=== PATIENT | male | born 1975 | race Caucasian/White ===

== ENCOUNTER → 2019-07-17 08:27 | Outpatient (CLI) | payer MEDICAID, SELFPAY ==
--- NOTE | 2019-07-17 08:29 | CA_ITS ---
APPROVED REPORT Health It Specialist: LORRI Study Quality: Good Indications: htn Risk Factors Hypertension Renal Artery Doppler Origin (R) 114.0/31.3 cm/sec Proximal (R) 125.0/39.1 cm/sec Mid (R) 94.5/34.5 cm/sec Distal (R) 65.7/19.1 cm/sec Renal Aorta Ratio (R) 1.20 Segmental A. (R) 36.6/14.3 cm/sec RI: 0.60 Segmental A. Sup (R) 42.8/16.0 cm/sec Segmental A. Mid (R) 40.8/15.3 cm/sec Segmental A. Inf (R) 26.2/11.5 cm/sec Origin (L) 143.0/42.9 cm/sec Proximal (L) 145.0/43.7 cm/sec Mid (L) 75.2/26.2 cm/sec Distal (L) 71.8/28.2 cm/sec Renal Aorta Ratio (L) 1.40 Segmental A. (L) 41.3/15.4 cm/sec RI: 0.62 Segmental A. Sup (L) 56.4/21.4 cm/sec Segmental A. Mid (L) 38.0/12.7 cm/sec Segmental A. Inf (L) 29.6/12.0 cm/sec Renal Measurements Kidney Size (R) 9.6x6.4 cm Cortical Thickness (R) 1.4 cm Kidney Size (L) 11.0x6.9 cm Cortical Thickness (L) 1.3 cm Aortic Doppler Velocity Waveform Sup [place] Ao 105.0 cm/sec Conclusion Normal bilateral renal artery ultrasound. There are multiple cysts seen right kidney the largest is located in the upper pole and measures 2.9 cm. Electronically signed by : Madan Llanos MD 07/17/2019 17:29:25
== END ==
PROVIDERS: PCP Nurse Practitioner Family; Visit Provider Internal Medicine Cardiovascular Disease
DX: R07.9 Chest pain, unspecified (principal); R06.00 Dyspnea, unspecified; I10 Essential (primary) hypertension; R60.9 Edema, unspecified
CPT/HCPCS: 93976

== ENCOUNTER → 2019-08-06 06:48 | Outpatient (CLI) | payer MEDICAID, SELFPAY ==
--- NOTE | 2019-08-06 | CA_ITS ---
APPROVED REPORT Exam: Pharmacologic Technologist: Kim Anderson, Ht: 5 ft 11 in Wt: 250 lbs BSA: 2.32 m2 HR: 52 bpm BP: 191/104 mmHg Indications: Chest pain, Shortness of Breath Medical History Medications: Clonidine,,,,, DOxazosin,,,,, Stress Test Details Test: LEXISCAN HR Resting HR: 55 bpm Max Heart Rate (APMHR): 177 bpm Max HR Achieved: 77 bpm Target HR (85% APMHR): 150 bpm % of APMHR: 43 Recovery HR: 54 bpm BP Resting BP: 191/104 mmHg Max BP: 203/110 mmHg Recovery BP: 185.0/116.0 mmHg ECG Clinical Exercise duration: 04:00 min Highest Stage Achieved: Stress ECG Conclusion Resting ECG: Sinus Bradycardia, NS ST-t abnormalities inferiorly. Symptoms: Shortness of Air, Mailaise, Mild Chest Pressure, Headache Arrhythmias/Ectopy: None ST-T Changes: Mild exaggeratoin of baseline ST-T abnormalities. Conclusion: Unremarkable Lexiscan stress. Myoview images reported separately. Electronically signed by : Salo Henderson, 08/06/2019 20:25:50
--- NOTE | 2019-08-06 06:50 | CA_ITS ---
APPROVED REPORT EXAM: Comprehensive 2D, Doppler, and color-flow Echocardiogram Pumping Supervisor: Racquel Mayorga RDCS Ht: 5 ft 10 in Wt: 261lbs BSA: 2.34 BP: 200/84 mmHg Indications: Chest Pain, Shortness of Breath, Obesity, Palpitations, Fatigue, Hypertension/HDD 2D Dimensions LVOT 2.50 cm (M/F) 1.5-2.5 M-Mode Dimensions RVDd 3.50 cm (0.9-2.6) LA Diam 4.60 cm (1.9-4.0) LVDd 6.60 cm (3.5-5.7) Ao Diam 3.30 cm (2.0-3.7) LVDs 4.90 cm (3.5-5.7) AV Cusp 2.00 cm (1.5-2.6) IVSd 0.90 cm (0.6-1.1) PWd 0.90 cm (0.6-1.1) EF (Teich) 49.60% FS 25.80% EDV (Teich) 224.00 mL ESV (Teich) 113.00 mL LV Diastology E/A Ratio 1.1 MED E' 5.75 (< 7 cm/sec) E'/MED E' Ratio 15.20 (>14) LAT E' 10.80 (<10 cm/sec) E/LAT E' Ratio 8.10 (>14) Mitral Valve MV E Max Abelino. 87.40 (40-130 cm/s) MV A Velocity 78.50 (40-130 cm/s) E/A Ratio 1.10 Left Ventricle Left atrium is mildly enlarged, left ventricle is normal size, mild concentric left ventricular hypertrophy, visually estimated ejection fraction 55% with no regional wall motion abnormality, grade 1 diastolic dysfunction seen with tissue Doppler evidence of raise left atrial pressure. Right Ventricle Right atrium and right ventricular normal size and contractility. Aortic Valve Aortic valve is normal, there is no aortic stenosis aortic insufficiency. Mitral Valve Mitral valve is grossly normal, there is no mitral stenosis, there is mild mitral regurgitation. Tricuspid Valve Tricuspid valve is grossly normal, there is mild tricuspid regurgitation, tricuspid regurgitation jet velocity is inadequate for calculation of the right ventricular systolic pressure. Pulmonic Valve Pulmonic valve is poorly visualized. Great Vessels Aortic root is normal size. Pericardium No significant pericardial effusion noted. Conclusion 1. Mildly enlarged left atrium, normal left ventricular size, mild concentric left ventricular hypertrophy, visually estimated ejection fraction 55% with no regional wall motion abnormality, grade 1 diastolic dysfunction seen with tissue Doppler evidence of raise left atrial pressure. 2. Mild mitral and tricuspid regurgitation. 3. No significant pericardial effusion noted. Electronically signed by : Salo Henderson, 08/09/2019 16:39:55
--- NOTE | 2019-08-06 06:52 | CT_ITS ---
PROCEDURE: CT CHEST WO CON CLINICAL INDICATION: cp, chest pain Shortness of air, chest tightness, hypertension COMPARISON: Chest from 06/09/2019 TECHNIQUE: Axial images obtained with sagittal and coronal reformats. All CT scans at the facility use one or more dose reduction, viz: automated exposure control, ma/kV adjustment per patient size (including targeted exams where dose is matched to indication, i.e. head), or iterative reconstruction technique. FINDINGS: There is scattered calcified nodes in the mediastinum. There is some mixed density in the anterior mediastinum which may be due to residual thymic tissue. Normal heart size. No mediastinal or hilar adenopathy. Hyperinflation with attenuation of the peripheral pulmonary vessels consistent with COPD. There are scattered ground-glass opacities nonspecific have a somewhat mosaic appearance me. Atelectatic or fibrotic changes are present in the lingula. There is a subpleural noncalcified pulmonary nodule in the left lower lobe posterior laterally at 8 mm. Other smaller subpleural nodules are present including a 6 mm subpleural nodule in the left lower lobe posteriorly. There are few small subpleural opacities on the right as well. No central obstructing lesions. There is mild bronchial thickening. No acute bony findings. Upper abdominal images show part of a right renal cyst which measures 2.7 cm. There is some suggestion of thickening of this cyst wall. Consider ultrasound for further evaluation IMPRESSION: COPD. There is a mosaic ground-glass appearance in the lower lung zones and perihilar regions. This is nonspecific and can be seen with small airway disease/COPD or patchy pneumonitis. Mixed density in the anterior mediastinum which may be related to residual thymic tissue Right renal cyst with mild thickening of the cyst wall. Consider ultrasound for further evaluation Noncalcified left lower lobe nodules measuring up to 8 mm. Suggest 6 month follow-up to confirm short term stability Dictated by: Madan Llanos MD 08/07/2019 07:10 Electronically signed by Madan Llanos MD in [place] 08/07/2019 07:13
--- NOTE | 2019-08-06 06:52 | NM_ITS ---
APPROVED REPORT Exam: Nuclear Stress Test Indication: Chest pain, SOB, Palpitations, HTN, Tobacco use, Family histoy Patient Location: Outpatient Stress Tech: Kim Anderson [place] Tech:Lula Montoya, ARRT, RT (R)(N) Ht: 5 ft 11 in Wt: 250 lbs BSA: 2.32 m2 HR: 52 bpm BP: 191/104 mmHg BMI: 34.8 History: Chest pain, SOB, Palpitations, HTN, Tobacco use, Family histoy Procedure: Patient received a 0.4 mg of intravenous Lexiscan, resting heart rate 52 bpm, resting blood pressure 191/104 mmHg, with Lexiscan maximum heart rate achived was 71 bpm which is Less than 85 % of the maximum predicted heart rate and blood pressure was 188/114 mmHg. With Lexiscan, patient denied any complaint of chest pain. Electrocardiogram Resting electrocardiogram shows sinus rhythm, with Lexiscan there is less than 1.[address] segment depression noted from the baseline EKG. The EKG portion of the Lexiscan Myoview is nondiagnostic. Cardiac Stress and Resting SPECT Images: Cardiac Stress and Resting SPECT images were obtained using technetium 99m Myoview 30.5 mCi stress and 10.13 mCi at rest. Gated SPECT with analysis of segmental wall motion and calculation of the ejection fraction also done. Cardiac stress and resting SPECT images show uniform myocardial activity without segmental perfusion abnormality, computer derived ejection fraction is 64% with no regional wall motion abnormality, right ventricle is normal size and contractility. Conclusion: 1. The EKG portion of the Lexiscan Myoview is nondiagnostic. 2. No scintigraphic evidence of reversible ischemia seen, computer derived ejection fraction is 64% with no regional wall motion abnormality, right ventricle is normal size and contractility. 3. Normal Lexiscan Myoview study. Electronically signed by : Salo Henderson, 08/06/2019 20:29:32
--- NOTE | 2019-08-06 07:14 | HMH.ITSHM ---
Current Home Medications as stated by this patient Jseus Loera or customer contact representative. []DOXAZOSIN CLONIDINE
== END ==
PROVIDERS: PCP Emergency Medicine; Visit Provider Internal Medicine Cardiovascular Disease
DX: R07.9 Chest pain, unspecified (principal); R06.00 Dyspnea, unspecified; I10 Essential (primary) hypertension; R60.9 Edema, unspecified
CPT/HCPCS: 71250; 78452; 93017; 93306

== ENCOUNTER → 2019-08-22 15:43 | Outpatient (CLI) | payer MEDICAID, SELFPAY | PROVIDERS: Visit Provider Urology | DX: G47.33 Obstructive sleep apnea (adult) (pediatric) (principal) ==

== ENCOUNTER 2020-09-24 00:09 | Emergency (ER) | payer MEDICAID, SELFPAY ==
[2020-09-24] VITALS (14 sets, daily range): BP systolic 95–130; BP diastolic 51–95; PULSE 91–132; RESP 18–32; TEMP 36.8–37.9; O2SAT 85–96; BMI 26.4
--- NOTE | 2020-09-24 00:24 | XR_ITS ---
PROCEDURE: XR CHEST PORTABLE CLINICAL HISTORY: fall, cough and shortness of breath Posttraumatic pain COMPARISON: CR CXR2V XR chest 2V from 11/13/2018 CR Chest from 06/09/[address] CHEST WO CON from 08/06/2019 FINDINGS: There are low lung volumes. There is increased density throughout both lungs in part which may be related to the poor inspiration. Confluent airspace opacities noted in both lower lobes left greater than right. Superimposed alveolar disease is also considered specially on the left. There is mild cardiomegaly No acute bony abnormalities. IMPRESSION: Poor inspiration with cardiomegaly with bilateral lower lobe pneumonia left greater than right Dictated by: Madan Llanos MD 09/24/2020 05:21 Madan Llanos MD in [place] 09/24/2020 05:21
--- NOTE | 2020-09-24 00:24 | CT_ITS ---
PROCEDURE: CT CERVICAL SPINE WO CON CLINICAL INDICATION: fall Neck injury with pain, contusion/abrasion or hematoma, cervical sprain/strain the COMPARISON: CR XR CHEST PORTABLE from 09/24/2020 TECHNIQUE: Axial images obtained with sagittal and coronal reformats. All CT scans at the facility use one or more dose reduction, viz: automated exposure control, ma/kV adjustment per patient size (including targeted exams where dose is matched to indication, i.e. head), or iterative reconstruction technique. Axial spiral CT scanning performed of the cervical spine beginning at the base of the skull and continuing to the upper T-spine. 3-D multiplanar reconstruction with 3-D manipulation of volumetric data set in image rendering was completed by the radiologist and/or technologist with the supervision of the radiologist on independent workstation. FINDINGS: Patient's head is tilted toward the left. Normal alignment. No fracture or dislocation. No lytic or blastic change. Scattered small nodes are present in the neck. There is diffuse confluent bilateral consolidation in the upper lobes the IMPRESSION: 1. No acute cervical spine fracture. 2. Diffuse bilateral airspace disease consistent with diffuse pneumonia or pulmonary edema. Dictated by: Madan Llanos MD 09/24/2020 07:22 Madan Llanos MD in [place] 09/24/2020 07:22
--- NOTE | 2020-09-24 00:24 | CT_ITS ---
PROCEDURE: CT HEAD/BRAIN WO CON CLINICAL INDICATION: fall Head injury with headache/pain, contusion, abrasion or hematomaAltered mental status, altered level of consciousness, confusion, disorientation COMPARISON: CT HEADWO CT head/brain wo con from 11/13/2018 TECHNIQUE: Axial images obtained. All CT scans at the facility use one or more dose reduction, viz: automated exposure control, ma/kV adjustment per patient size (including targeted exams where dose is matched to indication, i.e. head), or iterative reconstruction technique. FINDINGS: No midline shift, mass effect, intracranial hemorrhage, hydrocephalus, or extra-axial fluid collection is evident. The calvarium has an unremarkable appearance. No mastoid effusion. No sinus air-fluid level. IMPRESSION: No acute intracranial finding Dictated by: Madan Llanos MD 09/24/2020 06:33 Madan Llanos MD in [place] 09/24/2020 06:33
--- NOTE | 2020-09-24 00:28 | XR_ITS ---
PROCEDURE: XR PELVIS 1-2V CLINICAL INDICATION: fall Posttraumatic pain COMPARISON: No exams were available for comparison TECHNIQUE: XR Pelvis AP View FINDINGS: No fracture or dislocation is evident. No significant degenerative change. No lytic or blastic change. IMPRESSION: No acute findings. Dictated by: Madan Llanos MD 09/24/2020 05:18 Madan Llanos MD in [place] 09/24/2020 05:18
--- NOTE | 2020-09-24 00:29 | PC.NURSE ---
at bedside. rad notified of xrays
[2020-09-24 00:35] LABS: Basophils # 0.1 K/mm3 (0-0.2); Basophils % 0.2 % (0.1-2.0); Eosinophils % 0.1 % (0.1-12.0); Hemoglobin 12.1 g/dL (14.1-18.0); Lymphocytes # 1.2 K/mm3 (0.7-4.5); Lymphocytes % 3.8 % (10-50); Mean Corpuscular HGB Conc 31.1 g/dL (31.8-35.4); Mean Corpuscular Hemoglobin 31.4 pg (27.0-31.2); Mean Corpuscular Volume 100.9 fl (80-94); Mean Platelet Volume 7.4 fl (7.4-10.4); Monocytes # 1.2 K/mm3 (0.1-1.0); Monocytes % 3.8 % (1.7-9.3); Neutrophils # 28.5 K/mm3 (1.8-7.8); Neutrophils % 92.1 % (37.0-80.0); Platelet Count 397 K/mm3 (142-424); Red Blood Count 3.87 M/mm3 (4.60-6.20); Red Cell Distribution Width 13.2 % (11.5-17.5)
[2020-09-24 00:43] LABS: POC Glucose,Bedside 158 (70-110)
[2020-09-24 00:43] LABS: Magnesium 2.1 mg/dl (1.6-2.3)
--- NOTE | 2020-09-24 00:43 | PC.NURSE ---
pt to ct per stretcher
--- NOTE | 2020-09-24 00:43 | PC.NURSE ---
received resp. therapy aj
[2020-09-24 00:44] LABS: Alanine Aminotransferase 28 U/L (12-78); Albumin Level 4.5 g/dl (3.5-5.0); Alkaline Phosphatase 159 U/L (38-126); Anion Gap 23.1 mEq/L (5-15); Aspartate Amino Transferase 76 U/L (17-59); Bilirubin,Direct 0.2 mg/dl (0.0-0.4); Bilirubin,Indirect 0.3 mg/dL (0.0-0.9); Bilirubin,Total 0.5 mg/dl (0.2-1.3); Bilirubin,Unconjugated 0.3 mg/dL (0.0-1.1); Blood Urea Nitrogen 62 mg/dl (9-20); Calcium 10.2 mg/dl (8.4-10.2); Carbon Dioxide 14 mmol/L (22.0-30.0); Chloride 109 mmol/L (98-107); Creatinine Clearance Estimated 23 mL/min (50-200); Estimated Glomerular Filt Rate 12 ml/min (>60); GFR (African American) 15 ML/MIN (>60); Glucose 144 mg/dl (74-100); Sodium 140 mmol/L (136-145); Total Protein,Serum 8.2 g/dl (6.3-8.2)
[2020-09-24 00:45] LABS: MANUAL DIFFERENTIAL MANUAL DIFFERENTIAL (MANUAL DIFF)
[2020-09-24 00:46] LABS: Acetaminophen < 10 ug/ml (10-30); Salicylate < 1.0 mg/dL (2.0-20.0)
[2020-09-24 00:47] LABS: Potassium 6.1 mmoL/L (3.5-5.1)
--- NOTE | 2020-09-24 00:50 | PC.NURSE ---
ABG results did not cross over to computer. PH = 7.36, PCO2 = 27.4, PO2 = 40.1, HCO3 = 15.0, BE = -10.5, tHB = 12.1, sO2 = 75.2. Results taken to Dr Anderson
--- NOTE | 2020-09-24 00:54 | PC.NURSE ---
notified of critical lab results
[2020-09-24 00:57] LABS: Troponin I 0.02 ng/ml (0.00-0.034)
[2020-09-24 01:01] LABS: Free T4 (Free Thyroxine) 1.17 ng/dl (0.78-2.19)
--- NOTE | 2020-09-24 01:01 | HMH.EDFEV ---
ED Disposition Clinical Impression: Severe sepsis with acute organ dysfunction, ADI (acute kidney injury), Acute hyperkalemia Community acquired pneumonia Qualifiers: Laterality: unspecified laterality Qualified Code(s): J18.9 - Pneumonia, unspecified organism Respiratory failure, acute Qualifiers: Respiratory failure complication: hypoxia Qualified Code(s): J96.01 - Acute respiratory failure with hypoxia Disposition: Xfer Short-Term Hosp Condition on Discharge: Serious Referrals: PCP,No [Primary Care Provider] - Forms: Transfer Record - ED - Critical Care Critical Care Time: Yes Attestation: On 09/24/20, the high probability of a clinically significant, sudden or life threatening deterioration of the following system(s) required my full and direct attention, intervention and personal management. The time I documented below is in addition to time spent performing reported procedures but includes the following listed in this critical care notation. Total Critical Care Time: 90 Vital system(s) involved:: Metabolic Failure, Respiratory Failure, Renal Failure My critical care processes included: Assessment & monitoring of V/S, Initial and Re-exams, Coordinating Care, Medication Orders and management, Documentation Medical Decision Making - Medical Records Medical records reviewed: Yes: I reviewed the patient's medical records. - Tobin Inquiry Pt receiving controlled substance: No Vital Signs: 09/24/20 00:11 09/24/20 00:23 09/24/20 01:08 Temperature 100.3 F H Temperature Source Rectal Pulse Rate [Right Brachial] 132 H Respiratory Rate 32 H Blood Pressure [right armn] 130/80 Blood Pressure Mean [right armn] 96 Blood Pressure Source [right armn] Manual Cuff/ Auscultation Manual Cuff/ Auscultation Blood Pressure Position [right armn] Sitting Supine 02 Sat by Pulse Oximetry 87 L 85 L Oxygen Delivery Method Room Air Simple Mask Oxygen Flow Rate (LPM) 15 09/24/20 01:47 09/24/20 02:00 09/24/20 02:15 Temperature Temperature Source Pulse Rate [Right Brachial] 112 H 112 H 119 H Respiratory Rate 26 H 22 22 Blood Pressure [right armn] 112/73 110/52 L 95/52 L Blood Pressure Mean [right armn] 86 71 66 Blood Pressure Source [right armn] Blood Pressure Position [right armn] 02 Sat by Pulse Oximetry 93 L 93 L 93 L Oxygen Delivery Method Simple Mask Simple Mask Simple Mask Oxygen Flow Rate (LPM) 15 15 15 09/24/20 02:30 09/24/20 03:05 09/24/20 03:30 Temperature Temperature Source Pulse Rate [Right Brachial] 109 H 91 H 99 H Respiratory Rate 22 22 20 Blood Pressure [right armn] 110/64 116/95 H 96/51 L Blood Pressure Mean [right armn] 79 102 66 Blood Pressure Source [right armn] Blood Pressure Position [right armn] 02 Sat by Pulse Oximetry 87 L 91 L 86 L Oxygen Delivery Method Simple Mask Simple Mask Simple Mask Oxygen Flow Rate (LPM) 15 15 15 09/24/20 04:35 09/24/20 04:58 Temperature Temperature Source Pulse Rate [Right Brachial] 98 H 92 H Respiratory Rate 20 20 Blood Pressure [right armn] 105/58 L 108/62 L Blood Pressure Mean [right armn] 73 77 Blood Pressure Source [right armn] Blood Pressure Position [right armn] 02 Sat by Pulse Oximetry 88 L 88 L Oxygen Delivery Method Simple Mask Simple Mask Oxygen Flow Rate (LPM) 15 15 - Lab Data Lab results reviewed: Yes: I reviewed the patient's lab results. Lab Results 09/24/20 00:12: WBC 31.0 H*, RBC 3.87 L, Hgb 12.1 L, Hct 39.0 L, MCV 100.9 H, MCH 31.4 H, MCHC 31.1 L, RDW 13.2, Plt Count 397, MPV 7.4, Neut % (Auto) 92.1 H, Lymph % (Auto) 3.8 L, [place] % (Auto) 3.8, Eos % (Auto) 0.1, Baso % (Auto) 0.2, Neut # (Auto) 28.5 H, Lymph # (Auto) 1.2, [place] # (Auto) 1.2 H, Eos # (Auto) 0.0, Baso # (Auto) 0.1, Total Counted 100, Neutrophils % (Manual) 92 H, Lymphocytes % (Manual) 8 L, Platelet Estimate Normal, Macrocytosis 1+ 09/24/20 00:12: Sodium 140, Potassium 6.1 H*, Chloride 109 H, Carbon Dioxide 14 L, Anion Gap 23.1
[2020-09-24 01:02] LABS: C-Reactive Protein 384.7 mg/L (0-4); Coronavirus 19 IgG Antibody Negative (Negative); Coronavirus 19 IgM Antibody Negative (Negative)
[2020-09-24 01:04] LABS: Alanine Aminotransferase 28 U/L (12-78); Albumin Level 4.3 g/dl (3.5-5.0); Alkaline Phosphatase 169 U/L (38-126); Aspartate Amino Transferase 77 U/L (17-59); Bilirubin,Direct 0.3 mg/dl (0.0-0.4); Bilirubin,Indirect 0.3 mg/dL (0.0-0.9); Bilirubin,Total 0.6 mg/dl (0.2-1.3); Bilirubin,Unconjugated 0.2 mg/dL (0.0-1.1); Total Protein,Serum 7.6 g/dl (6.3-8.2)
[2020-09-24 01:05] LABS: Lactic Acid 3.5 mmol/L (0.7-2.1)
--- NOTE | 2020-09-24 01:14 | PC.NURSE ---
called RAD to send chest Xray to [facility]
[2020-09-24 01:16] LABS: Thyroid Stimulating Hormone 0.29 uIU/mL (0.465-4.68)
[2020-09-24 01:20] LABS: Erythrocyte Sedimentation Rate 79 mm/hr (0-15)
--- NOTE | 2020-09-24 01:22 | ECG_ITS ---
APPROVED REPORT Exam: Resting ECG HR:97 bpm ECG Measurements Heart Rate 97 AXES MT 160 P 42 QRSd 90 QRS -1 QT 326 T 37 QTc 414 Conclusion Normal sinus rhythm Possible Left atrial enlargement Abnormal ECG Electronically signed by : Eugene Fierro, 09/25/2020 18:15:49
[2020-09-24 01:37] LABS: Microscopic, Urine URINE MICROSCOPIC (MICROSCOPIC)
[2020-09-24 01:37] LABS: Adenovirus,PCR Not Detected (NotDetected); Bordetella Pertussis Not Detected (NotDetected); Chlamydophila Pneumoniae, PCR Not Detected (NotDetected); Coronavirus 19, PCR Not Detected (NotDetected); Coronavirus 229E Not Detected (NotDetected); Coronavirus NL63 Not Detected (NotDetected); Coronavirus OC43 Not Detected (NotDetected); Coronovirus HKU1,PCR Not Detected (NotDetected); Human Metapneumovirus Not Detected (NotDetected); Influenza A, PCR Not Detected (NotDetected); Influenza AH1, 2009 Not Detected (NotDetected); Influenza AH1, PCR Not Detected (NotDetected); Influenza AH3,PCR Not Detected (NotDetected); Influenza B, PCR Not Detected (NotDetected); Mycoplasma Pneumoniae, PCR Not Detected (NotDetected); Parainfluenza 1, PCR Not Detected (NotDetected); Parainfluenza 2, PCR Not Detected (NotDetected); Parainfluenza 3, PCR Not Detected (NotDetected); Parainfluenza 4, PCR Not Detected (NotDetected); Respiratory Syncytial Virus Not Detected (NotDetected); Rhinovirus/Enterovirus Not Detected (NotDetected)
--- NOTE | 2020-09-24 01:42 | PC.NURSE ---
speaking to [facility] r/t possible transfer
[2020-09-24 01:46] LABS: Appearance,Urine CLEAR (Clear); Bilirubin,Urine Negative (Negative); Blood, Urine 1+ (Negative); Color,Urine YELLOW (Yellow); Glucose,Urine (UA) Negative (Negative); Ketones,Urine Negative (Negative); Leukocyte Esterase,Urine Negative (Negative); Nitrate,Urine Negative (Negative); Protein,Urine 1+ (Negative); Urobilinogen,Urine 0.2 EU/dl (0.2)
[2020-09-24 01:49] LABS: Lymphocytes % 8 % (10-50); Macrocytosis 1+; Neutrophils % 92 % (42-76); Platelet Estimate Normal; Total Cells Counted 100
[2020-09-24 01:53] LABS: Amorphous Sediment,Urine 2+ /lpf; Bacteria,Urine 1+ /lpf; Mucus,Urine 1+ /lpf
[2020-09-24 01:57] LABS: Barbiturates Screen,Urine Negative ng/ml (<200)
[2020-09-24 01:58] LABS: Amphetamine/Metha Screen,Urine Negative ng/ml (<1000); Benzodiazepines Screen,Urine Positive ng/ml (<200)
[2020-09-24 01:59] LABS: Cocaine Screen,Urine Negative ng/ml (<300)
[2020-09-24 02:00] LABS: Cannabinoid Screen,Urine Negative ng/ml (<50); Methadone Screen,Urine Negative ng/ml (<300)
--- NOTE | 2020-09-24 02:00 | PC.NURSE ---
[facility] states they want to wait for covid swab results before acceptance for transfer
[2020-09-24 02:01] LABS: Opiate Screen,Urine Negative ng/ml (<300); Phencyclidine Screen,Urine Negative ng/ml (<25)
--- NOTE | 2020-09-24 02:36 | PC.NURSE ---
pt is sitting up in the bed alert and oriented x 3. pt continues to pull off non rebreather at times and takes off his pulse ox after being reminded to keep it on multiple times by staff to monitor pt
--- NOTE | 2020-09-24 03:11 | PC.NURSE ---
15 mins left on covid swab per lab
[2020-09-24 04:01] LABS: Troponin I 0.04 ng/ml (0.00-0.034)
--- NOTE | 2020-09-24 04:10 | PC.NURSE ---
spoke with Dr. Ferreira at who stated they would accept the pt only if he was intubated.
--- NOTE | 2020-09-24 04:11 | PC.NURSE ---
spoke with [facility] who agreed to come in early to intubate pt
--- NOTE | 2020-09-24 04:25 | PC.NURSE ---
Awaiting call from [facility] for weather check
--- NOTE | 2020-09-24 04:31 | PC.NURSE ---
[place] [facility] accepted flight. [place].
--- NOTE | 2020-09-24 04:39 | XR_ITS ---
PROCEDURE: XR CHEST PORTABLE CLINICAL HISTORY: post-intubation Respiratory failure COMPARISON: CR CXR2V XR chest 2V from 11/13/2018 CR Chest from 06/09/[address] CHEST WO CON from 08/06/2019 CR XR CHEST PORTABLE from 09/24/2020 FINDINGS: 5:06 a.m. Endotracheal tube is in good position. The tip is 3.9 cm above the caleb. Nasogastric tube is curled in the nasopharynx and hypo pharyngeal region with the tip not visualized and not in satisfactory position. Sarabjit in the ER was notified of this finding by telephone 09/24/2020 at 5:20 a.m. There is worsening bilateral diffuse airspace disease consistent with diffuse pneumonia. Low lung volumes are noted. There is an overlying difficulty or device on the left. IMPRESSION: Good position of ET tube. NG tube not in satisfactory position. Worsening bilateral airspace disease Dictated by: Madan Llanos MD 09/24/2020 05:29 Madan Llanos MD in [place] 09/24/2020 05:29
--- NOTE | 2020-09-24 04:45 | HMH.ANESCL ---
[facility] Anesthesia Checklist - Patient Identification Patient Identification: Arm Band, Verbal (Name & ) - Structural Data Admitted From: Emergency Dept Planned Operative Procedure/s: Emergent intubation Consent for Planned Operative Procedure(s) Verified: Yes Verified Documents: History and Physical - NPO Status Verified Time NPO: 04:00 (Ice chips) - Chart Verification Results Verified: CBC, BMP - Additional verifications Anesthesia Reactions: No - Airway Assessment C-Spine Mobility Assessed: Yes TMJ Mobility Assessed: Yes Dentition: Poor Dentition - Neurological Assessment Level of Consciousness: Awake, Alert, Appropriate, Follows Commands Hx Seizures: No Numbness or tingling in extremities: No - Anesthesia Plan Anesthesia Risk discussed: Yes Anesthesia Plan: Verified ASA Class: II (Emergent) Anesthesia Type: General [facility] History I have reviewed the patient's past medical history: Yes Medical History: Reports:: Congestive Heart Failure, Hypertension, Palpitations, Renal Disease *Have you ever received a pneumonia vaccine?: No *Have you received a flu vaccine this season?: No Anesthesia experience/problems:: None Other Surgeries: Yes: No Previous Surgery, Other Amputation: No Fractures: Yes (ARM,BACK,LEG) - *Social History Smoking Status: Current every day smoker Tobacco Type: cigarettes # Packs/Day (cigarettes): 1 Alcohol Intake: never Substance Use Type: painkillers *Occupational Status:: employed Housing: house *Travel in the last 8 weeks: None Family Hx:: Hypertension, Coronary Artery Disease, Heart Attack
--- NOTE | 2020-09-24 04:50 | PC.NURSE ---
Anesthesia arrived at bedside.
[2020-09-24 04:57] LABS: Reflex Lactic Add Lactic Reflex
--- NOTE | 2020-09-24 05:08 | PC.NURSE ---
Intubation successful. [facility] gave bed assignment and [facility] was notified to respond at this time
--- NOTE | 2020-09-24 05:10 | P.PCN_ITS ---
[facility] Procedure Note Procedure Note:: [id number]: Called by Dr. Anderson to the ER to perform an emergent intubation, pt sitting upright in bed O2sats 82%, all other VSS, pt sipping on water and ice chips, assessment and plan verified with patient. Pt positioned supine with HOB slightly elevated, monitors applied, preoxygenated, RSI induction using Versed 5mg, Ketamine 100mg, Propofol 100mg, glidescope #3 with stylet, ETT 8.0 placed at 22cm at lip, VSS stable, Rocuronium 50mg given, Vent setting are AV, TV 550, RR 18, FiO2 100%, PEEP 7. O2sat up to 96%.
--- NOTE | 2020-09-24 05:16 | PC.NURSE ---
NG tube placed by SADAF Montes. gastric contents present for placement confirmation. Xray will be obtained to verify placement
--- NOTE | 2020-09-24 05:19 | PC.NURSE ---
Xray verified placement of NG tube and ET tube
--- NOTE | 2020-09-24 05:19 | PC.NURSE ---
12 minute eta per [facility]
--- NOTE | 2020-09-24 05:22 | PC.NURSE ---
kramer catheter placed
--- NOTE | 2020-09-24 05:27 | PC.NURSE ---
Dr. turpin stated NG tube was curled up and needed to be replaced.
--- NOTE | 2020-09-24 05:37 | PC.NURSE ---
[facility] at bedside
[2020-09-24 05:46] LABS: ABG HCO3 13.5 mmhg (22.0-26.0); ABG Oxygen Saturation 97 % (90-100); ABG PCO2 43.7 mmhg (35.0-45.0); ABG PO2 119.2 mmhg (80-100); ABG TCO2 14.9 mmhg (23-27)
--- NOTE | 2020-09-24 05:49 | PC.NURSE ---
Asked Davis what medications he gave to document for intubation. davis stated he would make a note on intubation and put in and scan all of his medications that were given.
--- NOTE | 2020-09-24 05:52 | PC.NURSE ---
report called to aziza dawkins at [phone]; report given prior to patient leaving. pt loaded via stretcher to [facility]. report given to both director medical safety and RN at time of transport. all lines stable. attempted to contact ronnie alba with information related to patient. sent cellphone and tshirt with patient in white belongings bag. faxed a copy of the h&p to 9th floor fax [phone].
[2020-09-24 06:01] LABS: Allen's Test Patient Unable; Oxygen 100 %; PEEP 7; Source Right Radial; Tidal Volume 550; Vent Rate 18
[2020-09-24 06:02] LABS: ABG PH 7.11 mmol/L (7.35-7.45)
[2020-09-24 07:08] LABS: ABG Base Excess -10.5 mmol/L (-2.4-2.3); ABG PCO2 27.4 mmhg (35.0-45.0); ABG PH 7.36 mmol/L (7.35-7.45); ABG PO2 40.1 mmhg (80-100); ABG TCO2 15.9 mmhg (23-27)
[2020-09-24 07:09] LABS: ABG Oxygen Saturation 75 % (90-100); Oxygen 100 %
[2020-09-24 07:10] LABS: Allen's Test ACCEPTABLE; Source R RADIAL
[2020-09-24 07:11] LABS: ABG HCO3 14.8 mmhg (22.0-26.0); ABG PCO2 23.7 mmhg (35.0-45.0); ABG PH 7.41 mmol/L (7.35-7.45)
[2020-09-24 07:12] LABS: ABG Base Excess -9.8 mmol/L (-2.4-2.3); ABG Oxygen Saturation 45 % (90-100); ABG TCO2 15.5 mmhg (23-27); Allen's Test ACCEPTABLE; Oxygen ROOM AIR %; Source R RADIAL
[2020-09-26 00:45] LABS: Peripheral Smear Review Scanned Result
== END 2020-09-24 06:19 | disposition short-term general hospital (02) ==
PROVIDERS: Emergency Provider Emergency Medicine
DX: J18.9 Pneumonia, unspecified organism (principal); A41.9 Sepsis, unspecified organism; N17.9 Acute kidney failure, unspecified; J96.01 Acute respiratory failure with hypoxia; E87.5 Hyperkalemia; Z20.828 Contact with and (suspected) exposure to other viral communicable diseases; Z01.84 Encounter for antibody response examination; I10 Essential (primary) hypertension
CPT/HCPCS: 31500; 70450; 71045; 72125; 72170; 80048; 80076; 80305; 80329; 81001; 82803; 82962; 83605; 83735; 84145; 84439; 84443; 84484; 85007; 85025; 85651; 86140; 86328; 87040; 87070; 87077; 87205; 87581; 87633; 87798; 93005; 96365; 96366; 96367; 96375; 99285; J0456; J2704; U0003

== ENCOUNTER → 2020-10-29 18:07 | Outpatient (CLI) | payer MEDICAID, SELFPAY ==
[2020-10-29 19:29] LABS: Anion Gap 16.5 mEq/L (5-15); Blood Urea Nitrogen 37 mg/dl (9-20); Calcium 9.8 mg/dl (8.4-10.2); Carbon Dioxide 16 mmol/L (22.0-30.0); Chloride 110 mmol/L (98-107); Estimated Glomerular Filt Rate 20 ml/min (>60); GFR (African American) 25 ML/MIN (>60); Glucose 94 mg/dl (74-100); Potassium 5.5 mmoL/L (3.5-5.1); Sodium 137 mmol/L (136-145)
== END ==
PROVIDERS: Visit Provider Nurse Practitioner Family
DX: N17.9 Acute kidney failure, unspecified (principal)
CPT/HCPCS: 80048

== ENCOUNTER → 2020-10-31 12:19 | Outpatient (CLI) | payer MEDICAID, SELFPAY ==
[2020-10-31 13:17] LABS: Basophils # 0.1 K/mm3 (0-0.2); Basophils % 1.1 % (0.1-2.0); Chloride 107 mmol/L (98-107); Eosinophils % 8.9 % (0.1-12.0); Hematocrit 44.9 % (42.0-52.0); Hemoglobin 14.3 g/dL (14.1-18.0); Lymphocytes # 3.3 K/mm3 (0.7-4.5); Lymphocytes % 29.4 % (10-50); Mean Corpuscular HGB Conc 31.8 g/dL (31.8-35.4); Mean Corpuscular Hemoglobin 31.7 pg (27.0-31.2); Mean Corpuscular Volume 99.5 fl (80-94); Mean Platelet Volume 7.7 fl (7.4-10.4); Monocytes # 0.6 K/mm3 (0.1-1.0); Monocytes % 5.6 % (1.7-9.3); Neutrophils # 6.2 K/mm3 (1.8-7.8); Platelet Count 362 K/mm3 (142-424); Potassium 5.1 mmoL/L (3.5-5.1); Red Blood Count 4.51 M/mm3 (4.60-6.20); Sodium 138 mmol/L (136-145); White Blood Count 11.2 K/mm3 (4.8-10.8)
[2020-10-31 13:19] LABS: Bilirubin,Unconjugated 0.2 mg/dL (0.0-1.1); Blood Urea Nitrogen 36 mg/dl (9-20); Estimated Glomerular Filt Rate 26 ml/min (>60); GFR (African American) 31 ML/MIN (>60)
[2020-10-31 13:20] LABS: Alanine Aminotransferase 14 U/L (12-78); Albumin Level 4.8 g/dl (3.5-5.0); Albumin/Globulin Ratio 1.2 (1.1-1.8); Alkaline Phosphatase 112 U/L (38-126); Anion Gap 18.1 mEq/L (5-15); Aspartate Amino Transferase 23 U/L (17-59); Bilirubin,Direct 0.2 mg/dl (0.0-0.4); Bilirubin,Indirect 0.2 mg/dL (0.0-0.9); Bilirubin,Total 0.4 mg/dl (0.2-1.3); Calcium 10.7 mg/dl (8.4-10.2); Carbon Dioxide 18 mmol/L (22.0-30.0); Globulin 3.9 g/dL (1.3-3.2); Glucose 72 mg/dl (74-100); Magnesium 2.3 mg/dl (1.6-2.3); Total Protein,Serum 8.7 g/dl (6.3-8.2)
== END ==
PROVIDERS: Visit Provider Nurse Practitioner Family
DX: N28.9 Disorder of kidney and ureter, unspecified (principal); Z79.899 Other long term (current) drug therapy
CPT/HCPCS: 36415; 80053; 80076; 83735; 85025

== ENCOUNTER 2021-03-06 12:38 | Emergency (ER) | payer MEDICAID, SELFPAY ==
[2021-03-06 12:40] VITALS: BP 140/92; PULSE 71; RESP 20; TEMP 37.1; O2SAT 100; BMI 30.4
--- NOTE | 2021-03-06 13:07 | HMH.EDUTC ---
[facility] Disposition Clinical Impression: UTI (urinary tract infection) Qualifiers: Urinary tract infection type: acute cystitis Hematuria presence: without hematuria Qualified Code(s): N30.00 - Acute cystitis without hematuria Disposition: Home, Self-Care Condition on Discharge: Good Instructions: Urinary Tract Infection Additional Instructions: discussion with pt on doing std testing- call back for results Increase fluids, water and not soda or tea. Can drink cranberry juice or cranberry extract. White front to back Wear cotton underwear Empty bladder after intercourse Start antibiotics immediately and make sure you take the full course although you may start to see improvement over the next 48 hours. You can eat yogurt or take probiotics to decrease diarrhea or yeast infection caused by the antibiotic Be sure to follow-up anytime for new or worsening symptoms in 48 hours for wound urine culture results be sure to let you PCP no recent urine for culture so they can request records and ensure that you have appropriate antibiotic if you are not getting better or getting worse. If symptoms worsen or do not improve return or be seen in the ER. Follow-up with primary care this week. Prescriptions: cephALEXin [Cephalexin 500mg Tab] 500 mg PO BID 7 Days #14 tab Prescription Printed Referrals: Jack Salmeron APRN [Primary Care Provider] - Time of Disposition: 13:12 Medical Decision Making - Tobin Inquiry Pt receiving controlled substance: No Orders (Tests/Meds): ORDERS Category Date Time Status Urine Culture Stat Micro 03/06/21 13:06 Ordered [facility] HPI - General Chief complaint: Urgent Treatment Center Stated complaint: possible uti Time Seen by Provider: 03/06/21 13:07 Mode of Arrival: Ambulatory Source of Information: Patient Limitations: No Limitations - History of Present Illness Provider Complaint: 45 yr old male presents for burning with urination, redness and freq. pt states his was treated last week for a uti and he thinks he has one. - Related Data Home Medications Medication Instructions Recorded Confirmed Aspirin [Aspirin 81mg chewable 81 mg PO DAILY 06/09/19 10/29/20 tab] magnesium 200 mg tablet 250 mg PO DAILY tab 06/20/19 10/29/20 buprenorphine 8 mg-naloxone 2 mg 2 tab SUBLINGUAL DAILY tab 04/17/20 10/29/20 sublingual tablet Amlodipine Besylate [Amlodipine 5 mg PO DAILY 09/24/20 10/29/20 5mg tab] Previous Rx's Medication Instructions Recorded clonidine HCl 0.2 mg tablet 0.2 mg PO Q8H #270 tab 01/21/20 albuterol sulfate 90 mcg/actuation 2 puff INHALATION Q4-6H PRN #8.5 g 12/02/20 aerosol inhaler famotidine 20 mg tablet See Rx Instructions .ROUTE 01/27/21 .COMPLEX #30 tab lisinopril 20 1 tab PO DAILY #60 tab 02/04/21 mg-hydrochlorothiazide 12.5 mg tablet cephALEXin [Cephalexin 500mg Tab] 500 mg PO BID 7 Days #14 tab 03/06/21 Allergies Allergy/AdvReac Type Severity Reaction Status Date / Time No Known Allergies Allergy Verified 10/29/20 10:08 [facility] History - Hepatitis A Screen Attestation statement:: This patient has been screened for Hepatitis A risk factors. I have reviewed the patient's past medical history: Yes Medical History: Reports:: Congestive Heart Failure, Hypertension, Palpitations, Renal Disease Denies:: Seizures Other Surgeries: Yes: No Previous Surgery, Other Amputation: No Fractures: Yes (ARM,BACK,LEG) - Social History Smoking Status: Current every day smoker Tobacco Type: cigarettes # Packs/Day (cigarettes): 1 Alcohol Intake: former Substance Use Type: painkillers, former substance user Occupational Status: employed Housing: house Family Hx:: Hypertension, Coronary Artery Disease, Heart Attack Comment: Grandmother- of PA@60-70s. Grandfather- of PA@60-70. Father-HTN, AFIB. Mother-HTN. Brother-Afib ROS Obtained: Yes Systems reviewed as appropriate & no additional complaints - Constitutional Con
[2021-03-06 13:18] VITALS: BP 140/92; PULSE 71; RESP 20; TEMP 37.1; O2SAT 100
[2021-03-06 19:01] LABS: Apearance,Urine Clear (Clear); Color,Urine Yellow (Yellow); PH,Urine 5.5 (5.0-8.5); Specific Gravity, Urine 1.015 (1.005-1.030)
[2021-03-06 19:02] LABS: Bilirubin,Urine Negative (Negative); Blood, Urine Negative (Negative); Glucose,Urine (UA) Negative (Negative); Ketones,Urine Negative (Negative); Protein,Urine Negative (Negative); UTC Leukocyte Esterase,Urine Negative (Negative); UTC Nitrate,Urine Positive (Negative); Urobilinogen,Urine 0.2 EU/dl (0.2)
[2021-03-09 12:36] LABS: Neisseria gonorrhoeae, NAA Negative (Negative)
== END 2021-03-06 13:21 | disposition home or self-care (01) ==
PROVIDERS: Emergency Provider Nurse Practitioner Family; PCP Nurse Practitioner Family
DX: N30.00 Acute cystitis without hematuria (principal); I50.9 Heart failure, unspecified; I10 Essential (primary) hypertension; R00.2 Palpitations; N28.9 Disorder of kidney and ureter, unspecified; F17.210 Nicotine dependence, cigarettes, uncomplicated; Z79.899 Other long term (current) drug therapy
CPT/HCPCS: 81003; 87086; 87491; 87591; 99202; G0463

== ENCOUNTER 2021-07-02 12:54 | Emergency (ER) | payer MEDICAID, SELFPAY ==
[2021-07-02 14:08] VITALS: BP 00/00; PULSE 0; RESP 0; TEMP -17.7; TEMP 0
== END 2021-07-02 14:12 | disposition left against medical advice (07) ==
LOC: UTC 12:59
PROVIDERS: Emergency Provider Nurse Practitioner; PCP Emergency Medicine
DX: Z53.21 Procedure and treatment not carried out due to patient leaving prior to being seen by health care provider (principal)

== ENCOUNTER → 2021-12-21 16:00 | Outpatient (CLI) | payer MEDICAID, SELFPAY ==
[2021-12-21 17:19] LABS: Basophils # 0.2 K/mm3 (0-0.2); Basophils % 1.7 % (0.1-2.0); Eosinophils # 0.7 K/mm3 (0.0-0.4); Eosinophils % 7.7 % (0.1-12.0); Hematocrit 41.9 % (42.0-52.0); Mean Corpuscular Hemoglobin 30.9 pg (27.0-31.2); Mean Corpuscular Volume 99.8 fl (80-94); Mean Platelet Volume 8.5 fl (7.4-10.4); Monocytes # 0.6 K/mm3 (0.1-1.0); Monocytes % 6.4 % (1.7-9.3); Neutrophils # 4.7 K/mm3 (1.8-7.8); Neutrophils % 51.2 % (37.0-80.0); Platelet Count 348 K/mm3 (142-424); Red Cell Distribution Width 13.5 % (11.5-17.5); White Blood Count 9.1 K/mm3 (4.8-10.8)
[2021-12-21 17:25] LABS: Alanine Aminotransferase 19 U/L (12-78); Albumin Level 4.5 g/dl (3.5-5.0); Albumin/Globulin Ratio 1.7 (1.1-1.8); Alkaline Phosphatase 89 U/L (38-126); Anion Gap 17.2 mEq/L (5-15); Aspartate Amino Transferase 30 U/L (17-59); Bilirubin,Total 0.4 mg/dl (0.2-1.3); Blood Urea Nitrogen 50 mg/dl (9-20); Calcium 10.3 mg/dl (8.4-10.2); Carbon Dioxide 23 mmol/L (22.0-30.0); Chloride 102 mmol/L (98-107); Chol/HDL Ratio 5.2 (1-3.5); Cholesterol 214 mg/dl (140-200); Estimated Glomerular Filt Rate 19 ml/min (>60); GFR (African American) 23 ML/MIN (>60); Globulin 2.7 g/dL (1.3-3.2); Glucose 84 mg/dl (74-100); HDL Cholesterol 41 mg/dl (40-60); Potassium 5.2 mmoL/L (3.5-5.1); Sodium 137 mmol/L (136-145); Total Protein,Serum 7.2 g/dl (6.3-8.2); Triglycerides 187 mg/dl (30-150); VLDL Cholesterol 37 mg/dL (0-40)
[2021-12-21 17:36] LABS: Direct LDL Cholesterol 127.71 mg/dL (100-129)
[2021-12-21 17:41] LABS: Free T4 (Free Thyroxine) 1.88 ng/dl (0.78-2.19)
[2021-12-21 17:54] LABS: Thyroid Stimulating Hormone 0.94 uIU/mL (0.465-4.68)
== END ==
PROVIDERS: Visit Provider Emergency Medicine
DX: I10 Essential (primary) hypertension (principal); E55.9 Vitamin D deficiency, unspecified; E66.9 Obesity, unspecified; Z68.30 Body mass index [BMI] 30.0-30.9, adult
CPT/HCPCS: 80053; 80061; 82306; 84439; 84443; 85025

== ENCOUNTER 2021-12-25 16:57 | Inpatient (IN) | payer MEDICAID, SELFPAY ==
[2021-12-25] VITALS (7 sets, daily range): BP systolic 103–120; BP diastolic 51–78; PULSE 64–92; RESP 13–28; TEMP 36.6–36.9; O2SAT 66–92; BMI 30.8; BMI 30.7
--- NOTE | 2021-12-25 17:14 | ECG_ITS ---
APPROVED REPORT Exam: Resting ECG HR:85 bpm ECG Measurements Heart Rate 85 AXES DE 179 P 71 QRSd 97 QRS 23 QT 331 T 25 QTc 374 Conclusion SINUS RHYTHM NORMAL ECG UNCONFIRMED REPORT Electronically signed by : Latrell Taylor MD 12/26/2021 08:48:36
--- NOTE | 2021-12-25 17:18 | XR_ITS ---
PROCEDURE INFORMATION: Exam: XR Chest Exam date and time: 12/25/2021 5:18 PM Age: 46 years old Clinical indication: Shortness of breath; Additional info: SOB TECHNIQUE: Imaging protocol: XR of the chest. Views: 1 view. Portable AP exam 5:39 p.m. COMPARISON: CR XR CHEST PORTABLE 09/24/2020 5:06 AM FINDINGS: Tubes, catheters and devices: Overlying director of public health electrodes and oxygen tubing. Lungs: There is left perihilar and lower lobe airspace disease with consolidation and air bronchograms. Question mild hazy airspace opacities on the right. Slight hypoventilation/low lung volumes, but the volumes are increased compared with the previous chest x-ray. Pleural spaces: Unremarkable. No significant pleural effusion. No pneumothorax. Heart/Mediastinum: Cardiac silhouette appears within the upper limits normal, accentuated by portable AP technique. Bones/joints: There are mild spinal degenerative changes, with multilevel disc narrrowing and spondylosis. IMPRESSION: Left perihilar and lower lobe pulmonary airspace disease with consolidation, and slight hazy airspace opacities on the right. Correlate for asymmetric edema versus pneumonia.
[2021-12-25 17:28] LABS: ABG Base Excess -7.7 mmol/L (-2.4-2.3); ABG HCO3 17.5 mmhg (22.0-26.0); ABG Oxygen Saturation 81 % (90-100); ABG PCO2 30.3 mmhg (35.0-45.0); ABG PH 7.38 mmol/L (7.35-7.45); ABG TCO2 18.4 mmhg (23-27)
[2021-12-25 17:40] LABS: Allen's Test y; Oxygen 5 %
[2021-12-25 17:41] LABS: ABG PO2 42.9 mmhg (80-100)
[2021-12-25 17:47] LABS: Basophils # 0.1 K/mm3 (0-0.2); Basophils % 0.7 % (0.1-2.0); Eosinophils # 0.3 K/mm3 (0.0-0.4); Eosinophils % 1.6 % (0.1-12.0); Hematocrit 37.4 % (42.0-52.0); Hemoglobin 11.8 g/dL (14.1-18.0); Lymphocytes # 1.2 K/mm3 (0.7-4.5); Lymphocytes % 6.9 % (10-50); Mean Corpuscular HGB Conc 31.5 g/dL (31.8-35.4); Mean Corpuscular Hemoglobin 31.1 pg (27.0-31.2); Mean Corpuscular Volume 98.7 fl (80-94); Mean Platelet Volume 8.2 fl (7.4-10.4); Monocytes # 0.6 K/mm3 (0.1-1.0); Monocytes % 3.5 % (1.7-9.3); Neutrophils # 14.9 K/mm3 (1.8-7.8); Neutrophils % 87.4 % (37.0-80.0); Platelet Count 289 K/mm3 (142-424); Red Blood Count 3.79 M/mm3 (4.60-6.20); Red Cell Distribution Width 13.5 % (11.5-17.5); White Blood Count 17.1 K/mm3 (4.8-10.8)
--- NOTE | 2021-12-25 17:47 | HMH.EDGENADL ---
ED Disposition Clinical Impression: Respiratory failure with hypoxia Qualifiers: Chronicity: acute Qualified Code(s): J96.01 - Acute respiratory failure with hypoxia Disposition: Admitted As Inpatient Condition on Discharge: Serious - Critical Care Critical Care Time: Yes Attestation: On 12/25/21, the high probability of a clinically significant, sudden or life threatening deterioration of the following system(s) required my full and direct attention, intervention and personal management. The time I documented below is in addition to time spent performing reported procedures but includes the following listed in this critical care notation. Total Critical Care Time: 40 Vital system(s) involved:: Respiratory Failure My critical care processes included: Assessment & monitoring of V/S, Initial and Re-exams, Data Review/Interpretation, Coordinating Care, Medication Orders and management, Documentation Comment: Patient arrives with medical respiratory distress with hypoxia in the 60s, required urgent and repeated evaluations, and intricate management with ABG, oxygen titration for acute hypoxic respiratory failure. High risk of clinical deterioration. Medical Decision Making - Medical Records Medical records reviewed: Yes: I reviewed the patient's medical records. - Tobin Inquiry Pt receiving controlled substance: No Vital Signs: 12/25/21 16:58 12/25/21 17:32 12/25/21 18:01 Temperature 98 F Temperature Source Oral Pulse Rate 80 69 Pulse Rate [Radial] 92 H Respiratory Rate 28 H 24 15 Blood Pressure 112/63 117/52 L Blood Pressure [Right Arm] 112/63 Blood Pressure Mean 74 64 Blood Pressure Mean [Right Arm] 79 Blood Pressure Position [Right Arm] Sitting 02 Sat by Pulse Oximetry 66 L 87 L 89 L Oxygen Delivery Method Room Air Nasal Cannula Nasal Cannula Oxygen Flow Rate (LPM) 6 6 12/25/21 18:31 Temperature Temperature Source Pulse Rate 67 Pulse Rate [Radial] Respiratory Rate 13 Blood Pressure 103/51 L Blood Pressure [Right Arm] Blood Pressure Mean 63 Blood Pressure Mean [Right Arm] Blood Pressure Position [Right Arm] 02 Sat by Pulse Oximetry 89 L Oxygen Delivery Method Nasal Cannula Oxygen Flow Rate (LPM) 6 - Lab Data Lab Results 12/25/21 17:10: WBC 17.1 H, RBC 3.79 L, Hgb 11.8 L, Hct 37.4 L, MCV 98.7 H, MCH 31.1, MCHC 31.5 L, RDW 13.5, Plt Count 289, MPV 8.2, Neut % (Auto) 87.4 H, Lymph % (Auto) 6.9 L, [place] % (Auto) 3.5, Eos % (Auto) 1.6, Baso % (Auto) 0.7, Neut # (Auto) 14.9 H, Lymph # (Auto) 1.2, [place] # (Auto) 0.6, Eos # (Auto) 0.3, Baso # (Auto) 0.1, Total Counted 100, Neutrophils % (Manual) 85 H, Lymphocytes % (Manual) 7 L, Monocytes % (Manual) 6, Eosinophils % (Manual) 2, Platelet Estimate Normal 12/25/21 17:10: D-Dimer 1.22 H 12/25/21 17:10: Sodium 130 L, Potassium 5.6 H, Chloride 100, Carbon Dioxide 19 L, Anion Gap 16.6 H, BUN 64 H, Creatinine 3.90 H, Estimated Creat Clear 33, Estimated GFR 17 L*, Est GFR ( Amer) 20 L, Glucose 98, Calcium 9.3, Total Bilirubin 0.5, AST 63 H, ALT 21, Alkaline Phosphatase 146 H, Troponin I 0.03, Total Protein 7.2, Albumin 3.9, Globulin 3.3 H, Albumin/Globulin Ratio 1.2 12/25/21 17:10: Lactate 1.9 12/25/21 17:10: SARS-CoV-2 (PCR) Not detected, Influenza A Untype (PCR) Not detected, Influenza Type B (PCR) Not detected 12/25/21 17:10: APTT 30.8 H 12/25/21 17:10: PT 11.1, INR 0.98 12/25/21 17:20: Specimen Source r/r, O2 % 5, ABG pH 7.38, ABG pCO2 30.3 L, ABG pO2 42.9 L, ABG HCO3 17.5 L, ABG Total CO2 18.4 L, ABG O2 Saturation 81 L*, ABG Base Excess -7.7 L, Madan Test y Result diagrams: 12/25/21 17:10 12/25/21 17:10 Orders (Tests/Meds): ED MEDICATIONS Generic Name Dose Route Start Last Admin Trade Name Freq PRN Reason Stop Dose Admin Acetaminophen 650 mg 12/25/21 19:33 Acetaminophen 325mg Tab PO 01/24/22 19:32 Q4HP PRN Fever or Mild Pain Albuterol Sulfate puffs 12/25/21 23:00 Albuterol-Hfa 90mcg/Puff Inhaler 8gm IH 0
[2021-12-25 17:52] LABS: Lactic Acid 1.9 mmol/L (0.7-2.1)
[2021-12-25 17:53] LABS: Alanine Aminotransferase 21 U/L (12-78); Albumin Level 3.9 g/dl (3.5-5.0); Albumin/Globulin Ratio 1.2 (1.1-1.8); Alkaline Phosphatase 146 U/L (38-126); Anion Gap 16.6 mEq/L (5-15); Aspartate Amino Transferase 63 U/L (17-59); Bilirubin,Total 0.5 mg/dl (0.2-1.3); Blood Urea Nitrogen 64 mg/dl (9-20); Calcium 9.3 mg/dl (8.4-10.2); Carbon Dioxide 19 mmol/L (22.0-30.0); Chloride 100 mmol/L (98-107); Creatinine Clearance Estimated 33 mL/min (50-200); Estimated Glomerular Filt Rate 17 ml/min (>60); GFR (African American) 20 ML/MIN (>60); Globulin 3.3 g/dL (1.3-3.2); Glucose 98 mg/dl (74-100); MANUAL DIFFERENTIAL MANUAL DIFFERENTIAL (MANUAL DIFF); Potassium 5.6 mmoL/L (3.5-5.1); Sodium 130 mmol/L (136-145); Total Protein,Serum 7.2 g/dl (6.3-8.2)
[2021-12-25 17:58] LABS: D-Dimer 1.22 ug/mL (0.0-0.5)
[2021-12-25 18:06] LABS: Troponin I 0.03 ng/ml (0.00-0.034)
[2021-12-25 18:10] LABS: Coronavirus 19, PCR Not Detected (NotDetected); Influenza A, PCR Not Detected (NotDetected); Influenza B, PCR Not Detected (NotDetected)
[2021-12-25 18:34] LABS: Eosinophils % 2 % (0-3); Lymphocytes % 7 % (10-50); Monocytes % 6 % (2-9); Neutrophils % 85 % (42-76); Platelet Estimate Normal; Total Cells Counted 100
[2021-12-25 19:31] LABS: Activated Partial Thrombo Time 30.8 seconds (22.8-30.6); INR 0.98 (0.9-1.1); Prothrombin Time 11.1 seconds (10.1-12.5)
--- NOTE | 2021-12-25 19:37 | HMH.HP ---
*Admission Date: 12/25/21 *Chief complaint: soa *History of present illness: 46 yr old male presented to ed with c/o soa. pt states since he has been having increase in soa and weakness. pt states he has had pneumonia twice and both times he almost . pt states he become ill all of a sudden and it seems to be getting worse. pt was placed on high flow o2 due to o2 stats being decreased. Pt is admitted for pneumonia and elevated cre. Pt states chronic kidney failure. will place on treatment for possible pe until kidney function improves and ct scan to r/o pe can be completed. [facility] History I have reviewed the patient's past medical history: Yes Medical History: Reports:: Congestive Heart Failure, Hypertension, Palpitations, Renal Disease Denies:: Seizures *Have you ever received a pneumonia vaccine?: Yes *Have you received a flu vaccine this season?: Yes Other Surgeries: Yes: No Previous Surgery, Other Amputation: No Fractures: Yes (ARM,BACK,LEG) - *Social History Smoking Status: Former smoker Tobacco Type: cigarettes # Packs/Day (cigarettes): 1 Alcohol Intake: never Substance Use Type: painkillers, former substance user *Occupational Status:: other Housing: house *Travel in the last 8 weeks: None Family Hx:: Hypertension, Coronary Artery Disease, Heart Attack Review of Systems - Review of Systems Review of systems:: pertinent systems reviewed and negative unless documented below - Constitutional Denies body ache(s), Denies fever(s) - Eyes Denies blurry vision - ENT Denies bleeding gums - *Cardiovascular Denies bluish discoloration of hand/feet, Denies chest pain with activity, Denies leg pain with activity, Reports shortness of breath with activity - *Respiratory Reports cough, Reports shortness of breath, Reports shortness of breath with activity - *Gastrointestinal Denies abdominal pain - *Genitourinary Denies difficulty urinating - *Musculoskeletal Denies abnormal walking - Integumentary/Breasts Denies rash - *Neurologic Denies unsteadiness - Psychiatric Denies abnormal sleep pattern - Endocrine Reports fatigue - Hematologic/Lymphatic Denies easy bruising - Allergic/Immunologic Denies itchy eyes Meds Home Medications Medication Instructions Recorded Confirmed Type buprenorphine 8 mg-naloxone 2 mg 2 tab SUBLINGUAL DAILY tab 04/17/20 12/25/21 History sublingual tablet Albuterol Sulfate [Albuterol 2 puff IH Q6 12/25/21 12/25/21 History Sulfate Hfa] Fluticasone Propionate 1 spray INTRANASAL DAILY 12/25/21 12/25/21 History Lisinopril/Hydrochlorothiazide 1 tab PO DAILY 12/25/21 12/25/21 History [Lisinopril-Hctz 20-12.5 mg Tab] Pantoprazole Sodium 40 mg PO DAILY 12/25/21 12/25/21 History Allergies Allergy/AdvReac Type Severity Reaction Status Date / Time No Known Allergies Allergy Verified 12/21/21 13:43 Exam Vital signs and Labs for Last 24 Hours: Temp Pulse Resp BP Pulse Ox 98 F 67 13 103/51 L 89 L 12/25/21 16:58 12/25/21 18:31 12/25/21 18:31 12/25/21 18:31 12/25/21 18:31 Laboratory Results - last 24 hr 12/25/21 17:10: WBC 17.1 H, RBC 3.79 L, Hgb 11.8 L, Hct 37.4 L, MCV 98.7 H, MCH 31.1, MCHC 31.5 L, RDW 13.5, Plt Count 289, MPV 8.2, Neut % (Auto) 87.4 H, Lymph % (Auto) 6.9 L, [place] % (Auto) 3.5, Eos % (Auto) 1.6, Baso % (Auto) 0.7, Neut # (Auto) 14.9 H, Lymph # (Auto) 1.2, [place] # (Auto) 0.6, Eos # (Auto) 0.3, Baso # (Auto) 0.1, Total Counted 100, Neutrophils % (Manual) 85 H, Lymphocytes % (Manual) 7 L, Monocytes % (Manual) 6, Eosinophils % (Manual) 2, Platelet Estimate Normal 12/25/21 17:10: D-Dimer 1.22 H 12/25/21 17:10: Sodium 130 L, Potassium 5.6 H, Chloride 100, Carbon Dioxide 19 L, Anion Gap 16.6 H, BUN 64 H, Creatinine 3.90 H, Estimated Creat Clear 33, Estimated GFR 17 L*, Est GFR ( Amer) 20 L, Glucose 98, Calcium 9.3, Total Bilirubin 0.5, AST 63 H, ALT 21, Alkaline Phosphatase 146 H, Troponin I 0.03, Total Protein 7.2, Album
--- NOTE | 2021-12-25 20:42 | PC.NURSE ---
patient up to floor via stretcher @ this time.
[2021-12-25 20:57] LABS: Adenovirus,PCR Not Detected (NotDetected); Bordetella Pertussis Not Detected (NotDetected); Chlamydophila Pneumoniae, PCR Not Detected (NotDetected); Coronavirus 229E Not Detected (NotDetected); Coronavirus NL63 Not Detected (NotDetected); Coronavirus OC43 Not Detected (NotDetected); Coronovirus HKU1,PCR Not Detected (NotDetected); Human Metapneumovirus Not Detected (NotDetected); Influenza A, PCR Not Detected (NotDetected); Influenza AH1, 2009 Not Detected (NotDetected); Influenza AH1, PCR Not Detected (NotDetected); Influenza AH3,PCR Not Detected (NotDetected); Influenza B, PCR Not Detected (NotDetected); Mycoplasma Pneumoniae, PCR Not Detected (NotDetected); Parainfluenza 1, PCR Not Detected (NotDetected); Parainfluenza 2, PCR Not Detected (NotDetected); Parainfluenza 3, PCR Not Detected (NotDetected); Parainfluenza 4, PCR Not Detected (NotDetected); Respiratory Syncytial Virus Not Detected (NotDetected); Rhinovirus/Enterovirus Not Detected (NotDetected)
--- NOTE | 2021-12-25 23:32 | PC.NURSE ---
Consulted with [facility] pharmacist about ptt and when to draw next. Pharmacist says draw 4 hrs after start of heparin. Then call back with results for titration.
[2021-12-26] VITALS (7 sets, daily range): BP systolic 92–132; BP diastolic 52–81; PULSE 59–69; RESP 20–24; TEMP 37.2–37.9; O2SAT 92–98; BMI 30.8
[2021-12-26 02:50] LABS: PTT Heparin (inpatient only) 79.9 Seconds (23.6-34.0)
--- NOTE | 2021-12-26 02:54 | PC.NURSE ---
[facility] paged for ptt result and dosing instructions. Pharmacist says to decrease heparin to 1,650 units/hr. She is also putting in a ptt draw, 6 hrs from now.
[2021-12-26 06:32] LABS: Basophils # 0.1 K/mm3 (0-0.2); Basophils % 0.9 % (0.1-2.0); Eosinophils # 0.6 K/mm3 (0.0-0.4); Eosinophils % 4.7 % (0.1-12.0); Hematocrit 33.5 % (42.0-52.0); Lymphocytes % 7.9 % (10-50); Mean Corpuscular HGB Conc 31.5 g/dL (31.8-35.4); Mean Corpuscular Volume 98.2 fl (80-94); Mean Platelet Volume 8.1 fl (7.4-10.4); Monocytes # 0.4 K/mm3 (0.1-1.0); Monocytes % 2.9 % (1.7-9.3); Neutrophils # 10.8 K/mm3 (1.8-7.8); Neutrophils % 83.6 % (37.0-80.0); Platelet Count 239 K/mm3 (142-424); Red Blood Count 3.41 M/mm3 (4.60-6.20); Red Cell Distribution Width 13.2 % (11.5-17.5); White Blood Count 12.9 K/mm3 (4.8-10.8)
[2021-12-26 06:40] LABS: Chloride 102 mmol/L (98-107); Sodium 127 mmol/L (136-145)
[2021-12-26 06:43] LABS: Alanine Aminotransferase 15 U/L (12-78); Albumin Level 3.5 g/dl (3.5-5.0); Albumin/Globulin Ratio 1.2 (1.1-1.8); Alkaline Phosphatase 129 U/L (38-126); Anion Gap 9.1 mEq/L (5-15); Aspartate Amino Transferase 49 U/L (17-59); Bilirubin,Total 0.5 mg/dl (0.2-1.3); Blood Urea Nitrogen 60 mg/dl (9-20); Carbon Dioxide 22 mmol/L (22.0-30.0); Creatinine Clearance Estimated 35 mL/min (50-200); Estimated Glomerular Filt Rate 18 ml/min (>60); GFR (African American) 22 ML/MIN (>60); Total Protein,Serum 6.5 g/dl (6.3-8.2)
[2021-12-26 06:44] LABS: Calcium 8.7 mg/dl (8.4-10.2); Glucose 99 mg/dl (74-100); Magnesium 2.7 mg/dl (1.6-2.3); Phosphorous 4.4 mg/dl (2.5-4.5)
[2021-12-26 06:56] LABS: Potassium 6.1 mmoL/L (3.5-5.1)
[2021-12-26 07:23] LABS: Hemoglobin 10.7 g/dL (14.1-18.0)
--- NOTE | 2021-12-26 08:24 | HMH.PHAINT ---
MEDICATION RECONCILIATION COMPLETED ON PATIENT USING EXTERNAL FILL HISTORY FROM PHARMACY AND LIST FROM PCP OFFICE. -ISIDRO PULIDOD
--- NOTE | 2021-12-26 08:25 | P.CONPHA_ITS ---
[facility] Pharmacy VTE Monitoring - Patient Demographics Admission date: 12/25/21 Report Date: 12/26/21 Time: 08:25 Allergies/Adverse Reactions: Patient Allergies No Known Allergies Allergy (Verified 12/21/21 13:43) Height: 1.78 m Weight: 97.795 kg Patient Problems: Current Active Problems Community acquired pneumonia (Acute) ADI (acute kidney injury) (Acute) Respiratory failure, acute (Acute) Respiratory failure with hypoxia (Acute) - VTE Risk Labs: VTE Related Lab Results Hgb 10.7 g/dL (14.1-18.0) L 12/26/21 06:14 Hct 33.5 % (42.0-52.0) L 12/26/21 06:14 Plt Count 239 K/mm3 (142-424) 12/26/21 06:14 PT 11.1 seconds (10.1-12.5) 12/25/21 17:10 INR 0.98 (0.9-1.1) 12/25/21 17:10 APTT 79.9 Seconds (23.6-34.0) H* 12/26/21 01:25 BUN 60 mg/dl (9-20) H 12/26/21 06:14 Creatinine 3.70 mg/dl (0.66-1.25) H 12/26/21 06:14 Estimated Creat Clear 35 mL/min (50-200) 12/26/21 06:14 Was VTE Risk Assessment Performed: Yes VTE Score: 6 VTE Risk Level: Moderate Risk - Prophylaxis VTE Prophylaxis Ordered?: Yes Types of VTE Prophylaxis: TEDS Knee High, Pharmacological Location of Applied Device: Bilateral Lower Extremeties Pharmacologic Type: Heparin
--- NOTE | 2021-12-26 09:18 | HMH.ACPN2 ---
Internal Medicine - PN: Subj *Date: 12/26/21 *Time: 09:18 Interval history: doing ok on vasotherm - pt has abn renal function with inc k Exam Vital signs and Labs for Last 24 Hours: Temp Pulse Resp BP Pulse Ox 100.1 F H 69 24 117/58 L 92 L 12/26/21 08:00 12/26/21 08:00 12/26/21 08:00 12/26/21 08:00 12/26/21 08:00 Laboratory Results - last 24 hr 12/25/21 17:10: WBC 17.1 H, RBC 3.79 L, Hgb 11.8 L, Hct 37.4 L, MCV 98.7 H, MCH 31.1, MCHC 31.5 L, RDW 13.5, Plt Count 289, MPV 8.2, Neut % (Auto) 87.4 H, Lymph % (Auto) 6.9 L, [place] % (Auto) 3.5, Eos % (Auto) 1.6, Baso % (Auto) 0.7, Neut # (Auto) 14.9 H, Lymph # (Auto) 1.2, [place] # (Auto) 0.6, Eos # (Auto) 0.3, Baso # (Auto) 0.1, Total Counted 100, Neutrophils % (Manual) 85 H, Lymphocytes % (Manual) 7 L, Monocytes % (Manual) 6, Eosinophils % (Manual) 2, Platelet Estimate Normal 12/25/21 17:10: D-Dimer 1.22 H 12/25/21 17:10: Sodium 130 L, Potassium 5.6 H, Chloride 100, Carbon Dioxide 19 L, Anion Gap 16.6 H, BUN 64 H, Creatinine 3.90 H, Estimated Creat Clear 33, Estimated GFR 17 L*, Est GFR ( Amer) 20 L, Glucose 98, Calcium 9.3, Total Bilirubin 0.5, AST 63 H, ALT 21, Alkaline Phosphatase 146 H, Troponin I 0.03, Total Protein 7.2, Albumin 3.9, Globulin 3.3 H, Albumin/Globulin Ratio 1.2 12/25/21 17:10: Lactate 1.9 12/25/21 17:10: SARS-CoV-2 (PCR) Not detected, Influenza A Untype (PCR) Not detected, Influenza Type B (PCR) Not detected 12/25/21 17:10: APTT 30.8 H 12/25/21 17:10: PT 11.1, INR 0.98 12/25/21 17:10: Chlamy pneumoniae PCR Not detected, Adenovirus (PCR) Not detected, B. pertussis DNA (PCR) Not detected, Coronavirus OC43 (PCR) Not detected, Coronavirus HKU1 (PCR) Not detected, Coronavirus 229E (PCR) Not detected, Coronavirus NL63 (PCR) Not detected, Human Metapneumovir PCR Not detected, Influenza A (H1) PCR Not detected, Influ A (H1N1/09) PCR Not detected, Influenza A (H3) PCR Not detected, Influenza Type A (PCR) Not detected, Influenza Type B (PCR) Not detected, M. pneumoniae (PCR) Not detected, Parainfluenza 1 (PCR) Not detected, Parainfluenza 2 (PCR) Not detected, Parainfluenza 3 (PCR) Not detected, Parainfluenza 4 (PCR) Not detected, RSV (PCR) Not detected, Entero/Rhino (PCR) Not detected 12/25/21 17:20: Specimen Source r/r, O2 % 5, ABG pH 7.38, ABG pCO2 30.3 L, ABG pO2 42.9 L, ABG HCO3 17.5 L, ABG Total CO2 18.4 L, ABG O2 Saturation 81 L*, ABG Base Excess -7.7 L, Madan Test y 12/26/21 01:25: APTT 79.9 H* 12/26/21 06:14: WBC 12.9 H, RBC 3.41 L, Hgb 10.7 L, Hct 33.5 L, MCV 98.2 H, MCH 31.0, MCHC 31.5 L, RDW 13.2, Plt Count 239, MPV 8.1, Neut % (Auto) 83.6 H, Lymph % (Auto) 7.9 L, [place] % (Auto) 2.9, Eos % (Auto) 4.7, Baso % (Auto) 0.9, Neut # (Auto) 10.8 H, Lymph # (Auto) 1.0, [place] # (Auto) 0.4, Eos # (Auto) 0.6 H, Baso # (Auto) 0.1 12/26/21 06:14: Sodium 127 L, Potassium 6.1 H*, Chloride 102, Carbon Dioxide 22, Anion Gap 9.1, BUN 60 H, Creatinine 3.70 H, Estimated Creat Clear 35, Estimated GFR 18 L*, Est GFR ( Amer) 22 L, Glucose 99, Calcium 8.7, Phosphorus 4.4, Magnesium 2.7 H, Total Bilirubin 0.5, AST 49, ALT 15 D, Alkaline Phosphatase 129 H, Total Protein 6.5, Albumin 3.5 D, Globulin 3.0, Albumin/Globulin Ratio 1.2 12/26/21 06:14: Lactate 1.0 I & O for Last 24 hours: Intake & Output 12/23/21 12/24/21 12/25/21 12/26/21 11:59 11:59 11:59 11:59 Intake Total 814 / 814 Output Total 1050 / 1050 Balance -236 / -236 Weight 215 lb 9.6 oz - Constitutional no acute distress, obese - *Routine HEENT Exam Head: Present: normocephalic Eye: Present: EOMI, PERRL ENT: Present: mucous membranes dry - *Routine Neck Exam Absent: JVD - *Routine Respiratory Exam Present: decreased breath sounds - *Routine Cardiovascular Exam Present: RRR - *Routine Abdominal Exam Present: soft - *Routine Extremities Exam Absent: calf tenderness - *Routine Skin Exam Absent: rash - *Routine Neurological Exam Present: alert, oriented X3, CN II-XII intact. Absent:
--- NOTE | 2021-12-26 09:35 | HMH.PHAHEP ---
[facility] Pharmacy Heparin Dosing - Demographic Data Admission date:: 12/25/21 Date: 12/26/21 Time: 09:35 Allergies/Adverse Reactions: Allergies Allergy/AdvReac Type Severity Reaction Status Date / Time No Known Allergies Allergy Verified 12/21/21 13:43 Height: 1.78 m Weight: 97.8 kg - Indication Medication therapy:: Heparin Patient Problems: Current Active Problems Community acquired pneumonia (Acute) ADI (acute kidney injury) (Acute) Respiratory failure, acute (Acute) Respiratory failure with hypoxia (Acute) Severe sepsis with acute organ dysfunction (Acute) Acute hyperkalemia (Acute) Obesity (Chronic) CVA?: No Bleeding problem?: No Kidney disease?: No MA?: No Desired PTT range:: Other (50-75) - Labs Anticoagulation Lab Results:: 12/25/21 12/26/21 17:10 06:14 Hgb 11.8 L 10.7 L Hct 37.4 L 33.5 L Plt Count 289 239 - Monitoring Dose Monitor 1 Date: 12/25/21 Time: 17:10 PTT Result:: 30.8 (BASELINE) Infusion Rate:: INITIATE HEPARIN DRIP AT 1,750 UNITS/HR Comment:: 8,000 UNIT BOLUS Dose Monitor 2 Date: 12/26/21 Time: 01:25 PTT Result:: 79.9 Infusion Rate:: DECREASE RATE TO 1,650 UNITS/HR Comment:: [id number] Dose Monitor 3 Date: 12/26/21 Time: 09:00 PTT Result:: 39.6 Infusion Rate:: INCREASE RATE TO 1,850 UNITS/HR Comment:: 4,000 UNIT BOLUS Dose Monitor 4 Date: 12/26/21 Time: 13:00 PTT Result:: 72.0 Infusion Rate:: 1,850 UNITS/HR Dose Monitor 5 Date: 12/26/21 Time: 20:00 PTT Result:: 40.2 Infusion Rate:: INCREASE RATE TO 2,000 UNITS/HR Dose Monitor 6 Date: 12/27/21 Time: 03:00 PTT Result:: 30.5 Infusion Rate:: INCREASE RATE TO 2,400 UNITS/HR Dose Monitor 7 Date: 12/27/21 Time: 09:30 PTT Result:: 43.5 Infusion Rate:: INCREASE RATE TO 2,600 UNITS/HR Comment:: 3,000 UNIT BOLUS [id number] Dose Monitor 8 Date: 12/27/21 Time: 15:00 PTT Result:: 32.5 Infusion Rate:: INCREASE RATE TO 3,000 UNITS/HR Comment:: 4,000 UNIT BOLUS Dose Monitor 9 Date: 12/27/21 Time: 23:00 PTT Result:: 94.8 Infusion Rate:: DECREASE RATE TO 2,700 UNITS/HR Dose Monitor 10 Date: 12/28/21 Time: 06:15 PTT Result:: 52.6 Infusion Rate:: 2,700 UNITS/HR Comment:: [id number] Dose Monitor 11 Date: 12/28/21 Time: 12:00 PTT Result:: 29.9 Infusion Rate:: INCREASE RATE TO 2,900 UNITS/HR Comment:: 4,000 UNIT BOLUS Dose Monitor 12 Date: 12/28/21 Time: 19:40 PTT Result:: 65.0 Infusion Rate:: 2,900 UNITS/HR Dose Monitor 13 Date: 12/29/21 Time: 04:00 PTT Result:: 35.5 Infusion Rate:: INCREASE RATE TO 3,300 UNITS/HR Comment:: 4,000 UNIT BOLUS Dose Monitor 14 Date: 12/29/21 Time: 09:00 Comment:: HEPARIN DRIP STOPPED AND SWITCHED TO XARELTO - Core Measures Is INR > or = 2 at discharge?: No Most Recent Labs:: Laboratory Results - last 24 hr 12/25/21 17:10: WBC 17.1 H, RBC 3.79 L, Hgb 11.8 L, Hct 37.4 L, MCV 98.7 H, MCH 31.1, MCHC 31.5 L, RDW 13.5, Plt Count 289, MPV 8.2, Neut % (Auto) 87.4 H, Lymph % (Auto) 6.9 L, [place] % (Auto) 3.5, Eos % (Auto) 1.6, Baso % (Auto) 0.7, Neut # (Auto) 14.9 H, Lymph # (Auto) 1.2, [place] # (Auto) 0.6, Eos # (Auto) 0.3, Baso # (Auto) 0.1, Total Counted 100, Neutrophils % (Manual) 85 H, Lymphocytes % (Manual) 7 L, Monocytes % (Manual) 6, Eosinophils % (Manual) 2, Platelet Estimate Normal 12/25/21 17:10: D-Dimer 1.22 H 12/25/21 17:10: Sodium 130 L, Potassium 5.6 H, Chloride 100, Carbon Dioxide 19 L, Anion Gap 16.6 H, BUN 64 H, Creatinine 3.90 H, Estimated Creat Clear 33, Estimated GFR 17 L*, Est GFR ( Amer) 20 L, Glucose 98, Calcium 9.3, Total Bilirubin 0.5, AST 63 H, ALT 21, Alkaline Phosphatase 146 H, Troponin I 0.03, Total Protein 7.2, Albumin 3.9, Globulin 3.3 H, Albumin/Globulin Ratio 1.2 12/25/21 17:10: Lactate 1.9 12/25/21 17:10: SARS-CoV-2 (PCR) Not detected, Influenza A Untype (PCR) Not detected, Influenza Type B (PCR
[2021-12-26 10:10] LABS: PTT Heparin (inpatient only) 39.6 Seconds (23.6-34.0)
[2021-12-26 13:28] LABS: Chloride 103 mmol/L (98-107); Sodium 128 mmol/L (136-145)
[2021-12-26 13:31] LABS: Alanine Aminotransferase 16 U/L (12-78); Alkaline Phosphatase 128 U/L (38-126); Aspartate Amino Transferase 42 U/L (17-59); Bilirubin,Total 0.4 mg/dl (0.2-1.3); Blood Urea Nitrogen 58 mg/dl (9-20); Creatinine Clearance Estimated 36 mL/min (50-200); Estimated Glomerular Filt Rate 18 ml/min (>60); GFR (African American) 22 ML/MIN (>60)
[2021-12-26 13:32] LABS: Albumin Level 3.3 g/dl (3.5-5.0); Albumin/Globulin Ratio 1.1 (1.1-1.8); Calcium 8.7 mg/dl (8.4-10.2); Carbon Dioxide 19 mmol/L (22.0-30.0); Glucose 131 mg/dl (74-100); Total Protein,Serum 6.3 g/dl (6.3-8.2)
[2021-12-26 20:52] LABS: PTT Heparin (inpatient only) 40.2 Seconds (23.6-34.0)
--- NOTE | 2021-12-26 21:04 | PC.NURSE ---
This RN spoke with Lizzette with [facility], Heparin drip increased to 2,000u/hr
[2021-12-27] VITALS (9 sets, daily range): BP systolic 107–157; BP diastolic 50–98; PULSE 52–85; RESP 16–26; TEMP 36.7–37.7; O2SAT 93–99; BMI 31.6
[2021-12-27 03:12] LABS: Basophils # 0.2 K/mm3 (0-0.2); Basophils % 1.6 % (0.1-2.0); Eosinophils # 0.8 K/mm3 (0.0-0.4); Eosinophils % 7.9 % (0.1-12.0); Hematocrit 31.9 % (42.0-52.0); Hemoglobin 10.1 g/dL (14.1-18.0); Lymphocytes # 1.6 K/mm3 (0.7-4.5); Mean Corpuscular HGB Conc 31.6 g/dL (31.8-35.4); Mean Corpuscular Hemoglobin 31.5 pg (27.0-31.2); Mean Corpuscular Volume 99.6 fl (80-94); Mean Platelet Volume 8.1 fl (7.4-10.4); Monocytes # 0.4 K/mm3 (0.1-1.0); Monocytes % 3.3 % (1.7-9.3); Neutrophils # 7.7 K/mm3 (1.8-7.8); Neutrophils % 72.2 % (37.0-80.0); Platelet Count 223 K/mm3 (142-424); Red Cell Distribution Width 13.3 % (11.5-17.5); White Blood Count 10.7 K/mm3 (4.8-10.8)
[2021-12-27 03:26] LABS: PTT Heparin (inpatient only) 30.5 Seconds (23.6-34.0)
--- NOTE | 2021-12-27 03:37 | PC.NURSE ---
This RN spoke with Lizzette at [facility] with new aPTT of 30.5, heparin drip changed to 2,400U/hr.
--- NOTE | 2021-12-27 05:21 | PC.NURSE ---
Patient had a slight increase in temperature, acetaminophen administered appropriately. 400 vitals WNL. During activity patient will de-stat into the 70s. RT was called to bedside. Vapotherm increased, patient recovered. Vapotherm now at 25/100. No other events thru the nite.
--- NOTE | 2021-12-27 06:24 | PC.NURSE ---
Pt's vapotherm decreased to 20L 70%
--- NOTE | 2021-12-27 08:00 | CA_ITS ---
APPROVED REPORT EXAM: Comprehensive 2D, Doppler, and color-flow Echocardiogram Welding Technician: Hedy Solares CRT Ht: 5 ft 10 in Wt: 215lbs BSA: 2.15 BP: 103/51 mmHg Indications: Congestive Heart Failure, Murmur, Shortness of Breath, Hypertension/HDD, ex smoker, on vapotherm 2D Dimensions LVOT 2.01 cm (M/F) 1.5-2.5 LA Volume 58.40 mL LA Volume Index 27.20 mL/m2 (M/F) 16-34 M-Mode Dimensions RVDd 3.70 cm (0.9-2.6) LA Diam 3.69 cm (1.9-4.0) LVDd 5.37 cm (3.5-5.7) Ao Diam 4.62 cm (2.0-3.7) LVDs 3.30 cm (3.5-5.7) IVSd 1.36 cm (0.6-1.1) PWd 0.87 cm (0.6-1.1) EF (Teich) 68.40% FS 38.50% EDV (Teich) 139.50 mL TAPSE 3.09 (<1.7) ESV (Teich) 44.10 mL LV Diastology E Decel Time 237.00 (160-240 msec) E/A Ratio 1.71 MED E' 8.10 (< 7 cm/sec) MED A' 13.00 cm/s E'/MED E' Ratio 14.43 (>14) LAT A' 8.10 cm/s Aortic Valve AO Peak GR. 12.00 mmHg Mitral Valve MV A Velocity 68.00 (40-130 cm/s) E/A Ratio 1.71 MV Decel. Time 237.00 (160-240 ms) Pulmonary Valve PV Peak Velocity 162.00 (50-150 cm/s) Tricuspid Valve TR P. Velocity 244.00 cm/s RAP Estimate 10.00 mmHg RVSP 33.70 mmHg Left Ventricle Left atrium is mildly enlarged, left ventricle is normal size, mild concentric left ventricular hypertrophy, visually estimated ejection fraction 55% with no obvious regional wall motion abnormality, diastolic parameters are inconclusive in the study. Right Ventricle Right atrium and right ventricle are qualitatively mildly enlarged with normal contractility. Aortic Valve Aortic valve is minimally thickened and fibrosed, there is no aortic stenosis or aortic insufficiency. Mitral Valve Mitral valve grossly normal, there is trace mitral regurgitation. Tricuspid Valve Tricuspid valve grossly normal, there is trace tricuspid regurgitation, tricuspid regurgitation jet is inadequate for calculation of the right ventricular systolic pressure. Pulmonic Valve Pulmonic valve is grossly normal, there is trace pulmonic insufficiency. Great Vessels Aortic root is normal size. Inferior vena cava normal size with normal inspiratory collapse. Pericardium No significant pericardial effusion noted. Conclusion 1. Mildly enlarged left atrium, normal left ventricular size, mild concentric left ventricular hypertrophy, visually estimated ejection fraction 55% with no regional wall motion abnormality, diastolic parameters are inconclusive. 2. Mildly enlarged right ventricle with normal contractility. 3. Trace pulmonic, mitral and tricuspid regurgitation. 4. No significant pericardial effusion. 5. Inferior vena cava normal size with normal inspiratory collapse. Electronically signed by : Salo Henderson MD 12/27/2021 09:15:42
[2021-12-27 09:11] LABS: Basophils % 0.4 % (0.1-2.0); Eosinophils # 0.8 K/mm3 (0.0-0.4); Eosinophils % 8.3 % (0.1-12.0); Hematocrit 31.5 % (42.0-52.0); Hemoglobin 10.2 g/dL (14.1-18.0); Lymphocytes # 1.1 K/mm3 (0.7-4.5); Lymphocytes % 11.6 % (10-50); Mean Corpuscular HGB Conc 32.5 g/dL (31.8-35.4); Mean Corpuscular Hemoglobin 31.9 pg (27.0-31.2); Mean Corpuscular Volume 98.2 fl (80-94); Mean Platelet Volume 8.9 fl (7.4-10.4); Monocytes # 0.2 K/mm3 (0.1-1.0); Monocytes % 2.2 % (1.7-9.3); Neutrophils # 7.3 K/mm3 (1.8-7.8); Neutrophils % 77.4 % (37.0-80.0); Platelet Count 236 K/mm3 (142-424); Red Blood Count 3.21 M/mm3 (4.60-6.20); Red Cell Distribution Width 13.4 % (11.5-17.5); White Blood Count 9.4 K/mm3 (4.8-10.8)
--- NOTE | 2021-12-27 09:23 | HMH.ACPN2 ---
Internal Medicine - PN: Subj *Date: 12/27/21 *Time: 08:10 Interval history: pt states he is feeling better, eat breakfast, still on vapertherm Exam Vital signs and Labs for Last 24 Hours: Temp Pulse Resp BP Pulse Ox 98.7 F 65 20 126/70 96 12/27/21 08:00 12/27/21 08:00 12/27/21 08:00 12/27/21 08:00 12/27/21 08:00 Laboratory Results - last 24 hr 12/26/21 09:37: APTT 39.6 H 12/26/21 13:03: Sodium 128 L, Potassium 5.0, Chloride 103, Carbon Dioxide 19 L, Anion Gap 11.0, BUN 58 H, Creatinine 3.60 H, Estimated Creat Clear 36, Estimated GFR 18 L*, Est GFR ( Amer) 22 L, Glucose 131 H D, Calcium 8.7, Total Bilirubin 0.4, AST 42, ALT 16, Alkaline Phosphatase 128 H, Total Protein 6.3, Albumin 3.3 L, Globulin 3.0, Albumin/Globulin Ratio 1.1 12/26/21 13:03: APTT 72.0 H* 12/26/21 20:05: APTT 40.2 H 12/27/21 03:00: WBC 10.7, RBC 3.20 L, Hgb 10.1 L, Hct 31.9 L, MCV 99.6 H, MCH 31.5 H, MCHC 31.6 L, RDW 13.3, Plt Count 223, MPV 8.1, Neut % (Auto) 72.2, Lymph % (Auto) 15.0, Ward % (Auto) 3.3, Eos % (Auto) 7.9, Baso % (Auto) 1.6, Neut # (Auto) 7.7, Lymph # (Auto) 1.6, Ward # (Auto) 0.4, Eos # (Auto) 0.8 H, Baso # (Auto) 0.2 12/27/21 03:00: APTT 30.5 12/27/21 08:55: WBC 9.4, RBC 3.21 L, Hgb 10.2 L, Hct 31.5 L, MCV 98.2 H, MCH 31.9 H, MCHC 32.5, RDW 13.4, Plt Count 236, MPV 8.9, Neut % (Auto) 77.4, Lymph % (Auto) 11.6, Ward % (Auto) 2.2, Eos % (Auto) 8.3, Baso % (Auto) 0.4, Neut # (Auto) 7.3, Lymph # (Auto) 1.1, Ward # (Auto) 0.2, Eos # (Auto) 0.8 H, Baso # (Auto) 0.0 I & O for Last 24 hours: Intake & Output 12/24/21 12/25/21 12/26/21 12/27/21 11:59 11:59 11:59 11:59 Intake Total 814 / 814 240 / 240 Output Total 1050 / 1050 3325 / 3325 Balance -236 / -236 -3085 / -3085 Weight 215 lb 9.793 oz 221 lb 6.4 oz - Constitutional no acute distress - *Routine HEENT Exam Head: Present: normocephalic Eye: Present: PERRL ENT: Present: mucous membranes moist - *Routine Neck Exam Present: supple. Absent: lymphadenopathy - *Routine Respiratory Exam Present: decreased breath sounds - *Routine Cardiovascular Exam Present: RRR - *Routine Abdominal Exam Present: soft, normoactive bowel sounds. Absent: tenderness - *Routine Extremities Exam Absent: cyanosis, clubbing, edema - *Routine Skin Exam Present: warm. Absent: rash - *Routine Neurological Exam Present: alert, oriented X3 Assessment and Plan (1) Community acquired pneumonia Status: Acute Qualifiers: Laterality: unspecified laterality Qualified Code(s): J18.9 - Pneumonia, unspecified organism Category: Medical Code(s): J18.9 - Pneumonia, unspecified organism (2) ADI (acute kidney injury) Status: Acute Category: Medical Code(s): N17.9 - Acute kidney failure, unspecified (3) Respiratory failure, acute Status: Acute Qualifiers: Respiratory failure complication: hypoxia Qualified Code(s): J96.01 - Acute respiratory failure with hypoxia Category: Medical Code(s): J96.00 - Acute respiratory failure, unspecified whether with hypoxia or hypercapnia (4) Respiratory failure with hypoxia Status: Acute Qualifiers: Chronicity: acute Qualified Code(s): J96.01 - Acute respiratory failure with hypoxia Category: Medical Code(s): J96.91 - Respiratory failure, unspecified with hypoxia (5) Severe sepsis with acute organ dysfunction Status: Acute Category: Medical Code(s): A41.9 - Sepsis, unspecified organism; R65.20 - Severe sepsis without septic shock (6) Acute hyperkalemia Status: Acute Category: Medical Code(s): E87.5 - Hyperkalemia (7) Obesity Status: Chronic Qualifiers: Obesity type: unspecified obesity type Obesity classification: adult class 1 (BMI 30 - 34.9) Serious obesity comorbidity presence: without serious comorbidity Body mass index: BMI 30.0-30.9 Qualified Code(s): E66.9 - Obesity, unspecified; Z68.30 - Body mass index [BMI] 30.0-30.9, adult Category: M
[2021-12-27 09:30] LABS: PTT Heparin (inpatient only) 43.5 Seconds (23.6-34.0)
[2021-12-27 09:39] LABS: Chloride 105 mmol/L (98-107); Potassium 5.3 mmoL/L (3.5-5.1); Sodium 132 mmol/L (136-145)
[2021-12-27 09:42] LABS: Anion Gap 10.3 mEq/L (5-15); Blood Urea Nitrogen 51 mg/dl (9-20); Carbon Dioxide 22 mmol/L (22.0-30.0); Creatinine Clearance Estimated 47 mL/min (50-200); Estimated Glomerular Filt Rate 25 ml/min (>60); GFR (African American) 30 ML/MIN (>60)
[2021-12-27 09:43] LABS: Calcium 8.7 mg/dl (8.4-10.2); Glucose 120 mg/dl (74-100)
--- NOTE | 2021-12-27 13:17 | PC.NURSE ---
Vapotherm at 20 L and 60% at this time.
[2021-12-27 16:41] LABS: PTT Heparin (inpatient only) 32.5 Seconds (23.6-34.0)
--- NOTE | 2021-12-27 16:54 | PC.NURSE ---
Called and spoke with Jim , the election clerk pharmacist and he is sanjay to increase pts heparin gtt per mar. He is also placing ptt in 6 hrs.
[2021-12-27 23:43] LABS: PTT Heparin (inpatient only) 94.8 Seconds (23.6-34.0)
[2021-12-28] VITALS: BP 126/74; PULSE 60; RESP 18; TEMP 36.9; O2SAT 93
--- NOTE | 2021-12-28 00:11 | PC.NURSE ---
This RN spoke with Oksana thru [facility]. Reported aPTT at 94.8. Per Oksana, Pha change heparin to 2,700u/hr.
[2021-12-28 04:00] VITALS: BP 136/80; PULSE 55; PULSE 60; RESP 20; TEMP 36.9; O2SAT 95
[2021-12-28 05:00] VITALS: BMI 32.2
--- NOTE | 2021-12-28 05:42 | PC.NURSE ---
PATIENT RESTED WELL THRU THIS RN SHIFT. PATIENT HAD EPISODES OF BRADYCARDIA WHEN SLEEPING AND CONTINUES TO DE-STAT DURING ACTIVITY.
[2021-12-28 06:51] LABS: Basophils # 0.1 K/mm3 (0-0.2); Basophils % 0.6 % (0.1-2.0); Eosinophils # 0.9 K/mm3 (0.0-0.4); Hemoglobin 10.3 g/dL (14.1-18.0); Lymphocytes # 1.6 K/mm3 (0.7-4.5); Lymphocytes % 17.6 % (10-50); Mean Corpuscular HGB Conc 31.1 g/dL (31.8-35.4); Mean Corpuscular Hemoglobin 31.1 pg (27.0-31.2); Mean Corpuscular Volume 99.9 fl (80-94); Monocytes # 0.3 K/mm3 (0.1-1.0); Monocytes % 3.5 % (1.7-9.3); Neutrophils % 68.3 % (37.0-80.0); Platelet Count 277 K/mm3 (142-424); Red Cell Distribution Width 13.2 % (11.5-17.5); White Blood Count 8.8 K/mm3 (4.8-10.8)
[2021-12-28 06:55] LABS: Activated Partial Thrombo Time 52.6 seconds (22.8-30.6)
--- NOTE | 2021-12-28 07:25 | PC.NURSE ---
THIS RN SPOKE WITH MEGHA AT [facility] TO REPORT aPTT of 52.6. PER MEGHA, RATE IS TO REMAIN THE SAME.
[2021-12-28 07:35] LABS: Chloride 105 mmol/L (98-107); Potassium 4.1 mmoL/L (3.5-5.1); Sodium 136 mmol/L (136-145)
[2021-12-28 07:38] LABS: Blood Urea Nitrogen 43 mg/dl (9-20); Creatinine Clearance Estimated 48 mL/min (50-200); Estimated Glomerular Filt Rate 25 ml/min (>60); GFR (African American) 30 ML/MIN (>60)
[2021-12-28 07:39] LABS: Anion Gap 11.1 mEq/L (5-15); Calcium 9.3 mg/dl (8.4-10.2); Carbon Dioxide 24 mmol/L (22.0-30.0); Glucose 102 mg/dl (74-100)
[2021-12-28 08:00] VITALS: BP 141/93; PULSE 54; PULSE 63; RESP 24; TEMP 36.9; O2SAT 100
--- NOTE | 2021-12-28 08:51 | HMH.ACPN2 ---
Internal Medicine - PN: Subj *Date: 12/28/21 *Time: 08:54 Interval history: 46-year-old male patient sitting up in bed resting quietly, he reports he is feeling a little better today than he was yesterday. Current oxygenation is 95% on 20 L Vapotherm with 50% oxygen off. He is still on a heparin drip for PE, still awaiting VQ scan. Current BUN/creatinine 43/2.8. He reports having kidney problems as a youth and teenager and has never followed up with nephrology as an adult. Exam Vital signs and Labs for Last 24 Hours: Temp Pulse Resp BP Pulse Ox 98.4 F 55 L 20 136/80 95 12/28/21 04:00 12/28/21 04:00 12/28/21 04:00 12/28/21 04:00 12/28/21 04:00 Laboratory Results - last 24 hr 12/27/21 08:55: WBC 9.4, RBC 3.21 L, Hgb 10.2 L, Hct 31.5 L, MCV 98.2 H, MCH 31.9 H, MCHC 32.5, RDW 13.4, Plt Count 236, MPV 8.9, Neut % (Auto) 77.4, Lymph % (Auto) 11.6, [place] % (Auto) 2.2, Eos % (Auto) 8.3, Baso % (Auto) 0.4, Neut # (Auto) 7.3, Lymph # (Auto) 1.1, [place] # (Auto) 0.2, Eos # (Auto) 0.8 H, Baso # (Auto) 0.0 12/27/21 08:55: Sodium 132 L, Potassium 5.3 H, Chloride 105, Carbon Dioxide 22, Anion Gap 10.3, BUN 51 H, Creatinine 2.80 H D, Estimated Creat Clear 47, Estimated GFR 25 L, Est GFR ( Amer) 30 L D, Glucose 120 H, Calcium 8.7 12/27/21 09:10: APTT 43.5 H 12/27/21 15:50: APTT 32.5 12/27/21 23:00: APTT 94.8 H* 12/28/21 06:15: WBC 8.8, RBC 3.30 L, Hgb 10.3 L, Hct 33.0 L, MCV 99.9 H, MCH 31.1, MCHC 31.1 L, RDW 13.2, Plt Count 277, MPV 8.0, Neut % (Auto) 68.3, Lymph % (Auto) 17.6, [place] % (Auto) 3.5, Eos % (Auto) 10.0, Baso % (Auto) 0.6, Neut # (Auto) 6.0, Lymph # (Auto) 1.6, [place] # (Auto) 0.3, Eos # (Auto) 0.9 H, Baso # (Auto) 0.1 12/28/21 06:15: Sodium 136, Potassium 4.1 D, Chloride 105, Carbon Dioxide 24, Anion Gap 11.1, BUN 43 H, Creatinine 2.80 H, Estimated Creat Clear 48, Estimated GFR 25 L, Est GFR ( Amer) 30 L, Glucose 102 H, Calcium 9.3 12/28/21 06:15: APTT 52.6 H I & O for Last 24 hours: Intake & Output 12/25/21 12/26/21 12/27/21 12/28/21 23:59 23:59 23:59 23:59 Intake Total 1054 / 1054 300 / 300 Output Total 2325 / 2975 2350 / 3300 950 / 950 Balance -1271 / -1921 -2050 / -3000 -950 / -950 Weight 215 lb 215 lb 9.793 oz 221 lb 5.506 oz 225 lb 6.4 oz - Constitutional no acute distress - *Routine HEENT Exam Head: Present: normocephalic Eye: Present: EOMI ENT: Present: mucous membranes moist - *Routine Neck Exam Present: trachea midline. Absent: tracheal deviation - *Routine Respiratory Exam Present: decreased breath sounds. Absent: accessory muscle use, rales - *Routine Cardiovascular Exam Present: RRR - *Routine Abdominal Exam Present: soft, normoactive bowel sounds. Absent: tenderness - *Routine Extremities Exam Present: full ROM, pulses intact. Absent: cyanosis, clubbing - *Routine Skin Exam Present: intact, dry. Absent: cyanosis, erythema - *Routine Neurological Exam Present: alert, oriented X3. Absent: motor deficit - Routine Psychiatric Exam Present: normal affect, normal thought process. Absent: tactile hallucinations Assessment and Plan (1) Community acquired pneumonia Status: Acute Qualifiers: Laterality: unspecified laterality Qualified Code(s): J18.9 - Pneumonia, unspecified organism Category: Medical Code(s): J18.9 - Pneumonia, unspecified organism (2) ADI (acute kidney injury) Status: Acute Category: Medical Code(s): N17.9 - Acute kidney failure, unspecified (3) Respiratory failure, acute Status: Acute Qualifiers: Respiratory failure complication: hypoxia Qualified Code(s): J96.01 - Acute respiratory failure with hypoxia Category: Medical Code(s): J96.00 - Acute respiratory failure, unspecified whether with hypoxia or hypercapnia (4) Respiratory failure with hypoxia Status: Acute Qualifiers: Chronicity: acute Qualified Code(s): J96.01 - Acute respiratory failure with hypoxia Category: Medical Code(s
--- NOTE | 2021-12-28 09:13 | HMH.ITSHM ---
Current Home Medications as stated by this patient Jesus oLera or sales representative graphic art. []Spoke to nurse on 2nd floor. Informed her the Nuclear camera is down at this time. We are unsure of when it will be back up. She was going to talk to the ordering doctor.
--- NOTE | 2021-12-28 09:15 | HMH.ITSTN ---
Spoke to nurse on 2nd floor about Nuclear Camera being down at this time. We are unsure of when the camera will be back up. She was going to speak to the ordering doctor.
[2021-12-28 12:00] VITALS: BP 138/84; PULSE 70; PULSE 71; RESP 20; TEMP 36.7; O2SAT 98
[2021-12-28 12:53] LABS: PTT Heparin (inpatient only) 29.9 Seconds (23.6-34.0)
--- NOTE | 2021-12-28 15:27 | XR_ITS ---
FINAL REPORT CLINICAL HISTORY: sob COMPARISON: December 25, 2021 FINDINGS: The heart size is normal. The mediastinum is normal. There are bilateral pulmonary opacities consistent with pneumonia. Findings are worse on the right and partially improved on the left. There are no pleural effusions. There is no pneumothorax. There is no osseous abnormality. IMPRESSION: Bilateral pneumonia worsening on the right and partially improved on the left. Reviewed, Interpreted and Dictated by Juan Laureano III, MD Transcribed by Roberto Carlos Harmon Authenticated by Juan Laureano III, MD on 12/28/2021 04:30:[address] [facility]
[2021-12-28 16:00] VITALS: BP 141/93; PULSE 52; PULSE 60; RESP 20; TEMP 36.6; O2SAT 96
[2021-12-28 20:00] VITALS: BP 146/88; PULSE 50; PULSE 53; RESP 17; TEMP 37.3; O2SAT 95
--- NOTE | 2021-12-28 23:05 | PC.NURSE ---
LATE ENTRY 2118: LAB REPORTED PTT OF 65. CONTACTED [facility]. INSTRUCTED TO KEEP RATE THE SAME. PLACED ORDER FOR PTT IN 6 HOURS.
[2021-12-29] VITALS (14 sets, daily range): BP systolic 133–164; BP diastolic 68–114; PULSE 40–87; RESP 13–18; TEMP 36.6–37; O2SAT 91–100
--- NOTE | 2021-12-29 | NM_ITS ---
PROCEDURE INFORMATION: Exam: NM Lung Ventilation and Perfusion Imaging Exam date and time: 12/29/2021 12:00 AM Age: 46 years old Clinical indication: Shortness of breath; Patient HX: Pacemaker put in today could not raise lt arm above head; Additional info: R/O pe TECHNIQUE: Imaging protocol: Nuclear pulmonary ventilation with aerosol or gas was performed followed by perfusion. Views: Ventilation acquired with multiple projections. Perfusion acquired with multiple projections. Total images: 6 Radiopharmaceutical: dose mCi Tc-99m MAA, IV; dose mCi Tc-99m DTPA, aerosol COMPARISON: CR XR CHEST PORTABLE 12/29/2021 3:33 PM FINDINGS: Ventilation: Ventilation imaging limited due to radiotracer distribution, with much of the radiotracer accumulating in the trachea and pharyngeal region. There is a single small to moderate sized subsegmental ventilation deficit in the right middle lobe medial segment distribution on the anterior projection image. There is corresponding airspace density for in this region on chest x-ray 12/29/2021 at 3:33 p.m. which is similar in size. Perfusion: Solitary small matched subsegmental perfusion deficit in the right middle lobe medial segment on the anterior projection image which is smaller than the corresponding ventilation deficit and chest radiography airspace disease. IMPRESSION: Very low probability for pulmonary embolism based on modified PIOPED 2 criteria.
--- NOTE | 2021-12-29 | IR_ITS ---
APPROVED REPORT Patient Location: Inpatient Fly Worker: ADELSO Sauceda RT (R) PROCEDURES 1. Pocket formation for Permanent Pacemaker Placement. 2. Placement of an atrial sensing and pacing coil into the right atrial appendage. 3. Placement of a ventricular sensing and pacing coil in the right ventricular apex. 4. Permanent Pacemaker Placement. INDICATION Symptomatic Bradycardia Informed consent was obtained prior to the procedure. COMPLICATIONS None Estimated Blood Loss: Less than 10 mls TECHNIQUE 1% Lidocaine with epinephrine used to anesthetized the left anterior aspect of the chest. Scalpel was used to make the initial cutaneous incision while electrocautery was used to dissect down tinto the fascia. The fascia was lifted off the pectoralis muscle and digitally manipulated creating a pocket for the pacemaker. The patient was then placed in Trendelenburg position and the subclavian vein was accessed twice via the Selinger technique, there are two wires in the vein. A 6 Marshallese sheath was placed under fluoroscopic guidance into the subclavian vein over one of the wires while keeping the other wire in place within the subclavian vein. The dilator was removed from the sheath. Using fluoroscopic guidance, the ventricular lead was placed into the right ventricular apex, screwed and secured into place. Electronic interrogation proved acceptable thresholds and voltage within the lead. Using 3-0 silk, the ventricular lead was then secured into place. Lead was secured to the facia using the 3-0 silk. Following this, the sheath was pealed away. An additional 6 Marshallese fresh sheath and dilator was placed over the existing wire. Using fluoroscopic guidance, the atrial lead was the placed into the right atrial appendage and screwed and secured in place. Electrical interrogation demonstrated acceptable thresholds and voltage number. The atrial lead was then secured into place using 3-0 silk. 1 gram of Ancef was used to flush the pocket. Following the pacemaker generator being secured to the fascia and in place, Monocryl was used to close the subcutaneous layers while larry were used to close the cutaneous layer. A pressure dressing was placed and the patient was transferred to the postop holding area in stable condition for postoperative care. INTERROGATION Generator Model number: AgitarJULIO ZAZUETA DR, L311 Generator Serial number: [id number] Atrial lead model number: INGEVITY+ 52CM, 7841 Atrial lead serial number: [id number] P-wave: 2.0mV Impedence: 1.0V@0.4ms Threshold: 500 ohms Right Ventricular lead model number: INGEVITY+ 59CM, 7842 Right Ventricular lead serial number: [id number] R-wave: 8.0mV Impedence: 0.4V@0.4ms Threshold: 850 ohms Pacing Parameters: Mode: DDDR Base/Max Track: 60/130 ppm No diaphragmatic stimulation at 10 volts. IMPRESSION 1. Successful pocket formation for Permanent Pacemaker Placement. 2. Successful placement of an atrial sensing and pacing coil into the right atrial appendage. 3. Successful placement of a ventricular sensing and pacing coil in the right ventricular apex. 4. Successful permanent Pacemaker Placement. PLAN 1. post op wound care, follow up office visit Electronically signed by : Benjamin Guo MD 12/29/2021 15:40:15
--- NOTE | 2021-12-29 04:06 | PC.NURSE ---
A&OX4. TOLERATING RA WELL T/O SHIFT. PT UP INDEPENDENTLY IN ROOM. PT HAS C/O GENERALIZED PAIN X1 AND REQUESTED MOTRIN. NO NEW UPDATES ON PTT SINCE LAST NOTE. VSS WILL CONTINUE TO MONITOR.
[2021-12-29 04:29] LABS: Activated Partial Thrombo Time 35.3 seconds (22.8-30.6)
[2021-12-29 04:34] LABS: Basophils # 0.1 K/mm3 (0-0.2); Eosinophils # 0.9 K/mm3 (0.0-0.4); Eosinophils % 9.4 % (0.1-12.0); Hematocrit 32.2 % (42.0-52.0); Hemoglobin 10.3 g/dL (14.1-18.0); Lymphocytes # 2.5 K/mm3 (0.7-4.5); Lymphocytes % 25.7 % (10-50); Mean Corpuscular HGB Conc 32.1 g/dL (31.8-35.4); Mean Corpuscular Hemoglobin 31.8 pg (27.0-31.2); Mean Platelet Volume 8.2 fl (7.4-10.4); Monocytes # 0.5 K/mm3 (0.1-1.0); Monocytes % 5.2 % (1.7-9.3); Neutrophils # 5.6 K/mm3 (1.8-7.8); Neutrophils % 58.6 % (37.0-80.0); Platelet Count 300 K/mm3 (142-424); Red Blood Count 3.25 M/mm3 (4.60-6.20); Red Cell Distribution Width 13.2 % (11.5-17.5); White Blood Count 9.6 K/mm3 (4.8-10.8)
[2021-12-29 04:38] LABS: Anion Gap 13.7 mEq/L (5-15); Blood Urea Nitrogen 40 mg/dl (9-20); Calcium 9.7 mg/dl (8.4-10.2); Carbon Dioxide 22 mmol/L (22.0-30.0); Chloride 109 mmol/L (98-107); Creatinine Clearance Estimated 54 mL/min (50-200); Estimated Glomerular Filt Rate 28 ml/min (>60); GFR (African American) 34 ML/MIN (>60); Glucose 96 mg/dl (74-100); Potassium 3.7 mmoL/L (3.5-5.1); Sodium 141 mmol/L (136-145)
--- NOTE | 2021-12-29 04:43 | PC.NURSE ---
REPORTED PTT OF 35.5 TO MEGHA AT [facility]. ORDERED TO GIVE 4,000 UNIT BOLUS, AND INCREASE RATE TO 3,300/HR. RE-ORDERING PTT FOR 6 HOURS FROM THIS TIME.
--- NOTE | 2021-12-29 09:06 | HMH.CNCARD ---
History of Present Illness Consult date: 12/29/21 Requesting physician: Alexys Anderson Consult reason: shortness of breath Chief complaint: Pneumonia, HTN Additional Medical History:: 1. Long standing HTN, greater than 20 yrs A. Renal artery duplex, 2018, no significant stenosis B. Echocardiogram, 12/2021, 1. Mildly enlarged left atrium, normal left ventricular size, mild concentric left ventricular hypertrophy, visually estimated ejection fraction 55% with no regional wall motion abnormality, diastolic parameters are inconclusive. 2. Mildly enlarged right ventricle with normal contractility. 3. Trace pulmonic, mitral and tricuspid regurgitation. 4. No significant pericardial effusion. 5. Inferior vena cava normal size with normal inspiratory collapse. Electronically signed by : Salo Henderson MD 12/27/2021 09:15:42 2. COPD, Chest CT, 2018 A. Recurrent pneumonia with prior intubation in September 2020 with subsequent transfer to the [facility] 3. Ex-smoker, discontinued in 2020, previously 1 pack/day for 20 years 4. Suboxone therapy for history of opioid addiction 5. Chronic renal insufficiency, stage IV, creatinine 2.5, GFR is 28 with creatinine clearance of 54, 12/2021 6. Anemia with Hgb of 10-11 7. Normal Booker Myoview, 2018 8. Intermittent sinus bradycardia into the high 30s low 40s beats per minute range, 12/2021, without etiology. A. Plan for Pacemaker insertion, 12/29/2021 9. History of obesity with greater than 100 pound weight loss between 2019 and 2021 History of present illness: 46 yr old male presented to ed with c/o soa. pt states since he has been having increase in soa and weakness. pt states he has had pneumonia twice and both times he almost . pt states he become ill all of a sudden and it seems to be getting worse. pt was placed on high flow o2 due to o2 stats being decreased. Pt is admitted for pneumonia and elevated cre. Pt states chronic kidney failure. will place on treatment for possible pe until kidney function improves and ct scan to r/o pe can be completed. The above per CHERISE Horton. During his hospitalization the patient has been on telemetry and is noted to have intermittent heart rate down into the high 30s and 40 bpm range. Patient has been asymptomatic during these times and is not on any rate control medication. He denies any history of syncope. Nondiabetic Ex-smoker, discontinued 8 months ago No known cardiac history with echocardiogram this admission showed normal ejection fraction and no significant valve disease. No significant family history of cardiac disease Hypertension treated for greater than 20 years. Shortly after my visit with the patient, while reviewing telemetry his heart rate dropped into the 38-40 bpm range. Patient was asymptomatic during this time. [facility] History Medical History: Reports:: Congestive Heart Failure, Congenital Heart Disease, Hypertension, Palpitations, Renal Disease Denies:: Cancer, Diabetes Mellitus Type 1, Diabetes Mellitus Type 2, MRSA, Seizures *Have you ever received a pneumonia vaccine?: Yes *Have you received a flu vaccine this season?: Yes Other Surgeries: Yes: No Previous Surgery, Other Amputation: No Fractures: Yes (ARM,BACK,LEG) - *Social History Last grade of school completed: GED Smoking Status: Current every day smoker Tobacco Type: cigarettes # Packs/Day (cigarettes): 1 Alcohol Intake: former Substance Use Type: former substance user, opiates *Occupational Status:: employed Housing: house Household Members: significant other *Travel in the last 8 weeks: None Family Hx:: Coronary Artery Disease, Heart Attack Meds Home Medications Medication Instructions Recorded Confirmed Type buprenorphine 8 mg-naloxone 2 mg 2 tab SL DAILY tab 04/17/20 12/26/21 History sublingual tablet Albuterol Sulfate [Albuterol 2 puff IH Q4HP PRN 12/25/21 12/26/21 History Sulfate Hfa] Fluticaso
--- NOTE | 2021-12-29 09:46 | HMH.ACPN ---
Internal Medicine - PN: Subj *Date: 12/29/21 *Time: 09:47 Exam Vital signs and Labs for Last 24 Hours: Temp Pulse Resp BP Pulse Ox 98.3 F 72 18 152/86 H 96 12/29/21 07:47 12/29/21 09:45 12/29/21 09:45 12/29/21 07:47 12/29/21 07:47 Laboratory Results - last 24 hr 12/28/21 12:00: APTT 29.9 12/28/21 19:40: APTT 65.0 H* 12/29/21 04:00: WBC 9.6, RBC 3.25 L, Hgb 10.3 L, Hct 32.2 L, MCV 99.0 H, MCH 31.8 H, MCHC 32.1, RDW 13.2, Plt Count 300, MPV 8.2, Neut % (Auto) 58.6, Lymph % (Auto) 25.7, [place] % (Auto) 5.2, Eos % (Auto) 9.4, Baso % (Auto) 1.0, Neut # (Auto) 5.6, Lymph # (Auto) 2.5, [place] # (Auto) 0.5, Eos # (Auto) 0.9 H, Baso # (Auto) 0.1 12/29/21 04:00: Sodium 141, Potassium 3.7, Chloride 109 H, Carbon Dioxide 22, Anion Gap 13.7, BUN 40 H, Creatinine 2.50 H, Estimated Creat Clear 54, Estimated GFR 28 L, Est GFR ( Amer) 34 L, Glucose 96, Calcium 9.7 12/29/21 04:00: APTT 35.3 H I & O for Last 24 hours: Intake & Output 12/26/21 12/27/21 12/28/21 12/29/21 23:59 23:59 23:59 23:59 Intake Total 1054 / 1054 300 / 300 600 / 600 1740 / 1740 Output Total 2325 / 2975 2350 / 3300 2450 / 2450 0 / 0 Balance -1271 / -192 -2049 / -3000 -1850 / -1850 1740 / 1740 Weight 97.8 kg 100.4 kg 102.24 kg Assessment and Plan (1) Community acquired pneumonia Status: Acute Qualifiers: Qualified Code(s): J18.9 - Pneumonia, unspecified organism Category: Medical Code(s): J18.9 - Pneumonia, unspecified organism (2) ADI (acute kidney injury) Status: Acute Category: Medical Code(s): N17.9 - Acute kidney failure, unspecified (3) Respiratory failure, acute Status: Acute Qualifiers: Qualified Code(s): J96.01 - Acute respiratory failure with hypoxia Category: Medical Code(s): J96.00 - Acute respiratory failure, unspecified whether with hypoxia or hypercapnia (4) Respiratory failure with hypoxia Status: Acute Qualifiers: Qualified Code(s): J96.01 - Acute respiratory failure with hypoxia Category: Medical Code(s): J96.91 - Respiratory failure, unspecified with hypoxia (5) Severe sepsis with acute organ dysfunction Status: Acute Category: Medical Code(s): A41.9 - Sepsis, unspecified organism; R65.20 - Severe sepsis without septic shock (6) Acute hyperkalemia Status: Acute Category: Medical Code(s): E87.5 - Hyperkalemia (7) Obesity Status: Chronic Qualifiers: Qualified Code(s): E66.9 - Obesity, unspecified; Z68.30 - Body mass index [BMI] 30.0-30.9, adult Category: Medical Code(s): E66.9 - Obesity, unspecified The patient's infection will respond to the chosen ABx?: Yes Is the patient receiving the right drug, dose, and route?: Yes Could a more targeted ABx be ordered?: No
--- NOTE | 2021-12-29 11:31 | HMH.ACPN2 ---
Internal Medicine - PN: Subj *Date: 12/29/21 *Time: 11:54 Interval history: 46-year-old male patient sitting up in bed respirations easy and even. Current oxygenation 94% on room air. Nursing reports heart rate dropped down to 28 bpm during the night he was asymptomatic, will consult cardiology. He denies any chest pain or shortness of breath this morning. Still unable to perform chest CTA with PE protocol due to renal function. Is scheduled today for VQ scan Exam Vital signs and Labs for Last 24 Hours: Temp Pulse Resp BP Pulse Ox 98.5 F 63 18 157/81 H 91 L 12/29/21 11:15 12/29/21 11:15 12/29/21 11:15 12/29/21 11:15 12/29/21 11:15 Laboratory Results - last 24 hr 12/28/21 12:00: APTT 29.9 12/28/21 19:40: APTT 65.0 H* 12/29/21 04:00: WBC 9.6, RBC 3.25 L, Hgb 10.3 L, Hct 32.2 L, MCV 99.0 H, MCH 31.8 H, MCHC 32.1, RDW 13.2, Plt Count 300, MPV 8.2, Neut % (Auto) 58.6, Lymph % (Auto) 25.7, [place] % (Auto) 5.2, Eos % (Auto) 9.4, Baso % (Auto) 1.0, Neut # (Auto) 5.6, Lymph # (Auto) 2.5, [place] # (Auto) 0.5, Eos # (Auto) 0.9 H, Baso # (Auto) 0.1 12/29/21 04:00: Sodium 141, Potassium 3.7, Chloride 109 H, Carbon Dioxide 22, Anion Gap 13.7, BUN 40 H, Creatinine 2.50 H, Estimated Creat Clear 54, Estimated GFR 28 L, Est GFR ( Amer) 34 L, Glucose 96, Calcium 9.7 12/29/21 04:00: APTT 35.3 H I & O for Last 24 hours: Intake & Output 12/26/21 12/27/21 12/28/21 12/29/21 23:59 23:59 23:59 23:59 Intake Total 1054 / 1054 300 / 300 600 / 600 1740 / 1740 Output Total 2325 / 2975 2350 / 3300 2450 / 2450 0 / 0 Balance -1271 / -1921 -2050 / -3000 -1850 / -1850 1740 / 1740 Weight 215 lb 9.793 oz 221 lb 5.506 oz 225 lb 6.4 oz - Constitutional no acute distress - *Routine HEENT Exam ENT: Present: mucous membranes moist - *Routine Neck Exam Present: trachea midline. Absent: tracheal deviation - *Routine Respiratory Exam Present: decreased breath sounds. Absent: accessory muscle use - *Routine Cardiovascular Exam Present: RRR - *Routine Abdominal Exam Present: soft, normoactive bowel sounds. Absent: tenderness, firm - *Routine Extremities Exam Present: full ROM, pulses intact. Absent: cyanosis, clubbing - *Routine Skin Exam Present: intact, dry. Absent: cyanosis, erythema - *Routine Neurological Exam Present: alert, oriented X3. Absent: motor deficit - Routine Psychiatric Exam Present: normal affect, normal thought process. Absent: auditory hallucinations Assessment and Plan (1) Community acquired pneumonia Status: Acute Qualifiers: Laterality: unspecified laterality Qualified Code(s): J18.9 - Pneumonia, unspecified organism Category: Medical Code(s): J18.9 - Pneumonia, unspecified organism (2) ADI (acute kidney injury) Status: Acute Category: Medical Code(s): N17.9 - Acute kidney failure, unspecified (3) Respiratory failure, acute Status: Acute Qualifiers: Respiratory failure complication: hypoxia Qualified Code(s): J96.01 - Acute respiratory failure with hypoxia Category: Medical Code(s): J96.00 - Acute respiratory failure, unspecified whether with hypoxia or hypercapnia (4) Respiratory failure with hypoxia Status: Acute Qualifiers: Chronicity: acute Qualified Code(s): J96.01 - Acute respiratory failure with hypoxia Category: Medical Code(s): J96.91 - Respiratory failure, unspecified with hypoxia (5) Severe sepsis with acute organ dysfunction Status: Acute Category: Medical Code(s): A41.9 - Sepsis, unspecified organism; R65.20 - Severe sepsis without septic shock (6) Acute hyperkalemia Status: Acute Category: Medical Code(s): E87.5 - Hyperkalemia (7) Obesity Status: Chronic Qualifiers: Obesity type: unspecified obesity type Obesity classification: adult class 1 (BMI 30 - 34.9) Serious obesity comorbidity presence: without serious comorbidity Body mass index: BMI 30.0-30.9 Qualified Code(s): E66.9 - Obes
--- NOTE | 2021-12-29 15:28 | XR_ITS ---
FINAL REPORT CLINICAL HISTORY: post PPM COMPARISON: December 28, 2021 FINDINGS: SINGLE VIEW CHEST. A new left subclavian pacemaker is present. The heart is normal in size. The mediastinum is unremarkable. There are worsening bilateral pulmonary opacities favoring edema over pneumonia. There is no pneumothorax. IMPRESSION: New left subclavian pacemaker is present. Worsening bilateral pulmonary opacities, favoring edema over pneumonia. Reviewed, Interpreted and Dictated by Juan Laureano III, MD Transcribed by Almaz Thomas Authenticated by Juan Laureano III, MD on 12/29/2021 04:58:30 PM [facility]
[2021-12-30] VITALS: BP 133/77; PULSE 60; PULSE 88; RESP 22; TEMP 36.6; O2SAT 99
[2021-12-30 04:00] VITALS: BP 149/87; PULSE 60; PULSE 61; RESP 20; TEMP 36.6; O2SAT 97
[2021-12-30 05:00] VITALS: BMI 31.8
[2021-12-30 07:01] LABS: Basophils # 0.1 K/mm3 (0-0.2); Basophils % 1.1 % (0.1-2.0); Eosinophils # 0.7 K/mm3 (0.0-0.4); Eosinophils % 10.3 % (0.1-12.0); Hemoglobin 10.3 g/dL (14.1-18.0); Lymphocytes # 1.9 K/mm3 (0.7-4.5); Lymphocytes % 26.7 % (10-50); Mean Corpuscular HGB Conc 31.2 g/dL (31.8-35.4); Mean Corpuscular Hemoglobin 31.4 pg (27.0-31.2); Mean Corpuscular Volume 100.7 fl (80-94); Mean Platelet Volume 7.8 fl (7.4-10.4); Monocytes # 0.4 K/mm3 (0.1-1.0); Monocytes % 6.3 % (1.7-9.3); Neutrophils # 3.9 K/mm3 (1.8-7.8); Neutrophils % 55.6 % (37.0-80.0); Platelet Count 333 K/mm3 (142-424); Red Blood Count 3.28 M/mm3 (4.60-6.20); Red Cell Distribution Width 13.3 % (11.5-17.5); White Blood Count 6.9 K/mm3 (4.8-10.8)
[2021-12-30 07:07] LABS: Chloride 112 mmol/L (98-107); Potassium 4.1 mmoL/L (3.5-5.1); Sodium 138 mmol/L (136-145)
[2021-12-30 07:10] LABS: Anion Gap 8.1 mEq/L (5-15); Blood Urea Nitrogen 32 mg/dl (9-20); Calcium 8.6 mg/dl (8.4-10.2); Carbon Dioxide 22 mmol/L (22.0-30.0); Creatinine Clearance Estimated 58 mL/min (50-200); Estimated Glomerular Filt Rate 31 ml/min (>60); GFR (African American) 37 ML/MIN (>60); Glucose 89 mg/dl (74-100)
[2021-12-30 07:50] VITALS: BP 172/78; PULSE 60; RESP 21; TEMP 36.9; O2SAT 94
[2021-12-30 08:00] VITALS: O2SAT 95
--- NOTE | 2021-12-30 08:08 | PC.NURSE ---
Montse ALMONTE CARDIOLGY AWARE OF PT'S B/P. NO NEW ORDERS
--- NOTE | 2021-12-30 08:09 | P.PN_ITS ---
Subjective Date: 12/30/21 Time: 08:09 Principal diagnosis: ADI/CKD, Pacer in situ Interval history: 46-year-old white male in bed in no acute distress denies any chest pain, pressure or tightness. Some soreness noted at the pacemaker insertion site. Limitations related to pacemaker discussed and reviewed with patient. Exam Vital signs and Labs for Last 24 Hours: Temp Pulse Resp BP Pulse Ox 98.5 F 60 21 172/78 H 94 L 12/30/21 07:50 12/30/21 07:50 12/30/21 07:50 12/30/21 07:50 12/30/21 07:50 Laboratory Results - last 24 hr 12/30/21 06:50: WBC 6.9 D, RBC 3.28 L, Hgb 10.3 L, Hct 33.0 L, MCV 100.7 H, MCH 31.4 H, MCHC 31.2 L, RDW 13.3, Plt Count 333, MPV 7.8, Neut % (Auto) 55.6, Lymph % (Auto) 26.7, [place] % (Auto) 6.3, Eos % (Auto) 10.3, Baso % (Auto) 1.1, Neut # (Auto) 3.9, Lymph # (Auto) 1.9, [place] # (Auto) 0.4, Eos # (Auto) 0.7 H, Baso # (Auto) 0.1 12/30/21 06:50: Sodium 138, Potassium 4.1, Chloride 112 H, Carbon Dioxide 22, Anion Gap 8.1, BUN 32 H, Creatinine 2.30 H, Estimated Creat Clear 58, Estimated GFR 31 L, Est GFR ( Amer) 37 L, Glucose 89, Calcium 8.6 I & O for Last 24 hours: Intake & Output 12/27/21 12/28/21 12/29/21 12/30/21 11:59 11:59 11:59 11:59 Intake Total 360 / 360 540 / 540 1980 / 1980 600 / 600 Output Total 3325 / 3325 2375 / 2375 375 / 375 0 / 0 Balance -2965 / -2965 -1835 / -1835 1605 / 1605 600 / 600 Weight 221 lb 5.506 oz 225 lb 6.4 oz 222 lb 9.6 oz - *Routine Respiratory Exam Present: CTA bilaterally - *Routine Cardiovascular Exam Present: RRR - *Routine Extremities Exam Absent: cyanosis, clubbing, edema Progress Note: A&P (1) Community acquired pneumonia Status: Acute (2) ADI (acute kidney injury) Status: Acute (3) Respiratory failure, acute Status: Acute (4) Respiratory failure with hypoxia Status: Acute (5) Severe sepsis with acute organ dysfunction Status: Acute (6) Acute hyperkalemia Status: Acute (7) Obesity Status: Chronic (8) Cardiac pacemaker in situ Status: Acute (9) Bradycardia with 31-40 beats per minute Status: Acute Assessment and Plan for All Diagnoses:: 1. Intermittent sinus bradycardia, without history of syncope and on no rate reducing medications. Echocardiogram essentially normal. Thyroid functions recently normal. Pacemaker placed yesterday. 2. COPD with bilateral Pneumonia, on antibiotics per Dr. Anderson. Pt has appt with pulmonary after discharge. 3. Acute on chronic renal insufficiency, lisinopril discontinued. Patient now back to baseline. Pt has been scheduled to see Nephrology after discharge. p- ANCA and c-ANCA ordered with urine protein electrophoresis to evaluate for autoimmune issues. 4. Longstanding hypertension, will avoid FRANCHESKA/ARB due to CKD, stage 4. Coreg started. Pt will monitor at home. 5. Hyperkalemia and hyponatremia, resolved 6. Chronic anemia, stable 7. CXR shows possible worsening edema, but clinically improved. OK for discharge from cardiology [facility]. Med Recs: Coreg 6.25 mg BID Follow up in our office next week.
--- NOTE | 2021-12-30 08:10 | HMH.ANESCL ---
[facility] Anesthesia Checklist - Patient Identification Patient Identification: Arm Band - Structural Data Admitted From: Home Planned Operative Procedure/s: Pacemaker Placement Consent for Planned Operative Procedure(s) Verified: Yes Verified Documents: Surgical Consent - NPO Status Verified Time NPO: 00:00 - Additional verifications Anesthesia Reactions: No - Airway Assessment C-Spine Mobility Assessed: Yes TMJ Mobility Assessed: Yes Dentition: Poor Dentition - Neurological Assessment Level of Consciousness: Awake, Alert, Appropriate - Anesthesia Plan Anesthesia Risk discussed: Yes ASA Class: II Anesthesia Type: MAC [facility] History Medical History: Reports:: Congestive Heart Failure, Congenital Heart Disease, Hypertension, Palpitations, Renal Disease Denies:: Cancer, Diabetes Mellitus Type 1, Diabetes Mellitus Type 2, MRSA, Seizures *Have you ever received a pneumonia vaccine?: Yes *Have you received a flu vaccine this season?: Yes Anesthesia experience/problems:: none Other Surgeries: Yes: No Previous Surgery, Other Amputation: No Fractures: Yes (ARM,BACK,LEG) - *Social History Last grade of school completed: GED Smoking Status: Current every day smoker Tobacco Type: cigarettes # Packs/Day (cigarettes): 1 Alcohol Intake: former Substance Use Type: former substance user, opiates *Occupational Status:: employed Housing: house Household Members: significant other *Travel in the last 8 weeks: None Family Hx:: Coronary Artery Disease, Heart Attack
--- NOTE | 2021-12-30 09:35 | XR_ITS ---
FINAL REPORT CLINICAL HISTORY: hypoxia COMPARISON: 12/29/2021 FINDINGS: SINGLE VIEW CHEST The heart is normal in size. The mediastinum is unremarkable. Left subclavian pacer is identified. The pulmonary vascular congestion appears worse. There are persistent bibasilar opacities, may represent pneumonia or possible edema. There is no pneumothorax. IMPRESSION: Worsening pulmonary vascular congestion. Persistent bibasilar opacities, may represent pneumonia or possible edema. Reviewed, Interpreted and Dictated by Juan Laureano III, MD Transcribed by Jessica Storm Authenticated by Juan Laureano III, MD on 12/30/2021 11:51:08 AM [facility]
--- NOTE | 2021-12-30 09:35 | HMH.PULMCON ---
*Admission Date: 12/25/21 *Reason for consult:: Pneumonia *History of present illness: Mr. Loera is a 46-year-old male significant smoking history presented to hospital with worsening respiratory distress associated with subjective fevers with no productive phlegm found to be significantly hypoxic on admission needing high flow nasal cannula oxygen pulmonary was called for further management. Patient admits completed vaccination for COVID-19 pneumonia. His viral PCR negative on admission. [facility] History Medical History: Reports:: Congestive Heart Failure, Congenital Heart Disease, Hypertension, Palpitations, Renal Disease Denies:: Cancer, Diabetes Mellitus Type 1, Diabetes Mellitus Type 2, MRSA, Seizures *Have you ever received a pneumonia vaccine?: Yes *Have you received a flu vaccine this season?: Yes Anesthesia experience/problems:: none Other Surgeries: Yes: No Previous Surgery, Other Amputation: No Fractures: Yes (ARM,BACK,LEG) - *Social History Last grade of school completed: GED Smoking Status: Current every day smoker Tobacco Type: cigarettes # Packs/Day (cigarettes): 1 Alcohol Intake: former Substance Use Type: former substance user, opiates *Occupational Status:: employed Housing: house Household Members: significant other *Travel in the last 8 weeks: None Family Hx:: Coronary Artery Disease, Heart Attack ROS - Cons Denies anorexia, Denies body ache(s), Denies chills - Eyes Denies change in vision - ENT Denies nasal discharge, Denies nasal obstruction - Card Reports shortness of breath, Reports shortness of breath with activity - Resp Respiratory: Reports chest congestion, Reports cough, Reports dyspnea on exertion, Denies excessive phlegm production, Denies cough with sputum production - GI Gastrointestingal: Denies: abdominal pain - [place] Musculoskeletal: Denies muscle weakness - Psych Denies thoughts of hurting/killing others, Denies thoughts of hurting/killing yourself Meds Home Medications Medication Instructions Recorded Confirmed Type buprenorphine 8 mg-naloxone 2 mg 2 tab SL DAILY tab 04/17/20 12/26/21 History sublingual tablet Albuterol Sulfate [Albuterol 2 puff IH Q4HP PRN 12/25/21 12/26/21 History Sulfate Hfa] Fluticasone Propionate 1 spray NS DAILY 12/25/21 12/26/21 History Lisinopril/Hydrochlorothiazide 1 tab PO DAILY 12/25/21 12/25/21 History [Lisinopril-Hctz 20-12.5 mg Tab] Pantoprazole Sodium 40 mg PO DAILY 12/25/21 12/25/21 History Allergies Allergy/AdvReac Type Severity Reaction Status Date / Time No Known Allergies Allergy Verified 12/21/21 13:43 Exam - Constitutional Constitutional:: Present: no acute distress, comfortable - HENMT Exam HENMT: Present: normocephalic, atraumatic - Eye Exam Eyes:: Present: normal appearance both eyes and related structures - Neck Exam Neck:: Present: normal visual inspection - Respiratory Exam Respiratory:: Present: able to speak in complete sentences, no respiratory distress. Absent: crackles, wheezing - Cardiovascular Exam Cardiac:: Present: S1, S2 - GI Exam GI:: Present: soft - Skin Exam Skin: Present: warm - Neurological Exam Neurological: Present: alert, awake, normal cognition - Extremities Exam Extremities: Present: no cyanosis, no clubbing, no edema Internal Medicine - CN: Reslt - Labs CBC & Chem 7: 12/30/21 06:50 12/30/21 06:50 Labs: Short CBC 12/30/21 Range/Units 06:50 WBC 6.9 D (4.8-10.8) K/mm3 Hgb 10.3 L (14.1-18.0) g/dL Hct 33.0 L (42.0-52.0) % Plt Count 333 (142-424) K/mm3 [facility] 12/30/21 06:50 Sodium 138 Potassium 4.1 Chloride 112 H Carbon Dioxide 22 BUN 32 H Creatinine 2.30 H Glucose 89 Calcium 8.6 - ABG Interpretation ABG results: 12/25/21 17:20 ABG pH 7.38 ABG pCO2 30.3 L ABG pO2 42.9 L ABG HCO3 17.5 L ABG Total CO2 18.4 L ABG O2 Saturation 81 L* ABG Base Excess -7.7 L Assessment and
--- NOTE | 2021-12-30 10:20 | HMH.DCSUM ---
General - General Admission date:: 12/25/21 Discharge date: 12/30/21 HPI HPI: 46 yr old male presented to ed with c/o soa. pt states since he has been having increase in soa and weakness. pt states he has had pneumonia twice and both times he almost . pt states he become ill all of a sudden and it seems to be getting worse. pt was placed on high flow o2 due to o2 stats being decreased. Pt is admitted for pneumonia and elevated cre. Pt states chronic kidney failure. will place on treatment for possible pe until kidney function improves and ct scan to r/o pe can be completed. Hospital Course Hospital Course: 46 yr old male presented to ed with c/o soa. pt states since he has been having increase in soa and weakness. pt states he has had pneumonia twice and both times he almost . pt states he become ill all of a sudden and it seems to be getting worse. pt was placed on high flow o2 due to o2 stats being decreased. Pt is admitted for pneumonia and elevated cre. Pt states chronic kidney failure. will place on treatment for possible pe until kidney function improves and ct scan to r/o pe can be completed. 12/29/21 V/Q Scan: FINDINGS: Ventilation: Ventilation imaging limited due to radiotracer distribution, with much of the radiotracer accumulating in the trachea and pharyngeal region. There is a single small to moderate sized subsegmental ventilation deficit in the right middle lobe medial segment distribution on the anterior projection image. There is corresponding airspace density for in this region on chest x-ray 12/29/2021 at 3:33 p.m. which is similar in size. Perfusion: Solitary small matched subsegmental perfusion deficit in the right middle lobe medial segment on the anterior projection image which is smaller than the corresponding ventilation deficit and chest radiography airspace disease. IMPRESSION: Very low probability for pulmonary embolism based on modified PIOPED 2 criteria. Electronically signed by Alejandro Alvarado MD 12/29/21 PPM Placement: IMPRESSION 1. Successful pocket formation for Permanent Pacemaker Placement. 2. Successful placement of an atrial sensing and pacing coil into the right atrial appendage. 3. Successful placement of a ventricular sensing and pacing coil in the right ventricular apex. 4. Successful permanent Pacemaker Placement. PLAN 1. post op wound care, follow up office visit 12/30/21 CXR: FINDINGS: SINGLE VIEW CHEST The heart is normal in size. The mediastinum is unremarkable. Left subclavian pacer is identified. The pulmonary vascular congestion appears worse. There are persistent bibasilar opacities, may represent pneumonia or possible edema. There is no pneumothorax. IMPRESSION: Worsening pulmonary vascular congestion. Persistent bibasilar opacities, may represent pneumonia or possible edema. Reviewed, Interpreted and Dictated by Juan Laureano III, MD Cardiology has seen and recommends: 1. Intermittent sinus bradycardia, without history of syncope and on no rate reducing medications. Echocardiogram essentially normal. Thyroid functions recently normal. Pacemaker placed yesterday. 2. COPD with bilateral Pneumonia, on antibiotics per Dr. Anderson. Pt has appt with pulmonary after discharge. 3. Acute on chronic renal insufficiency, lisinopril discontinued. Patient now back to baseline. Pt has been scheduled to see Nephrology after discharge. p-ANCA and c-ANCA ordered with urine protein electrophoresis to evaluate for autoimmune issues. 4. Longstanding hypertension, will avoid FRANCHESKA/ARB due to CKD, stage 4. Coreg started. Pt will monitor at home. 5. Hyperkalemia and hyponatremia, resolved 6. Chronic anemia, stable 7. CXR shows possible worsening edema, but clinically improved. OK for discharge from cardiology [facility]. Med Recs: Coreg 6.25 mg BID 46-year-old male patient admitted to [facility] f
== END 2021-12-30 14:40 | disposition home or self-care (01) | DRG 981 ==
LOC: ER 19:17 → 2ND 19:51
PROVIDERS: Family Medicine; Internal Medicine; Internal Medicine Pulmonary Disease; Nurse Practitioner Family; Admitting Provider Emergency Medicine; Emergency Provider Student in an Organized Health Care Education/Training Program; PCP Nurse Practitioner Family; Visit Provider Emergency Medicine
PROC: 0JH606Z Insertion of Pacemaker, Dual Chamber into Chest Subcutaneous Tissue and Fascia, Open Approach (ICD-10-PCS; principal; 2021-12-29 12:45)
DX: J18.9 Pneumonia, unspecified organism (principal); J96.01 Acute respiratory failure with hypoxia; N17.9 Acute kidney failure, unspecified; N18.4 Chronic kidney disease, stage 4 (severe); J44.0 Chronic obstructive pulmonary disease with (acute) lower respiratory infection; I13.0 Hypertensive heart and chronic kidney disease with heart failure and stage 1 through stage 4 chronic kidney disease, or unspecified chronic kidney disease; E87.1 Hypo-osmolality and hyponatremia; I49.5 Sick sinus syndrome; E87.5 Hyperkalemia; E66.9 Obesity, unspecified; Z68.31 Body mass index [BMI] 31.0-31.9, adult; Z87.891 Personal history of nicotine dependence; D63.1 Anemia in chronic kidney disease; I50.9 Heart failure, unspecified
CPT/HCPCS: 33208; 36415; 71045; 78582; 80048; 80053; 82803; 83605; 83735; 84100; 84484; 85007; 85025; 85378; 85610; 85730; 87486; 87581; 87632; 87798; 93005; 93306; 94760; 96374; 99284; A9540; A9567; C1785; C1898; C9803; J0456; J0574; J0696; J2405; U0003; U0005

== ENCOUNTER → 2022-01-05 16:00 | Outpatient (CLI) | payer MEDICAID, SELFPAY ==
[2022-01-05 19:37] LABS: Anion Gap 16.8 mEq/L (5-15); Blood Urea Nitrogen 36 mg/dl (9-20); Carbon Dioxide 21 mmol/L (22.0-30.0); Chloride 107 mmol/L (98-107); Estimated Glomerular Filt Rate 25 ml/min (>60); GFR (African American) 30 ML/MIN (>60); Glucose 123 mg/dl (74-100); Potassium 5.8 mmoL/L (3.5-5.1); Sodium 139 mmol/L (136-145)
== END ==
PROVIDERS: Visit Provider Nurse Practitioner Family
DX: N17.9 Acute kidney failure, unspecified (principal)
CPT/HCPCS: 80048

== ENCOUNTER 2022-08-05 16:00 | Inpatient (IN) | payer MEDICAID, SELFPAY ==
[2022-08-05] VITALS (25 sets, daily range): BP systolic 90–172; BP diastolic 63–95; PULSE 56–83; RESP 12–21; TEMP 36.6–38.1; O2SAT 92–99; BMI 33.4
--- NOTE | 2022-08-05 16:01 | ECG_ITS ---
APPROVED REPORT Exam: Resting ECG HR:79 bpm ECG Measurements Heart Rate 79 AXES ND 191 P 55 QRSd 92 QRS 4 QT 350 T 39 QTc 384 Conclusion SINUS RHYTHM MINIMAL VOLTAGE CRITERIA FOR LVH, CONSIDER NORMAL VARIANT [MEETS CRITERIA IN ONE OF: R(aVL), S(V1), R(V5), R(V5/V6)+S(V1)] BORDERLINE ECG UNCONFIRMED REPORT Electronically signed by : Latrell Taylor MD 08/06/2022 09:50:18
--- NOTE | 2022-08-05 16:27 | PC.NURSE ---
unsuccessful IV attempts x3, was able to obtain blood and send to the lab. JanessaRN at BS at this time attempting IV access
--- NOTE | 2022-08-05 16:28 | XR_ITS ---
PROCEDURE INFORMATION: Exam: XR Chest Exam date and time: 08/05/22 04:47 PM Age: 47 years old Clinical indication: Pain; Chest pressure; Additional info: Chest pain, lethargic TECHNIQUE: Imaging protocol: Radiologic exam of the chest. Views: 1 view. COMPARISON: CR XR CHEST PORTABLE 12/30/21 09:47 AM FINDINGS: Tubes, catheters and devices: Left subclavian pacemaker leads overlie the right atrium and right ventricle. Lungs: Patchy bilateral atelectasis. Pleural spaces: Unremarkable. No pleural effusion. No pneumothorax. Heart/Mediastinum: Unremarkable. No cardiomegaly. Bones/joints: Unremarkable. Soft tissues: Low volume chest. IMPRESSION: Low volume chest. Patchy bilateral atelectasis.
--- NOTE | 2022-08-05 16:39 | PC.NURSE ---
rad in room getting xrays
--- NOTE | 2022-08-05 16:54 | PC.NURSE ---
nursing staff in room getting an iv
[2022-08-05 16:55] LABS: Anion Gap 15.5 mEq/L (5-15); Blood Urea Nitrogen 43 mg/dl (9-20); Calcium 8.9 mg/dl (8.4-10.2); Carbon Dioxide 23 mmol/L (22.0-30.0); Chloride 105 mmol/L (98-107); Creatinine Clearance Estimated 45 mL/min (50-200); Estimated Glomerular Filt Rate 24 ml/min (>60); GFR (African American) 28 ML/MIN (>60); Glucose 123 mg/dl (74-100); Potassium 4.5 mmoL/L (3.5-5.1); Sodium 139 mmol/L (136-145)
[2022-08-05 16:57] LABS: Basophils # 0.1 K/mm3 (0-0.2); Basophils % 0.4 % (0.1-2.0); Eosinophils # 0.6 K/mm3 (0.0-0.4); Eosinophils % 2.7 % (0.1-12.0); Hematocrit 42.6 % (42.0-52.0); Hemoglobin 13.2 g/dL (14.1-18.0); Lymphocytes # 1.6 K/mm3 (0.7-4.5); Lymphocytes % 7.6 % (10-50); Mean Corpuscular Hemoglobin 30.9 pg (27.0-31.2); Mean Corpuscular Volume 99.6 fl (80-94); Mean Platelet Volume 8.3 fl (7.4-10.4); Monocytes # 0.9 K/mm3 (0.1-1.0); Monocytes % 4.3 % (1.7-9.3); Neutrophils # 17.6 K/mm3 (1.8-7.8); Neutrophils % 84.9 % (37.0-80.0); Platelet Count 283 K/mm3 (142-424); Red Blood Count 4.28 M/mm3 (4.60-6.20); Red Cell Distribution Width 14.8 % (11.5-17.5); White Blood Count 20.7 K/mm3 (4.8-10.8)
[2022-08-05 16:58] LABS: MANUAL DIFFERENTIAL MANUAL DIFFERENTIAL (MANUAL DIFF)
[2022-08-05 17:04] LABS: Coronavirus 19, PCR Not Detected (NotDetected); Influenza A, PCR Not Detected (NotDetected); Influenza B, PCR Not Detected (NotDetected)
[2022-08-05 17:08] LABS: Troponin I 0.02 ng/ml (0.00-0.034)
[2022-08-05 17:13] LABS: Eosinophils % 1 % (0-3); Lymphocytes % 5 % (10-50); Monocytes % 2 % (2-9); Neutrophils % 92 % (42-76); Total Cells Counted 100
[2022-08-05 17:14] LABS: Platelet Estimate Normal; Stomatocytes 1+
--- NOTE | 2022-08-05 18:04 | PC.NURSE ---
pt given urinal to try and provide urine specimen at BS pt SaO2 dropped to 88% will sleeping, O2 @ 2L per NC place on pt at this time. will continue to monitor
[2022-08-05 18:20] LABS: Lactic Acid 1.2 mmol/L (0.7-2.1)
[2022-08-05 19:08] LABS: Microscopic, Urine URINE MICROSCOPIC (MICROSCOPIC)
[2022-08-05 19:10] LABS: Appearance,Urine CLEAR (Clear); Bilirubin,Urine Negative (Negative); Blood, Urine 1+ (Negative); Color,Urine YELLOW (Yellow); Glucose,Urine (UA) Negative (Negative); Ketones,Urine Negative (Negative); Leukocyte Esterase,Urine Negative (Negative); Nitrate,Urine Negative (Negative); Protein,Urine 1+ (Negative); Specific Gravity, Urine 1.015 (1.005-1.030); Urobilinogen,Urine 0.2 EU/dl (0.2)
[2022-08-05 19:26] LABS: Bacteria,Urine Trace /lpf; Squamous Epithelial Cell,Urine Occasional #/hpf (0-5); WBC,Urine Occasional #/hpf (0-3)
--- NOTE | 2022-08-05 19:29 | PC.NURSE ---
QUINCY JOSE at for procedure.
--- NOTE | 2022-08-05 19:30 | PC.NURSE ---
Nurse assisted with bedside lumbar puncture. Patient tolerated procedure well, was placed in the appropriate position and vitals were monitored and consistent during procedure and following.
--- NOTE | 2022-08-05 20:00 | PC.NURSE ---
shift change report given to curryrn
--- NOTE | 2022-08-05 20:01 | PC.NURSE ---
anesthesia paged for ED doctor, ED doctor on phone with them at this time
[2022-08-05 20:20] LABS: Alanine Aminotransferase 20 U/L (12-78); Albumin Level 4.2 g/dl (3.5-5.0); Alkaline Phosphatase 126 U/L (38-126); Aspartate Amino Transferase 47 U/L (17-59); Bilirubin,Direct 0.3 mg/dl (0.0-0.4); Bilirubin,Total 0.3 mg/dl (0.2-1.3); Total Protein,Serum 7.4 g/dl (6.3-8.2)
[2022-08-05 20:28] LABS: Troponin I 0.02 ng/ml (0.00-0.034)
[2022-08-05 20:37] LABS: Procalcitonin 0.508 ng/mL (0.0-2.0)
[2022-08-05 20:51] LABS: Erythrocyte Sedimentation Rate 26 mm/hr (0-15)
[2022-08-05 21:36] LABS: Barbiturates Screen,Urine Negative ng/ml (<200); Benzodiazepines Screen,Urine Negative ng/ml (<200)
[2022-08-05 21:37] LABS: Amphetamine/Metha Screen,Urine Negative ng/ml (<1000)
--- NOTE | 2022-08-05 21:37 | PC.NURSE ---
Patient c/o severe headache for prior 30 minutes. States the headache is a 9/10. Per , 4mg of morphine should be given for pain. Order entered per .
[2022-08-05 21:38] LABS: Cannabinoid Screen,Urine Negative ng/ml (<50); Methadone Screen,Urine Negative ng/ml (<300)
[2022-08-05 21:39] LABS: Cocaine Screen,Urine Negative ng/ml (<300)
[2022-08-05 21:40] LABS: Opiate Screen,Urine Negative ng/ml (<300)
[2022-08-05 21:41] LABS: Phencyclidine Screen,Urine Negative ng/ml (<25)
--- NOTE | 2022-08-05 21:47 | HMH.EDGENADL ---
Discharge Plan Disposition Patient Disposition: Admitted As Inpatient Condition: Fair Prescriptions Prescriptions: No Action buprenorphine-naloxone 8-2 mg tablet, sublingual 2 tab SL DAILY Label Comments: DISSOLVE 2 TABLET SUBLINGUALLY EVERY DAY nicotine 21-14-7 mg/24 hr patch, TD daily, sequential 1 patch TRANSDERMA Q24H Qty: 42 0RF Rx Instructions: 21 mg daily for 14 days 14 mg daily for 14 days 7 mg daily for 14 days famotidine [Pepcid] 20 mg tablet 20 mg PO BID Qty: 60 2RF sodium polystyrene sulfonate powder 15 g PO ONCE Qty: 453.6 0RF pantoprazole 40 mg tablet,delayed release (DR/EC) See Rx Instructions .ROUTE .COMPLEX Qty: 30 3RF Dose Instruction: TAKE ONE TABLET BY MOUTH ONCE A DAY Rx Instructions: TAKE ONE TABLET BY MOUTH ONCE A DAY carvedilol 25 mg tablet See Rx Instructions .ROUTE .COMPLEX Qty: 60 0RF Dose Instruction: TAKE ONE TABLET BY MOUTH 2 TIMES A DAY WITH FOOD Rx Instructions: TAKE ONE TABLET BY MOUTH 2 TIMES A DAY WITH FOOD albuterol sulfate 8.5 GM HFA aerosol inhaler 2 puff IH Q4HP PRN (Reason: Shortness Of Breath) fluticasone propionate 16 GM spray,suspension 1 spray NS DAILY Referrals Follow up/Referrals: Alexys Anderson MD [Primary Care Provider] - See instructions Clinical Impressions Clinical Impression: Acute febrile illness Discharge ED Provider: Ryan You General Adult HPI General Chief complaint: Weakness Stated complaint: Chest Pain Time Seen by Provider: 08/05/22 16:15 Mode of Arrival: Wheelchair Source of Information: Patient and Parent(s) Limitations: No Limitations Description of Symptoms (Recalled from ER Triage Doc. 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 Pt describes pain as intermittent in nature. Pt significant other reports her son called her states pt had fallen 3 times while at work. Pt is lethargic in nature. Is slow to answer questions. Pt significant other reports pt has not been making any sense . History of Present Illness HPI narrative: Patient is a 47-year-old male who presents with concern for lethargy. He also reports some left-sided chest pain that started 3 hours prior to arrival. He says that it is intermittent in nature. It is not worse with deep inspiration. The significant other at bedside said that the patient has fallen 3 times at work recently as well and seems to be slow and not making any sense. He denies any abdominal pain. He says that he feels completely out of it. Denies any numbness or tingling to his extremities. He says that he also feels warm. Denies any chills. Related Data Home Medications Medication Instructions Recorded Confirmed buprenorphine 8 mg-naloxone 2 mg 2 tab sublingual DAILY substance 04/17/20 05/03/22 sublingual tablet abuse albuterol sulfate 90 mcg/actuation 2 puff inhalation Q4HP PRN 12/25/21 05/03/22 aerosol inhaler Shortness Of Breath fluticasone propionate 50 1 spray intranasal DAILY Allergy 12/25/21 05/03/22 mcg/actuation nasal symptoms spray,suspension Previous Rx's Medication Instructions Recorded sodium polystyrene sulfonate 15 g PO ONCE #453.6 grams 01/12/22 nicotine 1 patch transdermal Q24H #42 02/03/22 21mg/24hr-14mg/24hr-7mg/24hr daily patches transderm patches,sequentl famotidine 20 mg tablet (Pepcid) 20 mg PO BID #60 tabs 05/03/22 pantoprazole 40 mg tablet,delayed See Rx Instructions .Route 06/14/22 release .COMPLEX #30 tabs carvedilol 25 mg tablet See Rx Instructions .Route 08/01/22 .COMPLEX #60 tabs Allergies Allergy/AdvReac Type Severity Reaction Status Date / Time No Known Allergies Allergy Verified 05/03/22 14:35 [facility] Medical History (Updated 08/05/22 @ 21:50 by Ryan You MD) CKD (chronic kidney disease) Dyspnea Edema Gastroesophageal reflux disease HTN (hypertension) Palpitations Social History Smo
--- NOTE | 2022-08-05 21:50 | PC.NURSE ---
house notified of need for bed
--- NOTE | 2022-08-05 21:55 | EXP.EVENT.NO ---
ED called for LP. Patient placed in sitting position. RN to assist at bedside. Patient lethargic but mostly cooperative. L3-4 located. Sterile prep. 3 ml 1% lidocaine infiltrate. 22 quincke spinal needle placed and repositioned. + CSF with - heme. Approximately 8 ml clear CSF collected in 4 tubes. Patient tolerated procedure well. Positioned supine.
--- NOTE | 2022-08-05 22:56 | PC.NURSE ---
patient up to floor via wheelchair @ this time.
[2022-08-05 23:13] LABS: Troponin I 0.03 ng/ml (0.00-0.034)
[2022-08-06] VITALS (11 sets, daily range): BP systolic 113–144; BP diastolic 69–94; PULSE 60–77; RESP 14–17; TEMP 36.8–38.9; O2SAT 92–95; BMI 33.3
[2022-08-06 03:12] LABS: Glucose,CSF 69 mg/dl (40-70)
[2022-08-06 03:29] LABS: Appearance,CSF Clear (Clear); Mononuclear WBCs,CSF 100 %; Polynuclear WBCs,CSF 0 %; Red Blood Cell,CSF 1 cells/uL (0); Volume,CSF 8 mL; White Blood Cell,CSF 3 cells/uL (0-5)
--- NOTE | 2022-08-06 04:31 | PC.NURSE ---
pt slept most of shift, pt is alert and oriented x4 when aroused, pt sleeps mostly unless aroused by shaking and name calling, pt remains afebrile after tylenol, VSS, pt complains of hand shakiness and unable to hold on to things at work, pt with history of collapse and fall at work prior to arrival to hospital, skin pwd, telemetry reveals paced rythm, pt complains of headache mild post lumbar puncture in ER. no other issues noted at this time.
[2022-08-06 07:22] LABS: Anion Gap 15.2 mEq/L (5-15); Blood Urea Nitrogen 37 mg/dl (9-20); Calcium 8.3 mg/dl (8.4-10.2); Carbon Dioxide 19 mmol/L (22.0-30.0); Chloride 110 mmol/L (98-107); Creatinine Clearance Estimated 50 mL/min (50-200); Estimated Glomerular Filt Rate 27 ml/min (>60); GFR (African American) 32 ML/MIN (>60); Glucose 127 mg/dl (74-100); Potassium 4.2 mmoL/L (3.5-5.1); Sodium 140 mmol/L (136-145)
[2022-08-06 07:24] LABS: Basophils # 0.1 K/mm3 (0-0.2); Basophils % 0.4 % (0.1-2.0); Eosinophils # 0.7 K/mm3 (0.0-0.4); Hematocrit 35.4 % (42.0-52.0); Lymphocytes # 1.7 K/mm3 (0.7-4.5); Lymphocytes % 12.6 % (10-50); Mean Corpuscular HGB Conc 31.7 g/dL (31.8-35.4); Mean Corpuscular Hemoglobin 31.2 pg (27.0-31.2); Mean Corpuscular Volume 98.3 fl (80-94); Monocytes # 0.8 K/mm3 (0.1-1.0); Monocytes % 6.3 % (1.7-9.3); Neutrophils # 10.1 K/mm3 (1.8-7.8); Neutrophils % 75.8 % (37.0-80.0); Platelet Count 251 K/mm3 (142-424); Red Cell Distribution Width 14.7 % (11.5-17.5); White Blood Count 13.3 K/mm3 (4.8-10.8)
[2022-08-06 07:25] LABS: Hemoglobin 11.2 g/dL (14.1-18.0)
--- NOTE | 2022-08-06 08:28 | EXP.PHA.CONS ---
Pharmacy Consult Date: 08/06/22 Time: 08:28 Referring provider: DR. MALLOY Reason for Consult:: VANCOMCYIN DOSING Allergies Allergy/AdvReac Type Severity Reaction Status Date / Time No Known Allergies Allergy Verified 05/03/22 14:35 Home Medications Medication Instructions Recorded Confirmed Type buprenorphine 8 mg-naloxone 2 mg 1.5 tab sublingual DAILY substance 04/17/20 08/06/22 History sublingual tablet abuse albuterol sulfate 90 mcg/actuation 2 puff inhalation Q4HP PRN 12/25/21 08/06/22 History aerosol inhaler Shortness Of Breath fluticasone propionate 50 1 spray intranasal DAILY Allergy 12/25/21 08/06/22 History mcg/actuation nasal symptoms spray,suspension carvedilol 25 mg tablet 25 mg PO DAILY htn 08/05/22 08/06/22 History famotidine 20 mg tablet (Pepcid) 20 mg PO BID GERD 08/05/22 08/06/22 History nicotine 1 patch transdermal Q24H nicotene 08/05/22 08/06/22 History 21mg/24hr-14mg/24hr-7mg/24hr daily withdrawal transderm patches,sequentl pantoprazole 40 mg tablet,delayed 40 mg PO DAILY GERD 08/05/22 08/06/22 History release sodium polystyrene sulfonate 15 g PO ONCE htn 08/05/22 08/06/22 History New Prescriptions to Start Prescriptions: Height: 1.73 m Weight: 99.79 kg Laboratory Results:: Laboratory Results - last 24 hr 08/05/22 16:07: SARS-CoV-2 (PCR) Not detected, Influenza A Untype (PCR) Not detected, Influenza Type B (PCR) Not detected 08/05/22 16:12: WBC 20.7 H*, RBC 4.28 L, Hgb 13.2 L, Hct 42.6, MCV 99.6 H, MCH 30.9, MCHC 31.0 L, RDW 14.8, Plt Count 283, MPV 8.3, Neut % (Auto) 84.9 H, Lymph % (Auto) 7.6 L, [place] % (Auto) 4.3, Eos % (Auto) 2.7, Baso % (Auto) 0.4, Neut # (Auto) 17.6 H, Lymph # (Auto) 1.6, [place] # (Auto) 0.9, Eos # (Auto) 0.6 H, Baso # (Auto) 0.1, Total Counted 100, Neutrophils % (Manual) 92 H, Lymphocytes % (Manual) 5 L, Monocytes % (Manual) 2, Eosinophils % (Manual) 1, Platelet Estimate Normal, Stomatocytes 1+ 08/05/22 16:12: Sodium 139, Potassium 4.5, Chloride 105, Carbon Dioxide 23, Anion Gap 15.5 H, BUN 43 H, Creatinine 2.90 H, Estimated Creat Clear 45, Estimated GFR 24 L, Est GFR ( Amer) 28 L, Glucose 123 H, Calcium 8.9, Troponin I 0.02 08/05/22 16:20: ESR 26 H 08/05/22 16:20: C-Reactive Protein 70.0 H, Procalcitonin 0.508 08/05/22 16:20: Total Bilirubin 0.3, Direct Bilirubin 0.3, Conjugated Bilirubin 0.0, Indirect Bilirubin 0.0, Unconjugated Bilirubin 0.0, AST 47, ALT 20, Alkaline Phosphatase 126, Total Protein 7.4, Albumin 4.2 08/05/22 17:27: Lactate 1.2 08/05/22 19:02: Urine Color Yellow, Urine Appearance Clear, Urine pH 6.0, Ur Specific [place] 1.015, Urine Protein 1+, Urine Glucose (UA) Negative, Urine Ketones Negative, Urine Blood 1+, Urine Nitrate Negative, Urine Bilirubin Negative, Urine Urobilinogen 0.2, Ur Leukocyte Esterase Negative, Urine RBC 5-10, Urine WBC Occasional, Ur Squamous Epith Cells Occasional, Urine Bacteria Trace 08/05/22 19:02: Urine Opiates Screen Negative, Urine Methadone Screen Negative, Ur Barbituates Screen Negative, Ur Phencyclidine Scrn Negative, Ur Amphetamines Screen Negative, U Benzodiazepines Scrn Negative, Urine Cocaine Screen Negative, U Marijuana (THC) Screen Negative 08/05/22 19:54: Troponin I 0.02 08/05/22 21:36: CSF Volume 8, CSF Appearance Clear, CSF WBC 3, CSF RBC 1, CSF Mononuclear WBCs % 100, CSF Polynuclear WBCs % 0 08/05/22 21:36: CSF Glucose 69, CSF Total Protein 49.0 08/05/22 22:41: Troponin I 0.03 08/06/22 06:35: WBC 13.3 H D, RBC 3.60 L, Hgb 11.2 L D, Hct 35.4 L, MCV 98.3 H, MCH 31.2, MCHC 31.7 L, RDW 14.7, Plt Count 251, MPV 8.0, Neut % (Auto) 75.8, Lymph % (Auto) 12.6, [place] % (Auto) 6.3, Eos % (Auto) 5.0, Baso % (Auto) 0.4, Neut # (Auto) 10.1 H, Lymph # (Auto) 1.7, [place] # (Auto) 0.8, Eos # (Auto) 0.7 H, Baso # (Auto) 0.1 08/06/22 06:35: Sodium 140, Potassium 4.2, Chloride 110 H, Carbon Dioxide 19 L, Anion Gap 15.2 H, BUN 37 H, Creatinine 2.60 H, Estimated Creat Clear 50, Estimated GFR 27 L, Est GFR ( Amer) 32 L, Glucose 1
--- NOTE | 2022-08-06 10:37 | XR_ITS ---
PROCEDURE INFORMATION: Exam: XR Chest Exam date and time: 08/06/2022 10:54 AM Age: 47 years old Clinical indication: Shortness of breath; Additional info: Sob/fever and cough TECHNIQUE: Imaging protocol: Radiologic exam of the chest. Views: 2 views. COMPARISON: CR XR CHEST PORTABLE 08/05/2022 4:47 PM FINDINGS: Tubes, catheters and devices: Pacer leads stable. Lungs: Patchy opacities in the mid lung zones bilaterally. Pleural spaces: Unremarkable. No pleural effusion. No pneumothorax. Heart/Mediastinum: Unremarkable. No cardiomegaly. Bones/joints: Unremarkable. IMPRESSION: Patchy opacities in the mid lung zones bilaterally.
--- NOTE | 2022-08-06 10:38 | EXP.HP ---
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 Pt describes pain as intermittent in nature.? Pt significant other reports her son called her states pt had fallen 3 times while at work.? Pt is lethargic in nature.? Is slow to answer questions.? Pt significant other reports pt has not been making any sense . Patient is a 47-year-old male who presents with concern for lethargy.? He also reports some left-sided chest pain that started 3 hours prior to arrival.? He says that it is intermittent in nature.? It is not worse with deep inspiration.? The significant other at bedside said that the patient has fallen 3 times at work recently as well and seems to be slow and not making any sense.? He denies any abdominal pain.? He says that he feels completely out of it.? Denies any numbness or tingling to his extremities.? He says that he also feels warm.? Denies any chills and was admitted for treatment and eval Patient is a 47-year-old male who presents with multiple complaints.? Hemodynamically stable but ill-appearing.? His EKG shows normal sinus rhythm with no significant ST changes.? His physical exam is overall unremarkable but he is altered and often needs to be aroused but he is alert and oriented and able to cooperate with exam.? His laboratory studies were pertinent for elevated inflammatory markers as well as a white count of 20.? His chest x-ray did not show any signs of pneumonia.? The rest of his laboratory studies were nonactionable at this time.? He then spiked a fever up to 100.6 and was given some rectal Tylenol.? There was no definitive source of his infection found and his COVID was negative so I elected to proceed with a lumbar puncture.? I was unable to obtain CSF so anesthesia was consulted for lumbar puncture to obtain CSF.? Patient was started on broad-spectrum antibiotics with bank, cefepime, Flagyl due to his renal function.? The admitting team was consulted for evaluation admission and agreed to take the patient onto their service. [facility] Medical History (Updated 08/07/22 @ 01:49 by Alexys Anderson MD) CKD (chronic kidney disease) COPD (chronic obstructive pulmonary disease) Dyspnea Edema Gastroesophageal reflux disease Hand fracture, right HTN (hypertension) Pacemaker Palpitations Tobacco abuse Social History (Updated 08/06/22 @ 01:20 by Radha Jacobsen RN) Smoking Status: Current every day smoker tobacco type: cigarettes packs per day: 1 pack-years: 30 years smoked: 30 second hand exposure: No Tobacco counseling given: patient declined alcohol intake: never substance use type: former substance user and painkillers current occupational status: other Travel in the last 8 weeks: Inside the [employer] States household members: significant other housing: house lives independently: No caffeine: Yes special crystal needs: No agree to transfusion: No Review of Systems Review of Systems Review of systems:: pertinent systems reviewed and negative unless documented below Constitutional Constitutional: Reports chills, Reports fatigue and Reports fever(s) Eyes Eyes: Denies eye discharge ENT Ears, Nose, Mouth, and Throat: Denies dizziness and Denies neck pain *Cardiovascular Cardiovascular: Denies chest pain at rest *Respiratory Respiratory: Reports cough, Denies excessive phlegm production and Denies hemoptysis *Gastrointestinal Gastrointestinal: Denies change in bowel habits *Genitourinary Genitourinary: Denies dysuria *Musculoskeletal Musculoskeletal: Denies neck pain Integumentary/Breasts Skin/Breast: Denies rash *Neurologic Neurologic: Reports as per HPI, Reports confusion, Denies convulsions and Denies dizziness Psychiatric Psychiatric: Reports confusion Endocrine Endocrine: Reports fatigue Meds Home Med
--- NOTE | 2022-08-06 10:44 | P.CONPHA_ITS ---
[facility] Pharmacy VTE Monitoring Patient Demographics Admission date: 08/05/22 Report Date: 08/06/22 Time: 10:44 Patient Allergies No Known Allergies Allergy (Verified 05/03/22 14:35) Height: 1.73 m Weight: 99.79 kg Current Active Problems (Updated 08/06/22 @ 01:08 by Radha Jacobsen RN) Acute febrile illness (Acute) VTE Risk Labs: VTE Related Lab Results Hgb 11.2 g/dL (14.1-18.0) L D 08/06/22 06:35 Hct 35.4 % (42.0-52.0) L 08/06/22 06:35 Plt Count 251 K/mm3 (142-424) 08/06/22 06:35 BUN 37 mg/dl (9-20) H 08/06/22 06:35 Creatinine 2.60 mg/dl (0.66-1.25) H 08/06/22 06:35 Estimated Creat Clear 50 mL/min (50-200) 08/06/22 06:35 Was VTE Risk Assessment Performed: Yes VTE Score: 3 VTE Risk Level: Low Risk Prophylaxis VTE Prophylaxis Ordered?: Yes Types of VTE Prophylaxis: TEDS Thigh High Location of Applied Device: Bilateral Lower Extremeties
--- NOTE | 2022-08-06 14:56 | PC.NURSE ---
contacted MD front end application developer regarding pt temp increase despite medication. New orders received. will continue to monitor
[2022-08-07] VITALS (15 sets, daily range): BP systolic 120–161; BP diastolic 63–115; PULSE 54–86; RESP 14–16; TEMP 36.7–39.4; O2SAT 93–99; BMI 33.3
--- NOTE | 2022-08-07 04:12 | PC.NURSE ---
No changes since previous assessment. Pt remains on RA, tolerating well. Pt has been receiving IV atbx as ordered. Pt has c/o of back pain (from lumbar puncture) several times this shift. Medicated per JAN, with inadequate relief. softball coach provider notified, new orders received and carried out. Pt has rested in intervals this shift. Monitoring via tele. No other needs or complaints voiced at this time. Call light in reach.
--- NOTE | 2022-08-07 10:33 | EXP.ACUTE.PN ---
Subjective *Date: 08/08/22 *Time: 06:01 Interval history: doing better - labs pending - had fever yesterday afternoon Medical Exam Vital signs and Labs for Last 24 Hours: Temp Pulse Resp BP Pulse Ox 98.0 F 54 L 14 141/73 H 99 08/07/22 08:00 08/07/22 08:00 08/07/22 08:00 08/07/22 08:38 08/07/22 08:00 I & O for Labs for Last 24 Hours: Intake & Output 08/04/22 08/05/22 08/06/22 08/07/22 11:59 11:59 11:59 11:59 Intake Total 1440 / 1440 1580 / 1580 Output Total 700 / 700 450 / 450 Balance 740 / 740 1130 / 1130 Weight 219 lb 15.988 oz 220 lb 2.81 oz Microbiology Reports for the Last 24 Hours: Microbiology 08/05/22 21:36 Cerebral Spinal Fluid Gram Stain - Final 08/05/22 21:36 Cerebral Spinal Fluid CSF Culture - Preliminary NO GROWTH AFTER 24 HOURS Head: Present atraumatic Eyes: Present as per HPI ENT: Present mucous membranes moist Neck: Present trachea midline Respiratory: Present decreased breath sounds Cardiac: Present Reg Rate and Rhythm GI: Present soft Extremities: Absent tenderness Skin: Present intact Neuro: Present Cranial Nerve 2-12 Intact
[2022-08-07 11:26] LABS: Basophils # 0.2 K/mm3 (0-0.2); Basophils % 1.2 % (0.1-2.0); Eosinophils # 0.8 K/mm3 (0.0-0.4); Hematocrit 36.8 % (42.0-52.0); Hemoglobin 11.5 g/dL (14.1-18.0); Lymphocytes # 1.6 K/mm3 (0.7-4.5); Lymphocytes % 12.4 % (10-50); Mean Corpuscular HGB Conc 31.3 g/dL (31.8-35.4); Mean Corpuscular Hemoglobin 31.3 pg (27.0-31.2); Mean Corpuscular Volume 99.9 fl (80-94); Mean Platelet Volume 8.1 fl (7.4-10.4); Monocytes % 8.2 % (1.7-9.3); Neutrophils # 9.1 K/mm3 (1.8-7.8); Neutrophils % 72.2 % (37.0-80.0); Platelet Count 231 K/mm3 (142-424); Red Blood Count 3.69 M/mm3 (4.60-6.20); Red Cell Distribution Width 14.6 % (11.5-17.5); White Blood Count 12.7 K/mm3 (4.8-10.8)
[2022-08-07 11:32] LABS: Chloride 108 mmol/L (98-107); Potassium 5.1 mmoL/L (3.5-5.1); Sodium 140 mmol/L (136-145)
[2022-08-07 11:35] LABS: Anion Gap 16.1 mEq/L (5-15); Blood Urea Nitrogen 31 mg/dl (9-20); Calcium 8.7 mg/dl (8.4-10.2); Carbon Dioxide 21 mmol/L (22.0-30.0); Creatinine Clearance Estimated 54 mL/min (50-200); Estimated Glomerular Filt Rate 29 ml/min (>60); GFR (African American) 35 ML/MIN (>60); Glucose 102 mg/dl (74-100)
--- NOTE | 2022-08-07 16:45 | PC.NURSE ---
pt has spiked a temp over the last few hours. Medicated with prn motrin and tylenol. will continue to monitor. pt denies any SOA. He has been up ambulating through out the room and has showered. He is alert and mostly appropriate. is fidgety and restless @ times.
--- NOTE | 2022-08-07 16:50 | PC.NURSE ---
notified of pt temp. nno
--- NOTE | 2022-08-07 18:58 | PC.NURSE ---
pt has had a fever on and off through out the shift. He is fidgety and restless @ times. will continue to monitor.
[2022-08-07 21:01] LABS: Vancomycin,Trough 12.7 ug/mL (5.0-10.0)
--- NOTE | 2022-08-07 21:09 | PC.NURSE ---
paged night watch at this time to report vanc trough.
--- NOTE | 2022-08-07 21:11 | PC.NURSE ---
spoke with sabra at night-watch, ordered to give scheduled vanc
[2022-08-08] VITALS: BP 122/66; PULSE 64; RESP 16; TEMP 36.9; O2SAT 96
[2022-08-08 04:00] VITALS: BP 159/89; PULSE 60; RESP 17; TEMP 36.5; O2SAT 96
--- NOTE | 2022-08-08 04:28 | PC.NURSE ---
pt c/o MENDOZA this shift and was medicated prn per jan. he has been afebrile this shift and had no other complaints. lung sounds diminished. remains on RA and is tolerating well. uses toilet independently. call light within reach, no needs at this time.
[2022-08-08 05:00] VITALS: BMI 33.3
[2022-08-08 06:43] LABS: Anion Gap 18.2 mEq/L (5-15); Blood Urea Nitrogen 34 mg/dl (9-20); Calcium 8.9 mg/dl (8.4-10.2); Carbon Dioxide 17 mmol/L (22.0-30.0); Chloride 111 mmol/L (98-107); Creatinine Clearance Estimated 59 mL/min (50-200); Estimated Glomerular Filt Rate 32 ml/min (>60); GFR (African American) 39 ML/MIN (>60); Glucose 108 mg/dl (74-100); Potassium 5.2 mmoL/L (3.5-5.1); Sodium 141 mmol/L (136-145)
[2022-08-08 08:00] VITALS: BP 152/95; PULSE 61; RESP 14; TEMP 36.9; O2SAT 99
[2022-08-08 08:02] LABS: Basophils # 0.1 K/mm3 (0-0.2); Basophils % 1.1 % (0.1-2.0); Eosinophils # 0.9 K/mm3 (0.0-0.4); Eosinophils % 8.1 % (0.1-12.0); Hematocrit 34.4 % (42.0-52.0); Hemoglobin 11.3 g/dL (14.1-18.0); Lymphocytes # 1.2 K/mm3 (0.7-4.5); Lymphocytes % 10.3 % (10-50); Mean Corpuscular HGB Conc 32.8 g/dL (31.8-35.4); Mean Corpuscular Hemoglobin 32.2 pg (27.0-31.2); Mean Corpuscular Volume 98.1 fl (80-94); Mean Platelet Volume 8.1 fl (7.4-10.4); Monocytes # 0.8 K/mm3 (0.1-1.0); Monocytes % 7.2 % (1.7-9.3); Neutrophils # 8.2 K/mm3 (1.8-7.8); Neutrophils % 73.2 % (37.0-80.0); Platelet Count 270 K/mm3 (142-424); Red Blood Count 3.51 M/mm3 (4.60-6.20); Red Cell Distribution Width 14.5 % (11.5-17.5); White Blood Count 11.1 K/mm3 (4.8-10.8)
--- NOTE | 2022-08-08 09:04 | EXP.DC.SUM ---
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 Pt describes pain as intermittent in nature.? Pt significant other reports her son called her states pt had fallen 3 times while at work.? Pt is lethargic in nature.? Is slow to answer questions.? Pt significant other reports pt has not been making any sense . Patient is a 47-year-old male who presents with concern for lethargy.? He also reports some left-sided chest pain that started 3 hours prior to arrival.? He says that it is intermittent in nature.? It is not worse with deep inspiration.? The significant other at bedside said that the patient has fallen 3 times at work recently as well and seems to be slow and not making any sense.? He denies any abdominal pain.? He says that he feels completely out of it.? Denies any numbness or tingling to his extremities.? He says that he also feels warm.? Denies any chills and was admitted for treatment and eval Patient is a 47-year-old male who presents with multiple complaints.? Hemodynamically stable but ill-appearing.? His EKG shows normal sinus rhythm with no significant ST changes.? His physical exam is overall unremarkable but he is altered and often needs to be aroused but he is alert and oriented and able to cooperate with exam.? His laboratory studies were pertinent for elevated inflammatory markers as well as a white count of 20.? His chest x-ray did not show any signs of pneumonia.? The rest of his laboratory studies were nonactionable at this time.? He then spiked a fever up to 100.6 and was given some rectal Tylenol.? There was no definitive source of his infection found and his COVID was negative so I elected to proceed with a lumbar puncture.? I was unable to obtain CSF so anesthesia was consulted for lumbar puncture to obtain CSF.? Patient was started on broad-spectrum antibiotics with bank, cefepime, Flagyl due to his renal function.? The admitting team was consulted for evaluation admission and agreed to take the patient onto their service. Hospital Course Hospital Course Hospital Course: The patient was admitted with mental status changes, felt to reflect delirium, in the setting of low-grade fevers. His work-up included imaging of the chest and lumbar puncture. Cerebrospinal fluid looked okay, chest film showed a hazy infiltrative process. Patient was started on broad-spectrum antibiotics and close observation. On the day of his discharge patient was lucid, clear, back to his neurologic baseline. He felt ready to go home. In the past he has had similar experiences, fever with delirium. Patient has a history of chronic renal failure, baseline creatinine is in the twos. He was 2.2 on the day of his discharge. Some protein was noted on urinalysis, this merits further work-up which can be done as an outpatient. Patient denies history of kidney stones or studies suggesting obstruction. Exam Data for Last 24 hours Vital signs and Labs for Last 24 Hours: Temp Pulse Resp BP Pulse Ox 98.4 F 61 14 152/95 H 99 08/08/22 08:00 08/08/22 08:00 08/08/22 08:00 08/08/22 08:00 08/08/22 08:00 Laboratory Results - last 24 hr 08/07/22 11:15: WBC 12.7 H, RBC 3.69 L, Hgb 11.5 L, Hct 36.8 L, MCV 99.9 H, MCH 31.3 H, MCHC 31.3 L, RDW 14.6, Plt Count 231, MPV 8.1, Neut % (Auto) 72.2, Lymph % (Auto) 12.4, [place] % (Auto) 8.2, Eos % (Auto) 6.0, Baso % (Auto) 1.2, Neut # (Auto) 9.1 H, Lymph # (Auto) 1.6, [place] # (Auto) 1.0, Eos # (Auto) 0.8 H, Baso # (Auto) 0.2 08/07/22 11:15: Sodium 140, Potassium 5.1 D, Chloride 108 H, Carbon Dioxide 21 L, Anion Gap 16.1 H, BUN 31 H, Creatinine 2.40 H, Estimated Creat Clear 54, Estimated GFR 29 L, Est GFR ( Amer) 35 L, Glucose 102 H, Calcium 8.7 08/07/22 20:10: Vancomycin Trough 12.7 H 08/08/22 05:54: Sodium 141, Potassium 5.2 H, Chloride 111 H, Carbon Dioxide 17 L, Anion Gap
--- NOTE | 2022-08-09 13:28 | CARE MANAGER ---
Phone number listed is not a working phone.
== END 2022-08-08 10:58 | disposition home or self-care (01) | DRG 195 ==
LOC: ER 21:50 → 2ND 22:09
PROVIDERS: Admitting Provider Emergency Medicine; Emergency Provider Student in an Organized Health Care Education/Training Program; PCP Emergency Medicine; Visit Provider Emergency Medicine
DX: J18.9 Pneumonia, unspecified organism (principal); I12.9 Hypertensive chronic kidney disease with stage 1 through stage 4 chronic kidney disease, or unspecified chronic kidney disease; N18.9 Chronic kidney disease, unspecified; K21.9 Gastro-esophageal reflux disease without esophagitis; E11.22 Type 2 diabetes mellitus with diabetic chronic kidney disease
CPT/HCPCS: 62272; 36415; 71045; 71046; 80048; 80076; 80202; 80305; 81001; 82945; 83605; 83735; 84145; 84155; 84484; 85007; 85025; 85651; 86140; 87040; 87070; 87205; 89051; 93005; 99285; C9803; J0574; U0003; U0005

== ENCOUNTER 2022-10-14 11:37 | Emergency (ER) | payer OTHER, MEDICAID, SELFPAY ==
--- NOTE | 2022-10-14 11:48 | HMH.EDGENADL ---
Discharge Plan Disposition Patient Disposition: Home, Self-Care Condition: Good Prescriptions Prescriptions: No Action buprenorphine-naloxone 8-2 mg tablet, sublingual 1.5 tab SL DAILY albuterol sulfate 90 mcg/actuation HFA aerosol inhaler 2 puff IH Q4HP PRN (Reason: Shortness Of Breath) Qty: 8.5 2RF nicotine 14 mg/24 hr patch 24 hour 1 patch TRANSDERMAL DAILY Qty: 28 0RF gabapentin 300 mg capsule 300 mg PO TID 10 Days Qty: 30 0RF Rx Instructions: step one gabapentin 600 mg tablet 600 mg PO TID Qty: 90 1RF carvedilol 25 mg tablet See Rx Instructions .ROUTE .COMPLEX Qty: 60 2RF Dose Instruction: TAKE ONE TABLET BY MOUTH 2 TIMES A DAY WITH FOOD Rx Instructions: TAKE ONE TABLET BY MOUTH 2 TIMES A DAY WITH FOOD famotidine [Pepcid] 20 mg tablet 20 mg PO BID Qty: 180 0RF pantoprazole 40 mg tablet,delayed release (DR/EC) 40 mg PO DAILY Rx Instructions: TAKE ONE TABLET BY MOUTH ONCE A DAY fluticasone propionate 16 GM spray,suspension 1 spray NS DAILY Referrals Follow up/Referrals: Alexys Anderson MD [Primary Care Provider] - See instructions Activity Restrictions/Add. Instructions Additional Instructions/Restrictions: Irrigate wound twice daily with cool running water and apply antibiotic ointment and a Band-Aid. Clinical Impressions Clinical Impression: Laceration of left index finger Stand Alone Forms Stand Alone Forms: Work/School Release Instructions Patient Instructions: DI for Laceration Repair Discharge ED Provider: Simon Barfield General Adult HPI General Chief complaint: Wound/Laceration Stated complaint: WC 10/14@work@1100 Lac on index finger Time Seen by Provider: 10/14/22 11:42 History of Present Illness HPI narrative: Patient presents with a laceration to the tip of left index finger sustained when he inadvertently cut himself with a box stapler while at work. He is right-hand dominant. He denies additional injury she denies neurological symptoms he describes pain as mild to moderate without exacerbating alleviating factors. Related Data Home Medications Medication Instructions Recorded Confirmed buprenorphine 8 mg-naloxone 2 mg 1.5 tab sublingual DAILY substance 04/17/20 09/16/22 sublingual tablet abuse fluticasone propionate 50 1 spray intranasal DAILY Allergy 12/25/21 09/16/22 mcg/actuation nasal symptoms spray,suspension pantoprazole 40 mg tablet,delayed 40 mg PO DAILY GERD 08/05/22 09/16/22 release Previous Rx's Medication Instructions Recorded carvedilol 25 mg tablet See Rx Instructions .Route 08/29/22 .COMPLEX #60 tabs famotidine 20 mg tablet (Pepcid) 20 mg PO BID GERD #180 tabs 09/05/22 albuterol sulfate 90 mcg/actuation 2 puff inhalation Q4HP PRN 09/16/22 aerosol inhaler Shortness Of Breath #8.5 grams gabapentin 300 mg capsule 300 mg PO TID 10 days #30 caps 09/16/22 gabapentin 600 mg tablet 600 mg PO TID #90 tabs 09/16/22 nicotine 14 mg/24 hr daily 1 patch transdermal DAILY SMOKING 09/16/22 transdermal patch CESSATION #28 ea Allergies Allergy/AdvReac Type Severity Reaction Status Date / Time No Known Allergies Allergy Verified 09/16/22 16:04 [facility] Medical History Acute hyperkalemia Acute hyperkalemia ADI (acute kidney injury) Bradycardia with 31-40 beats per minute Bronchitis Chest pain CKD (chronic kidney disease) Contusion of right hand COPD (chronic obstructive pulmonary disease) Dyspnea Edema Elbow contusion Gastroesophageal reflux disease Hand fracture, right HTN (hypertension) Hypertensive urgency Medication refill Obesity Obesity Otitis media Pacemaker Palpitations Patient left without being seen Pulmonary nodules Respiratory failure, acute Snoring Somnolence, daytime, controlled Tobacco abuse URI (upper respiratory infection) UTI (urinary tract infection) Social History (Reviewed 10/14/22
[2022-10-14 12:03] VITALS: BP 165/100; PULSE 60; RESP 16; TEMP 36.9; O2SAT 98; BMI 33.0
[2022-10-14 12:25] VITALS: BP 149/101; PULSE 60; RESP 16; TEMP 36.9; O2SAT 99
== END 2022-10-14 12:30 | disposition home or self-care (01) ==
PROVIDERS: Emergency Provider Emergency Medicine; PCP Emergency Medicine
DX: S61.210A Laceration without foreign body of right index finger without damage to nail, initial encounter (principal); W26.0XXA Contact with knife, initial encounter; Y99.0 Civilian activity done for income or pay
CPT/HCPCS: 12001; 99283

== ENCOUNTER → 2022-10-18 14:42 | Outpatient (CLI) | payer MEDICAID, SELFPAY ==
[2022-10-18 14:45] LABS: MANUAL DIFFERENTIAL MANUAL DIFFERENTIAL (MANUAL DIFF)
[2022-10-18 15:23] LABS: Basophils # 0.1 K/mm3 (0-0.2); Basophils % 0.9 % (0.1-2.0); Eosinophils # 0.9 K/mm3 (0.0-0.4); Eosinophils % 10.6 % (0.1-12.0); Hematocrit 39.5 % (42.0-52.0); Hemoglobin 11.9 g/dL (14.1-18.0); Lymphocytes # 2.7 K/mm3 (0.7-4.5); Lymphocytes % 33.5 % (10-50); Mean Corpuscular HGB Conc 30.2 g/dL (31.8-35.4); Mean Corpuscular Hemoglobin 30.6 pg (27.0-31.2); Mean Corpuscular Volume 101.3 fl (80-94); Mean Platelet Volume 8.1 fl (7.4-10.4); Monocytes # 0.5 K/mm3 (0.1-1.0); Monocytes % 6.5 % (1.7-9.3); Neutrophils % 48.5 % (37.0-80.0); Platelet Count 252 K/mm3 (142-424); Red Cell Distribution Width 14.6 % (11.5-17.5); White Blood Count 8.1 K/mm3 (4.8-10.8)
[2022-10-18 16:34] LABS: Alanine Aminotransferase 15 U/L (12-78); Albumin Level 4.2 g/dl (3.5-5.0); Alkaline Phosphatase 122 U/L (38-126); Anion Gap 17.9 mEq/L (5-15); Aspartate Amino Transferase 26 U/L (17-59); Bilirubin,Direct 0.2 mg/dl (0.0-0.4); Bilirubin,Total 0.2 mg/dl (0.2-1.3); Blood Urea Nitrogen 35 mg/dl (9-20); Calcium 9.7 mg/dl (8.4-10.2); Carbon Dioxide 28 mmol/L (22.0-30.0); Chloride 101 mmol/L (98-107); Chol/HDL Ratio 6.1 (1-3.5); Cholesterol 219 mg/dl (140-200); Estimated Glomerular Filt Rate 22 ml/min (>60); GFR (African American) 26 ML/MIN (>60); Glucose 78 mg/dl (74-100); HDL Cholesterol 36 mg/dl (40-60); Potassium 4.9 mmoL/L (3.5-5.1); Sodium 142 mmol/L (136-145); Total Protein,Serum 6.8 g/dl (6.3-8.2); Triglycerides 261 mg/dl (30-150); VLDL Cholesterol 52 mg/dL (0-40)
[2022-10-18 16:44] LABS: NT Pro Brain Natriuretic Pep. 1240 pg/mL (0-125)
[2022-10-18 16:45] LABS: Direct LDL Cholesterol 100.02 mg/dL (100-129)
[2022-10-18 17:05] LABS: Thyroid Stimulating Hormone 0.83 uIU/mL (0.465-4.68)
[2022-10-18 18:26] LABS: Eosinophils % 6 % (0-3); Hypochromasia 1+; Lymphocytes % 38 % (10-50); Macrocytosis 1+; Monocytes % 2 % (2-9); Neutrophils % 54 % (42-76); Platelet Estimate Normal; Total Cells Counted 100
== END ==
PROVIDERS: PCP Emergency Medicine; Visit Provider Nurse Practitioner Family
DX: N28.9 Disorder of kidney and ureter, unspecified (principal); N18.9 Chronic kidney disease, unspecified; R60.9 Edema, unspecified; E66.9 Obesity, unspecified; F17.200 Nicotine dependence, unspecified, uncomplicated; Z95.0 Presence of cardiac pacemaker; Z68.33 Body mass index [BMI] 33.0-33.9, adult
CPT/HCPCS: 36415; 80048; 80061; 80076; 83880; 84439; 84443; 85007; 85014; 85018; 85048; 85049

== ENCOUNTER → 2022-12-20 08:45 | Outpatient (CLI) | payer MEDICAID, SELFPAY ==
[2022-12-20 19:09] LABS: Coronavirus 19, PCR Not Detected (NotDetected); Influenza A, PCR Not Detected (NotDetected); Influenza B, PCR Not Detected (NotDetected)
== END ==
PROVIDERS: PCP Family Medicine; Visit Provider Family Medicine
DX: R05.9 Cough, unspecified (principal)
CPT/HCPCS: C9803; U0003; U0005

== ENCOUNTER 2023-03-04 16:40 | Emergency (ER) | payer MEDICAID, SELFPAY ==
[2023-03-04 17:00] VITALS: BP 131/73; PULSE 70; RESP 21; TEMP 36.8; O2SAT 98; BMI 32.5
--- NOTE | 2023-03-04 17:22 | EXP.UTC ---
Discharge Plan Disposition Patient Disposition: Home, Self-Care Condition: Good Prescriptions Prescriptions: New loratadine 10 mg tablet 10 mg PO DAILY Qty: 30 0RF benzonatate 100 mg capsule 100 mg PO TID PRN (Reason: cough) Qty: 30 0RF No Action buprenorphine-naloxone 8-2 mg tablet, sublingual 1.5 tab SL DAILY albuterol sulfate 90 mcg/actuation HFA aerosol inhaler 2 puff IH Q4HP PRN (Reason: Shortness Of Breath) Qty: 8.5 2RF gabapentin 800 mg tablet 800 mg PO TID Qty: 90 2RF pantoprazole 40 mg tablet,delayed release (DR/EC) See Rx Instructions .ROUTE .COMPLEX Qty: 30 2RF Dose Instruction: TAKE ONE TABLET BY MOUTH ONCE A DAY Rx Instructions: TAKE ONE TABLET BY MOUTH ONCE A DAY carvedilol 25 mg tablet See Rx Instructions .ROUTE .COMPLEX Qty: 180 1RF Dose Instruction: TAKE ONE TABLET BY MOUTH 2 TIMES A DAY WITH FOOD Rx Instructions: TAKE ONE TABLET BY MOUTH 2 TIMES A DAY WITH FOOD famotidine 20 mg tablet See Rx Instructions .ROUTE .COMPLEX Qty: 60 2RF Dose Instruction: TAKE ONE TABLET BY MOUTH 2 TIMES A DAY Rx Instructions: TAKE ONE TABLET BY MOUTH 2 TIMES A DAY fluticasone propionate 16 GM spray,suspension 1 spray NS DAILY Referrals Follow up/Referrals: Alexys Anderson MD [Primary Care Provider] - See instructions Clinical Impressions Clinical Impression: Acute upper respiratory infection Instructions Patient Instructions: DI for Viral Upper Respiratory Infection -- Adult Discharge ED Provider: Lisa Simon [facility] [place] General Stated complaint: SOA, mis Mode of Arrival: Ambulatory Source of Information: Patient Limitations: No Limitations Time Seen by Provider: 03/04/23 17:21 Description of Symptoms (Recalled from Triage Doc. by RN): PATIENT C/O COUGH, CONGESTION AND SINUS PRESSURE SINCE LAST NIGHT HEENT Symptoms (Recalled from RN notes): Yes Resp Symptoms (Recalled from RN notes): Yes Skin Symptoms (Recalled from RN notes): No MS Symptoms (Recalled from RN notes): No Functional Status (Recalled from RN notes): WNL History of Present Illness Provider Complaint: Pt states that he has a lot of issues with allergies and last night was outside in the rain. Pt reports that after being in the rain he had congestion/nasal drainage, cough, and sinus pressure. He denies taking anything for his symptoms. Related Data Home Medications Medication Instructions Recorded Confirmed buprenorphine 8 mg-naloxone 2 mg 1.5 tab sublingual DAILY substance 04/17/20 02/06/23 sublingual tablet abuse fluticasone propionate 50 1 spray intranasal DAILY Allergy 12/25/21 02/06/23 mcg/actuation nasal symptoms spray,suspension Previous Rx's Medication Instructions Recorded pantoprazole 40 mg tablet,delayed See Rx Instructions .Route 10/24/22 release .COMPLEX #30 tabs albuterol sulfate 90 mcg/actuation 2 puff inhalation Q4HP PRN 11/14/22 aerosol inhaler Shortness Of Breath #8.5 grams carvedilol 25 mg tablet See Rx Instructions .Route 01/16/23 .COMPLEX #180 tabs famotidine 20 mg tablet See Rx Instructions .Route 01/17/23 .COMPLEX #60 tabs gabapentin 800 mg tablet 800 mg PO TID #90 tabs 02/06/23 benzonatate 100 mg capsule 100 mg PO TID PRN cough #30 caps 03/04/23 loratadine 10 mg tablet 10 mg PO DAILY #30 tabs 03/04/23 Allergies Allergy/AdvReac Type Severity Reaction Status Date / Time No Known Allergies Allergy Verified 02/06/23 15:05 Worker's Comp Is this a Worker's Comp case?: No [facility] Disclaimer: The information contained in this section may have been updated after the patient was seen, as this information can be updated by other users. Medical History Acute hyperkalemia Acute hyperkalemia ADI (acute kidney injury) Bradycardia with 31-40 beats per minute Bronchitis Chest pain CKD (chronic kidney disease) Contusion of right hand COPD
[2023-03-04 17:37] VITALS: BP 142/83; PULSE 90; RESP 19; TEMP 37; O2SAT 99
== END 2023-03-04 17:38 | disposition home or self-care (01) ==
PROVIDERS: Emergency Provider Nurse Practitioner Family; PCP Emergency Medicine
DX: J06.9 Acute upper respiratory infection, unspecified (principal); F17.210 Nicotine dependence, cigarettes, uncomplicated
CPT/HCPCS: 99212; 99214; G0463

== ENCOUNTER → 2023-05-05 11:00 | Outpatient (CLI) | payer MEDICAID, SELFPAY ==
[2023-05-05 18:17] LABS: Basophils % 0.2 % (0.1-2.0); Eosinophils # 0.7 K/mm3 (0.0-0.4); Eosinophils % 5.8 % (0.1-12.0); Hematocrit 38.9 % (42.0-52.0); Hemoglobin 12.2 g/dL (14.1-18.0); Lymphocytes # 3.6 K/mm3 (0.7-4.5); Mean Corpuscular HGB Conc 31.4 g/dL (31.8-35.4); Mean Corpuscular Hemoglobin 29.8 pg (27.0-31.2); Mean Corpuscular Volume 94.9 fl (80-94); Mean Platelet Volume 8.7 fl (7.4-10.4); Monocytes # 0.8 K/mm3 (0.1-1.0); Monocytes % 6.1 % (1.7-9.3); Neutrophils # 7.3 K/mm3 (1.8-7.8); Neutrophils % 58.8 % (37.0-80.0); Platelet Count 259 K/mm3 (142-424); Red Blood Count 4.09 M/mm3 (4.60-6.20); Red Cell Distribution Width 14.8 % (11.5-17.5); White Blood Count 12.4 K/mm3 (4.8-10.8)
[2023-05-05 18:29] LABS: Alanine Aminotransferase 15 U/L (12-78); Albumin Level 3.8 g/dl (3.5-5.0); Albumin/Globulin Ratio 1.4 (1.1-1.8); Alkaline Phosphatase 99 U/L (38-126); Anion Gap 16.6 mEq/L (5-15); Aspartate Amino Transferase 27 U/L (17-59); Bilirubin,Total 0.4 mg/dl (0.2-1.3); Blood Urea Nitrogen 24 mg/dl (9-20); Carbon Dioxide 21 mmol/L (22.0-30.0); Chloride 107 mmol/L (98-107); Estimated Glomerular Filt Rate 32 ml/min (>60); GFR (African American) 39 ML/MIN (>60); Globulin 2.8 g/dL (1.3-3.2); Glucose 80 mg/dl (74-100); Potassium 5.6 mmoL/L (3.5-5.1); Sodium 139 mmol/L (136-145); Total Protein,Serum 6.6 g/dl (6.3-8.2)
[2023-05-05 18:46] LABS: T4 (Thyroxine) 7.3 ug/dl (5.53-11.0)
[2023-05-05 18:47] LABS: 25-OH Vitamin D, Total 40.5 ng/mL (30-100)
[2023-05-05 19:00] LABS: Thyroid Stimulating Hormone 1.62 uIU/mL (0.465-4.68)
== END ==
PROVIDERS: PCP Emergency Medicine; Visit Provider Emergency Medicine
DX: N28.9 Disorder of kidney and ureter, unspecified (principal); G62.9 Polyneuropathy, unspecified; E66.9 Obesity, unspecified; Z68.33 Body mass index [BMI] 33.0-33.9, adult
CPT/HCPCS: 80053; 82306; 84436; 84443; 85025

== ENCOUNTER → 2023-05-06 09:43 | Outpatient (CLI) | payer MEDICAID, SELFPAY | PROVIDERS: PCP Emergency Medicine; Visit Provider Emergency Medicine | DX: N28.9 Disorder of kidney and ureter, unspecified (principal) ==

== ENCOUNTER 2023-07-31 07:05 | Inpatient (IN) | payer MEDICAID, SELFPAY ==
[2023-07-31] VITALS (28 sets, daily range): BP systolic 70–163; BP diastolic 41–142; PULSE 56–82; RESP 17–31; TEMP 36.9–37.1; O2SAT 84–99; BMI 32.3; BMI 28.7; BMI 30.9
--- NOTE | 2023-07-31 07:09 | XR_ITS ---
FINAL REPORT CLINICAL HISTORY: soa COMPARISON: 08/06/2022 FINDINGS: Cardiomegaly is noted. A left subclavian pacer is present. Pulmonary vascular congestion is identified. There are bilateral pulmonary opacities, greater on the left than on the right, most suggestive of either edema or pneumonia. There is no pneumothorax. The bony thorax is intact. IMPRESSION: Pulmonary vascular congestion and bilateral pulmonary opacities, greater on the left side, likely either edema or pneumonia. Reviewed, Interpreted and Dictated by Juan Laureano III, MD Transcribed by Lula Alicea Authenticated and [facility]
--- NOTE | 2023-07-31 07:13 | ECG_ITS ---
APPROVED REPORT Exam: Resting ECG HR:81 bpm ECG Measurements Heart Rate 81 AXES RI 181 P 33 QRSd 97 QRS -19 QT 346 T 4 QTc 383 Conclusion SINUS RHYTHM VOLTAGE CRITERIA FOR LVH ABNORMAL ECG UNCONFIRMED REPORT Electronically signed by : Latrell Taylor MD 08/01/2023 17:18:43
--- NOTE | 2023-07-31 07:15 | PC.NURSE ---
RAD at for CXR
[2023-07-31 07:24] LABS: VBG Base Excess -14.7 mmol/L (-2.4-2.3); VBG HCO3 13.1 mmol/L (23-30); VBG Oxygen Saturation 85.9 % (50-70); VBG PCO2 33.3 mmol/L (35-51); VBG PH 7.21 mmol/L (7.31-7.41); VBG PO2 50.2 mmol/L (28-40); VBG Total CO2 14.1 mmol/L (23-27)
--- NOTE | 2023-07-31 07:25 | PC.NURSE ---
RT at BS
--- NOTE | 2023-07-31 07:27 | HMH.EDGENADL ---
Discharge Plan Disposition Patient Disposition: Admitted Chief Complaint: Shortness of Breath/Dyspnea Prescriptions Prescriptions: No Action buprenorphine-naloxone 8-2 mg tablet, sublingual 1.5 tab SL DAILY albuterol sulfate 90 mcg/actuation HFA aerosol inhaler 2 puff IH Q4HP PRN (Reason: Shortness Of Breath) Qty: 8.5 2RF escitalopram oxalate 20 mg tablet See Rx Instructions .ROUTE .COMPLEX Qty: 30 0RF Dose Instruction: TAKE ONE TABLET BY MOUTH ONCE A DAY Rx Instructions: TAKE ONE TABLET BY MOUTH ONCE A DAY lisinopril 40 mg tablet 40 mg PO DAILY Qty: 30 0RF amlodipine 5 mg tablet 5 mg PO QHS Qty: 30 0RF famotidine 20 mg tablet See Rx Instructions .ROUTE .COMPLEX Qty: 60 2RF Dose Instruction: TAKE ONE TABLET BY MOUTH 2 TIMES A DAY Rx Instructions: TAKE ONE TABLET BY MOUTH 2 TIMES A DAY gabapentin 800 mg tablet 800 mg PO TID Qty: 90 1RF pantoprazole 40 mg tablet,delayed release (DR/EC) See Rx Instructions .ROUTE .COMPLEX Qty: 30 2RF Dose Instruction: TAKE ONE TABLET BY MOUTH ONCE A DAY Rx Instructions: TAKE ONE TABLET BY MOUTH ONCE A DAY carvedilol 25 mg tablet See Rx Instructions .ROUTE .COMPLEX Qty: 90 1RF Dose Instruction: TAKE ONE TABLET BY MOUTH 2 TIMES A DAY WITH FOOD Rx Instructions: TAKE ONE TABLET BY MOUTH 2 TIMES A DAY WITH FOOD trazodone 50 mg tablet See Rx Instructions .ROUTE .COMPLEX Qty: 30 3RF Dose Instruction: TAKE ONE TABLET BY MOUTH AT BEDTIME Rx Instructions: TAKE ONE TABLET BY MOUTH AT BEDTIME loratadine 10 mg tablet 10 mg PO DAILY Qty: 30 0RF fluticasone propionate 16 GM spray,suspension 1 spray NS DAILY Referrals Follow up/Referrals: Alexys Anderson MD [Primary Care Provider] - See instructions Clinical Impressions Clinical Impression: Sepsis with acute hypoxic respiratory failure Discharge ED Provider: Aamir Villatoro General Adult HPI General Chief complaint: Shortness of Breath/Dyspnea Stated complaint: SOA Time Seen by Provider: 07/31/23 07:05 History of Present Illness HPI narrative: Patient is a 48-year-old male with past medical history of hypertension, previous pneumonia, CKD who presents emergency department for evaluation of shortness of breath. Patient has had shortness of breath and cough over the last 3 days. He states that he has been pending dialysis evaluation for multiple months but has been unable to make an appointment. Denies chest pain, abdominal pain, other acute complaints at this time. at bedside states that he has been admitted previously for pneumonia and hyperkalemia. Due to persistent shortness of breath he contacted EMS who required nonrebreather for acceptable oxygen saturations after they were found to be in the high 60s upon arrival. Per chart review patient has a baseline creatinine between 2 and 3. Related Data Home Medications Medication Instructions Recorded Confirmed buprenorphine 8 mg-naloxone 2 mg 1.5 tab sublingual DAILY substance 04/17/20 07/21/23 sublingual tablet abuse fluticasone propionate 50 1 spray intranasal DAILY Allergy 12/25/21 07/21/23 mcg/actuation nasal symptoms spray,suspension Previous Rx's Medication Instructions Recorded pantoprazole 40 mg tablet,delayed See Rx Instructions .Route 10/24/22 release .COMPLEX #30 tabs albuterol sulfate 90 mcg/actuation 2 puff inhalation Q4HP PRN 11/14/22 aerosol inhaler Shortness Of Breath #8.5 grams loratadine 10 mg tablet 10 mg PO DAILY #30 tabs 03/04/23 carvedilol 25 mg tablet See Rx Instructions .Route 07/03/23 .COMPLEX #90 tabs amlodipine 5 mg tablet 5 mg PO QHS #30 tabs 07/13/23 escitalopram oxalate 20 mg tablet See Rx Instructions .Route 07/13/23 .COMPLEX #30 tabs lisinopril 40 mg tablet 40 mg PO DAILY #30 tabs 07/13/23 famotidine 20 mg tablet See Rx Instructions .Route 07/21/23 .COMPLEX #60 tabs gabapentin 800 mg tablet 8
[2023-07-31 07:31] LABS: Alanine Aminotransferase 20 U/L (12-78); Albumin Level 3.4 g/dl (3.5-5.0); Alkaline Phosphatase 122 U/L (38-126); Anion Gap 16.9 mEq/L (5-15); Aspartate Amino Transferase 58 U/L (17-59); Bilirubin,Total 0.3 mg/dl (0.2-1.3); Blood Urea Nitrogen 48 mg/dl (9-20); Calcium 9.2 mg/dl (8.4-10.2); Carbon Dioxide 13 mmol/L (22.0-30.0); Chloride 115 mmol/L (98-107); Creatinine Clearance Estimated 36 mL/min (50-200); Estimated Glomerular Filt Rate 20 ml/min (>60); GFR (African American) 24 ML/MIN (>60); Globulin 3.4 g/dL (1.3-3.2); Glucose 110 mg/dl (74-100); Potassium 4.9 mmoL/L (3.5-5.1); Sodium 140 mmol/L (136-145); Total Protein,Serum 6.8 g/dl (6.3-8.2)
[2023-07-31 07:39] LABS: Basophils # 0.1 K/mm3 (0-0.2); Basophils % 0.3 % (0.1-2.0); Eosinophils # 0.4 K/mm3 (0.0-0.4); Eosinophils % 1.5 % (0.1-12.0); Hematocrit 44.2 % (42.0-52.0); Hemoglobin 13.9 g/dL (14.1-18.0); Lymphocytes # 1.4 K/mm3 (0.7-4.5); Lymphocytes % 5.8 % (10-50); Mean Corpuscular HGB Conc 31.4 g/dL (31.8-35.4); Mean Corpuscular Hemoglobin 30.4 pg (27.0-31.2); Mean Corpuscular Volume 96.9 fl (80-94); Mean Platelet Volume 8.5 fl (7.4-10.4); Monocytes # 0.8 K/mm3 (0.1-1.0); Monocytes % 3.4 % (1.7-9.3); Neutrophils # 21.5 K/mm3 (1.8-7.8); Neutrophils % 89.1 % (37.0-80.0); Platelet Count 230 K/mm3 (142-424); Red Blood Count 4.56 M/mm3 (4.60-6.20); Red Cell Distribution Width 15.3 % (11.5-17.5); White Blood Count 24.1 K/mm3 (4.8-10.8)
--- NOTE | 2023-07-31 07:39 | PC.NURSE ---
pharmacy notified of van consult. order placed
[2023-07-31 07:41] LABS: Lactic Acid 1.5 mmol/L (0.7-2.1)
[2023-07-31 07:41] LABS: NT Pro Brain Natriuretic Pep. 6810 pg/mL (0-125)
--- NOTE | 2023-07-31 07:43 | PC.NURSE ---
Manual BP: 70/50
[2023-07-31 07:47] LABS: Troponin I 0.01 ng/ml (0.00-0.034)
[2023-07-31 07:48] LABS: MANUAL DIFFERENTIAL MANUAL DIFFERENTIAL (MANUAL DIFF)
[2023-07-31 07:52] LABS: Ammonia 19 umol/L (9-30)
--- NOTE | 2023-07-31 08:05 | PC.NURSE ---
RESPIRATORY CARE NOTE: PT ON CPAP OF 10, RR 19, LEAK 45, TIDAL VOLUME 824, SATS=98%
--- NOTE | 2023-07-31 08:16 | PC.NURSE ---
Dr. Butler at BS
[2023-07-31 08:21] LABS: Lymphocytes % 13 % (10-50); Monocytes % 2 % (2-9); Neutrophils % 85 % (42-76); Platelet Estimate Normal; RBC Morphology Normal; Total Cells Counted 100
--- NOTE | 2023-07-31 08:28 | PC.NURSE ---
Spoke with [facility] about possible transfer. Advised they would page the hospitalist and call back.
[2023-07-31 08:32] LABS: Coronavirus 19, PCR Not Detected (NotDetected); Influenza A, PCR Not Detected (NotDetected); Influenza B, PCR Not Detected (NotDetected)
--- NOTE | 2023-07-31 08:35 | PC.NURSE ---
Dr. Villatoro speaking with Dr. Johnson who is accepting for Dr. Ortega
--- NOTE | 2023-07-31 08:39 | PC.NURSE ---
Pt accepted to [facility]
--- NOTE | 2023-07-31 09:01 | PC.NURSE ---
spoke with katherine for admission
--- NOTE | 2023-07-31 09:04 | PC.NURSE ---
Dr. Villatoro at BS to update pt on POC
--- NOTE | 2023-07-31 09:06 | PC.NURSE ---
Pt admitted to [facility] for Metabolic acidosis and ARF. Pt will be in room 217. Step down acute.
--- NOTE | 2023-07-31 09:17 | PC.NURSE ---
Family at [facility] aware of hypertension, New order for Liter of [facility] states that he wants to slowly give fluids according to pt tolerating. Second liter infusing, pt tolerating well at this time.
--- NOTE | 2023-07-31 09:39 | HMH.PHAINT1 ---
Pharmacy Intervention Comments: Medication history complete, medications verified with fill history. - Megan García, PharmD Candidate 2023
--- NOTE | 2023-07-31 10:16 | PC.NURSE ---
arrived by stretcher from ED
[2023-07-31 11:29] LABS: Troponin I 0.02 ng/ml (0.00-0.034)
--- NOTE | 2023-07-31 13:29 | PC.NURSE ---
RESP CARE NOTE: Pt placed on 6 lpm nc, per weaning protocol. Will continue to monitor patient.
--- NOTE | 2023-07-31 14:10 | EXP.PHA.CONS ---
Pharmacy Consult Date: 07/31/23 Time: 14:10 Referring provider: DR. DEUTSCH Reason for Consult:: VANCOMYCIN DOSING Allergies Allergy/AdvReac Type Severity Reaction Status Date / Time No Known Allergies Allergy Verified 07/21/23 14:15 Home Medications Medication Instructions Recorded Confirmed Type buprenorphine 8 mg-naloxone 2 mg 1.5 tab sublingual DAILY Substance 04/17/20 07/31/23 History sublingual tablet Use Disorder fluticasone propionate 50 1 spray intranasal DAILY Allergy 12/25/21 07/31/23 History mcg/actuation nasal symptoms spray,suspension albuterol sulfate 90 mcg/actuation 2 puff inhalation Q4HP PRN 11/14/22 07/31/23 Rx aerosol inhaler Shortness Of Breath #8.5 grams amlodipine 5 mg tablet 5 mg PO DAILY High Blood Pressure 07/31/23 07/31/23 History carvedilol 25 mg tablet 25 mg PO BID High Blood Pressure 07/31/23 07/31/23 History escitalopram oxalate 20 mg tablet 20 mg PO DAILY Mood 07/31/23 07/31/23 History famotidine 20 mg tablet 20 mg PO BID Acid Reflux 07/31/23 07/31/23 History gabapentin 800 mg tablet 800 mg PO TID Pain 07/31/23 07/31/23 History lisinopril 40 mg tablet 40 mg PO DAILY High Blood Pressure 07/31/23 07/31/23 History loratadine 10 mg tablet 10 mg PO DAILY Allergies 07/31/23 07/31/23 History trazodone 50 mg tablet 50 mg PO HS Sleep 07/31/23 07/31/23 History New Prescriptions to Start Prescriptions: Height: 1.75 m Weight: 95.028 kg Laboratory Results:: Laboratory Results - last 24 hr 07/31/23 07:10: WBC 24.1 H*, RBC 4.56 L, Hgb 13.9 L, Hct 44.2, MCV 96.9 H, MCH 30.4, MCHC 31.4 L, RDW 15.3, Plt Count 230, MPV 8.5, Neut % (Auto) 89.1 H, Lymph % (Auto) 5.8 L, [place] % (Auto) 3.4, Eos % (Auto) 1.5, Baso % (Auto) 0.3, Neut # (Auto) 21.5 H, Lymph # (Auto) 1.4, [place] # (Auto) 0.8, Eos # (Auto) 0.4, Baso # (Auto) 0.1, Total Counted 100, Neutrophils % (Manual) 85 H, Lymphocytes % (Manual) 13, Monocytes % (Manual) 2, Platelet Estimate Normal, RBC Morphology Normal, Sodium 140, Potassium 4.9, Chloride 115 H, Carbon Dioxide 13 L, Anion Gap 16.9 H, BUN 48 H, Creatinine 3.30 H, Estimated Creat Clear 36, Estimated GFR 20 L, Est GFR ( Amer) 24 L, Glucose 110 H, Calcium 9.2, Magnesium 2.0, Total Bilirubin 0.3, AST 58, ALT 20, Alkaline Phosphatase 122, Troponin I 0.01, NT-Pro-B Natriuret Pep 6810 H, Total Protein 6.8, Albumin 3.4 L, Globulin 3.4 H, Albumin/Globulin Ratio 1.0 L 07/31/23 07:16: VBG pH 7.21 L, VBG pCO2 33.3 L, VBG pO2 50.2 H, VBG HCO3 13.1 L, VBG Total CO2 14.1 L, VBG O2 Saturation 85.9 H, VBG Base Excess -14.7 L 07/31/23 07:19: Lactate 1.5 07/31/23 07:30: Ammonia 19 07/31/23 08:20: SARS-CoV-2 (PCR) Not detected, Influenza A Untype (PCR) Not detected, Influenza Type B (PCR) Not detected 07/31/23 11:00: Troponin I 0.02 Medical History: Medical History (Updated 07/31/23 @ 08:42 by Aamir Deutsch MD) Acute hyperkalemia Acute hyperkalemia ADI (acute kidney injury) Bradycardia with 31-40 beats per minute Bronchitis Chest pain CKD (chronic kidney disease) Contusion of right hand COPD (chronic obstructive pulmonary disease) Dyspnea Edema Elbow contusion Gastro-esophageal reflux disease without esophagitis Gastroesophageal reflux disease Hand fracture, right HTN (hypertension) Hypertensive urgency Medication refill Obesity Obesity Otitis media Pacemaker Palpitations Patient left without being seen Pulmonary nodules Respiratory failure, acute Snoring Somnolence, daytime, controlled Tobacco abuse URI (upper respiratory infection) UTI (urinary tract infection) Assessment and Plan Assessment and plan all Dx Assessment and Plan for all problems:: Pharmacokinetic dosing service Objective: Patient: Floor: Age: 48 yo Serum creatinine: 3.30 mg/dL Height: 69.0 Inches Weight (kg): 95 Assessment: IBW (kg): 70.70 Dosing wt(kg): 95 Estimated Creatinine clearan
[2023-07-31 14:12] LABS: Troponin I 0.02 ng/ml (0.00-0.034)
[2023-07-31 14:30] LABS: Adenovirus,PCR Not Detected (NotDetected); Bordetella Pertussis Not Detected (NotDetected); Chlamydophila Pneumoniae, PCR Not Detected (NotDetected); Coronavirus 19, PCR Not Detected (NotDetected); Coronavirus 229E Not Detected (NotDetected); Coronavirus NL63 Not Detected (NotDetected); Coronavirus OC43 Not Detected (NotDetected); Coronovirus HKU1,PCR Not Detected (NotDetected); Human Metapneumovirus Not Detected (NotDetected); Influenza A, PCR Not Detected (NotDetected); Influenza AH1, 2009 Not Detected (NotDetected); Influenza AH1, PCR Not Detected (NotDetected); Influenza AH3,PCR Not Detected (NotDetected); Influenza B, PCR Not Detected (NotDetected); Mycoplasma Pneumoniae, PCR Not Detected (NotDetected); Parainfluenza 1, PCR Not Detected (NotDetected); Parainfluenza 2, PCR Not Detected (NotDetected); Parainfluenza 3, PCR Not Detected (NotDetected); Parainfluenza 4, PCR Not Detected (NotDetected); Respiratory Syncytial Virus Not Detected (NotDetected); Rhinovirus/Enterovirus Not Detected (NotDetected)
--- NOTE | 2023-07-31 15:07 | PC.NURSE ---
Rounded on patient. Urinal placed at bedside. Loy assisting pt to bsc. Significant other at bedside. No other questions or concerns at this time.
--- NOTE | 2023-07-31 18:00 | EXP.HP ---
History of Present Illness *Admission Date: 07/31/23 *History of present illness: Mr. Loera is a 48-year-old male with past history of hypertension, previous pneumonia, CKD 4, previous discussion with PCP about dialysis given his hyperkalemia. He presented to the ER for evaluation for shortness of breath. He has had shortness of breath and cough that is progressively worsened over the past 3 days. Denies chest pain or abdominal pain. at bedside confirms these previously had pneumonia and hyperkalemia. EMS brought patient to the hospital because of worsening shortness of breath. Required nonrebreather for appropriate oxygenation during transport. On presentation to the ER, patient was placed on BiPAP because of his hypoxemia. Labs concerning for creatinine of 3.3, bicarb of 13. VBG with metabolic acidosis and hypoxia. Chest imaging concerning for bilateral congestion but left significantly worse than right, suspicious for pneumonia. Medicine consulted initially for admission. Given patient's worsening kidney function from baseline, referral for dialysis, pneumonia, respiratory failure, multiorgan dysfunction, recommended referral to higher level of care. [facility] was contacted and patient has been accepted however they do not have a bed at this time. Medicine was consulted for admission and continued management pending transfer. On evaluation, patient is pleasant and answers questions appropriately but will doze back off due to fatigue. Initially on BiPAP but transition to CPAP as he does not have a respiratory acidosis. He is afebrile. Blood pressure is soft, receiving IV fluid bolus. Started on empiric antibiotics, cultures pending. Meeting sepsis criteria. [facility] Disclaimer: The information contained in this section may have been updated after the patient was seen, as this information can be updated by other users. Medical History (Updated 07/31/23 @ 18:24 by Sanchez Butler MD) Acute hyperkalemia Acute hyperkalemia ADI (acute kidney injury) Bradycardia with 31-40 beats per minute Bronchitis Chest pain CKD (chronic kidney disease) Contusion of right hand COPD (chronic obstructive pulmonary disease) Dyspnea Edema Elbow contusion Gastro-esophageal reflux disease without esophagitis Gastroesophageal reflux disease Hand fracture, right HTN (hypertension) Hypertensive urgency Medication refill Obesity Obesity Otitis media Pacemaker Palpitations Patient left without being seen Pulmonary nodules Respiratory failure, acute Snoring Somnolence, daytime, controlled Tobacco abuse URI (upper respiratory infection) UTI (urinary tract infection) Family History No significant family history Social History Smoking Status: Never smoker years smoked: 30 second hand exposure: No alcohol intake: never substance use type: former substance user and painkillers current occupational status: employed and other Travel in the last 8 weeks: Inside the [place] household members: significant other housing: house lives independently: No caffeine: Yes special crystal needs: No agree to transfusion: No Review of Systems Review of Systems Review of systems (narrative): 14 point review of systems performed, pertinent positives and negatives as per HPI Meds Home Medications and Allergies Home Medications Medication Instructions Recorded Confirmed Type buprenorphine 8 mg-naloxone 2 mg 1.5 tab sublingual DAILY Substance 04/17/20 07/31/23 History sublingual tablet Use Disorder fluticasone propionate 50 1 spray intranasal DAILY Allergy 12/25/21 07/31/23 History mcg/actuation nasal symptoms spray,suspension albuterol sulfate 90 mcg/actuation 2 puff inhalation Q4HP PRN 11/14/22 07/31/23 Rx aerosol inhaler Shortness Of Breath #8.5 grams amlodipine 5 mg tablet 5 mg PO DAILY High Blood P
--- NOTE | 2023-07-31 19:06 | PC.NURSE ---
PT IS RESTING IN BED WITH FAMILY AT BEDSIDE. PT HAS BEEN VERY ANXIOUS THIS SHIFT. CATHETER INSERTED AFTER MULTIPLE ATTEMPTS. LUNG SOUNDS HAVE BILATERAL CRACKLES. O2 SATURATION 90-95% ON VAPOTHERM 40 L 80% FIO2. RESPIRATIONS 38-32/MIN. PT IS AWAITING TRANSFER TO [facility]. WILL CONTINUE TO MONITOR.
--- NOTE | 2023-07-31 19:34 | PC.NURSE ---
BSSR from Flor Rowland RN Patient SpO2 changed and found patient to have pulse ox of 84%. RT notified and patient changed to 40L/100% FiO2 on Vapotherm and tolerating well with SpO2 89%-90% 16fr kramer placed and had immediate return of 1800mL from bladder. Specimen sent per protocol. Patient sig other was at bedside. She was updated and had no concerns at this time. She is leaving to go home and will be back, she states. Patient resting now. NAD, VSS
[2023-07-31 19:48] LABS: Chloride 116 mmol/L (98-107)
[2023-07-31 19:49] LABS: Sodium 141 mmol/L (136-145)
[2023-07-31 19:51] LABS: Alanine Aminotransferase 18 U/L (12-78); Aspartate Amino Transferase 59 U/L (17-59); Blood Urea Nitrogen 49 mg/dl (9-20); Creatinine Clearance Estimated 38 mL/min (50-200); Estimated Glomerular Filt Rate 21 ml/min (>60); GFR (African American) 25 ML/MIN (>60)
[2023-07-31 19:52] LABS: Albumin Level 3.1 g/dl (3.5-5.0); Alkaline Phosphatase 114 U/L (38-126); Bilirubin,Total 0.3 mg/dl (0.2-1.3); Calcium 9.1 mg/dl (8.4-10.2); Carbon Dioxide 15 mmol/L (22.0-30.0); Globulin 3.1 g/dL (1.3-3.2); Glucose 105 mg/dl (74-100); Total Protein,Serum 6.2 g/dl (6.3-8.2)
--- NOTE | 2023-07-31 21:02 | PC.NURSE ---
Spoke to Carito with [facility] transfer center. No update for bed status at this time. They're actively working towards getting this patient transferred.
--- NOTE | 2023-07-31 22:39 | EXP.DC.SUM ---
General Admission date:: 07/31/23 Discharge date: 07/31/23 HPI HPI HPI: Mr. Loera is a 48-year-old male with past history of hypertension, previous pneumonia, CKD 4, previous discussion with PCP about dialysis given his hyperkalemia. He presented to the ER for evaluation for shortness of breath. He has had shortness of breath and cough that is progressively worsened over the past 3 days. Denies chest pain or abdominal pain. at bedside confirms these previously had pneumonia and hyperkalemia. EMS brought patient to the hospital because of worsening shortness of breath. Required nonrebreather for appropriate oxygenation during transport. On presentation to the ER, patient was placed on BiPAP because of his hypoxemia. Labs concerning for creatinine of 3.3, bicarb of 13. VBG with metabolic acidosis and hypoxia. Chest imaging concerning for bilateral congestion but left significantly worse than right, suspicious for pneumonia. Medicine consulted initially for admission. Given patient's worsening kidney function from baseline, referral for dialysis, pneumonia, respiratory failure, multiorgan dysfunction, recommended referral to higher level of care. [facility] was contacted and patient has been accepted however they do not have a bed at this time. Medicine was consulted for admission and continued management pending transfer. On evaluation, patient is pleasant and answers questions appropriately but will doze back off due to fatigue. Initially on BiPAP but transition to CPAP as he does not have a respiratory acidosis. He is afebrile. Blood pressure is soft, receiving IV fluid bolus. Started on empiric antibiotics, cultures pending. Meeting sepsis criteria. Hospital Course Hospital Course Hospital Course: Mr. Loera is a 48-year-old male with history of hypertension and CKD 4 and COPD who presented with acute hypoxemic respiratory failure and sepsis secondary to pneumonia. Found have worsening kidney function. Discussion with ER physician, requesting admission for further management. Requested he attempt transfer. Patient has been accepted at [facility] in [place] for higher level of care, currently pending transfer. Medicine agreed to admit for further management and stabilization until patient transferred to higher level of care given his tenuous nature and multisystem dysfunction. Would benefit from nephrology along with services we are unable to provide at our facility. Problems addressed as follows: Severe sepsis Pneumonia Hypoxemic respiratory failure, acute; hypoxemia on VBG -Chest imaging reviewed, bilateral airspace disease, left significantly worse than right. -Sepsis criteria with tachycardia, tachypnea, pneumonia. Leukocytosis 24,000 -Initiated on vancomycin and Zosyn in the ER, transition to cefepime 2 g every 12 hours given kidney dysfunction. Close monitoring for toxicity with vancomycin. -Blood cultures pending. Sputum culture pending -Goal saturation greater 90%, currently on Vapotherm 80%, 40 L. -DuoNebs every 6 hours -May necessitate diuresis in the setting of possible pulmonary edema along with his pneumonia. - no history of CHF. BNP elevated at 6800 CKD 4 ADI Metabolic acidosis -Creatinine at baseline 2-3. Creatinine 3.3 on admission. BUN elevated 48 -Concern for pulmonary edema component to respiratory failure however has no peripheral edema. In light of his CKD 4 and referral as an outpatient for dialysis, strong concern for patient's kidney function worsening and need for nephrology and dialysis during admission. Awaiting transfer to higher level of care for further assistance. -Status post IV fluid resuscitation in the ER because of hypotension. -Strict I's and O's, attempting to place Gomez. -Potassium normal at 4.9. Metabolic acidosis with bicarb of 13. -Initiate on bicarb drip 150 mEq/h, 50 cc/h. -Repeat CMP ordered for this evening. Repeat CBC, CMP, magnesium ordered for the morning. Chronic
--- NOTE | 2023-07-31 22:55 | PC.NURSE ---
Patient received his bed with [facility]. He will be going to [facility] ICU. Report called to SADAF Shepard at [phone]. Called and updated patient's who gave permission over the phone for us to transfer patient. Awaiting EMS arrival
[2023-07-31 22:59] LABS: Microscopic, Urine URINE MICROSCOPIC (MICROSCOPIC)
[2023-07-31 23:07] LABS: Appearance,Urine CLEAR (Clear); Bilirubin,Urine Negative (Negative); Blood, Urine Negative (Negative); Color,Urine YELLOW (Yellow); Glucose,Urine (UA) Negative (Negative); Ketones,Urine Negative (Negative); Leukocyte Esterase,Urine Negative (Negative); Nitrate,Urine Negative (Negative); Protein,Urine 1+ (Negative); Urobilinogen,Urine 0.2 EU/dl (0.2)
--- NOTE | 2023-07-31 23:10 | PC.NURSE ---
EMS contacted and will be arriving soon for transfer.
--- NOTE | 2023-07-31 23:33 | PC.NURSE ---
pt left floor with ems at this time
--- NOTE | 2023-07-31 23:33 | PC.NURSE ---
Patient leaving with EMS now. [facility] updated on patient ETA
== END 2023-07-31 23:36 | disposition short-term general hospital (02) | DRG 871 ==
LOC: ER 08:42 → 2ND 09:09
PROVIDERS: Admitting Provider Internal Medicine Adolescent Medicine; Emergency Provider Emergency Medicine; PCP Emergency Medicine; Visit Provider Internal Medicine Adolescent Medicine
DX: A41.9 Sepsis, unspecified organism (principal); J18.9 Pneumonia, unspecified organism; J96.01 Acute respiratory failure with hypoxia; N18.4 Chronic kidney disease, stage 4 (severe); N17.9 Acute kidney failure, unspecified; E87.20 Acidosis, unspecified; F11.20 Opioid dependence, uncomplicated; J81.1 Chronic pulmonary edema; J44.0 Chronic obstructive pulmonary disease with (acute) lower respiratory infection; I12.9 Hypertensive chronic kidney disease with stage 1 through stage 4 chronic kidney disease, or unspecified chronic kidney disease; E66.9 Obesity, unspecified; Z68.30 Body mass index [BMI] 30.0-30.9, adult; R65.20 Severe sepsis without septic shock
CPT/HCPCS: 36415; 71045; 80053; 81001; 82140; 82803; 83605; 83735; 83880; 84484; 85007; 85025; 87040; 87581; 87632; 87636; 87798; 93005; 94640; 94760; 94761; 99291; J2543

== ENCOUNTER 2023-12-31 13:02 | Emergency (ER) | payer MEDICAID, SELFPAY ==
[2023-12-31 13:03] VITALS: BP 126/81; PULSE 78; RESP 18; TEMP 36.7; O2SAT 91; BMI 29.5
--- NOTE | 2023-12-31 13:10 | XR_ITS ---
PROCEDURE INFORMATION: Exam: XR Chest Exam date and time: 12/31/2023 1:07 PM Age: 48 years old Clinical indication: Patient HX: Patient has had cough for a couple days. He is a smoker. Several prior HX of pneumonia he states. He is concerned he is getting pneumonia again. TECHNIQUE: Imaging protocol: Radiologic exam of the chest. Views: 2 views. COMPARISON: CR XR CHEST PORTABLE 07/31/2023 7:12 AM FINDINGS: Lungs: Unremarkable. No consolidation. Pleural spaces: Unremarkable. No pleural effusion. No pneumothorax. Heart/Mediastinum: Cardiac silhouette is not significantly enlarged. There is a dual electrode pacemaker whose tips project within the right atrium and right ventricle. Bones/joints: Unremarkable for age. IMPRESSION: Negative chest
[2023-12-31 13:12] LABS: Coronavirus 19, PCR Not Detected (NotDetected); Influenza A, PCR Not Detected (NotDetected); Influenza B, PCR Not Detected (NotDetected)
--- NOTE | 2023-12-31 13:16 | PC.NURSE ---
Pt gone to RAD via wheelchair
--- NOTE | 2023-12-31 13:21 | PC.NURSE ---
Pt returned from RAD
--- NOTE | 2023-12-31 14:17 | ED_ITS ---
I was consulted by the MAKEDA, and we discussed the complexity of the problems being addressed. I approved the treatment and management plan for this patient's care in the emergency department, thus performing a substantive portion of the medical decision making. Rome Pinzon MD, MARAL, FACE Discharge Plan Disposition Patient Disposition: Home, Self-Care Chief Complaint: Upper Respiratory Infection Prescriptions Prescriptions: No Action buprenorphine-naloxone 8-2 mg tablet, sublingual 1.5 tab SL DAILY aspirin 81 mg tablet,delayed release (DR/EC) 81 mg PO DAILY atorvastatin 80 mg tablet 80 mg PO DAILY gabapentin 800 mg tablet 800 mg PO TID Qty: 90 2RF famotidine 20 mg tablet 20 mg PO BID Qty: 180 0RF Rx Instructions: TAKE ONE TABLET BY MOUTH 2 TIMES A DAY lisinopril 40 mg tablet See Rx Instructions .ROUTE .COMPLEX Qty: 30 0RF Dose Instruction: TAKE ONE TABLET BY MOUTH ONCE A DAY Rx Instructions: TAKE ONE TABLET BY MOUTH ONCE A DAY albuterol sulfate 90 mcg/actuation HFA aerosol inhaler 2 puff IH Q4HP PRN (Reason: Shortness Of Breath) Qty: 8.5 2RF escitalopram oxalate 20 mg tablet See Rx Instructions .ROUTE .COMPLEX Qty: 90 3RF Dose Instruction: TAKE ONE TABLET BY MOUTH ONCE A DAY Rx Instructions: TAKE ONE TABLET BY MOUTH ONCE A DAY fluticasone propionate 16 GM spray,suspension 1 spray NS DAILY carvedilol 25 mg tablet 25 mg PO BID amlodipine 5 mg tablet 5 mg PO DAILY loratadine 10 mg Tablet 10 mg PO DAILY trazodone 50 mg tablet 50 mg PO HS Rx Instructions: TAKE ONE TABLET BY MOUTH AT BEDTIME Referrals Follow up/Referrals: Keesha Mejias PA [Primary Care Provider] - See instructions Clinical Impressions Clinical Impression: Upper respiratory infection Qualifiers: URI type: unspecified viral URI Qualified Code(s): J06.9 - Acute upper respiratory infection, unspecified Instructions Patient Instructions: DI for Acute Bronchitis Discharge ED Provider: Rome Pinzon General Adult [facility] General Chief complaint: Upper Respiratory Infection Stated complaint: chest congestion, cough Time Seen by Provider: 12/31/23 14:03 Mode of Arrival: Ambulatory Source of Information: Patient Limitations: No Limitations Description of Symptoms (Recalled from ER Triage Doc. by RN): patient ambulatory to ED with complaints of cough/congestion x2 days. body aches and productive cough producing yellow sputum. Pt reports he is prone to pna with multiple dx in 5 years. denies fever. Current smoker History of Present Illness HPI narrative: Patient gives a 2-day history of congestion and cough that is nonproductive. He denies fever chest pain chills hemoptysis hematochezia melena nausea vomiting diarrhea. Patient has had 7 previous pneumonias and is here because he is concerned that he is developing pneumonia again. Onset (ago): day(s) (2) Related Data Home Medications Medication Instructions Recorded Confirmed buprenorphine 8 mg-naloxone 2 mg 1.5 tab sublingual DAILY Substance 04/17/20 07/31/23 sublingual tablet Use Disorder fluticasone propionate 50 1 spray intranasal DAILY Allergy 12/25/21 07/31/23 mcg/actuation nasal symptoms spray,suspension amlodipine 5 mg tablet 5 mg PO DAILY High Blood Pressure 07/31/23 07/31/23 carvedilol 25 mg tablet 25 mg PO BID High Blood Pressure 07/31/23 07/31/23 loratadine 10 mg tablet 10 mg PO DAILY Allergies 07/31/23 07/31/23 trazodone 50 mg tablet 50 mg PO HS Sleep 07/31/23 07/31/23 aspirin 81 mg tablet,delayed 81 mg PO DAILY 09/18/23 09/18/23 release atorvastatin 80 mg tablet 80 mg PO DAILY 09/18/23 09/18/23 Previous Rx's Medication Instructions Recorded famotidine 20 mg tablet 20 mg PO BID Acid Reflux #180 tabs 08/21/23 lisinopril 40 mg tablet See Rx Instructions .Route 08/21/23 .COMPLEX #30 tabs gabapentin 800 mg tablet 800 mg PO TID Pain #90 tabs 09/18/23 albuterol sulfate 90 mcg/actuation 2 puff inhalation Q4HP PRN 09/27/23 aerosol inhaler Shortness Of Breath #8.5 grams escitalopram oxalate 20 mg tablet See Rx Instructions .Route 10/16/23 .COMPLEX #90 tabs Allergies Allergy/AdvReac Type Severity Reaction Status Date / Time No Known Allergies Allergy Verified 09/18/23 15:04 [facility] Disclaimer: The information contained in this section may have been updated after the patient was seen, as this information can be updated by other users. Medical History Acute bacterial bronchitis Acute hyperkalemia Acute hyperkalemia Acute upper respiratory infection ADI (acute kidney injury) Anxiety Bradycardia with 31-40 beats per minute Bronchitis Bronchitis Chest pain CKD (chronic kidney disease) Contusion of right hand COPD (chronic obstructive pulmonary disease) Dyspnea Edema Edema Elbow contusion Gastro-esophageal reflux disease without esophagitis Gastroesophageal reflux disease Hand fracture, right Headache HTN (hypertension) Hypertensive urgency Laceration of left index finger Malignant hypertension Medication refill Neuropathy Obesity Obesity Obesity Otitis media Pacemaker Palpitations Patient left without being seen Pulmonary nodules Respiratory failure, acute RLS (restless legs syndrome) Snoring Somnolence, daytime, controlled Tobacco abuse Tobacco dependence syndrome URI (upper respiratory infection) UTI (urinary tract infection) Family History Other No significant family history Social History Smoking Status: Current every day smoker tobacco type: cigarettes packs per day: 1 years smoked: 30 second hand exposure: No alcohol intake: never substance use type: former substance user and painkillers current occupational status: employed and other Travel in the last 8 weeks: Inside the [place] household members: significant other housing: house lives independently: No caffeine: Yes special crystal needs: No agree to transfusion: No ROS Obtained: Yes Systems reviewed as appropriate & no additional complaints except as documented Physical Exam General General appearance: alert and in no apparent distress Head Head exam: atraumatic and normal inspection Eye Eye exam: Present normal appearance, PERRL and EOMI ENT ENT exam: Present normal exam, normal oropharynx and mucous membranes moist Neck Neck exam: Present normal inspection, full ROM and trachea midline; Absent lymphadenopathy Chest Chest inspection: Present normal inspection and symmetric chest wall rise Respiratory Respiratory exam: Present normal lung sounds bilaterally; Absent accessory muscle use Cardiovascular Cardiovascular exam: Present regular rate, normal rhythm, normal heart sounds, +S1 and +S2 Abdominal Exam Abdominal exam: Present soft and normal bowel sounds; Absent tenderness, guarding or rebound Extremities Exam Extremities exam: Present normal inspection and full ROM Neurological Exam Neurological exam: Present alert, oriented X3 and CN II-XII intact Psychiatric Psychiatric exam: Present normal affect and normal mood Skin Skin exam: Present warm, dry and normal color Lymphatic Lymphatic Findings: no adenopathy Medical Decision Making Medical Records Medical records reviewed: Yes I reviewed the patient's medical records. Tobin Inquiry Pt receiving controlled substance: No Vital Signs: 12/31/23 13:03 Temperature 98.1 F Temperature Source Oral Pulse Rate [Right] 78 Respiratory Rate 18 Blood Pressure [Right Arm] 126/81 Blood Pressure Mean [Right Arm] 96 Blood Pressure Source [Right Arm] Automatic Cuff Blood Pressure Position [Right Arm] Sitting 02 Sat by Pulse Oximetry 91 L Oxygen Delivery Method Room Air Lab Data Lab Results 12/31/23 13:09: SARS-CoV-2 (PCR) Not detected, Influenza A Untype (PCR) Not detected, Influenza Type B (PCR) Not detected Orders (Tests/Meds): ORDERS Category Date Time Status CXR 2 view (NOT portable) [XR chest 2V] Stat Exams 12/31/23 13:10 Completed Rapid PCR Covid and Flu A/B Stat Lab 12/31/23 13:09 Completed Radiology Data #1: I personally unofficially interpreted the patient's plain film chest x-ray which shows no acute processes. Medical Decision Narrative: In summary patient is a 48-year-old male who presents to the emergency department for evaluation of upper respiratory infection. Patient is hemodynamically stable upon arrival, satting greater than 94% on room air and afebrile. Physical exam shows clear breath sounds postnasal drip but no wheezes, adventitious sounds, diminished breath sounds. Differential diagnosis includes viral versus bacterial infection. Initial workup will be conducted with mental logic labs and plain film chest x-ray. initial workup reviewed by me hematologic labs are nonactionable and flu and COVID are negative with a normal white count with no shift and plain film chest x-ray unofficially inter preted by me shows no acute disease. Upon repeat evaluation [patient had acceptable resolution of symptoms, had persistent pain for which additional interventions were conducted (describe interventions), tolerated p.o., was ambulatory, etc.]. Given this patient is appropriate for discharge with instructions for symptomatic viral upper respiratory tract infection. Patient follow-up with PCP return to ER if symptoms not improved in 5 to 7 days or if symptoms worsen. Critical Care Critical Care Time Critical Care Time: No
[2023-12-31 14:30] VITALS: BP 115/68; PULSE 76; RESP 20; TEMP 37.4; O2SAT 96
== END 2023-12-31 14:31 | disposition home or self-care (01) ==
PROVIDERS: Emergency Provider Student in an Organized Health Care Education/Training Program; PCP Physician Assistant
DX: J06.9 Acute upper respiratory infection, unspecified (principal); R05.9 Cough, unspecified; R09.81 Nasal congestion; I12.9 Hypertensive chronic kidney disease with stage 1 through stage 4 chronic kidney disease, or unspecified chronic kidney disease; N18.9 Chronic kidney disease, unspecified; J44.9 Chronic obstructive pulmonary disease, unspecified; K21.9 Gastro-esophageal reflux disease without esophagitis; F17.210 Nicotine dependence, cigarettes, uncomplicated; Z95.0 Presence of cardiac pacemaker
CPT/HCPCS: 71046; 87636; 99283

== ENCOUNTER 2024-01-10 21:08 | Outpatient (CLI) | payer MEDICAID, SELFPAY ==
[2024-01-10 18:37] LABS: Basophils % 0.2 % (0.1-2.0); Eosinophils # 0.5 K/mm3 (0.0-0.4); Eosinophils % 4.6 % (0.1-12.0); Hematocrit 38.5 % (42.0-52.0); Hemoglobin 12.7 g/dL (14.1-18.0); Lymphocytes % 28.4 % (10-50); Mean Corpuscular Volume 100.1 fl (80-94); Mean Platelet Volume 8.1 fl (7.4-10.4); Monocytes # 0.6 K/mm3 (0.1-1.0); Monocytes % 5.3 % (1.7-9.3); Neutrophils # 6.4 K/mm3 (1.8-7.8); Neutrophils % 61.5 % (37.0-80.0); Platelet Count 324 K/mm3 (142-424); Red Blood Count 3.84 M/mm3 (4.60-6.20); Red Cell Distribution Width 13.5 % (11.5-17.5); White Blood Count 10.5 K/mm3 (4.8-10.8)
[2024-01-10 19:07] LABS: Alanine Aminotransferase 19 U/L (12-78); Albumin Level 3.9 g/dl (3.5-5.0); Albumin/Globulin Ratio 1.4 (1.1-1.8); Alkaline Phosphatase 86 U/L (38-126); Anion Gap 14.5 mEq/L (5-15); Aspartate Amino Transferase 24 U/L (17-59); Bilirubin,Total 0.3 mg/dl (0.2-1.3); Blood Urea Nitrogen 38 mg/dl (9-20); Calcium 9.1 mg/dl (8.4-10.2); Carbon Dioxide 19 mmol/L (22.0-30.0); Chloride 109 mmol/L (98-107); Chol/HDL Ratio 4.7 (1-3.5); Cholesterol 206 mg/dl (140-200); Estimated Glomerular Filt Rate 29 ml/min (>60); GFR (African American) 35 ML/MIN (>60); Globulin 2.7 g/dL (1.3-3.2); Glucose 117 mg/dl (74-100); HDL Cholesterol 44 mg/dl (40-60); Potassium 5.5 mmoL/L (3.5-5.1); Sodium 137 mmol/L (136-145); Total Protein,Serum 6.6 g/dl (6.3-8.2); Triglycerides 162 mg/dl (30-150); VLDL Cholesterol 32 mg/dL (0-40)
[2024-01-10 19:26] LABS: Direct LDL Cholesterol 95.23 mg/dL (100-129)
[2024-01-10 19:32] LABS: 25-OH Vitamin D, Total 25.7 ng/mL (30-100)
[2024-01-10 19:48] LABS: Prostate Specific Ag Screen 1.7 ng/ml (0.0-4.0); Thyroid Stimulating Hormone 0.87 uIU/mL (0.465-4.68)
[2024-01-11 15:16] LABS: Hemoglobin A1C 5.7 % (4.0-6.0)
== END 2024-01-10 23:59 ==
LOC: LAB.DROPOF 21:08
PROVIDERS: PCP Physician Assistant; Visit Provider Physician Assistant
DX: R73.09 Other abnormal glucose (principal); G62.9 Polyneuropathy, unspecified; E55.9 Vitamin D deficiency, unspecified; Z68.31 Body mass index [BMI] 31.0-31.9, adult
CPT/HCPCS: 80053; 80061; 82306; 83036; 84443; 85025; G0103

== ENCOUNTER 2024-01-26 17:32 | Emergency (ER) | payer MEDICAID, SELFPAY ==
[2024-01-26 18:10] VITALS: BP 111/83; PULSE 95; RESP 18; TEMP 37.9; O2SAT 94; BMI 28.0
--- NOTE | 2024-01-26 18:34 | EXP.UTC ---
Discharge Plan Disposition Patient Disposition: Home, Self-Care Condition: Good Prescriptions Prescriptions: New amoxicillin 875 mg tablet 875 mg PO Q12H Qty: 20 0RF benzonatate 100 mg capsule 100 mg PO TIDP PRN (Reason: Cough) Qty: 30 0RF No Action buprenorphine-naloxone 8-2 mg tablet, sublingual 1.5 tab SL DAILY lisinopril 40 mg tablet See Rx Instructions .ROUTE .COMPLEX Qty: 90 3RF Dose Instruction: TAKE ONE TABLET BY MOUTH ONCE A DAY Rx Instructions: TAKE ONE TABLET BY MOUTH ONCE A DAY gabapentin 800 mg tablet 800 mg PO TID Qty: 90 0RF aspirin 81 mg tablet,delayed release (DR/EC) 81 mg PO DAILY famotidine 20 mg tablet 20 mg PO BID Qty: 180 0RF Rx Instructions: TAKE ONE TABLET BY MOUTH 2 TIMES A DAY albuterol sulfate 90 mcg/actuation HFA aerosol inhaler 2 puff IH Q4HP PRN (Reason: Shortness Of Breath) Qty: 8.5 2RF escitalopram oxalate 20 mg tablet See Rx Instructions .ROUTE .COMPLEX Qty: 90 3RF Dose Instruction: TAKE ONE TABLET BY MOUTH ONCE A DAY Rx Instructions: TAKE ONE TABLET BY MOUTH ONCE A DAY cholecalciferol (vitamin D3) 50 mcg (2,000 unit) capsule 50 mcg PO DAILY Qty: 90 3RF ergocalciferol (vitamin D2) 1,250 mcg (50,000 unit) capsule 1,250 mcg PO WEEKLY Qty: 14 3RF atorvastatin 10 mg tablet 10 mg PO DAILY Qty: 90 3RF fluticasone propionate 16 GM spray,suspension 1 spray NS DAILY carvedilol 25 mg tablet 25 mg PO BID amlodipine 5 mg tablet 5 mg PO DAILY loratadine 10 mg Tablet 10 mg PO DAILY Referrals Follow up/Referrals: Keesha Mejias PA [Primary Care Provider] - See instructions Activity Restrictions/Add. Instructions Additional Instructions/Restrictions: Drink plenty of fluids. Take tylenol or ibuprofen for pain or fever. Take the medications as directed. Follow up with your regular doctor. GO TO THE ER FOR ANY WORSENING SYMPTOMS Clinical Impressions Clinical Impression: Acute viral syndrome Stand Alone Forms Stand Alone Forms: Work/School Release Instructions Patient Instructions: DI for Viral Syndrome Discharge ED Provider: Sanchez Rutledge [facility] General Stated complaint: Fever,Hurting in ribs,weakness Time Seen by Provider: 01/26/24 18:34 History of Present Illness Provider Complaint: He states that for the past 1 day he has had fever/chills/body aches, malaise, cough, congestion, and sore throat. Related Data Home Medications Medication Instructions Recorded Confirmed buprenorphine 8 mg-naloxone 2 mg 1.5 tab sublingual DAILY Substance 04/17/20 01/10/24 sublingual tablet Use Disorder fluticasone propionate 50 1 spray intranasal DAILY Allergy 12/25/21 07/31/23 mcg/actuation nasal symptoms spray,suspension amlodipine 5 mg tablet 5 mg PO DAILY High Blood Pressure 07/31/23 01/10/24 carvedilol 25 mg tablet 25 mg PO BID High Blood Pressure 07/31/23 01/10/24 loratadine 10 mg tablet 10 mg PO DAILY Allergies 07/31/23 01/10/24 aspirin 81 mg tablet,delayed 81 mg PO DAILY 09/18/23 01/10/24 release Previous Rx's Medication Instructions Recorded famotidine 20 mg tablet 20 mg PO BID Acid Reflux #180 tabs 08/21/23 albuterol sulfate 90 mcg/actuation 2 puff inhalation Q4HP PRN 09/27/23 aerosol inhaler Shortness Of Breath #8.5 grams escitalopram oxalate 20 mg tablet See Rx Instructions .Route 10/16/23 .COMPLEX #90 tabs gabapentin 800 mg tablet 800 mg PO TID Pain #90 tabs 01/10/24 lisinopril 40 mg tablet See Rx Instructions .Route 01/10/24 .COMPLEX #90 tabs atorvastatin 10 mg tablet 10 mg PO DAILY #90 tabs 01/23/24 cholecalciferol (vitamin D3) 50 50 mcg PO DAILY #90 caps 01/23/24 mcg (2,000 unit) capsule ergocalciferol (vitamin D2) 1,250 1,250 mcg PO WEEKLY #14 caps 01/23/24 mcg (50,000 unit) capsule amoxicillin 875 mg tablet 875 mg PO Q12H #20 tabs 01/26/24 benzonatate 100 mg capsule 100 mg PO TIDP PRN Cough #30 caps 01/26/24 Allergies Allergy/AdvReac Type Severity Reaction Status Date / Time No Known Allergies Allergy Verified 01/26/24 18:43 [facility] Disclaimer: The information contained in this section may have been updated after the patient was seen, as this information can be updated by other users. Medical History Acute bacterial bronchitis Acute hyperkalemia Acute hyperkalemia Acute upper respiratory infection ADI (acute kidney injury) Anxiety Bradycardia with 31-40 beats per minute Bronchitis Bronchitis Chest pain CKD (chronic kidney disease) Contusion of right hand COPD (chronic obstructive pulmonary disease) Dyspnea Edema Edema Elbow contusion Gastro-esophageal reflux disease without esophagitis Gastroesophageal reflux disease Hand fracture, right Headache HTN (hypertension) Hypertensive urgency Laceration of left index finger Malignant hypertension Medication refill Neuropathy Obesity Obesity Obesity Otitis media Pacemaker Palpitations Patient left without being seen Pulmonary nodules Respiratory failure, acute RLS (restless legs syndrome) Snoring Somnolence, daytime, controlled Tobacco abuse Tobacco dependence syndrome URI (upper respiratory infection) UTI (urinary tract infection) Family History Other No significant family history Social History Smoking Status: Current every day smoker tobacco type: cigarettes packs per day: 1 years smoked: 30 second hand exposure: No alcohol intake: never substance use type: former substance user and painkillers current occupational status: employed and other Travel in the last 8 weeks: Inside the [place] household members: significant other housing: house lives independently: No caffeine: Yes special crystal needs: No agree to transfusion: No ROS Obtained: Yes All systems reviewed & no additional complaints except as documented Constitutional Constitutional: Reports chills and Reports fever(s) Eyes Eyes: Denies eye discharge ENT Ears, Nose, Mouth, and Throat: Reports as per HPI Cardiovascular Cardiovascular: Denies chest pain Respiratory Respiratory: Denies chest congestion and Reports cough Gastrointestinal Gastrointestingal: Reports nausea; Denies abdominal pain, constipation, cramping, diarrhea or vomiting Musculoskeletal Musculoskeletal: Denies arthralgias Integumentary/Breasts Skin/Breast: Denies rash Neurologic Neurologic: Denies paresthesias Physical Exam General General appearance: alert and in no apparent distress Eye Eye exam: Present normal appearance, PERRL and EOMI ENT ENT exam: Present mucous membranes moist and normal external ear exam Expanded ENT Exam External ear exam: Present normal external inspection TM/Canal exam: Bilateral TM: erythema and bulging Nose exam: Absent sinus tenderness Nasal speculum exam: Bilateral: normal Mouth exam: Present normal external inspection; Absent drooling Teeth exam: Present normal inspection Throat exam: Present tonsillar erythema and tonsillomegaly Neck Neck exam: Present normal inspection, full ROM and trachea midline; Absent tenderness, lymphadenopathy or thyromegaly Chest Chest inspection: Present normal inspection and symmetric chest wall rise; Absent tenderness or rash Respiratory Respiratory exam: Present normal lung sounds bilaterally; Absent respiratory distress, wheezes, stridor or accessory muscle use Cardiovascular Cardiovascular exam: Present regular rate, normal rhythm and normal heart sounds Abdominal Exam Abdominal exam: Present soft; Absent distention, tenderness, guarding, rebound or rigidity Extremities Exam Extremities exam: Present normal inspection, full ROM and normal capillary refill; Absent tenderness or calf tenderness Back Exam Back exam: Present normal inspection and full ROM; Absent tenderness Neurological Exam Neurological exam: Present alert and oriented X3 Psychiatric Psychiatric exam: Present normal affect and normal mood Skin Skin exam: Present warm, dry, intact and normal color Lymphatic Lymphatic Findings: no adenopathy Medical Decision Making Medical Records Medical records reviewed: No I reviewed the patient's medical records. Tobin Inquiry Pt receiving controlled substance: No Lab Data Lab results reviewed: Yes I reviewed the patient's lab results. Radiology Data #1: Image(s): Chest Preliminary Findings: No Infiltrates Seen PROCEDURE INFORMATION: Exam: XR Chest Exam date and time: 01/26/2024 7:01 PM Age: 48 years old Clinical indication: Cough; Prior surgery; Surgery date: 6+ months; Surgery type: Pacemaker; Additional info: Cough & congestion x 1 day. Copd. Smoker x 25 yrs TECHNIQUE: Imaging protocol: Radiologic exam of the chest. Views: 2 views. COMPARISON: CR XR CHEST 2V 12/31/2023 1:07 PM FINDINGS: Tubes, catheters and devices: Left chest wall dual lead pacemaker with leads terminating over the right atrium and ventricle. Lungs: Mild hypoaeration of the lung bases. No pulmonary edema or consolidation. Pleural spaces: No pleural effusion. No pneumothorax. Heart/Mediastinum: Cardiomediastinal silhouette is normal. Bones/joints: No acute abnormality. IMPRESSION: No acute cardiopulmonary disease.
[2024-01-26 18:59] LABS: UTC Influenza A Antigen Negative (Negative); UTC Influenza B Antigen Negative (Negative)
--- NOTE | 2024-01-26 19:06 | XR_ITS ---
PROCEDURE INFORMATION: Exam: XR Chest Exam date and time: 01/26/2024 7:01 PM Age: 48 years old Clinical indication: Cough; Prior surgery; Surgery date: 6+ months; Surgery type: Pacemaker; Additional info: Cough & congestion x 1 day. Copd. Smoker x 25 yrs TECHNIQUE: Imaging protocol: Radiologic exam of the chest. Views: 2 views. COMPARISON: CR XR CHEST 2V 12/31/2023 1:07 PM FINDINGS: Tubes, catheters and devices: Left chest wall dual lead pacemaker with leads terminating over the right atrium and ventricle. Lungs: Mild hypoaeration of the lung bases. No pulmonary edema or consolidation. Pleural spaces: No pleural effusion. No pneumothorax. Heart/Mediastinum: Cardiomediastinal silhouette is normal. Bones/joints: No acute abnormality. IMPRESSION: No acute cardiopulmonary disease.
[2024-01-26 19:23] LABS: UTC Strep Screen (Rapid) Negative (Negative)
--- NOTE | 2024-01-26 19:45 | PC.NURSE ---
Sent full panel up to lab via tube
[2024-01-26 19:51] LABS: Adenovirus,PCR Not Detected (NotDetected); Coronavirus 19, PCR Not Detected (NotDetected); Coronavirus 229E Not Detected (NotDetected); Coronavirus NL63 Not Detected (NotDetected); Coronavirus OC43 Not Detected (NotDetected); Coronovirus HKU1,PCR Not Detected (NotDetected); Human Metapneumovirus Not Detected (NotDetected); Influenza A, PCR Not Detected (NotDetected); Influenza AH1, 2009 Not Detected (NotDetected); Influenza AH1, PCR Not Detected (NotDetected); Influenza AH3,PCR Not Detected (NotDetected); Influenza B, PCR Not Detected (NotDetected); Parainfluenza 1, PCR Not Detected (NotDetected); Parainfluenza 2, PCR Not Detected (NotDetected); Parainfluenza 3, PCR Not Detected (NotDetected); Parainfluenza 4, PCR Not Detected (NotDetected); Respiratory Syncytial Virus Not Detected (NotDetected); Rhinovirus/Enterovirus Not Detected (NotDetected)
[2024-01-26 19:52] VITALS: BP 111/83; PULSE 95; RESP 18; TEMP 37.4; O2SAT 94
== END 2024-01-26 19:52 | disposition home or self-care (01) ==
PROVIDERS: Emergency Provider Nurse Practitioner Family; PCP Physician Assistant
DX: R05.9 Cough, unspecified (principal); R07.0 Pain in throat; R09.81 Nasal congestion; R50.9 Fever, unspecified; F17.210 Nicotine dependence, cigarettes, uncomplicated; J44.9 Chronic obstructive pulmonary disease, unspecified; I10 Essential (primary) hypertension; K21.9 Gastro-esophageal reflux disease without esophagitis; N18.9 Chronic kidney disease, unspecified; B34.9 Viral infection, unspecified
CPT/HCPCS: 71046; 87632; 87635; 87804; 87880; 99212; 99214; G0463

== ENCOUNTER 2024-02-09 15:17 | Outpatient (CLI) | payer MEDICAID, SELFPAY ==
[2024-02-09 15:25] LABS: Microscopic, Urine URINE MICROSCOPIC (MICROSCOPIC)
[2024-02-09 15:44] LABS: Appearance,Urine CLEAR (Clear); Basophils # 0.1 K/mm3 (0-0.2); Bilirubin,Urine Negative (Negative); Blood, Urine Negative (Negative); Color,Urine YELLOW (Yellow); Eosinophils # 0.5 K/mm3 (0.0-0.4); Eosinophils % 4.3 % (0.1-12.0); Glucose,Urine (UA) Negative (Negative); Hematocrit 43.2 % (42.0-52.0); Hemoglobin 13.4 g/dL (14.1-18.0); Ketones,Urine Negative (Negative); Leukocyte Esterase,Urine Negative (Negative); Lymphocytes # 3.8 K/mm3 (0.7-4.5); Lymphocytes % 34.2 % (10-50); Mean Corpuscular HGB Conc 31.1 g/dL (31.8-35.4); Mean Corpuscular Hemoglobin 31.4 pg (27.0-31.2); Mean Platelet Volume 8.3 fl (7.4-10.4); Monocytes # 0.6 K/mm3 (0.1-1.0); Neutrophils # 6.2 K/mm3 (1.8-7.8); Neutrophils % 55.5 % (37.0-80.0); Nitrate,Urine Negative (Negative); Platelet Count 295 K/mm3 (142-424); Protein,Urine 2+ (Negative); Red Blood Count 4.28 M/mm3 (4.60-6.20); Red Cell Distribution Width 14.1 % (11.5-17.5); Urobilinogen,Urine 0.2 EU/dl (0.2); White Blood Count 11.1 K/mm3 (4.8-10.8)
[2024-02-09 15:55] LABS: Creatinine,Urine Random 100 mg/dL (Not Estab.)
[2024-02-09 15:59] LABS: Chloride 111 mmol/L (98-107); Sodium 140 mmol/L (136-145)
[2024-02-09 16:00] LABS: Potassium 5.3 mmoL/L (3.5-5.1)
[2024-02-09 16:02] LABS: Anion Gap 14.3 mEq/L (5-15); Blood Urea Nitrogen 41 mg/dl (9-20); Carbon Dioxide 20 mmol/L (22.0-30.0); Estimated Glomerular Filt Rate 27 ml/min (>60); GFR (African American) 32 ML/MIN (>60)
[2024-02-09 16:03] LABS: Calcium 8.9 mg/dl (8.4-10.2); Glucose 85 mg/dl (74-100); Phosphorous 4.3 mg/dl (2.5-4.5)
== END 2024-02-09 23:59 ==
LOC: LAB 15:18
PROVIDERS: PCP Physician Assistant; Visit Provider Student in an Organized Health Care Education/Training Program
DX: N18.32 Chronic kidney disease, stage 3b (principal)
CPT/HCPCS: 36415; 80069; 81001; 82043; 82570; 85025

== ENCOUNTER 2024-05-13 15:26 | Outpatient (CLI) | payer MEDICAID, SELFPAY ==
--- NOTE | 2024-05-13 15:30 | XR_ITS ---
FINAL REPORT CLINICAL HISTORY: cough COMPARISON: 01/27/2024 FINDINGS: 2 views of the chest were obtained . The heart is normal in size. A left-sided pacemaker is in place. The mediastinum is within normal limits. There is patchy airspace disease in the perihilar regions, left greater than right suspicious for pneumonia. There is no pneumothorax. Osseous structures are unremarkable. IMPRESSION: Patchy airspace opacities suspicious for pneumonia. Reviewed, Interpreted and Dictated by Montse De Leon MD Transcribed by Karie Potter Authenticated and [facility]
== END 2024-05-13 23:59 | disposition home or self-care (01) ==
LOC: RAD 15:28
PROVIDERS: PCP Physician Assistant; Visit Provider Family Medicine
DX: R06.02 Shortness of breath (principal); J06.9 Acute upper respiratory infection, unspecified; R05.9 Cough, unspecified
CPT/HCPCS: 71046

== ENCOUNTER 2024-06-14 14:31 | Outpatient (CLI) | payer MEDICAID, SELFPAY ==
[2024-06-14] MEDS: ALBUTEROL 0.083% 2.5 MG/3 ML NEB IH (15:25)
--- NOTE | 2024-06-14 15:25 | PC.NURSE ---
PFT and 6 Minute Walk Test completed without incident. Albuterol 0.083% given via HHN, per written protocol, Pt tolerated tx well.
== END 2024-06-14 23:59 | disposition home or self-care (01) ==
LOC: RT 14:32
PROVIDERS: PCP Family Medicine; Visit Provider Family Medicine
DX: R06.02 Shortness of breath (principal); R05.9 Cough, unspecified
CPT/HCPCS: 94060; 94618; 94726; 94729; J7613

== ENCOUNTER 2024-07-03 16:30 | Outpatient (CLI) | payer MEDICAID, SELFPAY ==
[2024-07-03 19:09] LABS: Alanine Aminotransferase 16 U/L (12-78); Albumin Level 4.1 g/dl (3.5-5.0); Albumin/Globulin Ratio 1.3 (1.1-1.8); Alkaline Phosphatase 110 U/L (38-126); Anion Gap 12.4 mEq/L (5-15); Aspartate Amino Transferase 28 U/L (17-59); Bilirubin,Total 0.5 mg/dl (0.2-1.3); Blood Urea Nitrogen 29 mg/dl (9-20); Calcium 9.5 mg/dl (8.4-10.2); Carbon Dioxide 20 mmol/L (22.0-30.0); Chloride 112 mmol/L (98-107); Estimated Glomerular Filt Rate 27 ml/min (>60); GFR (African American) 32 ML/MIN (>60); Globulin 3.1 g/dL (1.3-3.2); Glucose 76 mg/dl (74-100); Sodium 138 mmol/L (136-145); Total Protein,Serum 7.2 g/dl (6.3-8.2)
[2024-07-03 19:49] LABS: Hematocrit 42.3 % (42.0-52.0); Hemoglobin 12.8 g/dL (14.1-18.0); Mean Corpuscular HGB Conc 30.3 g/dL (31.8-35.4); Mean Corpuscular Hemoglobin 29.9 pg (27.0-31.2); Mean Corpuscular Volume 98.8 fl (80-94); Platelet Count 290 K/mm3 (142-424); Red Blood Count 4.29 M/mm3 (4.60-6.20); White Blood Count 9.6 K/mm3 (4.8-10.8)
[2024-07-03 19:50] LABS: Basophils # 0.1 K/mm3 (0-0.2); Basophils % 0.9 % (0.1-2.0); Eosinophils # 0.7 K/mm3 (0.0-0.4); Lymphocytes # 3.1 K/mm3 (0.7-4.5); Lymphocytes % 31.8 % (10-50); Mean Platelet Volume 8.5 fl (7.4-10.4); Monocytes # 0.6 K/mm3 (0.1-1.0); Monocytes % 5.8 % (1.7-9.3); Neutrophils # 5.1 K/mm3 (1.8-7.8); Neutrophils % 53.3 % (37.0-80.0)
[2024-07-03 20:10] LABS: Potassium 6.4 mmoL/L (3.5-5.1)
[2024-07-05 06:05] LABS: HCV Ab Non Reactive (Non Reactive)
[2024-07-05 10:29] LABS: HIV (1&2) Antibody Rapid NONREACTIVE (NONREACTIVE)
== END 2024-07-03 23:59 | disposition home or self-care (01) ==
LOC: LAB.DROPOF 07-04 12:39
PROVIDERS: PCP Family Medicine; Visit Provider Family Medicine
DX: R06.02 Shortness of breath (principal); R05.9 Cough, unspecified; I12.9 Hypertensive chronic kidney disease with stage 1 through stage 4 chronic kidney disease, or unspecified chronic kidney disease; N18.9 Chronic kidney disease, unspecified; F17.210 Nicotine dependence, cigarettes, uncomplicated
CPT/HCPCS: 80053; 85025

== ENCOUNTER 2024-07-04 15:32 | Emergency (ER) | payer MEDICAID, SELFPAY ==
[2024-07-04 15:33] VITALS: BP 147/96; PULSE 67; RESP 16; TEMP 36.6; O2SAT 96; BMI 31.5
--- NOTE | 2024-07-04 15:43 | ECG_ITS ---
APPROVED REPORT Exam: Resting ECG HR:73 bpm ECG Measurements Heart Rate 73 AXES VT 193 P 54 QRSd 94 QRS 2 QT 354 T 25 QTc 380 Conclusion SINUS RHYTHM WITH OCCASIONAL SUPRAVENTRICULAR PREMATURE COMPLEXES BORDERLINE ECG Electronically signed by : NINO NIEVES, 07/05/2024 00:00:41
[2024-07-04 16:00] VITALS: BP 122/81; PULSE 71; RESP 18; O2SAT 95
--- NOTE | 2024-07-04 16:13 | ED_ITS ---
Discharge Plan Disposition Patient Disposition: Home, Self-Care Condition: Good Prescriptions Prescriptions: No Action buprenorphine-naloxone 8-2 mg tablet, sublingual 1.5 tab SL DAILY lisinopril 40 mg tablet See Rx Instructions .ROUTE .COMPLEX Qty: 90 3RF Dose Instruction: TAKE ONE TABLET BY MOUTH ONCE A DAY Rx Instructions: TAKE ONE TABLET BY MOUTH ONCE A DAY aspirin 81 mg tablet,delayed release (DR/EC) 81 mg PO DAILY gabapentin 800 mg tablet 800 mg PO TID Qty: 90 2RF ropinirole 0.5 mg tablet 0.5 mg PO HS Qty: 30 2RF bisoprolol fumarate 5 mg tablet 5 mg PO DAILY Qty: 90 3RF albuterol sulfate 90 mcg/actuation HFA aerosol inhaler 2 puff IH Q4HP PRN (Reason: Shortness Of Breath) Qty: 8.5 2RF fluticasone propion-salmeterol [Advair Diskus] 250-50 mcg/dose blister with device 1 inh inhalation BID Qty: 60 2RF escitalopram oxalate 20 mg tablet See Rx Instructions .ROUTE .COMPLEX Qty: 90 3RF Dose Instruction: TAKE ONE TABLET BY MOUTH ONCE A DAY Rx Instructions: TAKE ONE TABLET BY MOUTH ONCE A DAY cholecalciferol (vitamin D3) 50 mcg (2,000 unit) capsule 50 mcg PO DAILY Qty: 90 3RF ergocalciferol (vitamin D2) 1,250 mcg (50,000 unit) capsule 1,250 mcg PO WEEKLY Qty: 14 3RF atorvastatin 10 mg tablet 10 mg PO DAILY Qty: 90 3RF omeprazole 40 mg capsule,delayed release(DR/EC) 40 mg PO DAILY 90 Days Qty: 90 3RF Rx Instructions: swallow whole; do not crush, chew, dissolve, cut, break levocetirizine [Xyzal] 5 mg tablet 5 mg PO DAILY Qty: 30 2RF albuterol sulfate 0.63 mg/3 mL solution for nebulization 0.63 mg inhalation Q6H Qty: 90 2RF amlodipine 10 mg tablet See Rx Instructions .ROUTE .COMPLEX Qty: 90 2RF Dose Instruction: TAKE ONE TABLET BY MOUTH ONCE A DAY Rx Instructions: TAKE ONE TABLET BY MOUTH ONCE A DAY sodium polystyrene sulfonate Powder 15 g PO BID Qty: 15 0RF fluticasone propionate 50 mcg/actuation spray,suspension 1 spray NS DAILY Referrals Follow up/Referrals: Jose Guadalupe,Paulette, [employer] [Primary Care Provider] - See instructions Activity Restrictions/Add. Instructions Additional Instructions/Restrictions: You were evaluated in the emergency department today. At this time, your potassium is around where it usually is. Please follow-up closely with your primary care provider for reassessment. You were given a dose of Kayexalate here today. supervisor [address] your prescription for Kayexalate at the pharmacy once it comes and take it as prescribed. Return to the emergency department for new or worsening symptoms Clinical Impressions Clinical Impression: Chronic hyperkalemia Instructions Patient Instructions: DI for Hyperkalemia Print Language Print Language: Ecuadorean Discharge ED Provider: Karolina Murdock General Adult HPI General Chief complaint: Recheck/Abnormal Lab/Rx Stated complaint: Sent by Paulette Shi abnormal labs Time Seen by Provider: 07/04/24 15:38 Mode of Arrival: Ambulatory Source of Information: Patient Limitations: No Limitations Description of Symptoms (Recalled from ER Triage Doc. by RN): Patient reports that he was seen by his PCP yesterday and prescribe Kayexelate for high potassium. States that no pharmacy had this medication so his PCP told him to come to the er to get this medication and then have repeat labs tomorrow morning on an outpatient basis. History of Present Illness HPI narrative: This patient is a 48-year-old male with a history of CKD 4, COPD, type 2 diabetes, hypertension, GERD, and chronic hyperkalemia presenting to the emergency department for evaluation with concern for elevated potassium. Patient was in here from his primary care provider's office who noted that his potassium today on lab evaluation was 6.4. Their plan was to send him in Kayexalate today and recheck K in clinic tomorrow, but no pharmacies locally have it. They expect to receive it tomorrow. Patient states that he has been feeling fine and doing great. He denies any specific concerns or complaints. He states he still is making good urine. No concerns noted at this time I reviewed outpatient labs and noted his kidney function is around his baseline but potassium was 6.4. His most recent potassium prior to that was 5.3. Related Data Home Medications ?Medication ?Instructions ?Recorded ?Confirmed buprenorphine 8 mg-naloxone 2 mg 1.5 tab sublingual DAILY Substance 04/17/20 07/03/24 sublingual tablet Use Disorder aspirin 81 mg tablet,delayed 81 mg PO DAILY 09/18/23 07/03/24 release fluticasone propionate 50 1 spray intranasal DAILY Allergy 05/24/24 07/03/24 mcg/actuation nasal symptoms spray,suspension Previous Rx's ?Medication ?Instructions ?Recorded escitalopram oxalate 20 mg tablet See Rx Instructions .Route 10/16/23 .COMPLEX #90 tabs lisinopril 40 mg tablet See Rx Instructions .Route 01/10/24 .COMPLEX #90 tabs atorvastatin 10 mg tablet 10 mg PO DAILY #90 tabs 01/23/24 cholecalciferol (vitamin D3) 50 50 mcg PO DAILY #90 caps 01/23/24 mcg (2,000 unit) capsule ergocalciferol (vitamin D2) 1,250 1,250 mcg PO WEEKLY #14 caps 01/23/24 mcg (50,000 unit) capsule omeprazole 40 mg capsule,delayed 40 mg PO DAILY 90 days #90 caps 04/04/24 release bisoprolol fumarate 5 mg tablet 5 mg PO DAILY #90 tabs 05/01/24 gabapentin 800 mg tablet 800 mg PO TID Pain #90 tabs 05/01/24 ropinirole 0.5 mg tablet 0.5 mg PO HS #30 tabs 05/01/24 levocetirizine 5 mg tablet (Xyzal) 5 mg PO DAILY #30 tabs 05/07/24 albuterol sulfate 90 mcg/actuation 2 puff inhalation Q4HP PRN 05/24/24 aerosol inhaler Shortness Of Breath #8.5 grams albuterol sulfate 0.63 mg/3 mL 0.63 mg (3 mL) inhalation Q6H #90 06/10/24 solution for nebulization mL amlodipine 10 mg tablet See Rx Instructions .Route 06/24/24 .COMPLEX #90 tabs fluticasone 250 mcg-salmeterol 50 1 inh inhalation BID #60 ea 07/03/24 mcg/dose blistr powdr for inhalation (Advair Diskus) sodium polystyrene sulfonate 15 g PO BID #15 grams 07/04/24 Allergies Allergy/AdvReac Type Severity Reaction Status Date / Time No Known Allergies Allergy Verified 07/03/24 15:47 [facility] Disclaimer: The information contained in this section may have been updated after the patient was seen, as this information can be updated by other users. Medical History Dyspnea Headache Anxiety Gastro-esophageal reflux disease without esophagitis Malignant hypertension Acute bacterial bronchitis Acute upper respiratory infection Bronchitis Neuropathy Edema Laceration of left index finger Obesity RLS (restless legs syndrome) Obesity Tobacco abuse Hand fracture, right COPD (chronic obstructive pulmonary disease) Pacemaker Gastroesophageal reflux disease CKD (chronic kidney disease) Bradycardia with 31-40 beats per minute Acute hyperkalemia Patient left without being seen UTI (urinary tract infection) Respiratory failure, acute Acute hyperkalemia ADI (acute kidney injury) Tobacco dependence syndrome Otitis media Obesity Somnolence, daytime, controlled Snoring Pulmonary nodules HTN (hypertension) Edema Chest pain Palpitations URI (upper respiratory infection) Medication refill Hypertensive urgency Bronchitis Elbow contusion Contusion of right hand Family History Other No significant family history Social History Smoking Status: Current every day smoker tobacco type: cigarettes packs per day: 1 years smoked: 30 second hand exposure: No alcohol intake: never substance use type: former substance user and painkillers current occupational status: employed and other Travel in the last 8 weeks: Inside the [place] household members: significant other housing: house lives independently: No caffeine: Yes special crystal needs: No agree to transfusion: No ROS Obtained: Yes All systems reviewed & no additional complaints except as documented Physical Exam General General appearance: alert and in no apparent distress Head Head exam: atraumatic and normocephalic Eye Eye exam: Present normal appearance, PERRL and EOMI ENT ENT exam: Present normal exam, normal oropharynx, mucous membranes moist and normal external ear exam Neck Neck exam: Present normal inspection, full ROM and trachea midline; Absent tenderness Chest Chest inspection: Present normal inspection and symmetric chest wall rise; Absent tenderness Respiratory Respiratory exam: Present normal lung sounds bilaterally; Absent respiratory distress, wheezes, stridor or accessory muscle use Cardiovascular Cardiovascular exam: Present regular rate and normal rhythm Abdominal Exam Abdominal exam: Present soft; Absent distention, tenderness or guarding Extremities Exam Extremities exam: Present normal inspection, full ROM and normal capillary refill; Absent tenderness or edema Back Exam Back exam: Present normal inspection and full ROM; Absent tenderness Neurological Exam Neurological exam: Present alert, oriented X3, CN II-XII intact and normal gait; Absent motor sensory deficit Psychiatric Psychiatric exam: Present normal affect and normal mood Skin Skin exam: Present warm and dry Medical Decision Making Medical Records Medical records reviewed: Yes I reviewed the patient's medical records. Tobin Inquiry Pt receiving controlled substance: No Vital Signs: 07/04/24 15:33 07/04/24 16:00 07/04/24 16:30 Temperature 97.9 F Temperature Source Oral Pulse Rate 71 67 Pulse Rate [Radial] 67 Respiratory Rate 16 18 16 Blood Pressure 122/81 129/100 H Blood Pressure [Right Arm] 147/96 H Blood Pressure Mean 109 Blood Pressure Mean [Right Arm] 113 Blood Pressure Source Blood Pressure Source [Right Arm] Automatic Cuff Blood Pressure Position Blood Pressure Position [Right Arm] Sitting 02 Sat by Pulse Oximetry 96 95 96 Oxygen Delivery Method Room Air Room Air Room Air 07/04/24 17:00 07/04/24 17:00 Temperature 97.9 F 97.9 F Temperature Source Oral Oral Pulse Rate 67 Pulse Rate [Radial] 67 Respiratory Rate 16 16 Blood Pressure 126/100 H Blood Pressure [Right Arm] 126/100 H Blood Pressure Mean Blood Pressure Mean [Right Arm] 108 Blood Pressure Source Automatic Cuff Blood Pressure Source [Right Arm] Automatic Cuff Blood Pressure Position Sitting Blood Pressure Position [Right Arm] Sitting 02 Sat by Pulse Oximetry 96 Oxygen Delivery Method Room Air Room Air Lab Data Lab results reviewed: Yes I reviewed the patient's lab results. Lab Results 07/04/24 15:48: Sodium 139, Potassium 5.3 H, Chloride 112 H, Carbon Dioxide 19 L , Anion Gap 13.3, BUN 34 H, Creatinine 2.60 H, Estimated Creat Clear 50, E stimated GFR 27 L, Est GFR ( Amer) 32 L, Glucose 91, Calcium 8.9, Total Bilirubin 0.3, AST 27, ALT 17, Alkaline Phosphatase 94, Total Protein 7.3, Albumin 4.0, Globulin 3.3 H, Albumin/Globulin Ratio 1.2 07/04/24 15:48 Orders (Tests/Meds): ED MEDICATIONS Discontinued Medications Generic Name Dose Route Start Last Admin Trade Name Freq PRN Reason Stop Dose Admin Sodium Polystyrene Sulfonate 15 gm 07/04/24 16:27 07/04/24 16:28 Sodium Poly Sulfon 15gm/60ml Oral.Susp PO 07/04/24 16:28 15 gm ONCE ONE Administration ORDERS Category Date Time Status Comprehensive Metabolic Panel Stat Lab 07/04/24 15:48 Completed ECG Data Tracing #1: I reviewed this ECG and interpreted as documented below: Normal sinus rhythm with occasional PACs. Ventricular rate [address] changes concerning for ischemia. Normal QT interval. No peaked T waves. ECG initial impression date: 07/04/24 ECG initial impression time: 15:44 Medical Decision Narrative: In summary, this patient is a 48-year-old male presenting to the Emergency Department for evaluation of elevated potassium on outpatient lab. Differential diagnoses considered include but are not limited to hyperkalemia, dysrhythmia, other electrolyte derangements, hemolysis. Ruling out the most morbid conditions drove assessment. It should be noted patient's history includes CKD which may or may not be at goal therapy. This complicates all aspects of care by increasing patient's risk for morbidity. I reviewed patient's past medical records and noted PCP eval and labs with K of 6.4 as per HPI. I did see his K is chronically elevated (usually 5.1-5.3 range). On exam, the patient is very well-appearing. He has no concerns or complaints. Vitals are normal on cardiac telemetry workup included CMP and EKG. EKG is normal with no peaked T waves or abnormalities with his QT interval. Patient's CMP demonstrated a potassium of 5.3, which is where he usually resides on medical record review. This is much improved from his potassium is obtained yesterday at 6.4. EKG, again, is normal. Patient was given a dose of Kayexalate here and states that his Kayexalate is supposed to be at the pharmacy tomorrow. Since his potassium is around his baseline with no symptoms, no EKG changes, and no other concerns, I feel it is appropriate for discharge home with continued close outpatient follow-up. Patient was discharged after all questions were answered with very strict return precautions Critical Care Critical Care Time Critical Care Time: No
[2024-07-04 16:19] LABS: Alanine Aminotransferase 17 U/L (12-78); Albumin/Globulin Ratio 1.2 (1.1-1.8); Alkaline Phosphatase 94 U/L (38-126); Anion Gap 13.3 mEq/L (5-15); Aspartate Amino Transferase 27 U/L (17-59); Bilirubin,Total 0.3 mg/dl (0.2-1.3); Blood Urea Nitrogen 34 mg/dl (9-20); Calcium 8.9 mg/dl (8.4-10.2); Carbon Dioxide 19 mmol/L (22.0-30.0); Chloride 112 mmol/L (98-107); Creatinine Clearance Estimated 50 mL/min (50-200); Estimated Glomerular Filt Rate 27 ml/min (>60); GFR (African American) 32 ML/MIN (>60); Globulin 3.3 g/dL (1.3-3.2); Glucose 91 mg/dl (74-100); Potassium 5.3 mmoL/L (3.5-5.1); Sodium 139 mmol/L (136-145); Total Protein,Serum 7.3 g/dl (6.3-8.2)
[2024-07-04] MEDS: SODIUM POLY SULFON 15GM/60ML ORAL.SUSP 15 GM PO (16:28)
[2024-07-04 16:30] VITALS: BP 129/100; PULSE 67; RESP 16; O2SAT 96
[2024-07-04 17:00] VITALS: BP 126/100; PULSE 67; RESP 16; TEMP 36.6; O2SAT 96
== END 2024-07-04 17:01 | disposition home or self-care (01) ==
PROVIDERS: Emergency Provider Emergency Medicine; PCP Family Medicine
DX: E87.5 Hyperkalemia (principal); F17.210 Nicotine dependence, cigarettes, uncomplicated; J44.9 Chronic obstructive pulmonary disease, unspecified; N18.4 Chronic kidney disease, stage 4 (severe); E13.22 Other specified diabetes mellitus with diabetic chronic kidney disease; I12.9 Hypertensive chronic kidney disease with stage 1 through stage 4 chronic kidney disease, or unspecified chronic kidney disease; K21.9 Gastro-esophageal reflux disease without esophagitis
CPT/HCPCS: 80053; 93005; 99283

== ENCOUNTER 2024-07-05 15:50 | Outpatient (CLI) | payer MEDICAID, SELFPAY ==
[2024-07-05 18:36] LABS: Alanine Aminotransferase 17 U/L (12-78); Albumin Level 3.7 g/dl (3.5-5.0); Albumin/Globulin Ratio 1.2 (1.1-1.8); Alkaline Phosphatase 109 U/L (38-126); Anion Gap 11.7 mEq/L (5-15); Aspartate Amino Transferase 27 U/L (17-59); Bilirubin,Total 0.4 mg/dl (0.2-1.3); Blood Urea Nitrogen 29 mg/dl (9-20); Calcium 9.4 mg/dl (8.4-10.2); Carbon Dioxide 21 mmol/L (22.0-30.0); Chloride 116 mmol/L (98-107); Estimated Glomerular Filt Rate 25 ml/min (>60); GFR (African American) 31 ML/MIN (>60); Globulin 3.1 g/dL (1.3-3.2); Glucose 114 mg/dl (74-100); Potassium 5.7 mmoL/L (3.5-5.1); Sodium 143 mmol/L (136-145); Total Protein,Serum 6.8 g/dl (6.3-8.2)
== END 2024-07-05 23:59 | disposition home or self-care (01) ==
LOC: LAB.DROPOF 07-06 16:16
PROVIDERS: PCP Family Medicine; Visit Provider Family Medicine
DX: E87.5 Hyperkalemia (principal)
CPT/HCPCS: 80053

== ENCOUNTER 2024-07-27 12:51 | Outpatient (CLI) | payer MEDICAID, SELFPAY ==
[2024-07-27 13:05] LABS: Microscopic, Urine URINE MICROSCOPIC (MICROSCOPIC)
[2024-07-27 13:21] LABS: Appearance,Urine CLEAR (Clear); Bilirubin,Urine Negative (Negative); Blood, Urine Negative (Negative); Color,Urine YELLOW (Yellow); Glucose,Urine (UA) Negative (Negative); Ketones,Urine Negative (Negative); Leukocyte Esterase,Urine Negative (Negative); Nitrate,Urine Negative (Negative); Protein,Urine 2+ (Negative); Urobilinogen,Urine 0.2 EU/dl (0.2)
[2024-07-27 13:25] LABS: Basophils # 0.1 K/mm3 (0-0.2); Hematocrit 43.7 % (42.0-52.0); Hemoglobin 13.1 g/dL (14.1-18.0); Lymphocytes # 3.3 K/mm3 (0.7-4.5); Lymphocytes % 24.1 % (10-50); Mean Corpuscular Hemoglobin 30.5 pg (27.0-31.2); Mean Corpuscular Volume 101.5 fl (80-94); Mean Platelet Volume 7.8 fl (7.4-10.4); Monocytes # 0.6 K/mm3 (0.1-1.0); Monocytes % 4.5 % (1.7-9.3); Neutrophils # 8.7 K/mm3 (1.8-7.8); Neutrophils % 63.4 % (37.0-80.0); Platelet Count 309 K/mm3 (142-424); Red Cell Distribution Width 15.4 % (11.5-17.5); White Blood Count 13.7 K/mm3 (4.8-10.8)
[2024-07-27 13:45] LABS: Bacteria,Urine Trace /lpf; Squamous Epithelial Cell,Urine Occasional #/hpf (0-5)
[2024-07-27 14:04] LABS: Creatinine,Urine Random 44 mg/dL (Not Estab.)
[2024-07-27 14:56] LABS: Albumin Level 4.6 g/dl (3.5-5.0); Anion Gap 14.3 mEq/L (5-15); Blood Urea Nitrogen 42 mg/dl (9-20); Calcium 9.8 mg/dl (8.4-10.2); Carbon Dioxide 17 mmol/L (22.0-30.0); Chloride 111 mmol/L (98-107); Estimated Glomerular Filt Rate 22 ml/min (>60); GFR (African American) 27 ML/MIN (>60); Glucose 93 mg/dl (74-100); Phosphorous 4.5 mg/dl (2.5-4.5); Sodium 136 mmol/L (136-145)
[2024-07-27 17:07] LABS: Potassium 6.3 mmoL/L (3.5-5.1)
== END 2024-07-27 23:59 | disposition home or self-care (01) ==
LOC: LAB 12:54
PROVIDERS: PCP Family Medicine; Visit Provider Student in an Organized Health Care Education/Training Program
DX: N18.32 Chronic kidney disease, stage 3b (principal)
CPT/HCPCS: 36415; 80069; 81001; 82570; 84156; 85025

== ENCOUNTER 2024-09-04 18:53 | Emergency (ER) | payer MEDICAID, SELFPAY ==
[2024-09-04 19:18] VITALS: BP 197/96; PULSE 70; RESP 20; TEMP 36.9; O2SAT 96; BMI 36.0
--- NOTE | 2024-09-04 19:22 | EXP.UTC ---
Discharge Plan Disposition Patient Disposition: Home, Self-Care Condition: Good Prescriptions Prescriptions: New doxycycline hyclate 100 mg capsule 100 mg PO BID 7 Days Qty: 14 0RF No Action buprenorphine-naloxone 8-2 mg tablet, sublingual 1.5 tab SL DAILY aspirin 81 mg tablet,delayed release (DR/EC) 81 mg PO DAILY bisoprolol fumarate 5 mg tablet 5 mg PO DAILY Qty: 90 3RF albuterol sulfate 90 mcg/actuation HFA aerosol inhaler 2 puff IH Q4HP PRN (Reason: Shortness Of Breath) Qty: 8.5 2RF fluticasone propion-salmeterol [Advair Diskus] 250-50 mcg/dose blister with device 1 inh inhalation BID Qty: 60 2RF gabapentin 800 mg tablet 800 mg PO TID Qty: 90 2RF cholecalciferol (vitamin D3) 50 mcg (2,000 unit) capsule 50 mcg PO DAILY Qty: 90 3RF ergocalciferol (vitamin D2) 1,250 mcg (50,000 unit) capsule 1,250 mcg PO WEEKLY Qty: 14 3RF escitalopram oxalate 20 mg tablet See Rx Instructions .ROUTE .COMPLEX Qty: 90 3RF Dose Instruction: TAKE ONE TABLET BY MOUTH ONCE A DAY Rx Instructions: TAKE ONE TABLET BY MOUTH ONCE A DAY atorvastatin 10 mg tablet 10 mg PO DAILY Qty: 90 3RF omeprazole 40 mg capsule,delayed release(DR/EC) 40 mg PO DAILY 90 Days Qty: 90 3RF Rx Instructions: swallow whole; do not crush, chew, dissolve, cut, break albuterol sulfate 0.63 mg/3 mL solution for nebulization 0.63 mg inhalation Q6H Qty: 90 2RF amlodipine 10 mg tablet See Rx Instructions .ROUTE .COMPLEX Qty: 90 2RF Dose Instruction: TAKE ONE TABLET BY MOUTH ONCE A DAY Rx Instructions: TAKE ONE TABLET BY MOUTH ONCE A DAY ropinirole 0.5 mg tablet See Rx Instructions .ROUTE .COMPLEX Qty: 90 1RF Dose Instruction: TAKE ONE TABLET BY MOUTH AT BEDTIME Rx Instructions: TAKE ONE TABLET BY MOUTH AT BEDTIME azithromycin [Zithromax Z-Dejon] 250 mg tablet See Rx Instructions PO .COMPLEX Qty: 6 0RF Rx Instructions: For 250 mg dose pack: take 500 mg today (day 1), then 250 mg for 4 days (days 2-5) PO Referrals Follow up/Referrals: Paulette Shi APRN [Primary Care Provider] - See instructions Clinical Impressions Clinical Impression: Sinusitis Instructions Patient Instructions: DI for Sinusitis, Sinusitis Print Language Print Language: Marshallese Discharge ED Provider: Flor Harman [facility] [place] General Stated complaint: mis, SOA,weak Mode of Arrival: Ambulatory Source of Information: Patient Time Seen by Provider: 09/04/24 19:22 Description of Symptoms (Recalled from Triage Doc. by RN): CONGESTION, COUGH, STATED FINISHED ZPACK AND DOES NOT FEEL ANY BETTER HEENT Symptoms (Recalled from RN notes): Yes Resp Symptoms (Recalled from RN notes): Yes Skin Symptoms (Recalled from RN notes): No MS Symptoms (Recalled from RN notes): No Functional Status (Recalled from RN notes): WNL History of Present Illness Provider Complaint: Patient states that he has been having sinus pain and pressure, drainage in the back of his throat into his chest that is making him cough, headaches, feeling achy states he hasnt felt like he had fever or anything and not having any SOA States he just finished a zpack but doesnt feel like it helped in his sinuses they have got worse and he wanted to get an antibiotic shot to see if that would help clear his sinuses up States also he wanted to get a URP Related Data Home Medications ?Medication ?Instructions ?Recorded ?Confirmed buprenorphine 8 mg-naloxone 2 mg 1.5 tab sublingual DAILY Substance 04/17/20 08/28/24 sublingual tablet Use Disorder aspirin 81 mg tablet,delayed 81 mg PO DAILY 09/18/23 08/28/24 release Previous Rx's ?Medication ?Instructions ?Recorded escitalopram oxalate 20 mg tablet See Rx Instructions .Route 10/16/23 .COMPLEX #90 tabs atorvastatin 10 mg tablet 10 mg PO DAILY #90 tabs 01/23/24 omeprazole 40 mg capsule,delayed 40 mg PO DAILY 90 days #90 caps 04/04/24 release bisoprolol fumarate 5 mg tablet 5 mg PO DAILY #90 tabs 05/01/24 albuterol sulfate 90 mcg/actuation 2 puff inhalation Q4HP PRN 05/24/24 aerosol inhaler Shortness Of Breath #8.5 grams albuterol sulfate 0.63 mg/3 mL 0.63 mg (3 mL) inhalation Q6H #90 06/10/24 solution for nebulization mL amlodipine 10 mg tablet See Rx Instructions .Route 06/24/24 .COMPLEX #90 tabs fluticasone 250 mcg-salmeterol 50 1 inh inhalation BID #60 ea 07/03/24 mcg/dose blistr powdr for inhalation (Advair Diskus) gabapentin 800 mg tablet 800 mg PO TID Pain #90 tabs 07/05/24 cholecalciferol (vitamin D3) 50 50 mcg PO DAILY #90 caps 08/01/24 mcg (2,000 unit) capsule ergocalciferol (vitamin D2) 1,250 1,250 mcg PO WEEKLY #14 caps 08/01/24 mcg (50,000 unit) capsule ropinirole 0.5 mg tablet See Rx Instructions .Route 08/13/24 .COMPLEX #90 tabs azithromycin 250 mg tablet See Rx Instructions PO .COMPLEX #6 08/30/24 (Zithromax Z-Dejon) tabs doxycycline hyclate 100 mg capsule 100 mg PO BID 7 days #14 caps 09/04/24 Allergies Allergy/AdvReac Type Severity Reaction Status Date / Time No Known Allergies Allergy Verified 08/28/24 15:35 Worker's Comp Is this a Worker's Comp case?: No [facility] Disclaimer: The information contained in this section may have been updated after the patient was seen, as this information can be updated by other users. Medical History Polycystic kidney disease Dyspnea Headache Anxiety Gastro-esophageal reflux disease without esophagitis Malignant hypertension Acute bacterial bronchitis Acute upper respiratory infection Bronchitis Neuropathy Edema Laceration of left index finger Obesity RLS (restless legs syndrome) Obesity Tobacco abuse Hand fracture, right COPD (chronic obstructive pulmonary disease) Pacemaker Gastroesophageal reflux disease CKD (chronic kidney disease) Bradycardia with 31-40 beats per minute Acute hyperkalemia Patient left without being seen UTI (urinary tract infection) Respiratory failure, acute Acute hyperkalemia ADI (acute kidney injury) Tobacco dependence syndrome Otitis media Obesity Somnolence, daytime, controlled Snoring Pulmonary nodules HTN (hypertension) Edema Chest pain Palpitations URI (upper respiratory infection) Medication refill Hypertensive urgency Bronchitis Elbow contusion Contusion of right hand Family History Other No significant family history Social History Smoking Status: Current every day smoker tobacco type: cigarettes packs per day: 1 years smoked: 30 second hand exposure: No alcohol intake: never substance use type: former substance user and painkillers current occupational status: employed and other Travel in the last 8 weeks: Inside the [place] household members: significant other housing: house lives independently: No caffeine: Yes special crystal needs: No agree to transfusion: No ROS Obtained: Yes All systems reviewed & no additional complaints except as documented and Yes Systems reviewed as appropriate & no additional complaints except as documented Constitutional Constitutional: Reports system reviewed and no additional complaints, except as documented, Reports as per HPI, Reports body ache and Reports headache(s) ENT Ears, Nose, Mouth, and Throat: Reports system reviewed and no additional complaints, except as documented, Reports as per HPI, Reports headache(s), Reports sinus pain and Reports sinus pressure Cardiovascular Cardiovascular: Reports system reviewed and no additional complaints, except as documented and Reports as per HPI Respiratory Respiratory: Reports system reviewed and no additional complaints, except as documented, Reports as per HPI, Denies shortness of breath and Reports cough Gastrointestinal Gastrointestingal: Reports system reviewed and no additional complaints, except as documented and as per HPI Neurologic Neurologic: Reports headache(s) Physical Exam General General appearance: alert and in no apparent distress ENT ENT exam: Present mucous membranes moist Expanded ENT Exam Nose exam: Present sinus tenderness Throat exam: Present other (PND noted) Respiratory Respiratory exam: Present normal lung sounds bilaterally; Absent respiratory distress or wheezes Cardiovascular Cardiovascular exam: Present regular rate, normal rhythm and normal heart sounds Neurological Exam Neurological exam: Present alert, oriented X3 and normal gait Medical Decision Making Medical Records Screening: Per USPSTF and CDC recommendations, given the prevalence of disease in our region, it is our hospital?s policy to screen for HIV and viral Hepatitis for all patients aged 18 and over and those with ongoing risk factors. Tobin Inquiry Pt receiving controlled substance: No Tobin was queried for this patient: No Vital Signs: 09/04/24 19:18 Temperature 98.4 F Temperature Source Oral Pulse Rate [Left Brachial] 70 Respiratory Rate 20 Blood Pressure [Left Arm] 197/96 H Blood Pressure Mean [Left Arm] 129 02 Sat by Pulse Oximetry 96 Medical Decision Narrative: Patient tenderness in sinuses when palpated, Denies SOA, states feels like medication helped with his chest but did not help with his sinus pain and pressure, will cover for sinusitis Discussed CXR patient declined and patient requesting URP Due to patient chronic health issues and dx medications was discussed with pharmacy will give solumedrol injection in UTC and prescribe Doxycycline to cover sinuses and have patient follow up with PCP and given strict return precautions to the ED
[2024-09-04 19:25] LABS: Adenovirus,PCR Not Detected (NotDetected); Bordetella Pertussis Not Detected (NotDetected); Chlamydophila Pneumoniae, PCR Not Detected (NotDetected); Coronavirus 19, PCR Not Detected (NotDetected); Coronavirus 229E Not Detected (NotDetected); Coronavirus NL63 Not Detected (NotDetected); Coronavirus OC43 Not Detected (NotDetected); Coronovirus HKU1,PCR Not Detected (NotDetected); Human Metapneumovirus Not Detected (NotDetected); Influenza A, PCR Not Detected (NotDetected); Influenza AH1, 2009 Not Detected (NotDetected); Influenza AH1, PCR Not Detected (NotDetected); Influenza AH3,PCR Not Detected (NotDetected); Influenza B, PCR Not Detected (NotDetected); Mycoplasma Pneumoniae, PCR Not Detected (NotDetected); Parainfluenza 1, PCR Not Detected (NotDetected); Parainfluenza 2, PCR Not Detected (NotDetected); Parainfluenza 3, PCR Not Detected (NotDetected); Parainfluenza 4, PCR Not Detected (NotDetected); Respiratory Syncytial Virus Not Detected (NotDetected)
[2024-09-04] MEDS: DOXYCYCLINE HYCL 100 MG TABLET PO (19:42)
[2024-09-04] MEDS: METHYLPREDNISOLONE SOD SUCC 125MG VIAL 125 MG IM (19:42)
[2024-09-04 19:52] VITALS: BP 197/96; PULSE 70; RESP 20; TEMP 36.9
[2024-09-04 23:19] LABS: Rhinovirus/Enterovirus Detected (NotDetected)
== END 2024-09-04 19:55 | disposition home or self-care (01) ==
PROVIDERS: Emergency Provider Nurse Practitioner; PCP Family Medicine
DX: J32.9 Chronic sinusitis, unspecified (principal); R09.81 Nasal congestion; R06.02 Shortness of breath; R53.1 Weakness; R05.9 Cough, unspecified; R51.9 Headache, unspecified
CPT/HCPCS: 87265; 87486; 87581; 87632; 87635; 96372; 99212; G0381; J2919

== ENCOUNTER 2024-09-18 15:34 | Outpatient (CLI) | payer MEDICAID, SELFPAY ==
[2024-09-18 15:54] LABS: Basophils # 0.1 K/mm3 (0-0.2); Basophils % 0.4 % (0.1-2.0); Eosinophils # 0.4 K/mm3 (0.0-0.4); Hemoglobin 13.8 g/dL (14.1-18.0); Lymphocytes # 2.2 K/mm3 (0.7-4.5); Lymphocytes % 12.3 % (10-50); Mean Corpuscular HGB Conc 32.2 g/dL (31.8-35.4); Mean Corpuscular Hemoglobin 30.7 pg (27.0-31.2); Mean Corpuscular Volume 95.5 fl (80-94); Mean Platelet Volume 7.6 fl (7.4-10.4); Monocytes # 0.7 K/mm3 (0.1-1.0); Monocytes % 3.9 % (1.7-9.3); Neutrophils # 14.7 K/mm3 (1.8-7.8); Neutrophils % 81.3 % (37.0-80.0); Platelet Count 340 K/mm3 (142-424); Red Cell Distribution Width 15.2 % (11.5-17.5); White Blood Count 18.1 K/mm3 (4.8-10.8)
[2024-09-18 16:02] LABS: MANUAL DIFFERENTIAL MANUAL DIFFERENTIAL (MANUAL DIFF)
[2024-09-18 16:35] LABS: Alanine Aminotransferase 16 U/L (12-78); Albumin Level 4.4 g/dl (3.5-5.0); Albumin/Globulin Ratio 1.4 (1.1-1.8); Alkaline Phosphatase 120 U/L (38-126); Aspartate Amino Transferase 26 U/L (17-59); Bilirubin,Total 0.7 mg/dl (0.2-1.3); Blood Urea Nitrogen 49 mg/dl (9-20); Calcium 10.1 mg/dl (8.4-10.2); Carbon Dioxide 13 mmol/L (22.0-30.0); Chloride 115 mmol/L (98-107); Estimated Glomerular Filt Rate 19 ml/min (>60); GFR (African American) 23 ML/MIN (>60); Globulin 3.2 g/dL (1.3-3.2); Glucose 90 mg/dl (74-100); Sodium 141 mmol/L (136-145); Total Protein,Serum 7.6 g/dl (6.3-8.2)
[2024-09-18 16:40] LABS: C-Reactive Protein 1.5 mg/L (0-4)
[2024-09-18 17:04] LABS: Lymphocytes % 6 % (10-50); Monocytes % 6 % (2-9); Neutrophils % 87 % (42-76); Total Cells Counted 100
[2024-09-18 17:05] LABS: Anisocytosis 1+; Macrocytosis 1+; Platelet Estimate Normal
[2024-09-23 23:27] LABS: D001-IgE D pteronyssinus <0.10 kU/L (Class 0); D002-IgE D farinae <0.10 kU/L (Class 0); E001-IgE Cat Dander <0.10 kU/L (Class 0); E005-IgE Dog Dander <0.10 kU/L (Class 0); E072-IgE Mouse Urine <0.10 kU/L (Class 0); G002-IgE Bermuda Grass <0.10 kU/L (Class 0); G006-IgE Timothy Grass <0.10 kU/L (Class 0); I006-IgE Cockroach, German <0.10 kU/L (Class 0); Immunoglobulin E, Total 1173 IU/mL (6-495); M001-IgE Penicillium chrysogen <0.10 kU/L (Class 0); M002-IgE Cladosporium herbarum <0.10 kU/L (Class 0); M003-IgE Aspergillus fumigatus <0.10 kU/L (Class 0); M006-IgE Alternaria alternata <0.10 kU/L (Class 0); T001-IgE Maple/Box Elder <0.10 kU/L (Class 0); T003-IgE Common Silver Birch <0.10 kU/L (Class 0); T006-IgE Cedar, Mountain <0.10 kU/L (Class 0); T007-IgE Oak, White <0.10 kU/L (Class 0); T008-IgE Elm, American 0.17 kU/L (Class 0/I); T010-IgE Walnut 0.11 kU/L (Class 0/I); T011-IgE Maple Leaf Sycamore <0.10 kU/L (Class 0); T014-IgE Cottonwood <0.10 kU/L (Class 0); T015-IgE Ash, White <0.10 kU/L (Class 0); T022-IgE Pecan, Hickory 0.21 kU/L (Class 0/I); T070-IgE White Mulberry <0.10 kU/L (Class 0); W001-IgE Ragweed, Short <0.10 kU/L (Class 0); W011-IgE Thistle, Russian <0.10 kU/L (Class 0); W014-IgE Pigweed, Common <0.10 kU/L (Class 0); W018-IgE Sheep Sorrel 0.11 kU/L (Class 0/I)
[2024-09-24 12:19] LABS: Strongyloides IgG Antibody Negative (Negative)
[2024-09-30 16:07] LABS: Antiproteinase 3 (PR-3) Abs <0.2; Myeloperoxidase Antibody <0.2
[2024-09-30 16:08] LABS: Antinuclear Antibodies (ANA) NEGATIVE
== END 2024-09-18 23:59 | disposition home or self-care (01) ==
PROVIDERS: PCP Family Medicine; Visit Provider Internal Medicine Pulmonary Disease
DX: J30.9 Allergic rhinitis, unspecified (principal); D72.10 Eosinophilia, unspecified; J84.9 Interstitial pulmonary disease, unspecified; R06.09 Other forms of dyspnea; Z72.0 Tobacco use
CPT/HCPCS: 36415; 80053; 82785; 83520; 85007; 85025; 85027; 86003; 86038; 86140; 86225; 86235; 86682

== ENCOUNTER 2024-09-18 18:23 | Emergency (ER) | payer MEDICAID, SELFPAY ==
[2024-09-18 18:24] VITALS: BP 116/84; PULSE 75; RESP 18; TEMP 36.7; O2SAT 96; BMI 31.7
[2024-09-18 18:46] LABS: Basophils # 0.1 K/mm3 (0-0.2); Basophils % 0.6 % (0.1-2.0); Eosinophils # 0.3 K/mm3 (0.0-0.4); Hemoglobin 13.3 g/dL (14.1-18.0); Lymphocytes # 3.1 K/mm3 (0.7-4.5); Lymphocytes % 19.9 % (10-50); Mean Corpuscular HGB Conc 32.4 g/dL (31.8-35.4); Mean Corpuscular Hemoglobin 30.5 pg (27.0-31.2); Monocytes # 0.5 K/mm3 (0.1-1.0); Monocytes % 3.2 % (1.7-9.3); Neutrophils # 11.5 K/mm3 (1.8-7.8); Neutrophils % 74.3 % (37.0-80.0); Platelet Count 346 K/mm3 (142-424); Red Blood Count 4.37 M/mm3 (4.60-6.20); Red Cell Distribution Width 15.2 % (11.5-17.5); White Blood Count 15.5 K/mm3 (4.8-10.8)
--- NOTE | 2024-09-18 18:47 | ECG_ITS ---
APPROVED REPORT Exam: Resting ECG HR:73 bpm ECG Measurements Heart Rate 73 AXES OR 202 P 91 QRSd 132 QRS 26 QT 358 T 51 QTc 384 Conclusion SINUS RHYTHM INTRAVENTRICULAR CONDUCTION DELAY [130+ ms QRS DURATION] ABNORMAL ECG UNCONFIRMED REPORT Electronically signed by : MAGGIE GONZALEZ, 09/19/2024 06:51:27
[2024-09-18 18:58] LABS: Lactate Venous 1.8 mmol/L (0.4-2.0); VBG Base Excess -10.6 mmol/L (-2.4-2.3); VBG HCO3 15.9 mmol/L (23-30); VBG PCO2 33.2 mmol/L (35-51); VBG PO2 170.1 mmol/L (28-40); VBG Total CO2 16.9 mmol/L (23-27)
[2024-09-18 18:59] LABS: Alanine Aminotransferase 18 U/L (12-78); Albumin Level 4.1 g/dl (3.5-5.0); Albumin/Globulin Ratio 1.3 (1.1-1.8); Alkaline Phosphatase 102 U/L (38-126); Anion Gap 17.1 mEq/L (5-15); Aspartate Amino Transferase 28 U/L (17-59); Bilirubin,Total 0.6 mg/dl (0.2-1.3); Blood Urea Nitrogen 52 mg/dl (9-20); Calcium 9.4 mg/dl (8.4-10.2); Carbon Dioxide 14 mmol/L (22.0-30.0); Chloride 114 mmol/L (98-107); Creatinine Clearance Estimated 33 mL/min (50-200); Estimated Glomerular Filt Rate 17 ml/min (>60); GFR (African American) 21 ML/MIN (>60); Globulin 3.1 g/dL (1.3-3.2); Glucose 141 mg/dl (74-100); Phosphorous 4.1 mg/dl (2.5-4.5); Potassium 5.1 mmoL/L (3.5-5.1); Sodium 140 mmol/L (136-145); Total Protein,Serum 7.2 g/dl (6.3-8.2)
--- NOTE | 2024-09-18 19:01 | HMH.EDGENADL ---
Discharge Plan Disposition Patient Disposition: Xfer Short-Term Hosp Prescriptions Prescriptions: No Action buprenorphine-naloxone 8-2 mg tablet, sublingual 1.5 tab SL DAILY doxazosin 2 mg tablet 2 mg PO DAILY aspirin 81 mg tablet,delayed release (DR/EC) 81 mg PO DAILY bisoprolol fumarate 5 mg tablet 5 mg PO DAILY Qty: 90 3RF albuterol sulfate 90 mcg/actuation HFA aerosol inhaler 2 puff IH Q4HP PRN (Reason: Shortness Of Breath) Qty: 8.5 2RF fluticasone propion-salmeterol [Advair Diskus] 250-50 mcg/dose blister with device 1 inh inhalation BID Qty: 60 2RF gabapentin 800 mg tablet 800 mg PO TID Qty: 90 2RF cholecalciferol (vitamin D3) 50 mcg (2,000 unit) capsule 50 mcg PO DAILY Qty: 90 3RF ergocalciferol (vitamin D2) 1,250 mcg (50,000 unit) capsule 1,250 mcg PO WEEKLY Qty: 14 3RF escitalopram oxalate 20 mg tablet See Rx Instructions .ROUTE .COMPLEX Qty: 90 3RF Dose Instruction: TAKE ONE TABLET BY MOUTH ONCE A DAY Rx Instructions: TAKE ONE TABLET BY MOUTH ONCE A DAY atorvastatin 10 mg tablet 10 mg PO DAILY Qty: 90 3RF omeprazole 40 mg capsule,delayed release(DR/EC) 40 mg PO DAILY 90 Days Qty: 90 3RF Rx Instructions: swallow whole; do not crush, chew, dissolve, cut, break albuterol sulfate 0.63 mg/3 mL solution for nebulization 0.63 mg inhalation Q6H Qty: 90 2RF amlodipine 10 mg tablet See Rx Instructions .ROUTE .COMPLEX Qty: 90 2RF Dose Instruction: TAKE ONE TABLET BY MOUTH ONCE A DAY Rx Instructions: TAKE ONE TABLET BY MOUTH ONCE A DAY ropinirole 0.5 mg tablet See Rx Instructions .ROUTE .COMPLEX Qty: 90 1RF Dose Instruction: TAKE ONE TABLET BY MOUTH AT BEDTIME Rx Instructions: TAKE ONE TABLET BY MOUTH AT BEDTIME Referrals Follow up/Referrals: Paulette Shi APRN [Primary Care Provider] - See instructions Clinical Impressions Clinical Impression: Acute kidney injury superimposed on CKD, Polycystic kidney disease Print Language Print Language: Upper Sorbian Discharge ED Provider: Karolina Murdock General Adult HPI General Chief complaint: Recheck/Abnormal Lab/Rx Stated complaint: critical labs Time Seen by Provider: 09/18/24 18:37 Mode of Arrival: Ambulatory Source of Information: Patient Limitations: No Limitations Description of Symptoms (Recalled from ER Triage Doc. by RN): PT SENT BY DR BELTRÁN FOR ABNORMAL LABS. PT REPORTS POLYCYSTIC KIDNEY DISEASE. PT WITHOUT COMPLAINTS History of Present Illness HPI narrative: This patient is a 49-year-old male with a history of polycystic kidney disease, chronic hyperkalemia, recurrent pneumonia, CKD stage IV, COPD, hypertension, and pacemaker presenting to the emergency department for evaluation with concern for abnormal labs obtained as an outpatient. Patient reports he was sent by Dr. Beltrán for high creatinine and high potassium. Patient states that he is feeling fine with no concerns or complaints. Nothing out of the ordinary as of late. He is still making good urine. No flank pain or other concerns. Related Data Home Medications ?Medication ?Instructions ?Recorded ?Confirmed buprenorphine 8 mg-naloxone 2 mg 1.5 tab sublingual DAILY Substance 04/17/20 09/18/24 sublingual tablet Use Disorder aspirin 81 mg tablet,delayed 81 mg PO DAILY 09/18/23 09/18/24 release doxazosin 2 mg tablet 2 mg PO DAILY 09/18/24 09/18/24 Previous Rx's ?Medication ?Instructions ?Recorded escitalopram oxalate 20 mg tablet See Rx Instructions .Route 10/16/23 .COMPLEX #90 tabs atorvastatin 10 mg tablet 10 mg PO DAILY #90 tabs 01/23/24 omeprazole 40 mg capsule,delayed 40 mg PO DAILY 90 days #90 caps 04/04/24 release bisoprolol fumarate 5 mg tablet 5 mg PO DAILY #90 tabs 05/01/24 albuterol sulfate 90 mcg/actuation 2 puff inhalation Q4HP PRN 05/24/24 aerosol inhaler Shortness Of Breath #8.5 grams albuterol sulfate 0.63 mg/3 mL 0.63 mg (3 mL) inhalation Q6H #90 06/10/24 solution for nebulization mL amlodipine 10 mg tablet See Rx Instructions .Route 06/24/24 .COMPLEX #90 tabs fluticasone 250 mcg-salmeterol 50 1 inh inhalation BID #60 ea 07/03/24 mcg/dose blistr powdr for inhalation (Advair Diskus) gabapentin 800 mg tablet 800 mg PO TID Pain #90 tabs 07/05/24 cholecalciferol (vitamin D3) 50 50 mcg PO DAILY #90 caps 08/01/24 mcg (2,000 unit) capsule ergocalciferol (vitamin D2) 1,250 1,250 mcg PO WEEKLY #14 caps 08/01/24 mcg (50,000 unit) capsule ropinirole 0.5 mg tablet See Rx Instructions .Route 08/13/24 .COMPLEX #90 tabs Allergies Allergy/AdvReac Type Severity Reaction Status Date / Time No Known Allergies Allergy Verified 09/18/24 14:21 [facility] Disclaimer: The information contained in this section may have been updated after the patient was seen, as this information can be updated by other users. Medical History History of pacemaker Polycystic kidney disease Dyspnea Headache Anxiety Gastro-esophageal reflux disease without esophagitis Malignant hypertension Acute bacterial bronchitis Acute upper respiratory infection Bronchitis Neuropathy Edema Laceration of left index finger Obesity RLS (restless legs syndrome) Obesity Tobacco abuse Hand fracture, right COPD (chronic obstructive pulmonary disease) Pacemaker Gastroesophageal reflux disease CKD (chronic kidney disease) Bradycardia with 31-40 beats per minute Acute hyperkalemia Patient left without being seen UTI (urinary tract infection) Respiratory failure, acute Acute hyperkalemia ADI (acute kidney injury) Tobacco dependence syndrome Otitis media Obesity Somnolence, daytime, controlled Snoring Pulmonary nodules HTN (hypertension) Edema Chest pain Palpitations URI (upper respiratory infection) Medication refill Hypertensive urgency Bronchitis Elbow contusion Contusion of right hand Surgical History No history of previous surgery Family History Other Heart attack Hypertension Social History Smoking Status: Current every day smoker tobacco type: cigarettes packs per day: 1 years smoked: 30 second hand exposure: No alcohol intake: never substance use type: former substance user and painkillers current occupational status: employed and other Travel in the last 8 weeks: None household members: significant other housing: house lives independently: No caffeine: Yes special crystal needs: No agree to transfusion: No Other Medical History Have you received the Flu Vaccine for this season: No Have you received the Pneumonia Vaccine: Yes ROS Obtained: Yes All systems reviewed & no additional complaints except as documented Physical Exam General General appearance: alert and in no apparent distress Head Head exam: atraumatic and normocephalic Eye Eye exam: Present normal appearance, PERRL and EOMI ENT ENT exam: Present normal exam, normal oropharynx, mucous membranes moist and normal external ear exam Neck Neck exam: Present normal inspection, full ROM and trachea midline; Absent tenderness Chest Chest inspection: Present normal inspection and symmetric chest wall rise; Absent tenderness Respiratory Respiratory exam: Present normal lung sounds bilaterally; Absent respiratory distress, wheezes, stridor or accessory muscle use Cardiovascular Cardiovascular exam: Present regular rate and normal rhythm Abdominal Exam Abdominal exam: Present soft; Absent distention, tenderness or guarding Extremities Exam Extremities exam: Present normal inspection, full ROM and normal capillary refill; Absent tenderness or edema Back Exam Back exam: Present normal inspection and full ROM; Absent tenderness Neurological Exam Neurological exam: Present alert, oriented X3, CN II-XII intact and normal gait; Absent motor sensory deficit Psychiatric Psychiatric exam: Present normal affect and normal mood Skin Skin exam: Present warm and dry Medical Decision Making Medical Records Medical records reviewed: Yes I reviewed the patient's medical records. Screening: Per USPSTF and CDC recommendations, given the prevalence of disease in our region, it is our hospital?s policy to screen for HIV and viral Hepatitis for all patients aged 18 and over and those with ongoing risk factors. Tobin Inquiry Pt receiving controlled substance: No Vital Signs: 09/18/24 18:24 Temperature 98.0 F Temperature Source Oral Pulse Rate [Apical] 75 Respiratory Rate 18 Blood Pressure [Right Arm] 116/84 Blood Pressure Mean [Right Arm] 94 Blood Pressure Source [Right Arm] Automatic Cuff Blood Pressure Position [Right Arm] Sitting 02 Sat by Pulse Oximetry 96 Oxygen Delivery Method Room Air Lab Data Lab results reviewed: Yes I reviewed the patient's lab results. Lab Results 09/18/24 18:38: WBC 15.5 H, RBC 4.37 L, Hgb 13.3 L, Hct 41.0 L, MCV 94.0, MCH 30.5, MCHC 32.4, RDW 15.2, Plt Count 346, MPV 8.0, Neut % (Auto) 74.3, Lymph % (Auto) 19.9, [place] % (Auto) 3.2, Eos % (Auto) 2.0, Baso % (Auto) 0.6, Neut # (Auto) 11.5 H, Lymph # (Auto) 3.1, [place] # (Auto) 0.5, Eos # (Auto) 0.3, Baso # (Auto) 0.1, Sodium 140, Potassium 5.1, Chloride 114 H, Carbon Dioxide 14 L, Anion Gap 17.1 H, BUN 52 H, Creatinine 3.80 H, Estimated Creat Clear 33, Estimated GFR 17 L*, Est GFR ( Amer) 21 L, Glucose 141 H D, Calcium 9.4, Phosphorus 4.1, Magnesium 2.0, Total Bilirubin 0.6, AST 28, ALT 18, Alkaline Phosphatase 102, Total Protein 7.2, Albumin 4.1, Globulin 3.1, Albumin/Globulin Ratio 1.3, HIV 1&2 Antibody Rapid Nonreactive 09/18/24 18:45: VBG pH 7.30 L, VBG pCO2 33.2 L, VBG pO2 170.1 H, VBG HCO3 15.9 L, VBG Total CO2 16.9 L, VBG O2 Saturation 99.0 H, VBG Base Excess -10.6 L, VBG Lactic Acid 1.8 09/18/24 18:57: Urine Color Yellow, Urine Appearance Clear, Urine pH 6.0, Ur Specific [place] >= 1.030, Urine Protein 3+ A, Urine Glucose (UA) Negative, Urine Ketones Trace, Urine Blood Negative, Urine Nitrate Negative, Urine Bilirubin Negative, Urine Urobilinogen 0.2, Ur Leukocyte Esterase Negative, Urine RBC 3-5, Urine WBC 3-5, Ur Squamous Epith Cells Occasional, Urine Bacteria 2+, Urine Mucus 1+ 09/18/24 18:38 09/18/24 18:38 Orders (Tests/Meds): ED MEDICATIONS Discontinued Medications Generic Name Dose Route Start Last Admin Trade Name Freq PRN Reason Stop Dose Admin Lactated Ringer's 1,000 mls @ 999 mls/hr 09/18/24 19:22 09/18/24 19:29 Lactated Ringer's 1000 Ml Bag IV 09/18/24 20:22 999 mls/hr .Q1H1M ONE Administration ORDERS Category Date Time Status Complete Blood Count Auto Diff Stat Lab 09/18/24 18:38 Completed Comprehensive Metabolic Panel Stat Lab 10/30/24 18:38 Completed HIV (1&2) Antibody Rapid Stat Lab 09/18/24 18:38 Completed Hep C Ab with Reflex to RNA Stat Lab 09/18/24 18:38 Received Magnesium Stat Lab 09/18/24 18:38 Completed Phosphorous Stat Lab 09/18/24 18:38 Completed UA [Urinalysis and Microscopic] Stat Lab 09/18/24 18:57 Completed Urine Culture Stat Micro 09/18/24 18:57 Received VBG [Venous Blood Gas] Stat RT 09/18/24 18:45 Completed ECG Data Tracing #1: I reviewed this ECG and interpreted as documented below: Normal sinus rhythm with a ventricular to 73 bpm. Intraventricular conduction delay. Motion artifact degraded. No acute ST changes concerning for ischemia noted. ECG initial impression date: 09/18/24 ECG initial impression time: 18:50 Medical Decision Narrative: In summary, this patient is a 49-year-old male presenting to the Emergency Department for evaluation of abnormal labs obtained as an outpatient earlier today, including hyperkalemia and elevated creatinine from baseline. Differential diagnoses considered include but are not limited to ADI, hyperkalemia, electrolyte derangements, acidosis. Ruling out the most morbid conditions drove assessment. It should be noted patient's history includes polycystic kidney disease and CKD 4 which are not at goal therapy. This complicates all aspects of care by increasing patient's risk for morbidity. I reviewed patient's past medical records and noted labs obtained today which demonstrated potassium of 6, which is chronic. He is as high as 6.3-6.4 on many assessments. Creatinine is 3.5, which has trended up from 2.6 > 2.7 > 3 > 3.5 today. On exam, the patient is lying in bed in no acute distress. Her vital signs are cardiac telemetry. EKG obtained demonstrates some artifact limiting assessment but no obvious acute ST changes concerning for ischemia. No significant changes related to hyperkalemia on my assessment. workup included CBC, CMP, magnesium, phosphorus, VBG, urinalysis in addition to the EKG. Labs demonstrated potassium of 5.1, which is improved from outpatient labs earlier today. Creatinine is up to 3.8 from 3.5, which is again trending upward. I did order a liter bolus of IV fluids. On reassessment, patient continues to complain of no symptoms or issues. 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 I had an interactive discussion with Yamile Spaulding at [facility] who accepted the patient for transfer. I felt this was appropriate because we do not have nephrology here. Patient was transferred in stable condition EMS transport was arranged and recommended, however patient elected to go [facility]. He understands the risk if he does not go there, including potential worsening of kidney function. His is driving him. He left in stable condition to go [facility]. Critical Care Critical Care Time Critical Care Time: No
[2024-09-18 19:02] LABS: Microscopic, Urine URINE MICROSCOPIC (MICROSCOPIC)
[2024-09-18 19:04] LABS: Appearance,Urine CLEAR (Clear); Blood, Urine Negative (Negative); Color,Urine YELLOW (Yellow); Glucose,Urine (UA) Negative (Negative); Ketones,Urine TRACE (Negative); Leukocyte Esterase,Urine Negative (Negative); Nitrate,Urine Negative (Negative); Protein,Urine 3+ (Negative); Specific Gravity, Urine >= 1.030 (1.005-1.030); Urobilinogen,Urine 0.2 EU/dl (0.2)
[2024-09-18 19:08] LABS: Bilirubin,Urine Negative (Negative)
[2024-09-18 19:25] LABS: Squamous Epithelial Cell,Urine Occasional #/hpf (0-5)
[2024-09-18 19:26] LABS: Bacteria,Urine 2+ /lpf; Mucus,Urine 1+ /lpf
[2024-09-18] MEDS: LACTATED RINGERS 1000ML 1,000 ML 999 ML IV (19:29)
--- NOTE | 2024-09-18 19:33 | PC.NURSE ---
rounded on pt at this time. fluids started per MAR
[2024-09-18 20:14] LABS: HIV (1&2) Antibody Rapid NONREACTIVE (NONREACTIVE)
--- NOTE | 2024-09-18 20:22 | PC.NURSE ---
Contacted [facility] in regards to transfer for this patient they will be contact us back as soon as possible
[2024-09-18 21:16] VITALS: BP 137/85; PULSE 66; RESP 15; TEMP 36.7; O2SAT 94
[2024-09-20 08:21] LABS: HCV Ab Non Reactive (Non Reactive)
== END 2024-09-18 21:17 | disposition short-term general hospital (02) ==
PROVIDERS: Emergency Provider Emergency Medicine; PCP Family Medicine
DX: Q61.3 Polycystic kidney, unspecified (principal); N17.9 Acute kidney failure, unspecified; R79.9 Abnormal finding of blood chemistry, unspecified; R94.4 Abnormal results of kidney function studies; E87.5 Hyperkalemia
CPT/HCPCS: 80053; 81001; 82803; 83735; 84100; 85025; 86803; 87086; 87389; 93005; 96360; 99283; J7120

== ENCOUNTER 2024-10-08 10:01 | Emergency (ER) | payer OTHER, SELFPAY ==
--- NOTE | 2024-10-08 | XR_ITS ---
PROCEDURE INFORMATION: Exam: XR Left Elbow Exam date and time: 10/08/2024 10:28 AM Age: 49 years old Clinical indication: Pain; Elbow; Left; Additional info: Slip and fall, left elbow pain TECHNIQUE: Imaging protocol: Radiologic exam of the left elbow. Views: 3 or more views. COMPARISON: No relevant prior studies available. FINDINGS: Bones/joints: Normal. Soft tissues: Normal. IMPRESSION: No acute findings.
[2024-10-08 10:03] VITALS: BP 154/104; PULSE 59; RESP 13; TEMP 37.3; O2SAT 98; BMI 31.7
[2024-10-08 10:15] VITALS: PULSE 60; O2SAT 97
[2024-10-08 10:30] VITALS: BP 131/87; PULSE 60; O2SAT 95
[2024-10-08 10:55] VITALS: BP 156/106; PULSE 62; O2SAT 94
--- NOTE | 2024-10-08 12:03 | ED_ITS ---
Discharge Plan Disposition Patient Disposition: Home, Self-Care Condition: Good Prescriptions Prescriptions: No Action buprenorphine-naloxone 8-2 mg tablet, sublingual 1.5 tab SL DAILY doxazosin 2 mg tablet 2 mg PO DAILY aspirin 81 mg tablet,delayed release (DR/EC) 81 mg PO DAILY bisoprolol fumarate 5 mg tablet 5 mg PO DAILY Qty: 90 3RF albuterol sulfate 90 mcg/actuation HFA aerosol inhaler 2 puff IH Q4HP PRN (Reason: Shortness Of Breath) Qty: 8.5 2RF fluticasone propion-salmeterol [Advair Diskus] 250-50 mcg/dose blister with device 1 inh inhalation BID Qty: 60 2RF gabapentin 800 mg tablet 800 mg PO TID Qty: 90 2RF cholecalciferol (vitamin D3) 50 mcg (2,000 unit) capsule 50 mcg PO DAILY Qty: 90 3RF ergocalciferol (vitamin D2) 1,250 mcg (50,000 unit) capsule 1,250 mcg PO WEEKLY Qty: 14 3RF ropinirole 1 mg tablet 1 mg PO HS Qty: 30 2RF Rx Instructions: administer 1-3 hours before bedtime tramadol 50 mg tablet 50 mg PO DAILY PRN (Reason: pain) Qty: 30 0RF escitalopram oxalate 20 mg tablet See Rx Instructions .ROUTE .COMPLEX Qty: 90 3RF Dose Instruction: TAKE ONE TABLET BY MOUTH ONCE A DAY Rx Instructions: TAKE ONE TABLET BY MOUTH ONCE A DAY atorvastatin 10 mg tablet 10 mg PO DAILY Qty: 90 3RF omeprazole 40 mg capsule,delayed release(DR/EC) 40 mg PO DAILY 90 Days Qty: 90 3RF Rx Instructions: swallow whole; do not crush, chew, dissolve, cut, break albuterol sulfate 0.63 mg/3 mL solution for nebulization 0.63 mg inhalation Q6H Qty: 90 2RF amlodipine 10 mg tablet See Rx Instructions .ROUTE .COMPLEX Qty: 90 2RF Dose Instruction: TAKE ONE TABLET BY MOUTH ONCE A DAY Rx Instructions: TAKE ONE TABLET BY MOUTH ONCE A DAY Referrals Follow up/Referrals: Paulette Shi APRN [Primary Care Provider] - See instructions Activity Restrictions/Add. Instructions Additional Instructions/Restrictions: You were evaluated in the ER and are appropriate for discharge at this time. Take Tylenol if needed for pain of the left elbow, do not exceed the recommended dose on the bottle. Make an appointment with your primary care doctor for reevaluation in a few days. Return to the ER with new, worsening, or otherwise concerning symptoms. Clinical Impressions Clinical Impression: Left elbow pain Print Language Print Language: Malawian Discharge ED Provider: Yomi Sage General Adult HPI General Chief complaint: Fall Stated complaint: WC 0730, fell at work, inj lt elbow Time Seen by Provider: 10/08/24 10:33 Mode of Arrival: Ambulatory Source of Information: Patient Limitations: No Limitations Description of Symptoms (Recalled from ER Triage Doc. by RN): pt presents to ED with c/o fall and left elbow pain. pt reports that he slipped and fell at work this am on a puddle of water. History of Present Illness HPI narrative: 49-year-old male with multiple chronic medical conditions including polycystic kidney disease, depressive disorder, CKD stage IV, hypertension presents to the ER for complaints of left elbow pain. Patient reports he was working at [employer] when he slipped and landed on his left elbow causing pain and swelling. Patient has full range of motion of the elbow but states full extension is slightly painful. 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 Patient states he did not strike his head or lose consciousness, no other complaints or concerns. Related Data Home Medications ?Medication ?Instructions ?Recorded ?Confirmed buprenorphine 8 mg-naloxone 2 mg 1.5 tab sublingual DAILY Substance 04/17/20 09/26/24 sublingual tablet Use Disorder aspirin 81 mg tablet,delayed 81 mg PO DAILY 09/18/23 09/26/24 release doxazosin 2 mg tablet 2 mg PO DAILY 09/18/24 09/26/24 Previous Rx's ?Medication ?Instructions ?Recorded escitalopram oxalate 20 mg tablet See Rx Instructions .Route 10/16/23 .COMPLEX #90 tabs atorvastatin 10 mg tablet 10 mg PO DAILY #90 tabs 01/23/24 omeprazole 40 mg capsule,delayed 40 mg PO DAILY 90 days #90 caps 04/04/24 release bisoprolol fumarate 5 mg tablet 5 mg PO DAILY #90 tabs 05/01/24 albuterol sulfate 90 mcg/actuation 2 puff inhalation Q4HP PRN 05/24/24 aerosol inhaler Shortness Of Breath #8.5 grams albuterol sulfate 0.63 mg/3 mL 0.63 mg (3 mL) inhalation Q6H #90 06/10/24 solution for nebulization mL amlodipine 10 mg tablet See Rx Instructions .Route 06/24/24 .COMPLEX #90 tabs fluticasone 250 mcg-salmeterol 50 1 inh inhalation BID #60 ea 07/03/24 mcg/dose blistr powdr for inhalation (Advair Diskus) gabapentin 800 mg tablet 800 mg PO TID Pain #90 tabs 07/05/24 cholecalciferol (vitamin D3) 50 50 mcg PO DAILY #90 caps 08/01/24 mcg (2,000 unit) capsule ergocalciferol (vitamin D2) 1,250 1,250 mcg PO WEEKLY #14 caps 08/01/24 mcg (50,000 unit) capsule ropinirole 1 mg tablet 1 mg PO HS rls #30 tabs 09/26/24 tramadol 50 mg tablet 50 mg PO DAILY PRN pain #30 tabs 09/27/24 Allergies Allergy/AdvReac Type Severity Reaction Status Date / Time No Known Allergies Allergy Verified 09/26/24 15:39 [facility] Disclaimer: The information contained in this section may have been updated after the patient was seen, as this information can be updated by other users. Medical History History of pacemaker Polycystic kidney disease Dyspnea Headache Anxiety Gastro-esophageal reflux disease without esophagitis Malignant hypertension Acute bacterial bronchitis Acute upper respiratory infection Bronchitis Neuropathy Edema Laceration of left index finger Obesity RLS (restless legs syndrome) Obesity Tobacco abuse Hand fracture, right COPD (chronic obstructive pulmonary disease) Pacemaker Gastroesophageal reflux disease CKD (chronic kidney disease) Bradycardia with 31-40 beats per minute Acute hyperkalemia Patient left without being seen UTI (urinary tract infection) Respiratory failure, acute Acute hyperkalemia ADI (acute kidney injury) Tobacco dependence syndrome Otitis media Obesity Somnolence, daytime, controlled Snoring Pulmonary nodules HTN (hypertension) Edema Chest pain Palpitations URI (upper respiratory infection) Medication refill Hypertensive urgency Bronchitis Elbow contusion Contusion of right hand Surgical History No history of previous surgery Family History Other Heart attack Hypertension Social History Smoking Status: Current every day smoker tobacco type: cigarettes packs per day: 1 years smoked: 30 second hand exposure: No alcohol intake: never substance use type: former substance user and painkillers current occupational status: employed and other Travel in the last 8 weeks: None household members: significant other housing: house lives independently: No caffeine: Yes special crystal needs: No agree to transfusion: No Other Medical History Have you received the Flu Vaccine for this season: No Have you received the Pneumonia Vaccine: Yes ROS Obtained: Yes Systems reviewed as appropriate & no additional complaints except as documented ROS per HPI Physical Exam General General appearance: alert and in no apparent distress Head Head exam: atraumatic and normocephalic Eye Eye exam: Present PERRL and EOMI ENT ENT exam: Present mucous membranes moist Neck Neck exam: Present normal inspection and full ROM Chest Chest inspection: Present symmetric chest wall rise Respiratory Respiratory exam: Absent respiratory distress or stridor Cardiovascular Cardiovascular exam: Present regular rate and normal rhythm Extremities Exam Extremities exam: Present full ROM, tenderness (Mild tenderness to palpation of the left elbow with swelling just distal to the olecranon process but no deformity or crepitus, neurovascularly intact distally) and normal capillary refill Neurological Exam Neurological exam: Present alert and oriented X3; Absent motor sensory deficit Psychiatric Psychiatric exam: Present normal affect and normal mood Skin Skin exam: Present warm and dry Medical Decision Making Medical Records Screening: Per USPSTF and CDC recommendations, given the prevalence of disease in our region, it is our hospital?s policy to screen for HIV and viral Hepatitis for all patients aged 18 and over and those with ongoing risk factors. Tobin Inquiry Pt receiving controlled substance: No Vital Signs: 10/08/24 10:03 10/08/24 10:15 10/08/24 10:30 Temperature 99.1 F Temperature Source Oral Pulse Rate 60 60 Pulse Rate [Left Radial] 59 L Respiratory Rate 13 Blood Pressure 131/87 Blood Pressure [Right Arm] 154/104 H Blood Pressure Mean [Right Arm] 120 02 Sat by Pulse Oximetry 98 97 95 Oxygen Delivery Method Room Air Room Air 10/08/24 10:55 Temperature Temperature Source Pulse Rate 62 Pulse Rate [Left Radial] Respiratory Rate Blood Pressure 156/106 H Blood Pressure [Right Arm] Blood Pressure Mean [Right Arm] 02 Sat by Pulse Oximetry 94 L Oxygen Delivery Method Room Air Orders (Tests/Meds): ORDERS Category Date Time Status XR elbow LT min 3V Stat Exams 10/08/24 Completed Hep C Ab with Reflex to RNA Stat Lab 10/08/24 10:14 Ordered Medical Decision Narrative: 41-year-old male with comorbidities as listed in HPI presents to the ER for complaints of left elbow pain after slip and fall at work. No other complaints or concerns. Differential diagnose includes but is not limited to fracture, dislocation, soft tissue injury. On evaluation patient has full range of motion of left elbow with minor swelling just distal to the olecranon process, neurovascularly intact distally, no other injuries appreciated on exam. X-ray performed for evaluation of the osseous structures. I personal interpretation of x-ray do not appreciate any osseous injury. See radiology read for final interpretation. Patient is appropriate for discharge at this time. Patient was given instructions on symptomatic management, follow up instructions, and return precautions for the emergency department. Patient indicated understanding and was discharged in stable condition. Critical Care Critical Care Time Critical Care Time: No
[2024-10-08 12:08] VITALS: BP 157/63; PULSE 81; RESP 18; TEMP 36.9; O2SAT 97
== END 2024-10-08 12:09 | disposition home or self-care (01) ==
PROVIDERS: Emergency Provider Emergency Medicine; PCP Family Medicine
DX: M25.522 Pain in left elbow (principal); W01.0XXA Fall on same level from slipping, tripping and stumbling without subsequent striking against object, initial encounter; Y93.89 Activity, other specified; Y92.89 Other specified places as the place of occurrence of the external cause
CPT/HCPCS: 73080; 99283

== ENCOUNTER 2024-11-11 15:53 | Emergency (ER) | payer MEDICAID, SELFPAY ==
[2024-11-11 17:09] VITALS: BP 195/110; PULSE 65; RESP 20; TEMP 36.9; O2SAT 100; BMI 34.1
--- NOTE | 2024-11-11 17:09 | ED_ITS ---
Discharge Plan Disposition Patient Disposition: Home, Self-Care Condition: Good Prescriptions Prescriptions: New permethrin 5 % cream 1 applic topical Q14D Qty: 60 0RF Rx Instructions: apply second treatment 14 days after first treatment if live mites remain triamcinolone acetonide 0.1 % cream 1 applic topical BID PRN (Reason: itching) Qty: 30 0RF No Action buprenorphine-naloxone 8-2 mg tablet, sublingual 1.5 tab SL DAILY hydroxyzine HCl 10 mg tablet 10 mg PO TID PRN (Reason: anxiety) Qty: 60 0RF atorvastatin 10 mg tablet 10 mg PO DAILY Qty: 90 3RF bisoprolol fumarate 5 mg tablet 5 mg PO DAILY Qty: 90 3RF fluticasone propion-salmeterol [Advair Diskus] 250-50 mcg/dose blister with device 1 inh inhalation BID Qty: 60 2RF gabapentin 800 mg tablet 800 mg PO TID Qty: 90 2RF tramadol 50 mg tablet 50 mg PO DAILY PRN (Reason: pain) Qty: 30 0RF omeprazole 40 mg capsule,delayed release(DR/EC) 40 mg PO DAILY 90 Days Qty: 90 3RF Rx Instructions: swallow whole; do not crush, chew, dissolve, cut, break aspirin 81 mg tablet,delayed release (DR/EC) 81 mg PO DAILY albuterol sulfate 90 mcg/actuation HFA aerosol inhaler 2 puff IH Q4HP PRN (Reason: Shortness Of Breath) Qty: 8.5 2RF cholecalciferol (vitamin D3) 50 mcg (2,000 unit) capsule 50 mcg PO DAILY Qty: 90 3RF ergocalciferol (vitamin D2) 1,250 mcg (50,000 unit) capsule 1,250 mcg PO WEEKLY Qty: 14 3RF ropinirole 1 mg tablet 1 mg PO HS Qty: 30 2RF Rx Instructions: administer 1-3 hours before bedtime desvenlafaxine succinate [Pristiq] 50 mg tablet extended release 24 hr 50 mg PO DAILY Qty: 30 2RF lorazepam 0.5 mg tablet 0.5 mg PO HS PRN (Reason: anxiety) Qty: 20 0RF albuterol sulfate 0.63 mg/3 mL solution for nebulization 0.63 mg inhalation Q6H Qty: 90 2RF amlodipine 10 mg tablet See Rx Instructions .ROUTE .COMPLEX Qty: 90 2RF Dose Instruction: TAKE ONE TABLET BY MOUTH ONCE A DAY Rx Instructions: TAKE ONE TABLET BY MOUTH ONCE A DAY lidocaine [Aspercreme (lidocaine)] 4 % adhesive patch,medicated 1 patch topical BID PRN (Reason: pain) Qty: 60 4RF Rx Instructions: may leave on for up to 12 hrs Referrals Follow up/Referrals: Pualette Shi APRN [Primary Care Provider] - See instructions Activity Restrictions/Add. Instructions Additional Instructions/Restrictions: Try to identify and avoid contact with the offending substance. Don't start the oral steroids until tomorrow. Don't put the topical steroids (triamcinolone) on your face or your groin. Follow up with your regular doctor. GO TO THE ER FOR ANY WORSENING SYMPTOMS OR CONCERNS Clinical Impressions Clinical Impression: Atopic dermatitis Stand Alone Forms Stand Alone Forms: Work/School Release Instructions Patient Instructions: DI for Atopic Dermatitis-Adult, Dexamethasone Injection Print Language Print Language: Niuean Discharge ED Provider: Sanchez Rutledge [facility] [place] General Stated complaint: rash on sides and legs possible med reaction Time Seen by Provider: 11/11/24 17:09 Related Data Home Medications ?Medication ?Instructions ?Recorded ?Confirmed buprenorphine 8 mg-naloxone 2 mg 1.5 tab sublingual DAILY Substance 04/17/20 11/18/24 sublingual tablet Use Disorder aspirin 81 mg tablet,delayed 81 mg PO DAILY 09/18/23 11/18/24 release Previous Rx's ?Medication ?Instructions ?Recorded albuterol sulfate 90 mcg/actuation 2 puff inhalation Q4HP PRN 05/24/24 aerosol inhaler Shortness Of Breath #8.5 grams albuterol sulfate 0.63 mg/3 mL 0.63 mg (3 mL) inhalation Q6H #90 06/10/24 solution for nebulization mL amlodipine 10 mg tablet See Rx Instructions .Route 06/24/24 .COMPLEX #90 tabs cholecalciferol (vitamin D3) 50 50 mcg PO DAILY #90 caps 08/01/24 mcg (2,000 unit) capsule ergocalciferol (vitamin D2) 1,250 1,250 mcg PO WEEKLY #14 caps 08/01/24 mcg (50,000 unit) capsule ropinirole 1 mg tablet 1 mg PO HS rls #30 tabs 09/26/24 atorvastatin 10 mg tablet 10 mg PO DAILY #90 tabs 10/23/24 bisoprolol fumarate 5 mg tablet 5 mg PO DAILY #90 tabs 10/23/24 fluticasone 250 mcg-salmeterol 50 1 inh inhalation BID #60 ea 10/23/24 mcg/dose blistr powdr for inhalation (Advair Diskus) gabapentin 800 mg tablet 800 mg PO TID Pain #90 tabs 10/23/24 omeprazole 40 mg capsule,delayed 40 mg PO DAILY 90 days #90 caps 10/23/24 release tramadol 50 mg tablet 50 mg PO DAILY PRN pain #30 tabs 10/23/24 lidocaine 4 % topical patch 1 patch topical BID PRN pain #60 ea 10/30/24 (Aspercreme (lidocaine)) hydroxyzine HCl 10 mg tablet 10 mg PO TID PRN anxiety #60 tabs 11/04/24 permethrin 5 % topical cream 1 applic topical Q14D 2 doses #60 11/11/24 grams triamcinolone acetonide 0.1 % 1 applic topical BID PRN itching 11/11/24 topical cream #30 grams desvenlafaxine succinate 50 mg 50 mg PO DAILY #30 tabs 11/18/24 tablet,extended release 24 hr (Pristiq) lorazepam 0.5 mg tablet 0.5 mg PO HS PRN anxiety #20 tabs 11/18/24 Allergies Allergy/AdvReac Type Severity Reaction Status Date / Time No Known Allergies Allergy Verified 11/18/24 15:13 [facility] Disclaimer: The information contained in this section may have been updated after the patient was seen, as this information can be updated by other users. Medical History URI (upper respiratory infection) Cough Recurrent pneumonia resolved Sinusitis History of pacemaker Polycystic kidney disease Dyspnea Headache Anxiety Gastro-esophageal reflux disease without esophagitis Malignant hypertension Acute bacterial bronchitis Acute upper respiratory infection Bronchitis Neuropathy Edema Laceration of left index finger Obesity RLS (restless legs syndrome) Obesity Tobacco abuse Smoking cessation discussed Hand fracture, right COPD (chronic obstructive pulmonary disease) Pacemaker Gastroesophageal reflux disease CKD (chronic kidney disease) Bradycardia with 31-40 beats per minute Acute hyperkalemia Patient left without being seen UTI (urinary tract infection) Respiratory failure, acute Acute hyperkalemia ADI (acute kidney injury) Tobacco dependence syndrome Otitis media Obesity Somnolence, daytime, controlled Snoring Pulmonary nodules HTN (hypertension) Edema Chest pain Palpitations URI (upper respiratory infection) Medication refill Hypertensive urgency Bronchitis Elbow contusion Contusion of right hand Surgical History No history of previous surgery Family History Other Heart attack Hypertension Social History Smoking Status: Current every day smoker tobacco type: cigarettes packs per day: 1 years smoked: 30 second hand exposure: No alcohol intake: never substance use type: former substance user and painkillers current occupational status: employed and other Travel in the last 8 weeks: None household members: significant other housing: house lives independently: No caffeine: Yes special crystal needs: No agree to transfusion: No ROS Obtained: Yes All systems reviewed & no additional complaints except as documented Constitutional Constitutional: Denies chills and Denies fever(s) Eyes Eyes: Denies eye discharge ENT Ears, Nose, Mouth, and Throat: Denies dizziness, Denies otalgia and Denies sore throat Cardiovascular Cardiovascular: Denies chest pain Respiratory Respiratory: Denies shortness of breath, Denies chest congestion, Denies cough, Denies stridor and Denies wheezing Gastrointestinal Gastrointestingal: Denies nausea or vomiting Musculoskeletal Musculoskeletal: Reports system reviewed and no additional complaints, except as documented and Denies arthralgias Integumentary/Breasts Skin/Breast: Reports as per HPI and Reports rash Neurologic Neurologic: Denies dizziness and Denies paresthesias Allergic/Immunologic Allergic/Immunologic: Denies wheezing Physical Exam General General appearance: alert and in no apparent distress Head Head exam: atraumatic, normocephalic and normal inspection Eye Eye exam: Present normal appearance, PERRL and EOMI ENT ENT exam: Present normal exam, normal oropharynx, mucous membranes moist, TM's normal bilaterally and normal external ear exam Neck Neck exam: Present normal inspection, full ROM and trachea midline; Absent meningismus or lymphadenopathy Chest Chest inspection: Present normal inspection and symmetric chest wall rise; Absent tenderness Respiratory Respiratory exam: Present normal lung sounds bilaterally; Absent respiratory distress Cardiovascular Cardiovascular exam: Present regular rate and normal rhythm; Absent JVD Abdominal Exam Abdominal exam: Present soft and normal bowel sounds; Absent distention, tenderness or guarding Extremities Exam Extremities exam: Present normal inspection, full ROM and normal capillary refill; Absent calf tenderness Back Exam Back exam: Present normal inspection; Absent tenderness Neurological Exam Neurological exam: Present alert and oriented X3 Psychiatric Psychiatric exam: Present normal affect and normal mood Skin Skin exam: Present warm, dry, intact and normal color Lymphatic Lymphatic Findings: no adenopathy Medical Decision Making Medical Records Medical records reviewed: No I reviewed the patient's medical records. Screening: Per USPSTF and CDC recommendations, given the prevalence of disease in our region, it is our hospital?s policy to screen for HIV and viral Hepatitis for all patients aged 18 and over and those with ongoing risk factors. Tobin Inquiry Pt receiving controlled substance: No
[2024-11-11] MEDS: DEXAMETHASONE 4MG/ML 1ML VIAL 8 MG IM (17:38)
[2024-11-11 17:58] VITALS: BP 195/110; PULSE 65; RESP 20; TEMP 36.9
== END 2024-11-11 18:03 | disposition home or self-care (01) ==
PROVIDERS: Emergency Provider Nurse Practitioner Family; PCP Family Medicine
DX: L20.9 Atopic dermatitis, unspecified (principal); R21 Rash and other nonspecific skin eruption
CPT/HCPCS: 99212; G0381; J1100

== ENCOUNTER 2024-11-18 12:55 | Outpatient (CLI) | payer MEDICAID, SELFPAY ==
--- NOTE | 2024-11-18 12:55 | CT_ITS ---
FINAL REPORT TECHNIQUE: Thin section axial images were obtained from the lung apices through the upper abdomen without contrast. Coronal and sagittal reconstructions obtained and reviewed. Supine inspiration and expiration and prone inspiration hi-resolution images were obtained and reviewed. This study was performed with techniques to keep radiation doses as low as reasonably achievable (ALARA). Individualized dose reduction techniques using automated exposure control or adjustment of mA and/or kV according to the patient's size were employed. CLINICAL HISTORY: .nodule COMPARISON: 08/06/2019 FINDINGS: There is no axillary lymphadenopathy. Mildly prominent AP window lymph nodes are noted. For example, lymph node on image 22 of series 2 measures 28 mm. There is no hilar lymphadenopathy.. No pleural or pericardial effusion. There is a subpleural left lower lobe nodule measuring 10 mm on image 44 series 2. There is a 5 mm left lower lobe nodule image 37 which is also subpleural. These are unchanged from the prior exam. No additional pulmonary nodules identified. Patchy groundglass opacities in the anterior aspect of both upper lobes are new. Perihilar groundglass opacities are worse bilaterally. Patchy groundglass opacities in the right greater than left lower lobes are also worse. High-resolution images reveal no convincing air trapping. There is no evidence of pulmonary fibrosis. No significant change in distribution of the groundglass opacities is seen with prone imaging. Limited, unenhanced evaluation of the upper abdomen is without acute abnormality. There is no acute osseous abnormality. IMPRESSION: Stable subpleural left lower lobe pulmonary nodules since 2019 are presumed benign. Worsening bilateral patchy groundglass opacities, infectious or inflammatory etiology is not excluded. Recommend 6-month follow-up. Reviewed, Interpreted and Dictated by Bessy Hawkins MD Transcribed by Rula Castro Authenticated and . [facility]
[2024-11-18 21:59] LABS: Amphetamine/Metha Screen,Urine Negative ng/ml (<1000)
[2024-11-18 22:00] LABS: Barbiturates Screen,Urine Negative ng/ml (<200); Benzodiazepines Screen,Urine Negative ng/ml (<200)
[2024-11-18 22:01] LABS: Cannabinoid Screen,Urine Negative ng/ml (<50)
[2024-11-18 22:02] LABS: Cocaine Screen,Urine Negative ng/ml (<300); Methadone Screen,Urine Negative ng/ml (<300)
[2024-11-18 22:03] LABS: Opiate Screen,Urine Negative ng/ml (<300); Phencyclidine Screen,Urine Negative ng/ml (<25)
== END 2024-11-18 23:59 | disposition home or self-care (01) ==
LOC: RAD 12:55
PROVIDERS: Nurse Practitioner Acute Care; PCP Family Medicine; Visit Provider Internal Medicine Pulmonary Disease
DX: J84.9 Interstitial pulmonary disease, unspecified (principal); F32.9 Major depressive disorder, single episode, unspecified; Z79.899 Other long term (current) drug therapy
CPT/HCPCS: 71250; 80307

== ENCOUNTER 2024-12-03 11:23 | Observation (INO) | payer MEDICAID, SELFPAY ==
[2024-12-03] VITALS (16 sets, daily range): BP systolic 149–217; BP diastolic 95–127; PULSE 60–90; RESP 15–20; TEMP 36.4–36.9; O2SAT 90–100; BMI 38.7; BMI 35.7
--- NOTE | 2024-12-03 11:26 | ECG_ITS ---
APPROVED REPORT Exam: Resting ECG HR:80 bpm ECG Measurements Heart Rate 80 AXES [place] 189 P 48 QRSd 104 QRS -4 QT 389 T 29 QTc 424 Conclusion SINUS RHYTHM MODERATE VOLTAGE CRITERIA FOR LVH, CONSIDER NORMAL VARIANT [MEETS CRITERIA IN ONE OF: R(aVL), S(V1), R(V5), R(V5/V6)+S(V1)] BORDERLINE ECG No STEMI Electronically signed by : SARAH ALVAREZ, 12/04/2024 03:17:39
--- NOTE | 2024-12-03 11:32 | CT_ITS ---
FINAL REPORT TECHNIQUE: Noncontrast exam This study was performed with techniques to keep radiation doses as low as reasonably achievable, (ALARA). Individualized dose reduction techniques using automated exposure control or adjustment of mA and/or kV according to the patient''s size were employed. CLINICAL HISTORY: AMS, fall COMPARISON: 09/24/2020 FINDINGS: CT HEAD: Chronic lacunar infarcts are noted in the thalami bilaterally, stable when compared to the prior exam of 2019. Mild chronic microvascular changes are present. Ventricles are normal. There is no hemorrhage. No mass effect is seen. Bone windows show no evidence of fracture. IMPRESSION: No acute findings Reviewed, Interpreted and Dictated by Montse De Leon MD Transcribed by Lula Alicea Authenticated and [facility]
--- NOTE | 2024-12-03 11:32 | CT_ITS ---
FINAL REPORT CLINICAL HISTORY: AMS, fall, copd/cough COMPARISON: 11/18/2024 FINDINGS: CT CHEST without contrast COMPARISON: 11/18/2024. TECHNIQUE: Axial CT without contrast This study was performed with techniques to keep radiation doses as low as reasonably achievable, (ALARA). Individualized dose reduction techniques using automated exposure control or adjustment of mA and/or kV according to the patient's size were employed. FINDINGS: There are patchy bibasilar foci of airspace disease, suspicious for pneumonia. Some of these airspace opacities are chronic and were present on the prior CT of 11/18/2024. There is no evidence of hemothorax, pneumothorax, or rib fracture. No pleural or pericardial effusion is seen . No adenopathy or mass lesion is present . The thoracic spine appears unremarkable. IMPRESSION: Patchy bibasilar airspace disease, suspicious for pneumonia. Some of these areas are chronic as seen on the prior exam of 11/18/2024. No evidence of hemothorax, pneumothorax, or rib fracture. This study was performed using automated techniques to achieve radiation exposure as low as reasonably achievable Reviewed, Interpreted and Dictated by Montse De Leon MD Transcribed by Lula Alicea Authenticated and [facility]
--- NOTE | 2024-12-03 11:34 | CT_ITS ---
FINAL REPORT TECHNIQUE: Thin section axial CT with sagittal reconstruction without contrast This study was performed with techniques to keep radiation doses as low as reasonably achievable, (ALARA). Individualized dose reduction techniques using automated exposure control or adjustment of mA and/or kV according to the patient's size were employed. CLINICAL HISTORY: ams, fall COMPARISON: 09/24/2020 FINDINGS: CT CERVICAL SPINE: No fracture is seen. Alignment is normal. No obvious bony spinal canal stenosis is present. No gross disk abnormalities are seen. IMPRESSION: No fracture or malalignment Reviewed, Interpreted and Dictated by Montse De Leon MD Transcribed by Lula Alicea Authenticated and . [facility]
--- NOTE | 2024-12-03 11:39 | PC.NURSE ---
Annalisa RT aware of VBG in lab
--- NOTE | 2024-12-03 11:41 | ED_ITS ---
Discharge Plan Disposition Patient Disposition: Admitted Chief Complaint: Altered Mental Status Prescriptions Prescriptions: No Action buprenorphine-naloxone 8-2 mg tablet, sublingual 1.5 tab SL DAILY hydroxyzine HCl 10 mg tablet 10 mg PO TID PRN (Reason: anxiety) Qty: 60 0RF atorvastatin 10 mg tablet 10 mg PO DAILY Qty: 90 3RF bisoprolol fumarate 5 mg tablet 5 mg PO DAILY Qty: 90 3RF fluticasone propion-salmeterol [Advair Diskus] 250-50 mcg/dose blister with device 1 inh inhalation BID Qty: 60 2RF gabapentin 800 mg tablet 800 mg PO TID Qty: 90 2RF tramadol 50 mg tablet 50 mg PO DAILY PRN (Reason: pain) Qty: 30 0RF omeprazole 40 mg capsule,delayed release(DR/EC) 40 mg PO DAILY 90 Days Qty: 90 3RF Rx Instructions: swallow whole; do not crush, chew, dissolve, cut, break lorazepam 1 mg tablet 1 mg PO DAILY PRN (Reason: anxiety) Qty: 30 0RF aspirin 81 mg tablet,delayed release (DR/EC) 81 mg PO DAILY albuterol sulfate 90 mcg/actuation HFA aerosol inhaler 2 puff IH Q4HP PRN (Reason: Shortness Of Breath) Qty: 8.5 2RF cholecalciferol (vitamin D3) 50 mcg (2,000 unit) capsule 50 mcg PO DAILY Qty: 90 3RF ergocalciferol (vitamin D2) 1,250 mcg (50,000 unit) capsule 1,250 mcg PO WEEKLY Qty: 14 3RF ropinirole 1 mg tablet 1 mg PO HS Qty: 30 2RF Rx Instructions: administer 1-3 hours before bedtime desvenlafaxine succinate [Pristiq] 50 mg tablet extended release 24 hr 50 mg PO DAILY Qty: 30 2RF albuterol sulfate 0.63 mg/3 mL solution for nebulization 0.63 mg inhalation Q6H Qty: 90 2RF amlodipine 10 mg tablet See Rx Instructions .ROUTE .COMPLEX Qty: 90 2RF Dose Instruction: TAKE ONE TABLET BY MOUTH ONCE A DAY Rx Instructions: TAKE ONE TABLET BY MOUTH ONCE A DAY lidocaine [Aspercreme (lidocaine)] 4 % adhesive patch,medicated 1 patch topical BID PRN (Reason: pain) Qty: 60 4RF Rx Instructions: may leave on for up to 12 hrs permethrin 5 % cream 1 applic topical Q14D Qty: 60 0RF Rx Instructions: apply second treatment 14 days after first treatment if live mites remain triamcinolone acetonide 0.1 % cream 1 applic topical BID PRN (Reason: itching) Qty: 30 0RF Referrals Follow up/Referrals: Provider,Referral, MD [Primary Care Provider] - See instructions Clinical Impressions Clinical Impression: Acute metabolic encephalopathy, Overdose, CHF exacerbation, Atypical pneumonia Instructions Patient Instructions: DI for Altered Mental Status Print Language Print Language: Turkish Discharge ED Provider: Simon Chino General Adult HPI General Chief complaint: Altered Mental Status Stated complaint: WEAKNESS Time Seen by Provider: 12/03/24 11:24 History of Present Illness HPI narrative: Please note that above description of symptoms, in this electronic medical record under categorization of recalled from ER triage doctor by RN are reflective of an initial nursing assessment, however, is not reflective of my full history and physical exam that was personally taken and clarified. Consequentially, this preceding description of symptoms, which may include the patient's categorized chief complaint in the EMR, do not reflect my personal clinical impression, and the ultimate description of history of present illness and patient stated complaints should be deferred to this section of the note. Unless stated otherwise or congruent with this section of the note, additional signs, symptoms, or incongruence should be interpreted as inaccurate with my clinical impression. Related Data Home Medications ?Medication ?Instructions ?Recorded ?Confirmed buprenorphine 8 mg-naloxone 2 mg 1.5 tab sublingual DAILY Substance 04/17/20 12/02/24 sublingual tablet Use Disorder aspirin 81 mg tablet,delayed 81 mg PO DAILY 09/18/23 12/02/24 release Previous Rx's ?Medication ?Instructions ?Recorded albuterol sulfate 90 mcg/actuation 2 puff inhalation Q4HP PRN 05/24/24 aerosol inhaler Shortness Of Breath #8.5 grams albuterol sulfate 0.63 mg/3 mL 0.63 mg (3 mL) inhalation Q6H #90 06/10/24 solution for nebulization mL amlodipine 10 mg tablet See Rx Instructions .Route 06/24/24 .COMPLEX #90 tabs cholecalciferol (vitamin D3) 50 50 mcg PO DAILY #90 caps 08/01/24 mcg (2,000 unit) capsule ergocalciferol (vitamin D2) 1,250 1,250 mcg PO WEEKLY #14 caps 08/01/24 mcg (50,000 unit) capsule ropinirole 1 mg tablet 1 mg PO HS rls #30 tabs 09/26/24 atorvastatin 10 mg tablet 10 mg PO DAILY #90 tabs 10/23/24 bisoprolol fumarate 5 mg tablet 5 mg PO DAILY #90 tabs 10/23/24 fluticasone 250 mcg-salmeterol 50 1 inh inhalation BID #60 ea 10/23/24 mcg/dose blistr powdr for inhalation (Advair Diskus) gabapentin 800 mg tablet 800 mg PO TID Pain #90 tabs 10/23/24 omeprazole 40 mg capsule,delayed 40 mg PO DAILY 90 days #90 caps 10/23/24 release tramadol 50 mg tablet 50 mg PO DAILY PRN pain #30 tabs 10/23/24 lidocaine 4 % topical patch 1 patch topical BID PRN pain #60 ea 10/30/24 (Aspercreme (lidocaine)) hydroxyzine HCl 10 mg tablet 10 mg PO TID PRN anxiety #60 tabs 11/04/24 permethrin 5 % topical cream 1 applic topical Q14D 2 doses #60 11/11/24 grams triamcinolone acetonide 0.1 % 1 applic topical BID PRN itching 11/11/24 topical cream #30 grams desvenlafaxine succinate 50 mg 50 mg PO DAILY #30 tabs 11/18/24 tablet,extended release 24 hr (Pristiq) lorazepam 1 mg tablet 1 mg PO DAILY PRN anxiety #30 tabs 12/02/24 Allergies Allergy/AdvReac Type Severity Reaction Status Date / Time No Known Allergies Allergy Verified 12/02/24 15:29 [facility] Disclaimer: The information contained in this section may have been updated after the patient was seen, as this information can be updated by other users. Medical History URI (upper respiratory infection) Cough Recurrent pneumonia resolved Sinusitis History of pacemaker Polycystic kidney disease Dyspnea Headache Anxiety Gastro-esophageal reflux disease without esophagitis Malignant hypertension Acute bacterial bronchitis Acute upper respiratory infection Bronchitis Neuropathy Edema Laceration of left index finger Obesity RLS (restless legs syndrome) Obesity Tobacco abuse Smoking cessation discussed Hand fracture, right COPD (chronic obstructive pulmonary disease) Pacemaker Gastroesophageal reflux disease CKD (chronic kidney disease) Bradycardia with 31-40 beats per minute Acute hyperkalemia Patient left without being seen UTI (urinary tract infection) Respiratory failure, acute Acute hyperkalemia ADI (acute kidney injury) Tobacco dependence syndrome Otitis media Obesity Somnolence, daytime, controlled Snoring Pulmonary nodules HTN (hypertension) Edema Chest pain Palpitations URI (upper respiratory infection) Medication refill Hypertensive urgency Bronchitis Elbow contusion Contusion of right hand Surgical History No history of previous surgery Family History Other Heart attack Hypertension Social History Smoking Status: Never smoker years smoked: 30 second hand exposure: No alcohol intake: never substance use type: former substance user and painkillers current occupational status: employed and other Travel in the last 8 weeks: None household members: significant other housing: house lives independently: No caffeine: Yes special crystal needs: No agree to transfusion: No Have you lived/traveled outside [place] in past 30 days?: No Contact w/someone who lives/traveled outside [place] past 30 days?: No Exposure to someone with infectious disease in past 14 days?: No Do you have a fever (greater than 100.4 F or 38 C)?: No Have you tested positive for COVID-19: No Exposed to someone with COVID-19 in past 14 days?: No Do you have a sore throat?: No Do you have a cough?: No Do you have any weakness?: Yes Do you have any diarrhea?: No Are you experiencing any unusual bleeding?: No Do you have any muscle aches/pain?: No Do you have any abdominal pain?: No Are you experiencing loss of taste or smell?: No Other Medical History Have you received the Flu Vaccine for this season: No Have you received the Pneumonia Vaccine: No ROS Obtained: Yes All systems reviewed & no additional complaints except as documented Physical Exam General General appearance: lethargic (Somnolent, but arousable to voice) and obese Head Head exam: atraumatic and normocephalic Eye Eye exam: Present normal appearance, PERRL and EOMI Neck Neck exam: Present normal inspection, full ROM and trachea midline Respiratory Respiratory exam: Present wheezes (End expiratory wheezes bilaterally); Absent respiratory distress, stridor, accessory muscle use or prolonged expiratory phase Cardiovascular Cardiovascular exam: Present regular rate, normal rhythm, Pacemaker not pacing now and other (Pulses equal symmetric in upper and lower extremities) Abdominal Exam Abdominal exam: Present soft; Absent distention, tenderness, guarding, rebound, rigidity or pulsatile mass Extremities Exam Extremities exam: Absent edema Neurological Exam Neurological exam: Present other (GCS 13 for confusion, opens eyes to voice) Skin Skin exam: Present warm, dry and pallor; Absent diaphoresis or erythema Medical Decision Making Medical Records Medical records reviewed: Yes I reviewed the patient's medical records. Screening: Per USPSTF and CDC recommendations, given the prevalence of disease in our region, it is our hospital?s policy to screen for HIV and viral Hepatitis for all patients aged 18 and over and those with ongoing risk factors. Tobin Inquiry Pt receiving controlled substance: No Tobin was queried for this patient: No Vital Signs: 12/03/24 11:35 12/03/24 11:38 12/03/24 12:14 Temperature 98.4 F Temperature Source Oral Pulse Rate 77 81 Pulse Rate [Right Radial] 78 Respiratory Rate 18 18 17 Blood Pressure 156/101 H 157/98 H Blood Pressure [Right Arm] 156/101 H Blood Pressure Mean [Right Arm] 119 Blood Pressure Source [Right Arm] Automatic Cuff 02 Sat by Pulse Oximetry 96 93 L 95 Oxygen Delivery Method Room Air Nasal Cannula Nasal Cannula Oxygen Flow Rate (LPM) 2 2 Fraction of Inspired Oxygen 12/03/24 12:31 12/03/24 13:01 12/03/24 13:03 Temperature Temperature Source Pulse Rate 65 61 Pulse Rate [Right Radial] Respiratory Rate 15 15 Blood Pressure 165/97 H 195/111 H Blood Pressure [Right Arm] Blood Pressure Mean [Right Arm] Blood Pressure Source [Right Arm] 02 Sat by Pulse Oximetry 100 98 Oxygen Delivery Method Nasal Cannula Oxygen Flow Rate (LPM) 2 Fraction of Inspired Oxygen 12/03/24 13:03 12/03/24 13:05 12/03/24 13:31 Temperature Temperature Source Pulse Rate 60 61 Pulse Rate [Right Radial] Respiratory Rate 16 15 15 Blood Pressure 217/120 H 208/121 H 186/113 H Blood Pressure [Right Arm] Blood Pressure Mean [Right Arm] Blood Pressure Source [Right Arm] 02 Sat by Pulse Oximetry 98 96 Oxygen Delivery Method CPAP Oxygen Flow Rate (LPM) Fraction of Inspired Oxygen Lab Data Lab Results 12/03/24 11:32: WBC 8.4, RBC 3.60 L, Hgb 10.6 L, Hct 33.7 L, MCV 93.6, MCH 29.4, MCHC 31.5 L, RDW 14.6, Plt Count 212, MPV 10.4, Neut % (Auto) 50.6, Lymph % (Auto) 33.7, [place] % (Auto) 7.8, Eos % (Auto) 7.0, Baso % (Auto) 0.8, Neut # (Auto) 4.3, Lymph # (Auto) 2.8, [place] # (Auto) 0.7, Eos # (Auto) 0.6 H, Baso # (Auto) 0.1, PT 10.4, INR 0.92, APTT 27.2, Sodium 140, Potassium 5.6 H, Chloride 113 H, Carbon Dioxide 19 L, Anion Gap 13.6, BUN 39 H, Creatinine 2.60 H, Estimated Creat Clear 57, Estimated GFR 26 L, Est GFR ( Amer) 32 L, G lucose 116 H, Hemoglobin A1c 5.5, Calcium 9.1, Magnesium 1.9, Total Bilirubin 0.4, AST 38, ALT 16, Alkaline Phosphatase 86, Troponin I 0.02, NT-Pro-B Natriuret Pep 1390 H, Total Protein 7.0, Albumin 4.0, Globulin 3.0, Albumin/Globulin Ratio 1.3, Lipase 44, Salicylates < 1.0 L, Acetaminophen < 10 L , Plasma/Serum Alcohol < 10 12/03/24 11:43: Urine Color Yellow, Urine Appearance Clear, Urine pH 6.0, Ur Specific [place] >= 1.030, Urine Protein 2+ A, Urine Glucose (UA) Negative, Urine Ketones Negative, Urine Blood Trace-i, Urine Nitrate Negative, Urine Bilirubin Negative, Urine Urobilinogen 0.2, Ur Leukocyte Esterase Negative, Urine RBC Occasional, Urine WBC Occasional, Ur Squamous Epith Cells Occasional, Urine Bacteria Trace, Fine Granular Casts 3-5, Urine Opiates Screen Negative, Urine Methadone Screen Negative, Ur Barbituates Screen Negative, Ur Phencyclidine Scrn Negative, Ur Amphetamines Screen Negative, U Benzodiazepines Scrn Negative, Urine Cocaine Screen Negative, U Marijuana (THC) Screen Positive H 12/03/24 11:45: VBG pH 7.35, VBG pCO2 33.6 L, VBG pO2 139.9 H, VBG HCO3 18.1 L, VBG Total CO2 19.1 L, VBG Base Excess -7.6 L, VBG Lactic Acid 1.6 12/03/24 11:49: Lactate 0.8 12/03/24 11:32 12/03/24 11:32 Orders (Tests/Meds): ED MEDICATIONS Generic Name Dose Route Start Last Admin Trade Name Freq PRN Reason Stop Dose Admin Bumetanide 2 mg 12/03/24 13:43 Bumetanide 1mg/4ml Vial IV 12/03/24 13:44 ONCE ONE Nicotine 21 mg 12/03/24 13:43 Nicotine 21mg/24hr Patch TD 01/02/25 13:42 DAILYP PRN Nicotine Cravings Discontinued Medications Generic Name Dose Route Start Last Admin Trade Name Freq PRN Reason Stop Dose Admin Albuterol/Ipratropium 9 ml 12/03/24 11:32 12/03/24 12:08 Ipratropium/Albuterol 3 Ml Neb IH 12/03/24 11:33 9 ml ONCE ONE Administration Magnesium Sulfate 2 gm in 50 mls @ 50 mls/hr 12/03/24 11:40 12/03/24 11:45 Magnesium Sulfate 2gm/50ml Premix IV 12/03/24 12:39 50 mls/hr ONCE ONE Administration Calcium Gluconate/Sodium Chloride 2 gm in 100 mls @ 50 mls/hr 12/03/24 11:40 12/03/24 12:08 Calcium Gluconate 2,000mg/100ml Nacl Premix IV 12/03/24 13:39 50 mls/hr ONCE ONE Administration Ceftriaxone Sodium 2 gm/ 100 mls @ 200 mls/hr 12/03/24 12:41 12/03/24 12:59 Sodium Chloride IV 12/03/24 13:10 200 mls/hr ONCE ONE Administration Azithromycin 500 mg/ Sodium 250 mls @ 250 mls/hr 12/03/24 12:42 12/03/24 12:58 Chloride IV 12/03/24 12:43 250 mls/hr ONCE ONE Administration Methylprednisolone Sodium Succinate 125 mg 12/03/24 11:32 12/03/24 12:08 Methylprednisolone Sod Succ 125mg Vial IV 12/03/24 11:33 125 mg ONCE ONE Administration Naloxone HCl 0.4 mg 12/03/24 12:13 12/03/24 12:41 Naloxone 0.4mg/Ml Vial IV 12/03/24 12:14 Not Given ONCE ONE Naloxone HCl 0.4 mg 12/03/24 12:27 12/03/24 12:28 Naloxone 2mg/2ml Syringe IV 12/03/24 12:28 0.4 mg ONCE ONE Administration Naloxone HCl 1 mg 12/03/24 13:04 12/03/24 13:12 Naloxone 2mg/2ml Syringe IV 12/03/24 13:05 1 mg ONCE ONE Administration ORDERS Category Date Time Status CT cervical spine wo con Stat Cat Scan 12/03/24 11:[address] chest wo con Stat Cat Scan 12/03/24 11:[address] head/brain wo con Stat Cat Scan 12/03/24 11:32 Completed POCUS Point of Care (ER Only) Stat Exams 12/03/24 11:44 Ordered Acetaminophen Stat Lab 12/03/24 11:32 Completed Complete Blood Count Auto Diff AMLAB Lab 12/04/24 06:00 Ordered Complete Blood Count Auto Diff Stat Lab 12/03/24 11:32 Completed Comprehensive Metabolic Panel AMLAB Lab 12/04/24 06:00 Ordered Comprehensive Metabolic Panel Stat Lab 12/03/24 11:32 Completed Drug Screen,Urine Stat Lab 12/03/24 11:43 Completed Ethanol [Ethyl Alcohol] Stat Lab 12/03/24 11:32 Completed Hemoglobin A1C Stat Lab 12/03/24 11:32 Completed Lactic Acid Stat Lab 12/03/24 11:49 Completed Lipase Stat Lab 12/03/24 11:32 Completed Magnesium AMLAB Lab 12/04/24 06:00 Ordered Magnesium Stat Lab 12/03/24 11:32 Completed NT Pro Brain Natriuretic Pep. Stat Lab 12/03/24 11:32 Completed PT INR [Prothrombin Time INR] Stat Lab 12/03/24 11:32 Completed PTT [Activated Partial Thrombo Time] Stat Lab 12/03/24 11:32 Completed Salicylate Stat Lab 12/03/24 11:32 Completed Troponin I Q3H Lab 12/03/24 14:45 Ordered Troponin I Q3H Lab 12/03/24 17:45 Ordered Troponin I Stat Lab 12/03/24 11:32 Completed Urinalysis and Microscopic Stat Lab 12/03/24 11:43 Completed Blood Culture Stat Micro 12/03/24 11:49 Received Venous Blood Gas Stat RT 12/03/24 11:45 Results CA echo doppler complete Routine Y 12/03/24 13:21 Completed Medical Decision Narrative: This is a 49-year-old male history of hypertension, hyperlipidemia, diabetes, CKD 4 not on dialysis, tobacco use disorder, previous opiate abuse currently on Suboxone, COPD presenting with altered mental status. Patient was allegedly at work with coworkers when he began acting nonsensically, confused, tired and nearly syncopized. Was able to be helped down to the ground, unclear if he hit his head or not. Patient has not been acting normally since. They (coworkers) states that when this happens to him, he typically has pneumonia. States that he has been at work per normal, denies any other changes or symptoms. On my evaluation, patient lethargic, but not obtunded. He is arousing to voice and answering appropriate questions, however he is not oriented to place or time. States he has no chest pain, but does have some shortness of breath and cough. No abdominal pain, vomiting, diarrhea, urinary symptoms, chest pain, fevers or chills. He does state that his legs are more swollen than usual, but no other history offered. History was obtained via conversation with patient's coworkers primarily, but also patient. On arrival, patient hemodynamically stable, alert, oriented x 2 [appropriate, ]GCS 13, moving all extremities spontaneously, pupils equal and reactive to light. Full physical exam performed and significant for somnolent, but arousable to voice. GCS 13, otherwise neurologically intact and following commands bilaterally. No evidence of facial droop. Pupils are 2 mm and reactive bilaterally. Cardiac exam without murmurs gallops or rubs, however he does have diffuse bilateral wheezing without focal breath sounds. Lower extremity edema 2+ pitting. Abdomen soft, nontender, nondistended. He is pale. Differential includes ACS, DC, metabolic abnormality, endocrinologic abnormality, overdose, withdrawal, arrhythmia, sepsis, pneumonia, COPD exacerbation, hypoxemia, hypercapnia, among others. Initial glucose 127. Patient placed on continuous cardiac monitoring and continuous pulse ox with initial blood pressure 156/101, heart rate 78, saturation 96% on room air. [Independent interpretation of EKG shows] sinus rhythm about 80 bpm with no acute ischemic change no ST or T wave changes consistent with acute ischemia. ND 189, QRS 104, QTc 424.. Shortly after initial evaluation, patient went into 32nd run of ventricular tachycardia. Pacemaker seem to of overdrive paced at and brought him back into sinus rhythm. Patient was placed on cardiac pads and ZOLL. 2 g of magnesium and 2 g of calcium gluconate were administered. Patient was given DuoNebs and Solu-Medrol as well for symptomatic management[ and correction of underlying abnormalities]. On reevaluation shortly thereafter, patient still somnolent, no real change from baseline on arrival. Narcan was administered with minimal effect. On reevaluation, patient also had another 30 to 45-second run of ventricular tachycardia which was over paced. He did have a pulse during this time. Was also responsive and arousable to voice. Another [address] of the head, neck, chest without contrast was obtained. On independent interpretation, no intracranial hemorrhage, no cervical spine injury acutely. Regarding the CT of the chest, patient has diffuse bilateral groundglass opacities consistent with atypical pneumonia, versus pulmonary edema, and or he does not have any evidence of effusions. CPAP was placed for airway stimulation and concern for elevated BNP and pulmonary edema.. workup independently interpreted and significant for nonactionable CBC. VBG with normal pH, CO2 a little low at 33.6, bicarb low at 18.1 consistent with metabolic acidosis with respiratory compensation. Patient's chemistry consistent with CKD creatinine 2.6 BUN 39 and mild hyperkalemia potassium 5.6. There are no hyperkalemic changes on EKG. Repeat EKG was obtained given wandering baseline and independently interpreted. Sinus rhythm [address] or T wave changes concerning for acute ischemia. ND 192, QRS 102, QTc 431. Normal axis. Magnesium normal, LFTs normal, troponin negative, but BNP elevated nearly 1400. Lipase negative. Urinalysis without concern for UTI, but UDS positive for THC. Bedside [id number] ultrasound was performed and stored to permanent archive. Patient has grossly normal cardiac function with no evidence of pericardial effusion, no evidence of right heart strain, right heart to left heart grossly less than 1. Cardiology was consulted and case was discussed at length. Came to evaluate patient. Hospital medicine was also consulted for admission and further evaluation. Graciously accepted patient for admission. I feel this is most consistent with iatrogenic versus patient directed overdose. Patient recently went up on his desvenlafaxine dose yesterday, 12/02 and today was his first dose. Patient also on numerous dating occasions and THC positive urine could be leading to combination affect. Hospital medicine recommended 2 mg of Bumex IV, this was administered. Because patient high risk for clinical decompensation, deemed appropriate for inpatient admission. Results were relayed to patient who voiced understanding and patient was agreeable to inpatient admission and management. Patient was admitted to the hospital for further definitive management. [employer] disclaimer Much of this encounter note is an electronic parts identifier spoken language to printed text. Electronic parts identifier of the spoken language may permit errors. Although I have reviewed the note, some errors may still exist. Procedures Limited Ultrasound Indication:: Limited cardiac ultrasound Indication: Altered mental status, CHF Identified cardiac views: -Cardiac parasternal long axis -Cardiac parasternal short axis -Cardiac apical four-chamber Findings: -Cardiac activity present -Gross wall motion normal -Pericardial effusion absent -Right heart strain absent -No evidence of valvular regurgitation or dysfunction Impression: -Normal cardiac ultrasound Images were saved to permanent archive The study was technically adequate CPT: 11460 This study was performed by me, and I personally interpreted all images/videos. Based on my clinical judgement, these images were adequate and did not necessitate further imaging Critical Care Critical Care Time Critical Care Time: Yes (toxicologic, respiratory, cardiac) Attestation: On 12/03/24, the high probability of a clinically significant, sudden or life threatening deterioration of the following system(s) required my full and direct attention, intervention and personal management. The time I documented below is in addition to time spent performing reported procedures but includes the following listed in this critical care notation. Total Time Total Critical Care Time: 75
[2024-12-03 11:45] LABS: Lactate Venous 1.6 mmol/L (0.4-2.0); VBG Base Excess -7.6 mmol/L (-2.4-2.3); VBG HCO3 18.1 mmol/L (23-30); VBG PCO2 33.6 mmol/L (35-51); VBG PH 7.35 mmol/L (7.31-7.41); VBG PO2 139.9 mmol/L (28-40); VBG Total CO2 19.1 mmol/L (23-27)
[2024-12-03] MEDS: MAGNESIUM SULFATE IN WATER 2 GM/50 ML PIGGYBACK IV (11:45)
[2024-12-03 11:46] LABS: Microscopic, Urine URINE MICROSCOPIC (MICROSCOPIC)
--- NOTE | 2024-12-03 11:51 | PC.NURSE ---
pt to CT
--- NOTE | 2024-12-03 11:51 | PC.NURSE ---
blue band placed on left wrist; both sets of cultures sent to lab
[2024-12-03 11:52] LABS: Appearance,Urine CLEAR (Clear); Bilirubin,Urine Negative (Negative); Blood, Urine TRACE-I (Negative); Color,Urine YELLOW (Yellow); Glucose,Urine (UA) Negative (Negative); Ketones,Urine Negative (Negative); Leukocyte Esterase,Urine Negative (Negative); Nitrate,Urine Negative (Negative); Protein,Urine 2+ (Negative); Specific Gravity, Urine >= 1.030 (1.005-1.030); Urobilinogen,Urine 0.2 EU/dl (0.2)
[2024-12-03] MEDS: METHYLPREDNISOLONE SOD SUCC 125MG VIAL 125 MG IV (12:08)
[2024-12-03] MEDS: CALCIUM GLUC IN NACL, ISO-OSM 2 GM/100 ML BAG IV (12:08)
[2024-12-03] MEDS: IPRATROPIUM/ALBUTEROL 3 ML NEB 9 ML IH (12:08)
--- NOTE | 2024-12-03 12:08 | PC.NURSE ---
pt returned from CT; Arielle Boucher RN at
[2024-12-03 12:09] LABS: Bacteria,Urine Trace /lpf; RBC,Urine Occasional #/hpf (0-3); Squamous Epithelial Cell,Urine Occasional #/hpf (0-5); WBC,Urine Occasional #/hpf (0-3)
--- NOTE | 2024-12-03 12:16 | ECG_ITS ---
APPROVED REPORT Exam: Resting ECG HR:70 bpm ECG Measurements Heart Rate 70 AXES VT 192 P 62 QRSd 102 QRS 16 QT 410 T 40 QTc 431 Conclusion SINUS RHYTHM NORMAL ECG Electronically signed by : SARAH ALVAREZ, 12/04/2024 03:17:55
[2024-12-03 12:19] LABS: Troponin I 0.02 ng/ml (0.00-0.034)
--- NOTE | 2024-12-03 12:21 | PC.NURSE ---
1135 pt observed seeing a 30 second run of vtach on the monitor. Matti christensen immediately to bedside to reassess patient. defib pads applied. EKG performed.
--- NOTE | 2024-12-03 12:25 | PC.NURSE ---
[address] Pt not able to follow commands
[2024-12-03 12:26] LABS: Basophils # 0.1 K/mm3 (0-0.2); Basophils % 0.8 % (0.1-2.0); Eosinophils # 0.6 K/mm3 (0.0-0.4); Hematocrit 33.7 % (42.0-52.0); Hemoglobin 10.6 g/dL (14.1-18.0); Lymphocytes # 2.8 K/mm3 (0.7-4.5); Lymphocytes % 33.7 % (10-50); Mean Corpuscular HGB Conc 31.5 g/dL (31.8-35.4); Mean Corpuscular Hemoglobin 29.4 pg (27.0-31.2); Mean Corpuscular Volume 93.6 fl (80-94); Mean Platelet Volume 10.4 fl (7.4-10.4); Monocytes # 0.7 K/mm3 (0.1-1.0); Monocytes % 7.8 % (1.7-9.3); Neutrophils # 4.3 K/mm3 (1.8-7.8); Neutrophils % 50.6 % (37.0-80.0); Platelet Count 212 K/mm3 (142-424); Red Cell Distribution Width 14.6 % (11.5-17.5); White Blood Count 8.4 K/mm3 (4.8-10.8)
[2024-12-03] MEDS: NALOXONE 2MG/2ML SYRINGE 0.4 MG IV (12:28)
[2024-12-03 12:31] LABS: INR 0.92 (0.9-1.1); Prothrombin Time 10.4 seconds (10.1-12.5)
[2024-12-03 12:34] LABS: Activated Partial Thrombo Time 27.2 seconds (22.8-30.6)
--- NOTE | 2024-12-03 12:38 | PC.NURSE ---
1234 Pt observed as having a 30 second run of v-tach on monitor. Matti JOSE notified, and immediately to bedside to reassess patient. Attempted to obtain new EKG. Pt spontaneously converted back to NSR. Rhythm strips printed of both events and placed into chart.
--- NOTE | 2024-12-03 12:43 | PC.NURSE ---
[address] pt on bipap
--- NOTE | 2024-12-03 12:52 | PC.NURSE ---
RT at BS
[2024-12-03 12:56] LABS: Alanine Aminotransferase 16 U/L (12-78); Albumin/Globulin Ratio 1.3 (1.1-1.8); Alkaline Phosphatase 86 U/L (38-126); Anion Gap 13.6 mEq/L (5-15); Aspartate Amino Transferase 38 U/L (17-59); Bilirubin,Total 0.4 mg/dl (0.2-1.3); Blood Urea Nitrogen 39 mg/dl (9-20); Calcium 9.1 mg/dl (8.4-10.2); Carbon Dioxide 19 mmol/L (22.0-30.0); Chloride 113 mmol/L (98-107); Creatinine Clearance Estimated 57 mL/min (50-200); Estimated Glomerular Filt Rate 26 ml/min (>60); Ethyl Alcohol < 10 mg/dl (0-10); GFR (African American) 32 ML/MIN (>60); Glucose 116 mg/dl (74-100); Lipase 44 U/L (23-300); Magnesium 1.9 mg/dl (1.6-2.3); Potassium 5.6 mmoL/L (3.5-5.1); Sodium 140 mmol/L (136-145)
[2024-12-03 12:57] LABS: Lactic Acid 0.8 mmol/L (0.7-2.1)
[2024-12-03 12:57] LABS: Acetaminophen < 10 ug/ml (10-30); Salicylate < 1.0 mg/dL (2.0-20.0)
[2024-12-03] MEDS: AZITHROMYCIN 500 MG in 0.9 % SODIUM CHLORIDE 250 ML 250 MG IV (12:58)
[2024-12-03] MEDS: CEFTRIAXONE SODIUM 2 GM in 0.9 % SODIUM CHLORIDE 100 ML IV (12:59)
--- NOTE | 2024-12-03 13:00 | PC.NURSE ---
1255 RT to bedside
[2024-12-03 13:07] LABS: NT Pro Brain Natriuretic Pep. 1390 pg/mL (0-125)
--- NOTE | 2024-12-03 13:07 | PC.NURSE ---
1305 Matti JOSE notified of BP trending up. BP of 208/121, 217/120
[2024-12-03 13:09] LABS: Hemoglobin A1C 5.5 % (4.0-6.0)
[2024-12-03] MEDS: NALOXONE 2MG/2ML SYRINGE 1 MG IV (13:12)
--- NOTE | 2024-12-03 13:18 | PC.NURSE ---
enoc christensen to bed to perform cardiac ultrasound
--- NOTE | 2024-12-03 13:21 | CA_ITS ---
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 6.90 mmHg Mitral Valve MV A Velocity 90.0 (40-130 cm/s) E/A Ratio 0.88 Pulmonary Valve PV Peak Velocity 175.0 (50-150 cm/s) Tricuspid Valve TR P. Velocity 237.00 cm/s RAP Estimate 10.00 mmHg RVSP 32.50 mmHg Left Ventricle The left ventricle is normal size. The left ventricular systolic function is normal. The left ventricular ejection fraction is within the normal range. There is increased LV wall thickness. There is normal LV segmental wall motion. Transmitral Doppler flow pattern suggests impaired LV relaxation. LVEF is 60%. Right Ventricle The right ventricle is normal size. The right ventricular systolic function is normal. Atria Left atrium is mildly dilated. The right atrium size is normal. There is no Doppler evidence of interatrial shunt. Aortic Valve The aortic valve is mildly thickened. There is no aortic valvular stenosis. Trace aortic regurgitation. Mitral Valve The mitral valve is mildly thickened. No evidence of mitral valve stenosis. Trace mitral regurgitation. Tricuspid Valve Tricuspid valve is grossly normal in structure and function. Trace tricuspid regurgitation. There is insufficient TR jet to estimate RVSP. Pulmonic Valve The pulmonary valve is normal in structure. Trace pulmonic regurgitation. Great Vessels The aortic root is normal in size. The ascending aorta is normal in size. IVC is normal in size and collapses >50% with inspiration. Pericardium There is no pericardial effusion. Other Information Study Quality: Fair Conclusion Normal biventricular systolic function. Mild LA dilation. No significant valvular stenosis or regurgitation. Electronically signed by : Adilene Powell MD 12/03/2024 14:23:26
--- NOTE | 2024-12-03 13:25 | PC.NURSE ---
Cardiology at for consult
[2024-12-03 13:26] LABS: Opiate Screen,Urine Negative ng/ml (<300)
[2024-12-03 13:27] LABS: Phencyclidine Screen,Urine Negative ng/ml (<25)
--- NOTE | 2024-12-03 13:27 | PC.NURSE ---
cardiology to bedside to interrogate patient's pacemaker
[2024-12-03 13:28] LABS: Amphetamine/Metha Screen,Urine Negative ng/ml (<1000)
[2024-12-03 13:29] LABS: Barbiturates Screen,Urine Negative ng/ml (<200); Benzodiazepines Screen,Urine Negative ng/ml (<200)
[2024-12-03 13:32] LABS: Cannabinoid Screen,Urine Positive ng/ml (<50)
[2024-12-03 13:33] LABS: Cocaine Screen,Urine Negative ng/ml (<300); Methadone Screen,Urine Negative ng/ml (<300)
--- NOTE | 2024-12-03 13:39 | PC.NURSE ---
Dr. Chino speaking with for possible admission
--- NOTE | 2024-12-03 13:46 | P.HP_ITS ---
History of Present Illness *Admission Date: 12/03/24 *Reason for visit:: confusion *History of present illness: Mr. Loera is a 49-year-old male with history of hypertension, hyperlipidemia, CKD 4 due to polycystic kidney disease, diabetes, tobacco use disorder, on Suboxone therapy for opiate use disorder, neuropathy, COPD, anxiety. Polypharmacy per his med rec. He presented to the ER with complaint of altered mental status earlier today. Reportedly was at work with coworkers and began to act confused, tired, not making any sense. He did not have any syncopal event, trauma, or passing out per report. History obtained from ER documentation and patient as he is not a good historian. Reportedly his coworkers state that if he is confused like this he normally has pneumonia. Patient denies chest pain, nausea, vomiting. On evaluation in the ER, patient appears lethargic but not obtunded. Arouses to voice and answers questions appropriately but then dozes off. Not oriented to place or time. Of note, the only recent medication adjustment is an increase in his desvenlafaxine. Workup in the ER with lower extremity edema. Hypertensive on vitals. While in the ER he had a run of V. tach. Cardiology was consulted to evaluate. BNP elevated at 1390. Kidney function abnormal with BUN 39, creatinine 2.6. Potassium 5.6. Mild metabolic acidosis with bicarb of 19. White count normal 8.4, hemoglobin low at 10.6. UDS positive for THC. Chest CT with patchy airspace disease concerning for pneumonia versus pulmonary edema. Some of them present since at least last month. Patient afebrile. No significant cough. Has been consulted for admission and further management. On arrival to the floor, patient stable on room air. Awakens to voice and will answer questions but appears encephalopathic. Suspicious for medication effect. No acute complaints other than fatigue and confusion. [facility] Disclaimer: The information contained in this section may have been updated after the patient was seen, as this information can be updated by other users. Medical History (Updated 12/03/24 @ 21:53 by Sanchez Butler MD) Neuropathy Obesity Tobacco dependence syndrome URI (upper respiratory infection) Cough Recurrent pneumonia Sinusitis History of pacemaker Polycystic kidney disease Dyspnea Headache Anxiety Gastro-esophageal reflux disease without esophagitis Malignant hypertension Acute bacterial bronchitis Acute upper respiratory infection Bronchitis Edema Laceration of left index finger RLS (restless legs syndrome) Obesity Tobacco abuse Hand fracture, right COPD (chronic obstructive pulmonary disease) Pacemaker Gastroesophageal reflux disease CKD (chronic kidney disease) Bradycardia with 31-40 beats per minute Acute hyperkalemia Patient left without being seen UTI (urinary tract infection) Respiratory failure, acute Acute hyperkalemia ADI (acute kidney injury) Otitis media Obesity Somnolence, daytime, controlled Snoring Pulmonary nodules HTN (hypertension) Edema Chest pain Palpitations URI (upper respiratory infection) Medication refill Hypertensive urgency Bronchitis Elbow contusion Contusion of right hand Surgical History No history of previous surgery Family History Other Heart attack Hypertension Social History Smoking Status: Never smoker years smoked: 30 second hand exposure: No alcohol intake: never substance use type: former substance user and painkillers current occupational status: employed and other Travel in the last 8 weeks: None household members: significant other housing: house lives independently: No caffeine: Yes special crystal needs: No agree to transfusion: No Have you lived/traveled outside [place] in past 30 days?: No Contact w/someone who lives/traveled outside [place] past 30 days?: No Exposure to someone with infectious disease in past 14 days?: No Do you have a fever (greater than 100.4 F or 38 C)?: No Have you tested positive for COVID-19: No Exposed to someone with COVID-19 in past 14 days?: No Do you have a sore throat?: No Do you have a cough?: No Do you have any weakness?: Yes Do you have any diarrhea?: No Are you experiencing any unusual bleeding?: No Do you have any muscle aches/pain?: No Do you have any abdominal pain?: No Are you experiencing loss of taste or smell?: No Other Medical History Have you received the Flu Vaccine for this season: No Have you received the Pneumonia Vaccine: No Review of Systems Review of Systems Review of systems (narrative): 14 point review of systems performed, pertinent positives and negatives as per HPI Meds Home Medications and Allergies Home Medications ?Medication ?Instructions ?Recorded ?Confirmed ?Type buprenorphine 8 mg-naloxone 2 mg 1.5 tab sublingual DAILY Substance 04/17/20 12/02/24 History sublingual tablet Use Disorder aspirin 81 mg tablet,delayed 81 mg PO DAILY 09/18/23 12/02/24 History release albuterol sulfate 90 mcg/actuation 2 puff inhalation Q4HP PRN 05/24/24 12/02/24 Rx aerosol inhaler Shortness Of Breath #8.5 grams amlodipine 10 mg tablet See Rx Instructions .Route 06/24/24 12/02/24 Rx .COMPLEX #90 tabs cholecalciferol (vitamin D3) 50 50 mcg PO DAILY #90 caps 08/01/24 12/03/24 Rx mcg (2,000 unit) capsule ergocalciferol (vitamin D2) 1,250 1,250 mcg PO WEEKLY #14 caps 08/01/24 12/03/24 Rx mcg (50,000 unit) capsule ropinirole 1 mg tablet 1 mg PO HS rls #30 tabs 09/26/24 12/03/24 Rx atorvastatin 10 mg tablet 10 mg PO DAILY #90 tabs 10/23/24 12/02/24 Rx bisoprolol fumarate 5 mg tablet 5 mg PO DAILY #90 tabs 10/23/24 12/02/24 Rx fluticasone 250 mcg-salmeterol 50 1 inh inhalation BID #60 ea 10/23/24 12/02/24 Rx mcg/dose blistr powdr for inhalation (Advair Diskus) gabapentin 800 mg tablet 800 mg PO TID Pain #90 tabs 10/23/24 12/03/24 Rx omeprazole 40 mg capsule,delayed 40 mg PO DAILY 90 days #90 caps 10/23/24 12/03/24 Rx release tramadol 50 mg tablet 50 mg PO DAILY PRN pain #30 tabs 10/23/24 12/02/24 Rx lidocaine 4 % topical patch 1 patch topical BID PRN pain #60 ea 10/30/24 12/02/24 Rx (Aspercreme (lidocaine)) hydroxyzine HCl 10 mg tablet 10 mg PO TID PRN anxiety #60 tabs 11/04/24 12/02/24 Rx triamcinolone acetonide 0.1 % 1 applic topical BID PRN itching 11/11/24 12/02/24 Rx topical cream #30 grams desvenlafaxine succinate 50 mg 50 mg PO DAILY #30 tabs 11/18/24 12/03/24 Rx tablet,extended release 24 hr (Pristiq) lorazepam 1 mg tablet 1 mg PO DAILY PRN anxiety #30 tabs 12/02/24 12/02/24 Rx lisinopril 40 mg tablet 40 mg PO DAILY 12/03/24 12/03/24 History New Prescriptions to Start Prescriptions: Allergies Allergy/AdvReac Type Severity Reaction Status Date / Time No Known Allergies Allergy Verified 12/02/24 15:29 Exam Data for Last 24 hours Vital signs and Labs for Last 24 Hours: Temp Pulse Resp BP Pulse Ox O2 Del Method O2 Flow Rate 98.4 F 61 15 186/113 H 96 CPAP 2 12/03/24 11:35 12/03/24 13:05 12/03/24 13:31 12/03/24 13:31 12/03/24 13:05 12/03/24 13:31 12/03/24 12:31 FiO2 25 12/03/24 13:03 Laboratory Results - last 24 hr 12/03/24 11:32: WBC 8.4, RBC 3.60 L, Hgb 10.6 L, Hct 33.7 L, MCV 93.6, MCH 29.4, MCHC 31.5 L, RDW 14.6, Plt Count 212, MPV 10.4, Neut % (Auto) 50.6, Lymph % (Auto) 33.7, [place] % (Auto) 7.8, Eos % (Auto) 7.0, Baso % (Auto) 0.8, Neut # (Auto) 4.3, Lymph # (Auto) 2.8, [place] # (Auto) 0.7, Eos # (Auto) 0.6 H, Baso # (Auto) 0.1, PT 10.4, INR 0.92, APTT 27.2, Sodium 140, Potassium 5.6 H, Chloride 113 H, Carbon Dioxide 19 L, Anion Gap 13.6, BUN 39 H, Creatinine 2.60 H, Estimated Creat Clear 57, Estimated GFR 26 L, Est GFR ( Amer) 32 L, Glucose 116 H, Hemoglobin A1c 5.5, Calcium 9.1, Magnesium 1.9, Total Bilirubin 0.4, AST 38, ALT 16, Alkaline Phosphatase 86, Troponin I 0.02, NT-Pro-B Natriuret Pep 1390 H, Total Protein 7.0, Albumin 4.0, Globulin 3.0, Albumin/Globulin Ratio 1.3, Lipase 44, Salicylates < 1.0 L, Acetaminophen < 10 L , Plasma/Serum Alcohol < 10 12/03/24 11:43: Urine Color Yellow, Urine Appearance Clear, Urine pH 6.0, Ur Specific [place] >= 1.030, Urine Protein 2+ A, Urine Glucose (UA) Negative, Urine Ketones Negative, Urine Blood Trace-i, Urine Nitrate Negative, Urine Bilirubin Negative, Urine Urobilinogen 0.2, Ur Leukocyte Esterase Negative, Urine RBC Occasional, Urine WBC Occasional, Ur Squamous Epith Cells Occasional, Urine Bacteria Trace, Fine Granular Casts 3-5, Urine Opiates Screen Negative, Urine Methadone Screen Negative, Ur Barbituates Screen Negative, Ur Phencyclidine Scrn Negative, Ur Amphetamines Screen Negative, U Benzodiazepines Scrn Negative, Urine Cocaine Screen Negative, U Marijuana (THC) Screen Positive H 12/03/24 11:45: VBG pH 7.35, VBG pCO2 33.6 L, VBG pO2 139.9 H, VBG HCO3 18.1 L, VBG Total CO2 19.1 L, VBG Base Excess -7.6 L, VBG Lactic Acid 1.6 12/03/24 11:49: Lactate 0.8 I & O for Last 24 hours: Intake & Output 11/30/24 12/01/24 12/02/24 12/03/24 23:59 23:59 23:59 23:59 Weight 115.666 kg Constitutional Constitutional: no acute distress, obese and cooperative Comments: Dozes off easily on exam but will awaken to voice and answer questions appropriately. *Routine HEENT Exam Head: Present normocephalic Eye: Present EOMI and PERRL ENT: Present mucous membranes moist *Routine Neck Exam Neck: Present supple; Absent lymphadenopathy *Routine Respiratory Exam Respiratory: Present CTA bilaterally; Absent rhonchi, wheezes or crackles *Routine Cardiovascular Exam Cardiovascular: Present RRR *Routine Abdominal Exam Abdominal: Present soft and normoactive bowel sounds; Absent tenderness *Routine Rectal Exam Rectal:: deferred *Routine Genitalia Exam Genitalia:: deferred *Routine Extremities Exam Extremities: Absent cyanosis, clubbing or edema *Routine Skin Exam Skin: Present intact and warm; Absent rash *Routine Neurological Exam Neurological: Present alert, oriented X3, altered mental status (Dozing off. Awakens to voice and follows commands. Answers questions appropriately. Appears intoxicated) and moving all extremities Assessment and Plan *Assessment and plan (1) Toxic encephalopathy: Status: Acute Qualifiers: Toxic encephalopathy cause: unspecified toxin Qualified Code(s): G92.9 - Unspecified toxic encephalopathy Category: Medical Code(s): G92.9 - Unspecified toxic encephalopathy (2) Altered mental status: Status: Acute Qualifiers: Altered mental status type: disorientation Qualified Code(s): R41.0 - Disorientation, unspecified Category: Medical Code(s): R41.82 - Altered mental status, unspecified (3) Nonsustained ventricular tachycardia: Status: Acute Category: Medical Code(s): I47.29 - Other ventricular tachycardia (4) Atypical pneumonia: Status: Acute Category: Medical Code(s): J18.9 - Pneumonia, unspecified organism (5) CHF exacerbation: Status: Acute Category: Medical Code(s): I50.9 - Heart failure, unspecified (6) Overdose: Status: Acute Category: Medical Code(s): T50.901A - Poisoning by unspecified drugs, medicaments and biological substances, accidental (unintentional), initial encounter (7) MDD (major depressive disorder): Status: Acute Category: Medical Code(s): F32.9 - Major depressive disorder, single episode, unspecified (8) Polycystic kidney disease: Status: Acute Category: Medical Code(s): Q61.3 - Polycystic kidney, unspecified (9) CKD stage 4 secondary to hypertension: Status: Chronic Category: Medical Code(s): I12.9 - Hypertensive chronic kidney disease with stage 1 through stage 4 chronic kidney disease, or unspecified chronic kidney disease; N18.4 - Chronic kidney disease, stage 4 (severe) (10) COPD (chronic obstructive pulmonary disease): Status: Chronic Qualifiers: COPD type: unspecified COPD Qualified Code(s): J44.9 - Chronic obstructive pulmonary disease, unspecified Category: Medical Code(s): J44.9 - Chronic obstructive pulmonary disease, unspecified (11) HTN (hypertension): Status: Acute Qualifiers: Hypertension type: essential hypertension Qualified Code(s): I10 - Essential (primary) hypertension Category: Medical Code(s): I10 - Essential (primary) hypertension (12) Cardiac pacemaker in situ: Status: Chronic Category: Medical Code(s): Z95.0 - Presence of cardiac pacemaker (13) Tobacco dependence syndrome: Status: Chronic Category: Medical Code(s): F17.200 - Nicotine dependence, unspecified, uncomplicated (14) Neuropathy: Status: Chronic Category: Medical Code(s): G62.9 - Polyneuropathy, unspecified (15) Obesity: Status: Chronic Qualifiers: Obesity classification: unspecified obesity classification Obesity type: unspecified obesity type Serious obesity comorbidity presence: unspecified whether serious comorbidity present Qualified Code(s): E66.9 - Obesity, unspecified Category: Medical Code(s): E66.9 - Obesity, unspecified Plan 49-year-old male with multiple comorbidities and polypharmacy who presents with encephalopathy. Differential includes infection with pneumonia, metabolic encephalopathy, toxic encephalopathy, medication overdose, hypoxia. Found to have what appears to be pneumonia versus CHF exacerbation versus polypharmacy on exam. Discussed case with ER physician, request admission for further management pending patient's improvement in mentation and treatment for pneumonia. I agreed to admit. Problems addressed as follows: Toxic encephalopathy: Polypharmacy: -Patient on variety of medications that can possibly sedate including Suboxone 8mg-2mg sublingual 1-1/2 tabs daily, desvenlafaxine extended release 50 mg daily, gabapentin 800 mg 3 times a day (inappropriate for his kidney function), Ativan 1 mg daily, with positive UDS for THC. Holding home meds that may sedate at this time out of risk for toxicity - White count normal 8.4, hemoglobin 10.6. -Will hold medications at this time and monitor for improvement mentation. -In light of elevated BNP greater than 1500, received 2 mg Bumex IV once in the ER. Initiated on antibiotics with ceftriaxone 2 g once and azithromycin 500 mg once for possible pneumonia component -Continue antibiotics for 48 hours pending culture results -IV fluids administered in the ER to assist with flushing toxins and increased urine output. COPD: DuoNebs as needed every 6 hours. Stable on room air. CKD 4: Renally dose medication, caution with nephrotoxins.BUN 39, creatinine 2.6. Repeat CBC, CMP, magnesium ordered for the morning. - Urinalysis obtained, concentrated with specific gravity of 1030, 2+ protein, low concern for infection. Has granular casts present consistent with chronic kidney disease. Hypertension: Significantly elevated upon arrival to the floor. Resume home regimen with amlodipine 10 mg, switch to nightly so he can get a dose tonight. Continue lisinopril 40 mg daily, will administer 1 dose captopril 6.25 mg now for blood pressure greater than systolic 180. Full code Regular diet Lovenox 40 mg subcu daily
--- NOTE | 2024-12-03 13:47 | PC.NURSE ---
HOUSE aware of pt admission
--- NOTE | 2024-12-03 13:49 | EXP.CARD.CON ---
History of Present Illness History of Present Illness Consult date: 12/03/24 Requesting physician: Simon Chino Chief complaint: AMS History of present illness: This is a 49-year-old male with past medical history of chronic kidney disease, hyperkalemia, chronic LE edema, recurrent pneumonia, hypertension, current smoker- greater than [id number] smoking history and status post pacemaker placement who presents to emergency department today with complaints of altered mental status. Fianc? reports patient had a near syncopal episode at work. Fianc? reports this is how he normally acts when he has pneumonia which she states he gets frequently and sees pulmonology for. She also reports patient has had the sniffles which usually leads to pneumonia. Upon evaluation patient is arousable to voice and is on CPAP machine. ER doctor reports patient has had reoccurring runs of nonsustained VT while in the emergency department. Pacemaker device interrogation from today shows no events but patient has experienced reoccurring episodes of nonsustained VT, last episodee recorded on November 30. Fianc? reports patient stopped taking bisoprolol due to worsening LE edema which he attributed to medication. EKG upon arrival to emergency department is normal sinus rhythm without acute ischemic changes noted at a rate of 70. Labs as follow: WBC 8.4, hemoglobin 10.6, sodium 140, potassium 5.6, creatinine 2.6 (2.4-2.6), magnesium 1.9, AST 38, ALT 16, troponin 0.02 and a proBNP of 1390. Urine drug screen positive for marijuana. Respiratory panel pending. CT head and neck negative for acute process. Chest CT shows patchy bibasilar airspace disease suspicious for pneumonia. Some of these areas are chronic as seen on prior exam from 11/18/2024. No evidence of hemothorax, pneumothorax, rib fracture, pleural effusion or pericardial effusion. Echocardiogram is pending. Patient has received Narcan, calcium 2 g IV, magnesium 2 g IV, Bumex 2 mg IV and Solu-Medrol along with DuoNeb in the emergency department. Of note patient started increased dose of desvenlafaxine today. [facility] Disclaimer: The information contained in this section may have been updated after the patient was seen, as this information can be updated by other users. Medical History (Updated 12/03/24 @ 21:53 by Sanchez Butler MD) Neuropathy Obesity Tobacco dependence syndrome URI (upper respiratory infection) Cough Recurrent pneumonia Sinusitis History of pacemaker Polycystic kidney disease Dyspnea Headache Anxiety Gastro-esophageal reflux disease without esophagitis Malignant hypertension Acute bacterial bronchitis Acute upper respiratory infection Bronchitis Edema Laceration of left index finger RLS (restless legs syndrome) Obesity Tobacco abuse Hand fracture, right COPD (chronic obstructive pulmonary disease) Pacemaker Gastroesophageal reflux disease CKD (chronic kidney disease) Bradycardia with 31-40 beats per minute Acute hyperkalemia Patient left without being seen UTI (urinary tract infection) Respiratory failure, acute Acute hyperkalemia ADI (acute kidney injury) Otitis media Obesity Somnolence, daytime, controlled Snoring Pulmonary nodules HTN (hypertension) Edema Chest pain Palpitations URI (upper respiratory infection) Medication refill Hypertensive urgency Bronchitis Elbow contusion Contusion of right hand Surgical History No history of previous surgery Family History Other Heart attack Hypertension Social History Smoking Status: Never smoker years smoked: 30 second hand exposure: No alcohol intake: never substance use type: former substance user and painkillers current occupational status: employed and other Travel in the last 8 weeks: None household members: significant other housing: house lives independently: No caffeine: Yes special crystal needs: No agree to transfusion: No Have you lived/traveled outside [place] in past 30 days?: No Contact w/someone who lives/traveled outside [place] past 30 days?: No Exposure to someone with infectious disease in past 14 days?: No Do you have a fever (greater than 100.4 F or 38 C)?: No Have you tested positive for COVID-19: No Exposed to someone with COVID-19 in past 14 days?: No Do you have a sore throat?: No Do you have a cough?: No Do you have any weakness?: Yes Do you have any diarrhea?: No Are you experiencing any unusual bleeding?: No Do you have any muscle aches/pain?: No Do you have any abdominal pain?: No Are you experiencing loss of taste or smell?: No Review of Systems Review of Systems Review of systems:: unable to obtain and pertinent systems reviewed and negative unless documented below Constitutional Constitutional: Reports system reviewed and no additional complaints, except as documented Exam Data for Last 24 hours Vital signs and Labs for Last 24 Hours: Temp Pulse Resp BP Pulse Ox O2 Del Method O2 Flow Rate 98.4 F 61 15 186/113 H 96 CPAP 2 12/03/24 11:35 12/03/24 13:05 12/03/24 13:31 12/03/24 13:31 12/03/24 13:05 12/03/24 13:31 12/03/24 12:31 FiO2 12/03/24 13:03 Laboratory Results - last 24 hr 12/03/24 11:32: WBC 8.4, RBC 3.60 L, Hgb 10.6 L, Hct 33.7 L, MCV 93.6, MCH 29.4, MCHC 31.5 L, RDW 14.6, Plt Count 212, MPV 10.4, Neut % (Auto) 50.6, Lymph % (Auto) 33.7, [place] % (Auto) 7.8, Eos % (Auto) 7.0, Baso % (Auto) 0.8, Neut # (Auto) 4.3, Lymph # (Auto) 2.8, [place] # (Auto) 0.7, Eos # (Auto) 0.6 H, Baso # (Auto) 0.1, PT 10.4, INR 0.92, APTT 27.2, Sodium 140, Potassium 5.6 H, Chloride 113 H, Carbon Dioxide 19 L, Anion Gap 13.6, BUN 39 H, Creatinine 2.60 H, Estimated Creat Clear 57, Estimated GFR 26 L, Est GFR ( Amer) 32 L, Glucose 116 H, Hemoglobin A1c 5.5, Calcium 9.1, Magnesium 1.9, Total Bilirubin 0.4, AST 38, ALT 16, Alkaline Phosphatase 86, Troponin I 0.02, NT-Pro-B Natriuret Pep 1390 H, Total Protein 7.0, Albumin 4.0, Globulin 3.0, Albumin/Globulin Ratio 1.3, Lipase 44, Salicylates < 1.0 L, Acetaminophen < 10 L, Plasma/Serum Alcohol < 10 12/03/24 11:43: Urine Color Yellow, Urine Appearance Clear, Urine pH 6.0, Ur Specific [place] >= 1.030, Urine Protein 2+ A, Urine Glucose (UA) Negative, Urine Ketones Negative, Urine Blood Trace-i, Urine Nitrate Negative, Urine Bilirubin Negative, Urine Urobilinogen 0.2, Ur Leukocyte Esterase Negative, Urine RBC Occasional, Urine WBC Occasional, Ur Squamous Epith Cells Occasional, Urine Bacteria Trace, Fine Granular Casts 3-5, Urine Opiates Screen Negative, Urine Methadone Screen Negative, Ur Barbituates Screen Negative, Ur Phencyclidine Scrn Negative, Ur Amphetamines Screen Negative, U Benzodiazepines Scrn Negative, Urine Cocaine Screen Negative, U Marijuana (THC) Screen Positive H 12/03/24 11:45: VBG pH 7.35, VBG pCO2 33.6 L, VBG pO2 139.9 H, VBG HCO3 18.1 L, VBG Total CO2 19.1 L, VBG Base Excess -7.6 L, VBG Lactic Acid 1.6 12/03/24 11:49: Lactate 0.8 I & O for Last 24 hours: Intake & Output 11/30/24 12/01/24 12/02/24 12/03/24 23:59 23:59 23:59 23:59 Weight 255 lb Constitutional Constitutional: no acute distress *Routine Respiratory Exam Respiratory: Present rhonchi, wheezes and symmetric chest movement *Routine Cardiovascular Exam Cardiovascular: Present RRR, Normal S1 and Normal S2 *Routine Abdominal Exam Abdominal: Present soft and normoactive bowel sounds; Absent tenderness *Routine Extremities Exam Extremities: Present edema, full ROM and normal capillary refill *Routine Skin Exam Skin: Present intact, dry and warm Detailed Neck Exam: Thyroids Thyroid: Absent bruit Meds Home Medications and Allergies Home Medications ?Medication ?Instructions ?Recorded ?Confirmed ?Type buprenorphine 8 mg-naloxone 2 mg 2 tab sublingual DAILY Substance 04/17/20 12/04/24 History sublingual tablet Use Disorder aspirin 81 mg tablet,delayed 81 mg PO DAILY 09/18/23 12/04/24 History release albuterol sulfate 90 mcg/actuation 2 puff inhalation Q4HP PRN 05/24/24 12/04/24 Rx aerosol inhaler Shortness Of Breath #8.5 grams cholecalciferol (vitamin D3) 50 50 mcg PO DAILY #90 caps 08/01/24 12/03/24 Rx mcg (2,000 unit) capsule ergocalciferol (vitamin D2) 1,250 1,250 mcg PO WEEKLY #14 caps 08/01/24 12/03/24 Rx mcg (50,000 unit) capsule ropinirole 1 mg tablet 1 mg PO HS rls #30 tabs 09/26/24 12/03/24 Rx atorvastatin 10 mg tablet 10 mg PO DAILY #90 tabs 10/23/24 12/04/24 Rx fluticasone 250 mcg-salmeterol 50 1 inh inhalation BID #60 ea 10/23/24 12/04/24 Rx mcg/dose blistr powdr for inhalation (Advair Diskus) gabapentin 800 mg tablet 800 mg PO TID Pain #90 tabs 10/23/24 12/03/24 Rx omeprazole 40 mg capsule,delayed 40 mg PO DAILY 90 days #90 caps 10/23/24 12/03/24 Rx release lidocaine 4 % topical patch 1 patch topical BID PRN pain #60 ea 10/30/24 12/04/24 Rx (Aspercreme (lidocaine)) hydroxyzine HCl 10 mg tablet 10 mg PO TID PRN anxiety #60 tabs 11/04/24 12/04/24 Rx desvenlafaxine succinate 50 mg 50 mg PO DAILY #30 tabs 11/18/24 12/03/24 Rx tablet,extended release 24 hr (Pristiq) lorazepam 1 mg tablet 1 mg PO DAILY PRN anxiety #30 tabs 12/02/24 12/04/24 Rx lisinopril 40 mg tablet 40 mg PO DAILY 12/03/24 12/03/24 History New Prescriptions to Start Prescriptions: Allergies Allergy/AdvReac Type Severity Reaction Status Date / Time No Known Allergies Allergy Verified 12/02/24 15:29 Assessment and Plan *Assessment and plan (1) Cardiac pacemaker in situ: Status: Chronic Category: Medical Code(s): Z95.0 - Presence of cardiac pacemaker (2) CKD (chronic kidney disease): Status: Chronic Qualifiers: Chronic kidney disease stage: unspecified stage Qualified Code(s): N18.9 - Chronic kidney disease, unspecified Category: Medical Code(s): N18.9 - Chronic kidney disease, unspecified (3) HTN (hypertension): Status: Acute Qualifiers: Hypertension type: essential hypertension Qualified Code(s): I10 - Essential (primary) hypertension Category: Medical Code(s): I10 - Essential (primary) hypertension (4) Chronic hyperkalemia: Status: Acute Category: Medical Code(s): E87.5 - Hyperkalemia (5) Altered mental status: Status: Acute Category: Medical Code(s): R41.82 - Altered mental status, unspecified (6) Nonsustained ventricular tachycardia: Status: Acute Category: Medical Code(s): I47.29 - Other ventricular tachycardia Plan Episodes of NSVT Hx of SVT PPM for reported hx of bradycardia Recently stopped BB due to thought might be making LE edema worse Device interrogation today shows episodes of nonsustained VT last episode noted November 30. Also has poorly controlled SVT. Recommend starting Toprol 25 mg p.o. daily and titrating as needed Echocardiogram shows normal biventricular systolic function, mild LA dilation, no significant valvular stenosis or regurg Trop negative Would recommend outpatient stress testing Altered mental status Reoccurring pneumonia Chest CT shows patchy bibasilar airspace disease suspicious for pneumonia. Some of these areas are chronic as seen on prior exam 11/18/2024. Respiratory panel pending Trop negative CT chest negative for pleural effusion or pericardial effusion Will defer management to primary service and pulmonology Hypertension Start Toprol 25 mg p.o. daily Hold amlodipine at this time due to chronic lower extremity edema May consider hydralazine as needed for hypertension Chronic LE edema Avoid over diuresing with CKD Has been encouraged in the past to use compression stockings Hyperlipidemia LDL goal less than 100, LDL is 95 on statin Chronic kidney disease Chronic hyperkalemia Creatinine 2.6, potassium 5.6 Defer to primary service CV summary 12/03/2024: Echocardiogram shows a normal ejection fraction. Device interrogation from today shows a history of nonsustained VT with the last episode recorded November 30. Also has a history of SVT. Fianc? reports patient recently stopped taking beta-lachelle. Recommend restarting Toprol 25 mg p.o. daily and titrating as needed for rate control and hypertension. Patient has a long history of lower extremity edema, would avoid Norvasc if at all possible which may contribute to worsening lower extremity edema. CV meds Atorvastatin 10 mg p.o. daily Toprol 25 mg p.o. daily
[2024-12-03] MEDS: BUMETANIDE 1MG/4ML VIAL 2 MG IV (13:51)
--- NOTE | 2024-12-03 14:00 | PC.NURSE ---
JUSTICE SENT SWAB TO LAB
[2024-12-03 14:01] LABS: Coronavirus 19, PCR Not Detected (NotDetected); Human Rhinovirus Not Detected (NotDetected); Influenza A, PCR Not Detected (NotDetected); Influenza B, PCR Not Detected (NotDetected); Respiratory Syncytial Virus Not Detected (NotDetected)
--- NOTE | 2024-12-03 14:30 | PC.NURSE ---
1430 report called brian ervin
--- NOTE | 2024-12-03 15:08 | PC.NURSE ---
PT being transported to assigned room with belongings
--- NOTE | 2024-12-03 15:23 | PC.NURSE ---
arrived by stretcher from ED
[2024-12-03 16:19] LABS: Troponin I 0.01 ng/ml (0.00-0.034)
--- NOTE | 2024-12-03 16:41 | PEERSUPPORT ---
Peer Support Note Patient Information Patient Information: DOS: 12/03/2024 ? Pt sitting up in bed, rocking back and forth. Eye contact-poor Speech slurred while speaking of a kylie named Faustino raman, who pt confirms is a good josé miguel when asked by peer support. ? Pt is unable to understand or respond appropriately. ? Ps offered anything for comfort or basic needs at this time. ? Pt request for something to eat. ? Ps discussed with Yamile Lara, pt is not allowed anything by mouth at this time. ? Peer support will continue to follow-up.
[2024-12-03] MEDS: CAPTOPRIL 12.5MG TABLET 6.25 MG PO (18:27)
[2024-12-03 18:36] LABS: Troponin I 0.01 ng/ml (0.00-0.034)
[2024-12-03] MEDS: FLUTICASONE/SALMETEROL 250/50MCG DISKUS 1 PUFF IH (18:52)
[2024-12-03] MEDS: ATORVASTATIN 10MG TABLET 10 MG PO (21:53)
[2024-12-03] MEDS: PANTOPRAZOLE 40MG TABLET 40 MG PO (21:53)
[2024-12-03] MEDS: AMLODIPINE 10MG TABLET 10 MG PO (21:53)
[2024-12-04] VITALS: BP 155/90; PULSE 60; RESP 13; TEMP 36.6; O2SAT 92
[2024-12-04 04:00] VITALS: BP 167/95; PULSE 60; PULSE 85; RESP 14; TEMP 36.3; O2SAT 92; BMI 35.7
[2024-12-04] MEDS: FLUTICASONE/SALMETEROL 250/50MCG DISKUS 1 PUFF IH (06:19)
[2024-12-04 07:07] LABS: Basophils % 0.3 % (0.1-2.0); Eosinophils % 0.1 % (0.1-12.0); Hematocrit 35.2 % (42.0-52.0); Hemoglobin 10.9 g/dL (14.1-18.0); Lymphocytes # 1.5 K/mm3 (0.7-4.5); Lymphocytes % 12.3 % (10-50); Mean Corpuscular Hemoglobin 29.3 pg (27.0-31.2); Mean Corpuscular Volume 94.6 fl (80-94); Mean Platelet Volume 10.6 fl (7.4-10.4); Monocytes # 0.8 K/mm3 (0.1-1.0); Monocytes % 6.6 % (1.7-9.3); Neutrophils # 9.7 K/mm3 (1.8-7.8); Neutrophils % 80.4 % (37.0-80.0); Platelet Count 198 K/mm3 (142-424); Red Blood Count 3.72 M/mm3 (4.60-6.20); Red Cell Distribution Width 14.8 % (11.5-17.5)
[2024-12-04 08:00] VITALS: BP 164/107; PULSE 77; PULSE 80; RESP 18; TEMP 36.6; O2SAT 100
[2024-12-04 08:03] LABS: Alanine Aminotransferase 14 U/L (12-78); Albumin Level 3.9 g/dl (3.5-5.0); Albumin/Globulin Ratio 1.4 (1.1-1.8); Alkaline Phosphatase 103 U/L (38-126); Anion Gap 15.9 mEq/L (5-15); Aspartate Amino Transferase 37 U/L (17-59); Bilirubin,Total 0.3 mg/dl (0.2-1.3); Blood Urea Nitrogen 43 mg/dl (9-20); Calcium 9.5 mg/dl (8.4-10.2); Carbon Dioxide 16 mmol/L (22.0-30.0); Chloride 113 mmol/L (98-107); Creatinine Clearance Estimated 54 mL/min (50-200); Estimated Glomerular Filt Rate 26 ml/min (>60); GFR (African American) 32 ML/MIN (>60); Globulin 2.7 g/dL (1.3-3.2); Glucose 104 mg/dl (74-100); Magnesium 2.1 mg/dl (1.6-2.3); Potassium 5.9 mmoL/L (3.5-5.1); Sodium 139 mmol/L (136-145); Total Protein,Serum 6.6 g/dl (6.3-8.2)
[2024-12-04] MEDS: ENOXAPARIN 40MG/0.4ML SYRINGE 40 MG SUBCUT (08:16)
[2024-12-04] MEDS: METOPROLOL SUCCINATE XL 25MG TABLET 25 MG PO (08:16)
[2024-12-04] MEDS: ASPIRIN EC 81MG TABLET 81 MG PO (08:16)
[2024-12-04] MEDS: LISINOPRIL 20MG TABLET 40 MG PO (08:16)
[2024-12-04] MEDS: DEXTROSE 50% 50ML SYRINGE (CRASH CART) 50 ML IVP (09:31)
[2024-12-04] MEDS: INSULIN HUMAN REGULAR 100 UNITS/ML 10ML VIAL 10 UNIT IVP (09:32)
[2024-12-04] MEDS: AZITHROMYCIN 250MG TABLET 500 MG PO (09:35)
[2024-12-04] MEDS: NICOTINE 21MG/24HR PATCH 21 MG TD (09:40)
--- NOTE | 2024-12-04 09:58 | HMH.PHAINT1 ---
Pharmacy Intervention Comments: VERIFIED MEDICATIONS WITH OUTPATIENT PHARMACY. CONFIRMED MEDICATIONS WITH PATIENT.
--- NOTE | 2024-12-04 10:46 | EXP.CARD.PN ---
Subjective Subjective Date: 12/04/24 Time: 10:00 Principal diagnosis: confusion Interval history: Patient is doing well this morning sitting up in bed answering questions appropriately. Denies chest pain or shortness of breath. Requesting Suboxone. Exam Data for Last 24 hours Vital signs and Labs for Last 24 Hours: Temp Pulse Resp BP Pulse Ox O2 Del Method O2 Flow Rate 97.9 F 77 18 164/107 H 100 Nasal Cannula 2.5 12/04/24 08:00 12/04/24 08:00 12/04/24 08:00 12/04/24 08:00 12/04/24 08:00 12/04/24 09:50 12/04/24 09:50 FiO2 25 12/03/24 13:03 Laboratory Results - last 24 hr 12/03/24 11:32: WBC 8.4, RBC 3.60 L, Hgb 10.6 L, Hct 33.7 L, MCV 93.6, MCH 29.4, MCHC 31.5 L, RDW 14.6, Plt Count 212, MPV 10.4, Neut % (Auto) 50.6, Lymph % (Auto) 33.7, [place] % (Auto) 7.8, Eos % (Auto) 7.0, Baso % (Auto) 0.8, Neut # (Auto) 4.3, Lymph # (Auto) 2.8, [place] # (Auto) 0.7, Eos # (Auto) 0.6 H, Baso # (Auto) 0.1, PT 10.4, INR 0.92, APTT 27.2, Sodium 140, Potassium 5.6 H, Chloride 113 H, Carbon Dioxide 19 L, Anion Gap 13.6, BUN 39 H, Creatinine 2.60 H, Estimated Creat Clear 57, Estimated GFR 26 L, Est GFR ( Amer) 32 L, Glucose 116 H, Hemoglobin A1c 5.5, Calcium 9.1, Magnesium 1.9, Total Bilirubin 0.4, AST 38, ALT 16, Alkaline Phosphatase 86, Troponin I 0.02, NT-Pro-B Natriuret Pep 1390 H, Total Protein 7.0, Albumin 4.0, Globulin 3.0, Albumin/Globulin Ratio 1.3, Lipase 44, Salicylates < 1.0 L, Acetaminophen < 10 L, Plasma/Serum Alcohol < 10 12/03/24 11:43: Urine Color Yellow, Urine Appearance Clear, Urine pH 6.0, Ur Specific [place] >= 1.030, Urine Protein 2+ A, Urine Glucose (UA) Negative, Urine Ketones Negative, Urine Blood Trace-i, Urine Nitrate Negative, Urine Bilirubin Negative, Urine Urobilinogen 0.2, Ur Leukocyte Esterase Negative, Urine RBC Occasional, Urine WBC Occasional, Ur Squamous Epith Cells Occasional, Urine Bacteria Trace, Fine Granular Casts 3-5, Urine Opiates Screen Negative, Urine Methadone Screen Negative, Ur Barbituates Screen Negative, Ur Phencyclidine Scrn Negative, Ur Amphetamines Screen Negative, U Benzodiazepines Scrn Negative, Urine Cocaine Screen Negative, U Marijuana (THC) Screen Positive H 12/03/24 11:45: VBG pH 7.35, VBG pCO2 33.6 L, VBG pO2 139.9 H, VBG HCO3 18.1 L, VBG Total CO2 19.1 L, VBG Base Excess -7.6 L, VBG Lactic Acid 1.6 12/03/24 11:49: Lactate 0.8 12/03/24 13:57: SARS-CoV-2 (PCR) Not detected, Influenza Type A (PCR) Not detected, Influenza Type B (PCR) Not detected, RSV (PCR) Not detected, Rhinovirus (PCR) Not detected 12/03/24 15:42: Troponin I 0.01 12/03/24 17:54: Troponin I 0.01 12/04/24 05:51: WBC 12.0 H D, RBC 3.72 L, Hgb 10.9 L, Hct 35.2 L, MCV 94.6 H, MCH 29.3, MCHC 31.0 L, RDW 14.8, Plt Count 198, MPV 10.6 H, Neut % (Auto) 80.4 H, Lymph % (Auto) 12.3, [place] % (Auto) 6.6, Eos % (Auto) 0.1, Baso % (Auto) 0.3, Neut # (Auto) 9.7 H, Lymph # (Auto) 1.5, [place] # (Auto) 0.8, Eos # (Auto) 0.0, Baso # (Auto) 0.0, Sodium 139, Potassium 5.9 H, Chloride 113 H, Carbon Dioxide 16 L, Anion Gap 15.9 H, BUN 43 H, Creatinine 2.60 H, Estimated Creat Clear 54, Estimated GFR 26 L, Est GFR ( Amer) 32 L, Glucose 104 H, Calcium 9.5, Magnesium 2.1 D, Total Bilirubin 0.3, AST 37, ALT 14, Alkaline Phosphatase 103, Total Protein 6.6, Albumin 3.9, Globulin 2.7, Albumin/Globulin Ratio 1.4 I & O for Last 24 hours: Intake & Output 12/01/24 12/02/24 12/03/24 12/04/24 23:59 23:59 23:59 23:59 Intake Total 480 / 720 840 / 840 Output Total 2275 / 2275 875 / 875 Balance -1795 / -1555 -35 / -35 Weight 242 lb 5 oz 241 lb 4.8 oz Constitutional Constitutional: no acute distress *Routine Respiratory Exam Respiratory: Present CTA bilaterally and symmetric chest movement *Routine Cardiovascular Exam Cardiovascular: Present RRR, Normal S1 and Normal S2 *Routine Abdominal Exam Abdominal: Present soft and normoactive bowel sounds; Absent tenderness *Routine Extremities Exam Extremities: Present full ROM and normal capillary refill; Absent edema *Routine Skin Exam Skin: Present intact, dry and warm Detailed Neck Exam: Thyroids Thyroid: Absent bruit Progress Note: A&P Assessment and plan (1) Toxic encephalopathy: Status: Acute (2) Altered mental status: Status: Acute (3) Nonsustained ventricular tachycardia: Status: Acute (4) Atypical pneumonia: Status: Acute (5) CHF exacerbation: Status: Acute (6) Overdose: Status: Acute (7) MDD (major depressive disorder): Status: Acute (8) Polycystic kidney disease: Status: Acute (9) CKD stage 4 secondary to hypertension: Status: Chronic (10) COPD (chronic obstructive pulmonary disease): Status: Chronic (11) HTN (hypertension): Status: Acute (12) Cardiac pacemaker in situ: Status: Chronic (13) Tobacco dependence syndrome: Status: Chronic (14) Neuropathy: Status: Chronic (15) Obesity: Status: Chronic Assessment and Plan Assessment and Plan for All Diagnoses:: Episodes of NSVT Hx of SVT PPM for reported hx of bradycardia Recently stopped BB due to thought might be making LE edema worse Device interrogation 12/03/2024 shows episodes of nonsustained VT last episode noted November 30. Also has poorly controlled SVT. Continue Toprol 25 mg p.o. daily and titrate as needed Echocardiogram shows normal biventricular systolic function, mild LA dilation, no significant valvular stenosis or regurg Trop negative Would recommend outpatient stress testing Altered mental status Reoccurring pneumonia Chest CT shows patchy bibasilar airspace disease suspicious for pneumonia. Some of these areas are chronic as seen on prior exam 11/18/2024. Respiratory panel negative Trop negative CT chest negative for pleural effusion or pericardial effusion Will defer management to primary service and pulmonology Hypertension Continue Toprol 25 mg p.o. daily Hold amlodipine at this time due to chronic lower extremity edema Would avoid viji/arb due to ckd and chronic hyperkalemia Start hydralazine 25mg po TID Chronic LE edema Avoid over diuresing with CKD Has been encouraged in the past to use compression stockings Hyperlipidemia LDL goal less than 100, LDL is 95 on statin Chronic kidney disease Chronic hyperkalemia Creatinine 2.6, potassium 5.6 Defer to primary service CV summary 12/03/2024: Continue Toprol 25 mg p.o. daily and add hydralazine 25 mg p.o. 3 times daily for blood pressure control. Patient needs to follow-up with nephrology and cardiology on an outpatient basis. Consider outpatient stress testing. CV meds Atorvastatin 10 mg p.o. daily Toprol 25 mg p.o. daily Hydralazine 25 mg p.o. 3 times daily
[2024-12-04 11:21] VITALS: BP 184/107; PULSE 74; RESP 18; TEMP 36.4; O2SAT 100
[2024-12-04] MEDS: HYDRALAZINE HCL 25MG TABLET 25 MG PO (11:40)
[2024-12-04] MEDS: CEFTRIAXONE SODIUM 1 GM in 0.9 % SODIUM CHLORIDE 50 ML IV (11:40)
[2024-12-04 12:00] VITALS: PULSE 70
[2024-12-04] MEDS: SODIUM CHLORIDE 3% 15ML NEB 3 ML IH (12:47)
[2024-12-04 12:48] VITALS: PULSE 71; RESP 18
--- NOTE | 2024-12-04 13:54 | EXP.DC.SUM ---
General Admission date:: 12/03/24 HPI HPI HPI: Mr. Loera is a 49-year-old male with history of hypertension, hyperlipidemia, CKD 4 due to polycystic kidney disease, diabetes, tobacco use disorder, on Suboxone therapy for opiate use disorder, neuropathy, COPD, anxiety. Polypharmacy per his med rec. He presented to the ER with complaint of altered mental status earlier today. Reportedly was at work with coworkers and began to act confused, tired, not making any sense. He did not have any syncopal event, trauma, or passing out per report. History obtained from ER documentation and patient as he is not a good historian. Reportedly his coworkers state that if he is confused like this he normally has pneumonia. Patient denies chest pain, nausea, vomiting. On evaluation in the ER, patient appears lethargic but not obtunded. Arouses to voice and answers questions appropriately but then dozes off. Not oriented to place or time. Of note, the only recent medication adjustment is an increase in his desvenlafaxine. Workup in the ER with lower extremity edema. Hypertensive on vitals. While in the ER he had a run of V. tach. Cardiology was consulted to evaluate. BNP elevated at 1390. Kidney function abnormal with BUN 39, creatinine 2.6. Potassium 5.6. Mild metabolic acidosis with bicarb of 19. White count normal 8.4, hemoglobin low at 10.6. UDS positive for THC. Chest CT with patchy airspace disease concerning for pneumonia versus pulmonary edema. Some of them present since at least last month. Patient afebrile. No significant cough. Has been consulted for admission and further management. On arrival to the floor, patient stable on room air. Awakens to voice and will answer questions but appears encephalopathic. Suspicious for medication effect. No acute complaints other than fatigue and confusion. Hospital Course Hospital Course Hospital Course: Jesus Loera is a 49-year-old male with multiple comorbidities and polypharmacy who was admitted for toxic encephalopathy. #Toxic encephalopathy - Patient on variety of medications that can possibly sedate including Suboxone 8mg-2mg sublingual 1-1/2 tabs daily, desvenlafaxine extended release 50 mg daily, gabapentin 800 mg 3 times a day, Ativan 1 mg daily, with positive UDS for THC. - Patient admitted he accidentally took an extra Ativan 1mg forgetting he had already taken this, likely leading to his sedation. He denied it was intentional, denies SI/HI. - Currently back to baseline, AOx4. Advised patient to speak to PCP about polypharmacy and the dangerous side effects when combining these medications. He is agreeable. Nonsustained V. tach Pacemaker in situ - Reviewed cardiology note. Device was interrogated in the ER. Patient has been having nonsustained episodes of V. tach in the past week. Recommend resuming metoprolol 25 mg daily, which patient had stopped taking. Echo obtained showing normal BiV function with mild LA dilation. Tropes negative. COPD: Stable on room air. CKD 4: Renally dose medication, caution with nephrotoxins. Will need to follow-up with PCP to discuss gabapentin dosing. Hypertension Hyperkalemia Cardiology started hydralazine 25mg TID, restarted metoprolol succinate 25mg. Discontinued lisonopril due to hyperkalemia in light of kidney function. Exam Data for Last 24 hours Vital signs and Labs for Last 24 Hours: Temp Pulse Resp BP Pulse Ox O2 Del Method O2 Flow Rate 97.6 F 71 18 184/107 H 100 Nasal Cannula 2.5 12/04/24 11:21 12/04/24 12:48 12/04/24 12:48 12/04/24 11:21 12/04/24 11:21 12/04/24 11:21 12/04/24 11:21 FiO2 25 12/03/24 13:03 Laboratory Results - last 24 hr 12/03/24 13:57: SARS-CoV-2 (PCR) Not detected, Influenza Type A (PCR) Not detected, Influenza Type B (PCR) Not detected, RSV (PCR) Not detected, Rhinovirus (PCR) Not detected 12/03/24 15:42: Troponin I 0.01 12/03/24 17:54: Troponin I 0.01 12/04/24 05:51: WBC 12.0 H D, RBC 3.72 L, Hgb 10.9 L, Hct 35.2 L, MCV 94.6 H, MCH 29.3, MCHC 31.0 L, RDW 14.8, Plt Count 198, MPV 10.6 H, Neut % (Auto) 80.4 H, Lymph % (Auto) 12.3, [place] % (Auto) 6.6, Eos % (Auto) 0.1, Baso % (Auto) 0.3, Neut # (Auto) 9.7 H, Lymph # (Auto) 1.5, [place] # (Auto) 0.8, Eos # (Auto) 0.0, Baso # (Auto) 0.0, Sodium 139, Potassium 5.9 H, Chloride 113 H, Carbon Dioxide 16 L, Anion Gap 15.9 H, BUN 43 H, Creatinine 2.60 H, Estimated Creat Clear 54, Estimated GFR 26 L, Est GFR ( Amer) 32 L, Glucose 104 H, Calcium 9.5, Magnesium 2.1 D, Total Bilirubin 0.3, AST 37, ALT 14, Alkaline Phosphatase 103, Total Protein 6.6, Albumin 3.9, Globulin 2.7, Albumin/Globulin Ratio 1.4 I & O for Last 24 hours: Intake & Output 12/01/24 12/02/24 12/03/24 12/04/24 23:59 23:59 23:59 23:59 Intake Total 480 / 720 890 / 890 Output Total 2275 / 2275 875 / 875 Balance -1795 / -1555 Weight 109.911 kg 109.452 kg Microbiology Reports for the Last 24 Hours: Microbiology 12/03/24 11:49 Blood Blood Culture - Preliminary NO GROWTH AFTER 24 HOURS 12/03/24 11:49 Blood Blood Culture - Preliminary NO GROWTH AFTER 24 HOURS Results Data Completed and Pending Labs on day of discharge: Labs from last 24 hours 12/04/24 12/03/24 12/03/24 05:51 17:54 15:42 WBC 12.0 H D RBC 3.72 L Hgb 10.9 L Hct 35.2 L MCV 94.6 H MCH 29.3 MCHC 31.0 L RDW 14.8 Plt Count 198 MPV 10.6 H Neut % (Auto) 80.4 H Lymph % (Auto) 12.3 [place] % (Auto) 6.6 Eos % (Auto) 0.1 Baso % (Auto) 0.3 Neut # (Auto) 9.7 H Lymph # (Auto) 1.5 [place] # (Auto) 0.8 Eos # (Auto) 0.0 Baso # (Auto) 0.0 Sodium 139 Potassium 5.9 H Chloride 113 H Carbon Dioxide 16 L Anion Gap 15.9 H BUN 43 H Creatinine 2.60 H Estimated Creat Clear 54 Estimated GFR 26 L Est GFR ( Amer) 32 L Glucose 104 H Calcium 9.5 Magnesium 2.1 D Total Bilirubin 0.3 AST 37 ALT 14 Alkaline Phosphatase 103 Troponin I 0.01 0.01 Total Protein 6.6 Albumin 3.9 Globulin 2.7 Albumin/Globulin Ratio 1.4 SARS-CoV-2 (PCR) Influenza Type A (PCR) Influenza Type B (PCR) RSV (PCR) Rhinovirus (PCR) 12/03/24 13:57 WBC RBC Hgb Hct MCV MCH MCHC RDW Plt Count MPV Neut % (Auto) Lymph % (Auto) [place] % (Auto) Eos % (Auto) Baso % (Auto) Neut # (Auto) Lymph # (Auto) [place] # (Auto) Eos # (Auto) Baso # (Auto) Sodium Potassium Chloride Carbon Dioxide Anion Gap BUN Creatinine Estimated Creat Clear Estimated GFR Est GFR ( Amer) Glucose Calcium Magnesium Total Bilirubin AST ALT Alkaline Phosphatase Troponin I Total Protein Albumin Globulin Albumin/Globulin Ratio SARS-CoV-2 (PCR) Not detected Influenza Type A (PCR) Not detected Influenza Type B (PCR) Not detected RSV (PCR) Not detected Rhinovirus (PCR) Not detected Preliminary micro results at discharge 12/03/24 11:49 Blood Culture - Preliminary Blood NO GROWTH AFTER 24 HOURS 12/03/24 11:49 Blood Culture - Preliminary Blood NO GROWTH AFTER 24 HOURS DS: Diagnosis Discharge Diagnosis (1) Cardiac pacemaker in situ: Status: Chronic Code(s): Z95.0 - Presence of cardiac pacemaker (2) CKD (chronic kidney disease): Status: Chronic Code(s): N18.9 - Chronic kidney disease, unspecified Qualifiers: Chronic kidney disease stage: unspecified stage Qualified Code(s): N18.9 - Chronic kidney disease, unspecified (3) HTN (hypertension): Status: Acute Code(s): I10 - Essential (primary) hypertension Qualifiers: Hypertension type: essential hypertension Qualified Code(s): I10 - Essential (primary) hypertension (4) Chronic hyperkalemia: Status: Acute Code(s): E87.5 - Hyperkalemia (5) Altered mental status: Status: Acute Code(s): R41.82 - Altered mental status, unspecified Qualifiers: Altered mental status type: disorientation Qualified Code(s): R41.0 - Disorientation, unspecified (6) Nonsustained ventricular tachycardia: Status: Acute Code(s): I47.29 - Other ventricular tachycardia Meds Home Medications and Allergies Home Medications ?Medication ?Instructions ?Recorded ?Confirmed ?Type buprenorphine 8 mg-naloxone 2 mg 2 tab sublingual DAILY Substance 04/17/20 12/04/24 History sublingual tablet Use Disorder aspirin 81 mg tablet,delayed 81 mg PO DAILY 09/18/23 12/04/24 History release albuterol sulfate 90 mcg/actuation 2 puff inhalation Q4HP PRN 05/24/24 12/04/24 Rx aerosol inhaler Shortness Of Breath #8.5 grams cholecalciferol (vitamin D3) 50 50 mcg PO DAILY #90 caps 08/01/24 12/03/24 Rx mcg (2,000 unit) capsule ergocalciferol (vitamin D2) 1,250 1,250 mcg PO WEEKLY #14 caps 08/01/24 12/03/24 Rx mcg (50,000 unit) capsule ropinirole 1 mg tablet 1 mg PO HS rls #30 tabs 09/26/24 12/03/24 Rx atorvastatin 10 mg tablet 10 mg PO DAILY #90 tabs 10/23/24 12/04/24 Rx fluticasone 250 mcg-salmeterol 50 1 inh inhalation BID #60 ea 10/23/24 12/04/24 Rx mcg/dose blistr powdr for inhalation (Advair Diskus) gabapentin 800 mg tablet 800 mg PO TID Pain #90 tabs 10/23/24 12/03/24 Rx omeprazole 40 mg capsule,delayed 40 mg PO DAILY 90 days #90 caps 10/23/24 12/03/24 Rx release lidocaine 4 % topical patch 1 patch topical BID PRN pain #60 ea 10/30/24 12/04/24 Rx (Aspercreme (lidocaine)) hydroxyzine HCl 10 mg tablet 10 mg PO TID PRN anxiety #60 tabs 11/04/24 12/04/24 Rx desvenlafaxine succinate 50 mg 50 mg PO DAILY #30 tabs 11/18/24 12/03/24 Rx tablet,extended release 24 hr (Pristiq) lorazepam 1 mg tablet 1 mg PO DAILY PRN anxiety #30 tabs 12/02/24 12/04/24 Rx hydralazine 25 mg tablet 25 mg PO TID 30 days #90 tabs 12/04/24 Rx metoprolol succinate 25 mg 25 mg PO DAILY 30 days #30 tabs 12/04/24 Rx tablet,extended release 24 hr New Prescriptions to Start Prescriptions: Alejandro Borden metoprolol succinate Alejandro Avendano Allergies Allergy/AdvReac Type Severity Reaction Status Date / Time No Known Allergies Allergy Verified 12/02/24 15:29 Discharge Plan Disposition Patient Disposition: Home, Self-Care Condition: Good Discharge Order Discharge Orders: Discharge Order (Routine); Ordered 12/04/24 Ordered By: Alejandro Avendano Follow up Plan Follow up with: Lyla Arias APRN [Nurse Practitioner] - 12/10/24 9:00 am (Hypertension) Paulette Shi APRN [Nurse Practitioner] - 12/11/24 1:15 pm Prescriptions/Medication Reconciliation: New hydralazine 25 mg Tablet 25 mg PO TID 30 Days Qty: 90 0RF metoprolol succinate 25 mg Tablet Extended Release 24 Hr 25 mg PO DAILY 30 Days Qty: 30 0RF Continued buprenorphine-naloxone 8-2 mg tablet, sublingual 2 tab SL DAILY Rx Instructions: verified with [facility] hydroxyzine HCl 10 mg tablet 10 mg PO TID PRN (Reason: anxiety) Qty: 60 0RF atorvastatin 10 mg tablet 10 mg PO DAILY Qty: 90 3RF fluticasone propion-salmeterol [Advair Diskus] 250-50 mcg/dose blister with device 1 inh inhalation BID Qty: 60 2RF gabapentin 800 mg tablet 800 mg PO TID Qty: 90 2RF omeprazole 40 mg capsule,delayed release(DR/EC) 40 mg PO DAILY 90 Days Qty: 90 3RF Rx Instructions: swallow whole; do not crush, chew, dissolve, cut, break lorazepam 1 mg tablet 1 mg PO DAILY PRN (Reason: anxiety) Qty: 30 0RF aspirin 81 mg tablet,delayed release (DR/EC) 81 mg PO DAILY albuterol sulfate 90 mcg/actuation HFA aerosol inhaler 2 puff IH Q4HP PRN (Reason: Shortness Of Breath) Qty: 8.5 2RF cholecalciferol (vitamin D3) 50 mcg (2,000 unit) capsule 50 mcg PO DAILY Qty: 90 3RF ergocalciferol (vitamin D2) 1,250 mcg (50,000 unit) capsule 1,250 mcg PO WEEKLY Qty: 14 3RF ropinirole 1 mg tablet 1 mg PO HS Qty: 30 2RF Rx Instructions: administer 1-3 hours before bedtime desvenlafaxine succinate [Pristiq] 50 mg tablet extended release 24 hr 50 mg PO DAILY Qty: 30 2RF lidocaine [Aspercreme (lidocaine)] 4 % adhesive patch,medicated 1 patch topical BID PRN (Reason: pain) Qty: 60 4RF Rx Instructions: may leave on for up to 12 hrs Discontinued lisinopril 40 mg tablet 40 mg PO DAILY Problem Reconciliation Problems Reviewed?: Yes Patient Discharge Instructions Patient Instructions: Encephalopathy, DI for Drug Overdose in Adults Print Language: Frisian Providers Primary Care Provider: Provider,Referral Admit Provider: Sanchez Butler Attending Provider: Sanchez Butler
--- NOTE | 2024-12-04 14:17 | HMH.PHAINT1 ---
Pharmacy Intervention Comments: COUNSELED PATIENT AND FAMILY ON NEW MEDICATIONS AND DISCONTINUED MEDICATIONS PRIOR TO DISCHARGE. BOTH VERBALIZED UNDERSTANDING.
--- NOTE | 2024-12-06 10:39 | SW/DCPLANNER ---
Phoned patient x2. Patient's phone just rings with nothing to leave for a voicemail. Velvet ABERNATHY Director [employer]
--- NOTE | 2024-12-09 11:57 | SW/DCPLANNER ---
Phoned patient x2. Left messages with a call back number. Velvet Morrissey
== END 2024-12-04 15:42 | disposition home or self-care (01) | DRG 92 ==
LOC: ER 13:52 → 2ND 14:15
PROVIDERS: Admitting Provider Internal Medicine Adolescent Medicine; Emergency Provider Emergency Medicine; Visit Provider Internal Medicine Adolescent Medicine
DX: G92.9 Unspecified toxic encephalopathy (principal); I47.10 Supraventricular tachycardia, unspecified; I47.29 Other ventricular tachycardia; N18.4 Chronic kidney disease, stage 4 (severe); E11.40 Type 2 diabetes mellitus with diabetic neuropathy, unspecified; E66.9 Obesity, unspecified; G25.81 Restless legs syndrome; F11.21 Opioid dependence, in remission; E11.22 Type 2 diabetes mellitus with diabetic chronic kidney disease; R60.9 Edema, unspecified; I10 Essential (primary) hypertension; F17.210 Nicotine dependence, cigarettes, uncomplicated; Z79.01 Long term (current) use of anticoagulants; Z95.0 Presence of cardiac pacemaker; Z79.51 Long term (current) use of inhaled steroids; Z79.82 Long term (current) use of aspirin; Z68.35 Body mass index [BMI] 35.0-35.9, adult
CPT/HCPCS: 36415; 70450; 71250; 72125; 80053; 80307; 80320; 80329; 81001; 82803; 83036; 83605; 83690; 83735; 83880; 84484; 85025; 85610; 85730; 87040; 87631; 93005; 93306; 94640; 99291; G0378; G0480; J0456; J0696; J1650; J1939; J2310; J2919; J3475; J7050; J7620

== ENCOUNTER 2024-12-26 12:33 | Emergency (ER) | payer MEDICAID, SELFPAY ==
--- NOTE | 2024-12-26 12:34 | ECG_ITS ---
APPROVED REPORT Exam: Resting ECG HR:68 bpm ECG Measurements Heart Rate 68 AXES MD 190 P 64 QRSd 97 QRS 12 QT 408 T 30 QTc 426 Conclusion SINUS RHYTHM WITH OCCASIONAL SUPRAVENTRICULAR PREMATURE COMPLEXES BORDERLINE ECG UNCONFIRMED REPORT Electronically signed by : MAGGIE GONZALEZ, 12/27/2024 06:51:53
[2024-12-26 12:35] VITALS: BP 194/100; PULSE 66; RESP 19; TEMP 36.8; O2SAT 98; BMI 34.0
[2024-12-26 12:39] VITALS: BMI 31.0
--- NOTE | 2024-12-26 12:40 | XR_ITS ---
FINAL REPORT TECHNIQUE: Chest PA & Lateral CLINICAL HISTORY: chest pain COMPARISON: 05/13/2024 FINDINGS: 2 views of the chest were performed. Mild cardiomegaly is present. The mediastinum is within normal limits. Coarse interstitial opacities are again noted. The previous airspace opacities noted on the prior exam of 2023 are no longer seen. There are no pleural effusions. There is no pneumothorax. The bony thorax appears intact. IMPRESSION: Coarse interstitial opacities, without acute infiltrate. Reviewed, Interpreted and Dictated by Yovani Cano MD Transcribed by Lula Alicea Authenticated and . [facility]
--- NOTE | 2024-12-26 12:50 | ED_ITS ---
<Statement entered by Amrit Smith MD - 12/26/24 16:17> Independently examined this patient, he has anterior and posterior chest wall tenderness reproducible on palpation. Reports that the chest pain is not associated with exertion and does not resolve with rest. He is not having any active chest pain right now. I have low concern for ACS based on his clinical history, and reassuringly EKG and ACS workup are negative here. Strict precautions are discussed. I was consulted by the MAKEDA, and we discussed the complexity of problems being addressed. I approved the treatment and management plan for this patient's care in the emergency department, thus performing a substantial portion of the medical decision making. Amrit Smith MD Discharge Plan Disposition Patient Disposition: Home, Self-Care Condition: Good Chief Complaint: Chest Pain Prescriptions Prescriptions: No Action buprenorphine-naloxone 8-2 mg tablet, sublingual 2 tab SL DAILY Rx Instructions: verified with [facility] pharmacy [facility] hydroxyzine HCl 10 mg tablet 10 mg PO TID PRN (Reason: anxiety) Qty: 60 0RF atorvastatin 10 mg tablet 10 mg PO DAILY Qty: 90 3RF fluticasone propion-salmeterol [Advair Diskus] 250-50 mcg/dose blister with device 1 inh inhalation BID Qty: 60 2RF gabapentin 800 mg tablet 800 mg PO TID Qty: 90 2RF omeprazole 40 mg capsule,delayed release(DR/EC) 40 mg PO DAILY 90 Days Qty: 90 3RF Rx Instructions: swallow whole; do not crush, chew, dissolve, cut, break lorazepam 1 mg tablet 1 mg PO DAILY PRN (Reason: anxiety) Qty: 30 0RF aspirin 81 mg tablet,delayed release (DR/EC) 81 mg PO DAILY albuterol sulfate 90 mcg/actuation HFA aerosol inhaler 2 puff IH Q4HP PRN (Reason: Shortness Of Breath) Qty: 8.5 2RF cholecalciferol (vitamin D3) 50 mcg (2,000 unit) capsule 50 mcg PO DAILY Qty: 90 3RF ergocalciferol (vitamin D2) 1,250 mcg (50,000 unit) capsule 1,250 mcg PO WEEKLY Qty: 14 3RF desvenlafaxine succinate [Pristiq] 50 mg tablet extended release 24 hr 50 mg PO DAILY Qty: 30 2RF lidocaine [Aspercreme (lidocaine)] 4 % adhesive patch,medicated 1 patch topical BID PRN (Reason: pain) Qty: 60 4RF Rx Instructions: may leave on for up to 12 hrs ropinirole 1 mg tablet See Rx Instructions .ROUTE .COMPLEX Qty: 30 4RF Dose Instruction: TAKE 1 TABLET BY MOUTH 1 TO 3 HOURS BEFORE BEDTIME FOR RESTLESS LEGS Rx Instructions: TAKE 1 TABLET BY MOUTH 1 TO 3 HOURS BEFORE BEDTIME FOR RESTLESS LEGS hydralazine 25 mg Tablet 25 mg PO TID 30 Days Qty: 90 0RF metoprolol succinate 25 mg Tablet Extended Release 24 Hr 25 mg PO DAILY 30 Days Qty: 30 0RF Referrals Follow up/Referrals: Provider,Referral, [Primary Care Provider] - See instructions Activity Restrictions/Add. Instructions Additional Instructions/Restrictions: Follow-up next week with cardiology. Follow-up with your PCP for any continuing new or worsening signs or symptoms. Return to ER as needed. Clinical Impressions Clinical Impression: Chest pain Print Language Print Language: Macedonian Discharge ED Provider: Karolina Murdock HPI <REMI Peralta - Last Filed: 12/26/24 16:03> General Chief Complaint: Chest Pain Stated Complaint: CP Time Seen by Provider: 12/26/24 12:50 History of Present Illness HPI narrative: Patient presents for evaluation of 3 days of chest pain. Patient has a known cardiovascular history with CHF hypertension chronic kidney disease/polycystic kidney disease COPD and has a cardiac pacemaker. Patient reports that he had a cardiology routine follow-up today however he did not feel well enough to make the appointment so came to the ER instead. Patient states that he has had intermittent very frequent sharp chest pain. He states that it does not radiate and lasts about 10 minutes. He does not give any relieving or aggravating factors. He denies shortness of breath fever chills hemoptysis hematochezia melena nausea vomiting diarrhea. Related Data Home Medications ?Medication ?Instructions ?Recorded ?Confirmed buprenorphine 8 mg-naloxone 2 mg 2 tab sublingual DAILY Substance 04/17/20 12/26/24 sublingual tablet Use Disorder aspirin 81 mg tablet,delayed 81 mg PO DAILY 09/18/23 12/26/24 release Previous Rx's ?Medication ?Instructions ?Recorded albuterol sulfate 90 mcg/actuation 2 puff inhalation Q4HP PRN 05/24/24 aerosol inhaler Shortness Of Breath #8.5 grams cholecalciferol (vitamin D3) 50 50 mcg PO DAILY #90 caps 08/01/24 mcg (2,000 unit) capsule ergocalciferol (vitamin D2) 1,250 1,250 mcg PO WEEKLY #14 caps 08/01/24 mcg (50,000 unit) capsule atorvastatin 10 mg tablet 10 mg PO DAILY #90 tabs 10/23/24 fluticasone 250 mcg-salmeterol 50 1 inh inhalation BID #60 ea 10/23/24 mcg/dose blistr powdr for inhalation (Advair Diskus) gabapentin 800 mg tablet 800 mg PO TID Pain #90 tabs 10/23/24 omeprazole 40 mg capsule,delayed 40 mg PO DAILY 90 days #90 caps 10/23/24 release lidocaine 4 % topical patch 1 patch topical BID PRN pain #60 ea 10/30/24 (Aspercreme (lidocaine)) hydroxyzine HCl 10 mg tablet 10 mg PO TID PRN anxiety #60 tabs 11/04/24 desvenlafaxine succinate 50 mg 50 mg PO DAILY #30 tabs 11/18/24 tablet,extended release 24 hr (Pristiq) lorazepam 1 mg tablet 1 mg PO DAILY PRN anxiety #30 tabs 12/02/24 hydralazine 25 mg tablet 25 mg PO TID 30 days #90 tabs 12/04/24 metoprolol succinate 25 mg 25 mg PO DAILY 30 days #30 tabs 12/04/24 tablet,extended release 24 hr ropinirole 1 mg tablet See Rx Instructions .Route 12/23/24 .COMPLEX #30 tabs Allergies Allergy/AdvReac Type Severity Reaction Status Date / Time No Known Allergies Allergy Verified 12/02/24 15:29 [facility] <REMI Peralta - Last Filed: 12/26/24 16:03> [facility] Disclaimer: The information contained in this section may have been updated after the patient was seen, as this information can be updated by other users. Medical History (Updated 12/26/24 @ 16:03 by REMI Peralta) Neuropathy Obesity Tobacco dependence syndrome URI (upper respiratory infection) Cough Recurrent pneumonia Sinusitis History of pacemaker Polycystic kidney disease Dyspnea Headache Anxiety Gastro-esophageal reflux disease without esophagitis Malignant hypertension Acute bacterial bronchitis Acute upper respiratory infection Bronchitis Edema Laceration of left index finger RLS (restless legs syndrome) Obesity Tobacco abuse Hand fracture, right COPD (chronic obstructive pulmonary disease) Pacemaker Gastroesophageal reflux disease CKD (chronic kidney disease) Bradycardia with 31-40 beats per minute Acute hyperkalemia Patient left without being seen UTI (urinary tract infection) Respiratory failure, acute Acute hyperkalemia ADI (acute kidney injury) Otitis media Obesity Somnolence, daytime, controlled Snoring Pulmonary nodules HTN (hypertension) Edema Chest pain Palpitations URI (upper respiratory infection) Medication refill Hypertensive urgency Bronchitis Elbow contusion Contusion of right hand Surgical History No history of previous surgery Family History Other Heart attack Hypertension Social History Smoking Status: Current every day smoker tobacco type: cigarettes packs per day: 1 years smoked: 30 second hand exposure: No alcohol intake: never substance use type: former substance user and painkillers current occupational status: employed and other Travel in the last 8 weeks: None household members: significant other housing: house lives independently: No caffeine: Yes special crystal needs: No agree to transfusion: No Have you lived/traveled outside [place] in past 30 days?: No Contact w/someone who lives/traveled outside [place] past 30 days?: No Exposure to someone with infectious disease in past 14 days?: No Do you have a fever (greater than 100.4 F or 38 C)?: No Have you tested positive for COVID-19: No Exposed to someone with COVID-19 in past 14 days?: No Do you have a sore throat?: No Do you have a cough?: No Do you have any weakness?: No Do you have any diarrhea?: No Are you experiencing any unusual bleeding?: No Do you have any muscle aches/pain?: No Do you have any abdominal pain?: No Are you experiencing loss of taste or smell?: No Other Medical History Have you received the Flu Vaccine for this season: No Have you received the Pneumonia Vaccine: No <REMI Peralta - Last Filed: 12/26/24 16:03> ROS Obtained: Yes Systems reviewed as appropriate & no additional complaints except as documented Physical Exam <REMI Peralta - Last Filed: 12/26/24 16:03> General General appearance: alert and in no apparent distress Respiratory Respiratory exam: Present normal lung sounds bilaterally Cardiovascular Cardiovascular exam: Present regular rate Neurological Exam Neurological exam: Present alert and oriented X3 HEART Score <REMI Peralta - Last Filed: 12/26/24 16:03> HEART Score HEART Score assessment performed?: Yes History (anamnesis): Slightly suspicious ECG: Non-specific disturbance Age: 45-65 years Risk factors: Atherosclerosis history Troponin: </= normal limit HEART Score: 4 <Amrit Smith MD - Last Filed: 12/26/24 15:50> HEART Score HEART Score: 4 Critical Care <REMI Peralta - Last Filed: 12/26/24 16:03> Critical Care Time Critical Care Time: No Medical Decision Making <REMI Peralta - Last Filed: 12/26/24 16:03> Medical Records Medical records reviewed: Yes I reviewed the patient's medical records. Tobin Inquiry Pt receiving controlled substance: No Vital Signs Vital Signs: 12/26/24 12:35 12/26/24 13:02 Temperature 98.3 F Temperature Source Oral Pulse Rate 66 Pulse Rate [Left Radial] 66 Respiratory Rate 19 Blood Pressure [Right Arm] 194/100 H Blood Pressure Mean [Right Arm] 131 02 Sat by Pulse Oximetry 98 Oxygen Delivery Method Room Air Lab Data Lab results reviewed: Yes I reviewed the patient's lab results. Labs: Lab Results 12/26/24 12:40: WBC 9.9, RBC 3.81 L, Hgb 11.4 L, Hct 35.9 L, MCV 94.2 H, MCH 29.9, MCHC 31.8, RDW 15.1, Plt Count 257, MPV 9.8, Neut % (Auto) 59.3, Lymph % (Auto) 26.9, [place] % (Auto) 8.4, Eos % (Auto) 4.8, Baso % (Auto) 0.4, Neut # (Auto) 5.9, Lymph # (Auto) 2.7, [place] # (Auto) 0.8, Eos # (Auto) 0.5 H, Baso # (Auto) 0.0, D-Dimer 0.55 H, Sodium 140, Potassium 4.4, Chloride 107, Carbon Dioxide 24, Anion Gap 13.4, BUN 36 H, Creatinine 2.50 H, Estimated Creat Clear 49, Estimated GFR 28 L, Est GFR ( Amer) 34 L, Glucose 94, Calcium 9.2, Magnesium 1.9, Total Bilirubin 0.4, AST 33, ALT 17, Alkaline Phosphatase 111, Troponin I 0.02, NT-Pro-B Natriuret Pep 1450 H, Total Protein 7.0, Albumin 4.1, Globulin 2.9, Albumin/Globulin Ratio 1.4, Lipase 54 12/26/24 13:02: SARS-CoV-2 (PCR) Not detected, Influenza A Untype (PCR) Not detected, Influenza Type B (PCR) Not detected 12/26/24 15:27: Troponin I 0.02 12/26/24 12:40 12/26/24 12:40 Response Orders (Tests/Meds): ED MEDICATIONS Generic Name Dose Route Start Last Admin Trade Name Freq PRN Reason Stop Dose Admin Nitroglycerin 0.4 mg 12/26/24 12:39 Nitroglycerin 0.4mg Sl Tablet SL 12/27/24 12:40 [id number] PRN Chest Pain Discontinued Medications Generic Name Dose Route Start Last Admin Trade Name Freq PRN Reason Stop Dose Admin Aspirin 324 mg 12/26/24 12:39 12/26/24 13:08 Aspirin 81mg Chewable Tablet PO 12/26/24 12:40 324 mg ONCE ONE Administration ORDERS Category Date Time Status XR chest 2V Stat Exams 12/26/24 12:40 Completed BNP [NT Pro Brain Natriuretic Pep.] Stat Lab 12/26/24 12:40 Completed Complete Blood Count Auto Diff Stat Lab 12/26/24 12:40 Completed Comprehensive Metabolic Panel Stat Lab 12/26/24 12:40 Completed D-Dimer Stat Lab 12/26/24 12:40 Completed Lipase Stat Lab 12/26/24 12:40 Completed Magnesium Stat Lab 12/26/24 12:40 Completed Rapid PCR Covid and Flu A/B Stat Lab 12/26/24 13:02 Completed Troponin I Q3H Lab 12/26/24 15:27 Completed Troponin I Q3H Lab 12/26/24 18:45 Ordered Troponin I Stat Lab 12/26/24 12:40 Completed UA [Urinalysis and Microscopic] Stat Lab 12/26/24 12:54 Ordered MDM Narrative Medical Decision Narrative: In summary patient is a 49-year-old male who presents to the emergency department for evaluation of pain. Patient is initially hypertensive at 194/100 with a pulse of 66 and normal sinus rhythm on the bedside monitor breathing 19 times a minute satting at 98% on room air upon arrival, afebrile. Zickel exam is unremarkable and nonfocal including clear breath sounds no reproducible chest pain on palpation patient currently has no chest pain it dissipated prior to his arrival in the ER, heart sounds are S1-S2 without murmurs gallops rubs or thrills patient has no dependent edema. Patient has no abdominal tenderness bowel sounds normal.. Differential diagnosis includes ACS versus PE versus viral or bacterial pneumonia versus musculoskeletal etiology etc. Initial workup will be conducted with hematologic labs twelve-lead EKG plain film chest x-ray respiratory swabs. Initial interventions include supplemental O2 continuous pulse oximetry continuous cardiac monitoring. Initial workup reviewed by me shows that his hemoglobin is 9.9 hemoglobin of 11.4 hematocrit 35.9 platelets 257, D-dimer 0.55 and via years criteria PE is excluded, patient's creatinine is stable at 2.5 with a GFR of 28 his initial troponin is negative at 0.02 NT proBNP is elevated at 1450 and his COVID and flu are negative. Given this the patient was placed in observation status at 1330. Medical necessity for observational status is serial troponins. The patient was provided serial reevaluations continuous cardiac monitoring and pulse oximetry while awaiting results. Patient's second troponin was negative at 1600 hrs. Given this we have essentially ruled out any serious or life-threatening cause and while there remains diagnostic uncertainty of the exact cause patient is appropriate for discharge with close follow-up with cardiology as already scheduled.. Total time in observation was 2 and half hours. <Amrit Smith MD - Last Filed: 12/26/24 15:50> Vital Signs Vital Signs: 12/26/24 12:35 12/26/24 13:02 Temperature 98.3 F Temperature Source Oral Pulse Rate 66 Pulse Rate [Left Radial] 66 Respiratory Rate 19 Blood Pressure [Right Arm] 194/100 H Blood Pressure Mean [Right Arm] 131 02 Sat by Pulse Oximetry 98 Oxygen Delivery Method Room Air Lab Data Labs: Lab Results 12/26/24 12:40: WBC 9.9, RBC 3.81 L, Hgb 11.4 L, Hct 35.9 L, MCV 94.2 H, MCH 29.9, MCHC 31.8, RDW 15.1, Plt Count 257, MPV 9.8, Neut % (Auto) 59.3, Lymph % (Auto) 26.9, [place] % (Auto) 8.4, Eos % (Auto) 4.8, Baso % (Auto) 0.4, Neut # (Auto) 5.9, Lymph # (Auto) 2.7, [place] # (Auto) 0.8, Eos # (Auto) 0.5 H, Baso # (Auto) 0.0, D-Dimer 0.55 H, Sodium 140, Potassium 4.4, Chloride 107, Carbon Dioxide 24, Anion Gap 13.4, BUN 36 H, Creatinine 2.50 H, Estimated Creat Clear 49, Estimated GFR 28 L, Est GFR ( Amer) 34 L, Glucose 94, Calcium 9.2, Magnesium 1.9, Total Bilirubin 0.4, AST 33, ALT 17, Alkaline Phosphatase 111, Troponin I 0.02, NT-Pro-B Natriuret Pep 1450 H, Total Protein 7.0, Albumin 4.1, Globulin 2.9, Albumin/Globulin Ratio 1.4, Lipase 54 12/26/24 13:02: SARS-CoV-2 (PCR) Not detected, Influenza A Untype (PCR) Not detected, Influenza Type B (PCR) Not detected 12/26/24 15:27: Troponin I 0.02 Response Orders (Tests/Meds): ED MEDICATIONS Generic Name Dose Route Start Last Admin Trade Name Freq PRN Reason Stop Dose Admin Nitroglycerin 0.4 mg 12/26/24 12:39 Nitroglycerin 0.4mg Sl Tablet SL 12/27/24 12:40 Q5MINP PRN Chest Pain Discontinued Medications Generic Name Dose Route Start Last Admin Trade Name Freq PRN Reason Stop Dose Admin Aspirin 324 mg 12/26/24 12:39 12/26/24 13:08 Aspirin 81mg Chewable Tablet PO 12/26/24 12:40 324 mg ONCE ONE Administration ORDERS Category Date Time Status XR chest 2V Stat Exams 12/26/24 12:40 Completed BNP [NT Pro Brain Natriuretic Pep.] Stat Lab 12/26/24 12:40 Completed Complete Blood Count Auto Diff Stat Lab 12/26/24 12:40 Completed Comprehensive Metabolic Panel Stat Lab 12/26/24 12:40 Completed D-Dimer Stat Lab 12/26/24 12:40 Completed Lipase Stat Lab 12/26/24 12:40 Completed Magnesium Stat Lab 12/26/24 12:40 Completed Rapid PCR Covid and Flu A/B Stat Lab 12/26/24 13:02 Completed Troponin I Q3H Lab 12/26/24 15:27 Completed Troponin I Q3H Lab 12/26/24 18:45 Ordered Troponin I Stat Lab 12/26/24 12:40 Completed UA [Urinalysis and Microscopic] Stat Lab 12/26/24 12:54 Ordered ECG Data Tracing #1: Attestation: I reviewed this ECG and interpreted as documented below: ECG Narrative: Independently interpreted by myself demonstrate normal sinus rhythm with no acute ischemic ST changes.
[2024-12-26 12:56] LABS: Basophils % 0.4 % (0.1-2.0); Eosinophils # 0.5 K/mm3 (0.0-0.4); Eosinophils % 4.8 % (0.1-12.0); Hematocrit 35.9 % (42.0-52.0); Hemoglobin 11.4 g/dL (14.1-18.0); Lymphocytes # 2.7 K/mm3 (0.7-4.5); Lymphocytes % 26.9 % (10-50); Mean Corpuscular HGB Conc 31.8 g/dL (31.8-35.4); Mean Corpuscular Hemoglobin 29.9 pg (27.0-31.2); Mean Corpuscular Volume 94.2 fl (80-94); Mean Platelet Volume 9.8 fl (7.4-10.4); Monocytes # 0.8 K/mm3 (0.1-1.0); Monocytes % 8.4 % (1.7-9.3); Neutrophils # 5.9 K/mm3 (1.8-7.8); Neutrophils % 59.3 % (37.0-80.0); Platelet Count 257 K/mm3 (142-424); Red Blood Count 3.81 M/mm3 (4.60-6.20); Red Cell Distribution Width 15.1 % (11.5-17.5); White Blood Count 9.9 K/mm3 (4.8-10.8)
[2024-12-26 12:58] LABS: Chloride 107 mmol/L (98-107)
[2024-12-26 12:59] LABS: Albumin Level 4.1 g/dl (3.5-5.0); Potassium 4.4 mmoL/L (3.5-5.1); Sodium 140 mmol/L (136-145)
[2024-12-26 13:01] LABS: Blood Urea Nitrogen 36 mg/dl (9-20); Creatinine Clearance Estimated 49 mL/min (50-200); Estimated Glomerular Filt Rate 28 ml/min (>60); GFR (African American) 34 ML/MIN (>60)
[2024-12-26 13:02] VITALS: PULSE 66
[2024-12-26 13:02] LABS: Alanine Aminotransferase 17 U/L (12-78); Albumin/Globulin Ratio 1.4 (1.1-1.8); Alkaline Phosphatase 111 U/L (38-126); Anion Gap 13.4 mEq/L (5-15); Aspartate Amino Transferase 33 U/L (17-59); Bilirubin,Total 0.4 mg/dl (0.2-1.3); Calcium 9.2 mg/dl (8.4-10.2); Carbon Dioxide 24 mmol/L (22.0-30.0); Globulin 2.9 g/dL (1.3-3.2); Glucose 94 mg/dl (74-100)
--- NOTE | 2024-12-26 13:02 | PC.NURSE ---
COVID/FLU SWAB SENT TO LAB
[2024-12-26] MEDS: ASPIRIN 81MG CHEWABLE TABLET 324 MG PO (13:08)
[2024-12-26 13:09] LABS: Coronavirus 19, PCR Not Detected (NotDetected); Influenza A, PCR Not Detected (NotDetected); Influenza B, PCR Not Detected (NotDetected)
[2024-12-26 13:09] LABS: D-Dimer 0.55 ug/mL (0.0-0.5)
[2024-12-26 13:10] LABS: Lipase 54 U/L (23-300); Magnesium 1.9 mg/dl (1.6-2.3)
[2024-12-26 13:14] LABS: Troponin I 0.02 ng/ml (0.00-0.034)
[2024-12-26 13:20] LABS: NT Pro Brain Natriuretic Pep. 1450 pg/mL (0-125)
--- NOTE | 2024-12-26 15:28 | PC.NURSE ---
CALLED LAB TO LET THEM KNOW SECOND TROP WAS SENT THERE WAY
[2024-12-26 15:58] LABS: Troponin I 0.02 ng/ml (0.00-0.034)
[2024-12-26 16:10] VITALS: BP 173/113; PULSE 60; RESP 16; TEMP 36.7; O2SAT 99
== END 2024-12-26 16:13 | disposition home or self-care (01) ==
PROVIDERS: Emergency Medicine; Physician Assistant; Emergency Provider Emergency Medicine
DX: R07.9 Chest pain, unspecified (principal); I50.9 Heart failure, unspecified; Q61.3 Polycystic kidney, unspecified; E13.22 Other specified diabetes mellitus with diabetic chronic kidney disease; J44.9 Chronic obstructive pulmonary disease, unspecified; F17.210 Nicotine dependence, cigarettes, uncomplicated; Z95.0 Presence of cardiac pacemaker
CPT/HCPCS: 71046; 80053; 83690; 83735; 83880; 84484; 85025; 85378; 87636; 93005; 99284

== ENCOUNTER 2025-01-21 12:34 | Inpatient (IN) | payer MEDICAID, SELFPAY ==
[2025-01-21] VITALS (15 sets, daily range): BP systolic 131–156; BP diastolic 70–92; PULSE 73–120; RESP 18–28; TEMP 36.8–37.4; O2SAT 80–98; BMI 33.4; BMI 35.2
--- NOTE | 2025-01-21 12:48 | ECG_ITS ---
APPROVED REPORT Exam: Resting ECG HR:70 bpm ECG Measurements Heart Rate 70 AXES VA 164 P 52 QRSd 95 QRS 25 QT 411 T 45 QTc 431 Conclusion Sinus rhythm Electronically signed by : JOSE HESS, 01/25/2025 00:00:42
--- NOTE | 2025-01-21 13:01 | XR_ITS ---
FINAL REPORT CLINICAL HISTORY: SOA COMPARISON: 12/26/2024 FINDINGS: CHEST 2 VIEWS PA AND LATERAL The heart is normal in size. The mediastinum is unremarkable. There is multifocal airspace opacity, right much greater than left suspicious for pneumonia. There is no pneumothorax. IMPRESSION: Interval development of extensive airspace disease, presumably pneumonia. Reviewed, Interpreted and Dictated by Montse De Leon MD Transcribed by Jessica Storm Authenticated and [facility]
[2025-01-21 13:10] LABS: Lactate Venous 1.1 mmol/L (0.4-2.0); VBG Base Excess -7.1 mmol/L (-2.4-2.3); VBG HCO3 17.8 mmol/L (23-30); VBG Oxygen Saturation 95.4 % (50-70); VBG PCO2 29.9 mmol/L (35-51); VBG PH 7.39 mmol/L (7.31-7.41); VBG PO2 74.2 mmol/L (28-40); VBG Total CO2 18.7 mmol/L (23-27)
[2025-01-21 13:11] LABS: Coronavirus 19, PCR Not Detected (NotDetected); Influenza A, PCR Not Detected (NotDetected); Influenza B, PCR Not Detected (NotDetected)
[2025-01-21 13:16] LABS: Albumin Level 3.9 g/dl (3.5-5.0); Chloride 106 mmol/L (98-107); Potassium 5.4 mmoL/L (3.5-5.1); Sodium 133 mmol/L (136-145)
[2025-01-21 13:19] LABS: Alanine Aminotransferase 16 U/L (12-78); Albumin/Globulin Ratio 1.4 (1.1-1.8); Alkaline Phosphatase 131 U/L (38-126); Anion Gap 12.4 mEq/L (5-15); Aspartate Amino Transferase 46 U/L (17-59); Bilirubin,Total 0.5 mg/dl (0.2-1.3); Blood Urea Nitrogen 37 mg/dl (9-20); Calcium 8.9 mg/dl (8.4-10.2); Carbon Dioxide 20 mmol/L (22.0-30.0); Creatinine Clearance Estimated 38 mL/min (50-200); Estimated Glomerular Filt Rate 19 ml/min (>60); GFR (African American) 24 ML/MIN (>60); Globulin 2.7 g/dL (1.3-3.2); Glucose 112 mg/dl (74-100); Total Protein,Serum 6.6 g/dl (6.3-8.2)
[2025-01-21] MEDS: IPRATROPIUM/ALBUTEROL 3 ML NEB 9 ML IH (13:29)
[2025-01-21 13:31] LABS: Troponin I 0.02 ng/ml (0.00-0.034)
[2025-01-21] MEDS: CEFTRIAXONE SODIUM 2 GM in 0.9 % SODIUM CHLORIDE 100 ML IV (13:42)
[2025-01-21] MEDS: AZITHROMYCIN 500 MG in 0.9 % SODIUM CHLORIDE 250 ML 250 MG IV (13:42)
--- NOTE | 2025-01-21 13:44 | ED_ITS ---
Discharge Plan Disposition Patient Disposition: Admitted Chief Complaint: Upper Respiratory Infection Prescriptions Prescriptions: No Action buprenorphine-naloxone 8-2 mg tablet, sublingual 2 tab SL DAILY Rx Instructions: verified with [facility] hydroxyzine HCl 10 mg tablet 10 mg PO TID PRN (Reason: anxiety) Qty: 60 0RF atorvastatin 10 mg tablet 10 mg PO DAILY Qty: 90 3RF fluticasone propion-salmeterol [Advair Diskus] 250-50 mcg/dose blister with device 1 inh inhalation BID Qty: 60 2RF omeprazole 40 mg capsule,delayed release(DR/EC) 40 mg PO DAILY 90 Days Qty: 90 3RF Rx Instructions: swallow whole; do not crush, chew, dissolve, cut, break gabapentin 800 mg tablet 800 mg PO TID Qty: 90 2RF lisinopril 40 mg tablet 40 mg PO DAILY Qty: 90 3RF metoprolol succinate 25 mg tablet extended release 24 hr 25 mg PO DAILY 30 Days Qty: 90 3RF hydralazine 25 mg tablet 25 mg PO TID 30 Days Qty: 90 3RF desvenlafaxine succinate [Pristiq] 100 mg tablet extended release 24 hr 100 mg PO DAILY Qty: 30 2RF lorazepam 1 mg tablet 1 mg PO DAILY PRN (Reason: anxiety) Qty: 30 0RF aspirin 81 mg tablet,delayed release (DR/EC) 81 mg PO DAILY albuterol sulfate 90 mcg/actuation HFA aerosol inhaler 2 puff IH Q4HP PRN (Reason: Shortness Of Breath) Qty: 8.5 2RF cholecalciferol (vitamin D3) 50 mcg (2,000 unit) capsule 50 mcg PO DAILY Qty: 90 3RF ergocalciferol (vitamin D2) 1,250 mcg (50,000 unit) capsule 1,250 mcg PO WEEKLY Qty: 14 3RF desvenlafaxine succinate [Pristiq] 50 mg tablet extended release 24 hr 50 mg PO DAILY Qty: 30 2RF lidocaine [Aspercreme (lidocaine)] 4 % adhesive patch,medicated 1 patch topical BID PRN (Reason: pain) Qty: 60 4RF Rx Instructions: may leave on for up to 12 hrs ropinirole 1 mg tablet See Rx Instructions .ROUTE .COMPLEX Qty: 30 4RF Dose Instruction: TAKE 1 TABLET BY MOUTH 1 TO 3 HOURS BEFORE BEDTIME FOR RESTLESS LEGS Rx Instructions: TAKE 1 TABLET BY MOUTH 1 TO 3 HOURS BEFORE BEDTIME FOR RESTLESS LEGS Referrals Follow up/Referrals: Latrell Graham MD [Primary Care Provider] - See instructions Clinical Impressions Clinical Impression: Acute hypoxemic respiratory failure, Multifocal pneumonia, Acute hyponatremia, Acute hyperkalemia, Elevated brain natriuretic peptide (BNP) level Print Language Print Language: Malian Discharge ED Provider: Simon Chino General Adult HPI General Chief complaint: Upper Respiratory Infection Stated complaint: SOA cough headache dizziness Time Seen by Provider: 01/21/25 12:40 Mode of Arrival: Wheelchair Source of Information: Patient Description of Symptoms (Recalled from ER Triage Doc. by RN): PT EXPOSED TO THE FLU. TEMP,SOA,COUGH History of Present Illness HPI narrative: Please note that above description of symptoms, in this electronic medical record under categorization of recalled from ER triage doctor by RN are reflective of an initial nursing assessment, however, is not reflective of my full history and physical exam that was personally taken and clarified. Consequentially, this preceding description of symptoms, which may include the patient's categorized chief complaint in the EMR, do not reflect my personal clinical impression, and the ultimate description of history of present illness and patient stated complaints should be deferred to this section of the note. Unless stated otherwise or congruent with this section of the note, additional signs, symptoms, or incongruence should be interpreted as inaccurate with my clinical impression. Related Data Home Medications ?Medication ?Instructions ?Recorded ?Confirmed buprenorphine 8 mg-naloxone 2 mg 2 tab sublingual DAILY Substance 04/17/20 01/17/25 sublingual tablet Use Disorder aspirin 81 mg tablet,delayed 81 mg PO DAILY 09/18/23 01/17/25 release Previous Rx's ?Medication ?Instructions ?Recorded albuterol sulfate 90 mcg/actuation 2 puff inhalation Q4HP PRN 05/24/24 aerosol inhaler Shortness Of Breath #8.5 grams cholecalciferol (vitamin D3) 50 50 mcg PO DAILY #90 caps 08/01/24 mcg (2,000 unit) capsule ergocalciferol (vitamin D2) 1,250 1,250 mcg PO WEEKLY #14 caps 08/01/24 mcg (50,000 unit) capsule atorvastatin 10 mg tablet 10 mg PO DAILY #90 tabs 10/23/24 fluticasone 250 mcg-salmeterol 50 1 inh inhalation BID #60 ea 10/23/24 mcg/dose blistr powdr for inhalation (Advair Diskus) omeprazole 40 mg capsule,delayed 40 mg PO DAILY 90 days #90 caps 10/23/24 release lidocaine 4 % topical patch 1 patch topical BID PRN pain #60 ea 10/30/24 (Aspercreme (lidocaine)) hydroxyzine HCl 10 mg tablet 10 mg PO TID PRN anxiety #60 tabs 11/04/24 desvenlafaxine succinate 50 mg 50 mg PO DAILY #30 tabs 11/18/24 tablet,extended release 24 hr (Pristiq) ropinirole 1 mg tablet See Rx Instructions .Route 12/23/24 .COMPLEX #30 tabs desvenlafaxine succinate 100 mg 100 mg PO DAILY #30 tabs 12/30/24 tablet,extended release 24 hr (Pristiq) lorazepam 1 mg tablet 1 mg PO DAILY PRN anxiety #30 tabs 12/31/24 gabapentin 800 mg tablet 800 mg PO TID Pain #90 tabs 01/17/25 hydralazine 25 mg tablet 25 mg PO TID 30 days #90 tabs 01/17/25 lisinopril 40 mg tablet 40 mg PO DAILY #90 tabs 01/17/25 metoprolol succinate 25 mg 25 mg PO DAILY 30 days #90 tabs 01/17/25 tablet,extended release 24 hr Allergies Allergy/AdvReac Type Severity Reaction Status Date / Time No Known Allergies Allergy Verified 01/17/25 14:29 [facility] Disclaimer: The information contained in this section may have been updated after the patient was seen, as this information can be updated by other users. Medical History (Updated 01/21/25 @ 15:11 by Simon Chino MD) ADI (acute kidney injury) Altered mental status Atypical pneumonia CHF exacerbation Overdose Acute metabolic encephalopathy Left elbow pain Obesity Neuropathy Obesity Tobacco dependence syndrome URI (upper respiratory infection) Cough Recurrent pneumonia Sinusitis History of pacemaker Polycystic kidney disease Dyspnea Headache Anxiety Gastro-esophageal reflux disease without esophagitis Malignant hypertension Acute bacterial bronchitis Acute upper respiratory infection Bronchitis Edema Laceration of left index finger RLS (restless legs syndrome) Obesity Tobacco abuse Hand fracture, right COPD (chronic obstructive pulmonary disease) Pacemaker Gastroesophageal reflux disease CKD (chronic kidney disease) Bradycardia with 31-40 beats per minute Acute hyperkalemia Patient left without being seen UTI (urinary tract infection) Respiratory failure, acute Acute hyperkalemia Otitis media Obesity Somnolence, daytime, controlled Snoring Pulmonary nodules HTN (hypertension) Edema Chest pain Palpitations URI (upper respiratory infection) Medication refill Hypertensive urgency Bronchitis Elbow contusion Contusion of right hand Surgical History No history of previous surgery Family History Other Heart attack Hypertension Social History Smoking Status: Current every day smoker tobacco type: cigarettes packs per day: 1 years smoked: 30 second hand exposure: No alcohol intake: never substance use type: former substance user and painkillers current occupational status: employed and other Travel in the last 8 weeks: None household members: significant other housing: house lives independently: No caffeine: Yes special crystal needs: No agree to transfusion: No Have you lived/traveled outside [place] in past 30 days?: No Contact w/someone who lives/traveled outside [place] past 30 days?: No Exposure to someone with infectious disease in past 14 days?: No Do you have a fever (greater than 100.4 F or 38 C)?: No Have you tested positive for COVID-19: No Exposed to someone with COVID-19 in past 14 days?: No Do you have a sore throat?: No Do you have a cough?: Yes Do you have any weakness?: No Do you have any diarrhea?: No Are you experiencing any unusual bleeding?: No Do you have any muscle aches/pain?: No Do you have any abdominal pain?: No Are you experiencing loss of taste or smell?: No Other Medical History Have you received the Flu Vaccine for this season: No Have you received the Pneumonia Vaccine: No ROS Obtained: Yes All systems reviewed & no additional complaints except as documented Physical Exam General General appearance: alert Head Head exam: atraumatic and normocephalic Eye Eye exam: Present normal appearance, PERRL and EOMI Neck Neck exam: Present normal inspection, full ROM and trachea midline Respiratory Respiratory exam: Present wheezes; Absent respiratory distress, stridor, accessory muscle use or prolonged expiratory phase Cardiovascular Cardiovascular exam: Present other (Pulses equal symmetric in upper and lower extremities) Abdominal Exam Abdominal exam: Present soft; Absent distention, tenderness, guarding, rebound, rigidity or pulsatile mass Extremities Exam Extremities exam: Absent edema Neurological Exam Neurological exam: Present alert, oriented X3 and CN II-XII intact; Absent motor sensory deficit Skin Skin exam: Present warm and dry; Absent diaphoresis or erythema Medical Decision Making Medical Records Medical records reviewed: Yes I reviewed the patient's medical records. Screening: Per USPSTF and CDC recommendations, given the prevalence of disease in our region, it is our hospital?s policy to screen for HIV and viral Hepatitis for all patients aged 18 and over and those with ongoing risk factors. Tobin Inquiry Pt receiving controlled substance: No Tobin was queried for this patient: No Vital Signs: 01/21/25 12:36 01/21/25 13:31 01/21/25 14:01 Temperature 99.4 F Temperature Source Oral Pulse Rate 82 98 H Pulse Rate [Right] 77 Respiratory Rate 26 H Blood Pressure 131/70 131/74 Blood Pressure [Right Arm] 145/80 H Blood Pressure Mean 91 93 Blood Pressure Mean [Right Arm] 101 02 Sat by Pulse Oximetry 80 L 96 93 L Oxygen Delivery Method Room Air Nasal Cannula Oxygen Flow Rate (LPM) 2 2 01/21/25 14:31 Temperature Temperature Source Pulse Rate 104 H Pulse Rate [Right] Respiratory Rate Blood Pressure 133/72 Blood Pressure [Right Arm] Blood Pressure Mean 97 Blood Pressure Mean [Right Arm] 02 Sat by Pulse Oximetry 89 L Oxygen Delivery Method Nasal Cannula Oxygen Flow Rate (LPM) 2 Lab Data Lab Results 01/21/25 12:50: SARS-CoV-2 (PCR) Not detected, Influenza A Untype (PCR) Not detected, Influenza Type B (PCR) Not detected 01/21/25 13:00: WBC 21.3 H*, RBC 3.35 L, Hgb 9.8 L, Hct 30.9 L, MCV 92.2, MCH 29.3, MCHC 31.7 L, RDW 14.9, Plt Count 228, MPV 10.5 H, Neut % (Auto) 88.9 H, L ymph % (Auto) 5.2 L, [place] % (Auto) 4.4, Eos % (Auto) 0.4, Baso % (Auto) 0.3, N eut # (Auto) 18.9 H, Lymph # (Auto) 1.1, [place] # (Auto) 0.9, Eos # (Auto) 0.1, Baso # (Auto) 0.1, Total Counted 100, Neutrophils % (Manual) 86 H, Lymphocytes % (Manual) 11, Monocytes % (Manual) 3, Platelet Estimate Normal, RBC Morphology Normal, Sodium 133 L, Potassium 5.4 H, Chloride 106, Carbon Dioxide 20 L, Anion Gap 12.4, BUN 37 H, Creatinine 3.40 H, Estimated Creat Clear 38, Estimated GFR 19 L*, Est GFR ( Amer) 24 L, Glucose 112 H, Calcium 8.9, Total Bilirubin 0.5, AST 46, ALT 16, Alkaline Phosphatase 131 H, Troponin I 0.02, NT-Pro-B Natriuret Pep 3120 H, Total Protein 6.6, Albumin 3.9, Globulin 2.7, Albumin/Globulin Ratio 1.4 01/21/25 13:03: VBG pH 7.39, VBG pCO2 29.9 L, VBG pO2 74.2 H, VBG HCO3 17.8 L, V BG Total CO2 18.7 L, VBG O2 Saturation 95.4 H, VBG Base Excess -7.1 L, VBG Lactic Acid 1.1 01/21/25 13:00 01/21/25 13:00 Orders (Tests/Meds): ED MEDICATIONS Generic Name Dose Route Start Last Admin Trade Name Freq PRN Reason Stop Dose Admin Acetaminophen 650 mg 01/21/25 15:01 Acetaminophen 325mg Tab PO 02/20/25 15:00 Q4HP PRN Fever or Mild Pain (1-3) Albuterol/Ipratropium 3 ml 01/21/25 18:00 Ipratropium/Albuterol 3 Ml Neb IH 02/20/25 17:59 Q6RT JANUSZ Sodium Chloride 1,000 mls @ 999 mls/hr 01/21/25 14:57 Sod Chlor 0.9% 1000ml Bag IV 01/21/25 15:57 .Q1H1M ONE Discontinued Medications Generic Name Dose Route Start Last Admin Trade Name Freq PRN Reason Stop Dose Admin Albuterol/Ipratropium 9 ml 01/21/25 13:27 01/21/25 13:29 Ipratropium/Albuterol 3 Ml Neb IH 01/21/25 13:28 9 ml ONCE ONE Administration Furosemide 40 mg 01/21/25 14:13 01/21/25 14:48 Furosemide 40mg/4ml Vial IV 01/21/25 14:14 40 mg ONCE ONE Administration Ceftriaxone Sodium 2 gm/ 100 mls @ 200 mls/hr 01/21/25 13:17 01/21/25 13:42 Sodium Chloride IV 01/21/25 13:46 200 mls/hr ONCE ONE Administration Azithromycin 500 mg/ Sodium 250 mls @ 250 mls/hr 01/21/25 13:17 01/21/25 13:42 Chloride IV 01/21/25 13:18 250 mls/hr ONCE ONE Administration Methylprednisolone Sodium Succinate 125 mg 01/21/25 13:43 01/21/25 13:45 Methylprednisolone Sod Succ 125mg Vial IV 01/21/25 13:44 125 mg ONCE ONE Administration ORDERS Category Date Time Status CT chest wo con Stat Cat Scan 01/21/25 14:13 Completed Pulmonology Consult [Consult to Pulmonology] [CONS] Cons 01/21/25 15:01 Active Routine Chest XR 2 view (NOT portable) [XR chest 2V] Stat Exams 01/21/25 13:01 Completed XR chest portable DAILY Exams 01/22/25 06:00 Ordered Complete Blood Count Auto Diff AMLAB Lab 01/22/25 06:00 Ordered Complete Blood Count Auto Diff Stat Lab 01/21/25 13:00 Completed Comprehensive Metabolic Panel AMLAB Lab 01/22/25 06:00 Ordered Comprehensive Metabolic Panel Stat Lab 01/21/25 13:00 Completed Full Resp Panel w/COVID ([place]) Routine Lab 01/21/25 12:50 Received Magnesium AMLAB Lab 01/22/25 06:00 Ordered NT Pro Brain Natriuretic Pep. Stat Lab 01/21/25 13:00 Completed Rapid PCR Covid and Flu A/B Stat Lab 01/21/25 12:50 Completed Troponin I Q3H Lab 01/21/25 16:15 Ordered Troponin I Q3H Lab 01/21/25 19:15 Ordered Troponin I Stat Lab 01/21/25 13:00 Completed Blood Culture Stat Micro 01/21/25 13:30 Received VBG [Venous Blood Gas] Stat RT 01/21/25 13:03 Completed Medical Decision Narrative: 49-year-old male with history of COPD, recurrent pneumonia, CHF, CKD secondary to polycystic kidney disease presenting with shortness of breath. Patient states he started feeling bad yesterday and has cough, unsure if it is productive or not. No fevers. Shortness of breath is exertional, not positional. History was obtained via conversation with patient. On arrival, patient hemodynamically stable, alert, oriented x4, appropriate, GCS 15, moving all extremities spontaneously, pupils equal and reactive to light. Full physical exam performed and significant for clinically ill appearing male 80% on room air and does not require oxygen at home. Tachycardic, tachypneic. Inspiratory wheezes heard mostly in the lower lung santana posteriorly. No increased work of breathing and no expiratory wheezes appreciated. No prolonged expiratory phase. He does have lower extremity pitting edema. Differential includes CHF exacerbation, COPD exacerbation, bronchitis, pneumonia, pneumothorax, among others. Patient placed on continuous cardiac monitoring and continuous pulse ox with initial blood pressure 145/80, heart rate 77, saturation 80% on room air. Independent interpretation of EKG shows sinus rhythm 70 bpm with OH interval 164, QRS 95, QTc 431. Normal axis. No acute ischemic change. Patient was given supplemental oxygen, Solu-Medrol, DuoNebs, ceftriaxone azithromycin for symptomatic management and correction of underlying abnormalities. Workup independently interpreted and significant for leukocytosis of 21,000 with neutrophilia. Patient's gas with metabolic acidosis with respiratory compensation negative lactate. Chemistry with hyponatremia, hyperkalemia, ADI on CKD with creatinine 3.4 and BUN 37 consistent with intrarenal kidney dysfunction. Troponin negative, BNP elevated at 3100. viral swab negative on independent interpretation of imaging, multifocal pneumonia versus pulmonary edema on chest x-ray, I feel this is most consistent with multifocal pneumonia given infiltrates are not dependent. See radiology read for full review of final results. Patient was given ceftriaxone and azithromycin as well as fluid bolus. I contacted [facility], [facility] requesting CT of the chest prior to admission. CT of the chest was obtained. Patient does have bilateral infiltrates consistent with multifocal pneumonia. Because patient high risk for clinical decompensation, deemed appropriate for inpatient admission. Results were relayed to patient who voiced understanding and patient was agreeable to inpatient admission and management. Patient was admitted to the hospital for further definitive management. Relocation Coordinator disclaimer Much of this encounter note is an electronic affiliate marketing manager spoken language to printed text. Electronic affiliate marketing manager of the spoken language may permit errors. Although I have reviewed the note, some errors may still exist. Critical Care Critical Care Time Critical Care Time: Yes (Respiratory) Attestation: On 01/21/25, the high probability of a clinically significant, sudden or life threatening deterioration of the following system(s) required my full and direct attention, intervention and personal management. The time I documented below is in addition to time spent performing reported procedures but includes the following listed in this critical care notation. Total Time Total Critical Care Time: 45
[2025-01-21] MEDS: METHYLPREDNISOLONE SOD SUCC 125MG VIAL 125 MG IV (13:45)
[2025-01-21 13:47] LABS: NT Pro Brain Natriuretic Pep. 3120 pg/mL (0-125)
[2025-01-21 14:01] LABS: Basophils # 0.1 K/mm3 (0-0.2); Basophils % 0.3 % (0.1-2.0); Eosinophils # 0.1 K/mm3 (0.0-0.4); Eosinophils % 0.4 % (0.1-12.0); Hematocrit 30.9 % (42.0-52.0); Hemoglobin 9.8 g/dL (14.1-18.0); Lymphocytes # 1.1 K/mm3 (0.7-4.5); Lymphocytes % 5.2 % (10-50); Mean Corpuscular HGB Conc 31.7 g/dL (31.8-35.4); Mean Corpuscular Hemoglobin 29.3 pg (27.0-31.2); Mean Corpuscular Volume 92.2 fl (80-94); Mean Platelet Volume 10.5 fl (7.4-10.4); Monocytes # 0.9 K/mm3 (0.1-1.0); Monocytes % 4.4 % (1.7-9.3); Neutrophils # 18.9 K/mm3 (1.8-7.8); Neutrophils % 88.9 % (37.0-80.0); Platelet Count 228 K/mm3 (142-424); Red Blood Count 3.35 M/mm3 (4.60-6.20); Red Cell Distribution Width 14.9 % (11.5-17.5); White Blood Count 21.3 K/mm3 (4.8-10.8)
--- NOTE | 2025-01-21 14:11 | PC.NURSE ---
dr stubbs speaking with hospitalist
--- NOTE | 2025-01-21 14:12 | PC.NURSE ---
pt is on 3lnc to keep saturation above 88%
--- NOTE | 2025-01-21 14:13 | CT_ITS ---
FINAL REPORT TECHNIQUE: Axial imaging of the chest was obtained without contrast. Reformatted images were also obtained and reviewed.This study was performed with techniques to keep radiation doses as low as reasonably achievable, (ALARA). Individualized dose reduction technique using automated exposure control or adjustment of mA and/or kV according to the patient's size were employed. CLINICAL HISTORY: diffuse bilateral pneumonia COMPARISON: 12/03/2024 FINDINGS: There is no axillary adenopathy. There is mild adenopathy in the prevascular mediastinum measuring 33 x 12 mm. Calcified lymph nodes are seen in the right paratracheal and subcarinal regions. Heart size is normal. There is no pericardial or pleural effusion. Limited images of the upper abdomen are unremarkable. There are extensive groundglass opacities throughout the upper greater than lower lobes. There is no cavitation. IMPRESSION: Diffuse groundglass opacities consistent with pneumonia which may present viral/atypical pneumonia. No effusion or cavitation. Reviewed, Interpreted and Dictated by Montse De Leon MD Transcribed by Karie Potter Authenticated and [facility]
[2025-01-21] MEDS: FUROSEMIDE 40MG/4ML VIAL 40 MG IV (14:48)
[2025-01-21 14:52] LABS: MANUAL DIFFERENTIAL MANUAL DIFFERENTIAL (MANUAL DIFF)
--- NOTE | 2025-01-21 15:03 | EXP.HP ---
History of Present Illness *Admission Date: 01/21/25 *Reason for visit:: dyspnea *History of present illness: Mr. Loera is a 49-year-old male with history of hypertension, hyperlipidemia, CKD 4 due to polycystic kidney disease, diabetes, tobacco use disorder, on Suboxone therapy for opiate use disorder, neuropathy, COPD, anxiety. He presented to the ER due to concern for worsening shortness of breath. States he started feeling bad over the past 24 to 48 hours. Has had a mildly productive cough. Sputum clear to white. Denies fever or night sweats but has had some intermittent chills. Shortness of breath is worse with exertion. Denies any orthopnea. Workup in the ER concerning for elevated white count of 21, chest imaging showing multifocal pneumonia on chest x-ray. CT obtained with patchy bilateral airspace disease diffusely in both lungs in all lung santana. Necessitating 4 L oxygen to sat greater than 90%. Meeting sepsis criteria with tachycardia, tachypnea, leukocytosis and infection. Medicine consulted for admission and further management. Additionally in the ER his BNP is elevated at 3000 and has an acute kidney injury on top of his chronic kidney disease stage IV. On arrival to the special care unit patient is dyspneic with interview. In moderate distress. Alert and oriented x 4. Denies any increased swelling in his legs, confusion, chest pain, nausea or vomiting. Has not been smoking as much lately. States he only smokes cigarettes. Denies any vaping or inhaling other substances. [facility] Disclaimer: The information contained in this section may have been updated after the patient was seen, as this information can be updated by other users. Medical History History of pacemaker ADI (acute kidney injury) Altered mental status Atypical pneumonia CHF exacerbation Overdose Acute metabolic encephalopathy Left elbow pain Obesity Neuropathy Obesity Tobacco dependence syndrome URI (upper respiratory infection) Cough Recurrent pneumonia Sinusitis History of pacemaker Polycystic kidney disease Dyspnea Headache Anxiety Gastro-esophageal reflux disease without esophagitis Malignant hypertension Acute bacterial bronchitis Acute upper respiratory infection Bronchitis Edema Laceration of left index finger RLS (restless legs syndrome) Obesity Tobacco abuse Hand fracture, right COPD (chronic obstructive pulmonary disease) Pacemaker Gastroesophageal reflux disease CKD (chronic kidney disease) Bradycardia with 31-40 beats per minute Acute hyperkalemia Patient left without being seen UTI (urinary tract infection) Respiratory failure, acute Acute hyperkalemia Otitis media Obesity Somnolence, daytime, controlled Snoring Pulmonary nodules HTN (hypertension) Edema Chest pain Palpitations URI (upper respiratory infection) Medication refill Hypertensive urgency Bronchitis Elbow contusion Contusion of right hand Surgical History AICD (automatic cardioverter/defibrillator) present No history of previous surgery Family History Other Heart attack Hypertension Social History Smoking Status: Current every day smoker tobacco type: cigarettes packs per day: 1 years smoked: 30 second hand exposure: No alcohol intake: never substance use type: former substance user and painkillers current occupational status: employed and other Travel in the last 8 weeks: None household members: significant other housing: house lives independently: No caffeine: Yes special crystal needs: No agree to transfusion: No Have you lived/traveled outside [place] in past 30 days?: No Contact w/someone who lives/traveled outside [place] past 30 days?: No Exposure to someone with infectious disease in past 14 days?: No Do you have a fever (greater than 100.4 F or 38 C)?: No Have you tested positive for COVID-19: No Exposed to someone with COVID-19 in past 14 days?: No Do you have a sore throat?: No Do you have a cough?: Yes Do you have any weakness?: No Do you have any diarrhea?: No Are you experiencing any unusual bleeding?: No Do you have any muscle aches/pain?: No Do you have any abdominal pain?: No Are you experiencing loss of taste or smell?: No Other Medical History Have you received the Flu Vaccine for this season: No Have you received the Pneumonia Vaccine: No Review of Systems Review of Systems Review of systems (narrative): 14 point review of systems performed, pertinent positives and negatives as per HPI Meds Home Medications and Allergies Home Medications ?Medication ?Instructions ?Recorded ?Confirmed ?Type buprenorphine 8 mg-naloxone 2 mg 2 tab sublingual DAILY Substance 04/17/20 01/21/25 History sublingual tablet Use Disorder aspirin 81 mg tablet,delayed 81 mg PO DAILY 09/18/23 01/21/25 History release albuterol sulfate 90 mcg/actuation 2 puff inhalation Q4HP PRN 05/24/24 01/21/25 Rx aerosol inhaler Shortness Of Breath #8.5 grams cholecalciferol (vitamin D3) 50 50 mcg PO DAILY #90 caps 08/01/24 01/21/25 Rx mcg (2,000 unit) capsule ergocalciferol (vitamin D2) 1,250 1,250 mcg PO WEEKLY #14 caps 08/01/24 01/21/25 Rx mcg (50,000 unit) capsule atorvastatin 10 mg tablet 10 mg PO DAILY #90 tabs 10/23/24 01/21/25 Rx fluticasone 250 mcg-salmeterol 50 1 inh inhalation BID #60 ea 10/23/24 01/21/25 Rx mcg/dose blistr powdr for inhalation (Advair Diskus) omeprazole 40 mg capsule,delayed 40 mg PO DAILY 90 days #90 caps 10/23/24 01/21/25 Rx release lidocaine 4 % topical patch 1 patch topical BID PRN pain #60 ea 10/30/24 01/21/25 Rx (Aspercreme (lidocaine)) hydroxyzine HCl 10 mg tablet 10 mg PO TID PRN anxiety #60 tabs 11/04/24 01/21/25 Rx ropinirole 1 mg tablet See Rx Instructions .Route 12/23/24 01/21/25 Rx .COMPLEX #30 tabs lorazepam 1 mg tablet 1 mg PO DAILY PRN anxiety #30 tabs 12/31/24 01/21/25 Rx gabapentin 800 mg tablet 800 mg PO TID Pain #90 tabs 01/17/25 01/21/25 Rx hydralazine 25 mg tablet 25 mg PO TID 30 days #90 tabs 01/17/25 01/21/25 Rx lisinopril 40 mg tablet 40 mg PO DAILY #90 tabs 01/17/25 01/21/25 Rx metoprolol succinate 25 mg 25 mg PO DAILY 30 days #90 tabs 01/17/25 01/21/25 Rx tablet,extended release 24 hr escitalopram oxalate 20 mg tablet 20 mg PO DAILY 01/21/25 01/21/25 History New Prescriptions to Start Prescriptions: Allergies Allergy/AdvReac Type Severity Reaction Status Date / Time No Known Allergies Allergy Verified 01/17/25 14:29 Exam Data for Last 24 hours Vital signs and Labs for Last 24 Hours: Temp Pulse Resp BP Pulse Ox O2 Del Method O2 Flow Rate 99.4 F 104 H 26 H 133/72 89 L Nasal Cannula 2 01/21/25 12:36 01/21/25 14:31 01/21/25 12:36 01/21/25 14:31 01/21/25 14:31 01/21/25 14:31 01/21/25 14:31 Laboratory Results - last 24 hr 01/21/25 12:50: SARS-CoV-2 (PCR) Not detected, Influenza A Untype (PCR) Not detected, Influenza Type B (PCR) Not detected 01/21/25 13:00: WBC 21.3 H*, RBC 3.35 L, Hgb 9.8 L, Hct 30.9 L, MCV 92.2, MCH 29.3, MCHC 31.7 L, RDW 14.9, Plt Count 228, MPV 10.5 H, Neut % (Auto) 88.9 H, Lymph % (Auto) 5.2 L, [place] % (Auto) 4.4, Eos % (Auto) 0.4, Baso % (Auto) 0.3, Neut # (Auto) 18.9 H, Lymph # (Auto) 1.1, [place] # (Auto) 0.9, Eos # (Auto) 0.1, Baso # (Auto) 0.1, Sodium 133 L, Potassium 5.4 H, Chloride 106, Carbon Dioxide 20 L, Anion Gap 12.4, BUN 37 H, Creatinine 3.40 H, Estimated Creat Clear 38, Estimated GFR 19 L*, Est GFR ( Amer) 24 L, Glucose 112 H, Calcium 8.9, Total Bilirubin 0.5, AST 46, ALT 16, Alkaline Phosphatase 131 H, Troponin I 0.02, NT-Pro-B Natriuret Pep 3120 H, Total Protein 6.6, Albumin 3.9, Globulin 2.7, Albumin/Globulin Ratio 1.4 01/21/25 13:03: VBG pH 7.39, VBG pCO2 29.9 L, VBG pO2 74.2 H, VBG HCO3 17.8 L, VBG Total CO2 18.7 L, VBG O2 Saturation 95.4 H, VBG Base Excess -7.1 L, VBG Lactic Acid 1.1 I & O for Last 24 hours: Intake & Output 01/18/25 01/19/25 01/20/25 01/21/25 23:59 23:59 23:59 23:59 Weight 99.79 kg Constitutional Constitutional: moderate distress, obese, chronically ill appearing and cooperative *Routine HEENT Exam Head: Present normocephalic Eye: Present EOMI and PERRL ENT: Present mucous membranes moist *Routine Neck Exam Neck: Present supple; Absent lymphadenopathy *Routine Respiratory Exam Respiratory: Present accessory muscle use, prolonged expiratory phase and crackles (diffuse); Absent rhonchi or wheezes *Routine Cardiovascular Exam Cardiovascular: Present RRR *Routine Abdominal Exam Abdominal: Present soft and normoactive bowel sounds; Absent tenderness *Routine Rectal Exam Rectal:: deferred *Routine Genitalia Exam Genitalia:: deferred *Routine Extremities Exam Extremities: Absent cyanosis, clubbing or edema *Routine Skin Exam Skin: Present intact and warm; Absent rash *Routine Neurological Exam Neurological: Present alert, oriented X3 and moving all extremities; Absent altered mental status Assessment and Plan *Assessment and plan (1) Severe sepsis: Status: Acute Category: Medical Code(s): A41.9 - Sepsis, unspecified organism; R65.20 - Severe sepsis without septic shock (2) Multifocal pneumonia: Status: Acute Category: Medical Code(s): J18.9 - Pneumonia, unspecified organism (3) Acute hypoxemic respiratory failure: Status: Acute Category: Medical Code(s): J96.01 - Acute respiratory failure with hypoxia (4) ADI (acute kidney injury): Status: Acute Category: Medical Code(s): N17.9 - Acute kidney failure, unspecified (5) Tobacco dependence syndrome: Status: Chronic Category: Medical Code(s): F17.200 - Nicotine dependence, unspecified, uncomplicated (6) Neuropathy: Status: Chronic Category: Medical Code(s): G62.9 - Polyneuropathy, unspecified (7) Major depression, recurrent, chronic: Status: Acute Category: Medical Code(s): F33.9 - Major depressive disorder, recurrent, unspecified (8) Generalized anxiety disorder with panic attacks: Status: Acute Category: Medical Code(s): F41.1 - Generalized anxiety disorder; F41.0 - Panic disorder [episodic paroxysmal anxiety] (9) Polycystic kidney disease: Status: Acute Category: Medical Code(s): Q61.3 - Polycystic kidney, unspecified (10) CKD stage 4 secondary to hypertension: Status: Chronic Category: Medical Code(s): I12.9 - Hypertensive chronic kidney disease with stage 1 through stage 4 chronic kidney disease, or unspecified chronic kidney disease; N18.4 - Chronic kidney disease, stage 4 (severe) (11) COPD (chronic obstructive pulmonary disease): Status: Chronic Qualifiers: COPD type: unspecified COPD Qualified Code(s): J44.9 - Chronic obstructive pulmonary disease, unspecified Category: Medical Code(s): J44.9 - Chronic obstructive pulmonary disease, unspecified (12) HTN (hypertension): Status: Acute Qualifiers: Hypertension type: essential hypertension Qualified Code(s): I10 - Essential (primary) hypertension Category: Medical Code(s): I10 - Essential (primary) hypertension (13) Cardiac pacemaker in situ: Status: Chronic Category: Medical Code(s): Z95.0 - Presence of cardiac pacemaker (14) Elevated brain natriuretic peptide (BNP) level: Status: Acute Category: Medical Code(s): R79.89 - Other specified abnormal findings of blood chemistry (15) Acute hyperkalemia: Status: Acute Category: Medical Code(s): E87.5 - Hyperkalemia Plan 49-year-old male with polycystic kidney disease, tobacco use disorder, 2 to 3 days of worsening shortness of breath. Found to have multifocal pneumonia on chest imaging and concern for sepsis with elevated white count, tachypnea, pneumonia. Medicine consulted for admission and further management. Discussed case with ER physician, request admission for further care. I agreed to admit for further treatment. Pulmonology consulted to assist. Initiated on broad-spectrum antibiotics in the ER. CT per my review showing multifocal diffuse airspace disease. Pulmonology planning on bronchoscopy in the morning. Afebrile at this time. Necessitating 4 L oxygen for O2 sats greater 90%. Condition serious, prognosis guarded. Admitted to special care unit for further management. Problems addressed as follows: Severe sepsis with acute hypoxemic respiratory failure secondary to multifocal pneumonia -Pulmonology consulted, discussed case today. Unclear etiology. Plan for bronchoscopy in the morning. -Received azithromycin and cefepime in the ER. Will broaden to Levaquin renally dosed at 750 mg every 48 hour -Blood cultures pending, will obtain cultures during bronch in the morning; sputum pending -White count elevated at 21.3. Repeat CBC, CMP, magnesium ordered for the morning -Negative for flu and COVID. Comprehensive respiratory panel pending. LDH pending. CRP pending - Continue Advair 1 puff twice daily for COPD - DuoNebs every 6 hours - Received methylprednisolone in the ER, hold on further steroids pending bronchoscopy given broad differential of suspected pathogens and potential for fungal source Continue gabapentin 800 mg 3 times a day for neuropathy per home regimen Continue Ativan 1 mg daily as needed for anxiety Continue lisinopril 40 mg daily for hypertension Pantoprazole 40 mg nightly for GERD Ropinirole 1 mg nightly for restless leg Resume Suboxone 2 tablets daily per home regimen for opiate use disorder Anemia - hemoglobin 9.8. No active signs of bleeding. - This is a decrease from a month ago. Monitor for signs of bleeding. Transfusion threshold hemoglobin less than 7 - Platelets stable at 228 Elevated BNP of 3000, review of chart shows echo obtained beginning of November (2 months ago) with normal EF and diastolic dysfunction ADI CKD 4 Polycystic kidney disease -Baseline creatinine less than 3. BUN more or less at baseline at 37 but increased creatinine at 3.4. Intrinsic pattern of injury with BUN/creatinine ratio -Gentle hydration with 1 L IV fluids at this time. Holding on diuresis. Caution with nephrotoxic -Repeat BMP ordered for this evening Tobacco use disorder: Nicotine patch 21 mg daily as needed Full code Holding anticoagulation pending bronchoscopy Regular diet, n.p.o.
[2025-01-21 15:07] LABS: Lymphocytes % 11 % (10-50); Monocytes % 3 % (2-9); Neutrophils % 86 % (42-76); Platelet Estimate Normal; RBC Morphology Normal; Total Cells Counted 100
[2025-01-21 15:08] LABS: Adenovirus,PCR Not Detected (NotDetected); Bordetella Pertussis Not Detected (NotDetected); Chlamydophila Pneumoniae, PCR Not Detected (NotDetected); Coronavirus 19, PCR Not Detected (NotDetected); Coronavirus 229E Not Detected (NotDetected); Coronavirus NL63 Not Detected (NotDetected); Coronavirus OC43 Not Detected (NotDetected); Coronovirus HKU1,PCR Not Detected (NotDetected); Human Metapneumovirus Not Detected (NotDetected); Influenza A, PCR Not Detected (NotDetected); Influenza AH1, 2009 Not Detected (NotDetected); Influenza AH1, PCR Not Detected (NotDetected); Influenza AH3,PCR Not Detected (NotDetected); Influenza B, PCR Not Detected (NotDetected); Mycoplasma Pneumoniae, PCR Not Detected (NotDetected); Parainfluenza 1, PCR Not Detected (NotDetected); Parainfluenza 2, PCR Not Detected (NotDetected); Parainfluenza 3, PCR Not Detected (NotDetected); Parainfluenza 4, PCR Not Detected (NotDetected); Respiratory Syncytial Virus Not Detected (NotDetected); Rhinovirus/Enterovirus Not Detected (NotDetected)
--- NOTE | 2025-01-21 15:19 | PC.NURSE ---
hospital housekeeper notified of admission
--- NOTE | 2025-01-21 16:00 | PC.NURSE ---
Pt arrived to ICU @ this time.
[2025-01-21] MEDS: ACETAMINOPHEN 325MG TAB 650 MG PO (16:09)
[2025-01-21] MEDS: 0.9 % SODIUM CHLORIDE 1000ML 1,000 ML 999 ML IV (16:10)
[2025-01-21 17:18] LABS: Lactate Dehydrogenase 791 U/L (313-618)
[2025-01-21 17:24] LABS: C-Reactive Protein 253.2 mg/L (0-4)
[2025-01-21 17:31] LABS: Troponin I 0.02 ng/ml (0.00-0.034)
[2025-01-21] MEDS: LEVOFLOXACIN/D5W 750 MG/150 ML 750 MG/150 ML PIGGYBACK 100 MG IV (17:43)
[2025-01-21 18:48] LABS: Chloride 105 mmol/L (98-107); Potassium 4.5 mmoL/L (3.5-5.1); Sodium 135 mmol/L (136-145)
[2025-01-21] MEDS: FLUTICASONE/SALMETEROL 250/50MCG DISKUS 1 PUFF IH (18:49)
[2025-01-21] MEDS: SODIUM CHLORIDE 3% 15ML NEB 3 ML IH (18:49)
[2025-01-21] MEDS: IPRATROPIUM/ALBUTEROL 3 ML NEB IH ×2 (18:49→23:01)
[2025-01-21 18:51] LABS: Anion Gap 15.5 mEq/L (5-15); Blood Urea Nitrogen 38 mg/dl (9-20); Calcium 8.8 mg/dl (8.4-10.2); Carbon Dioxide 19 mmol/L (22.0-30.0); Creatinine Clearance Estimated 41 mL/min (50-200); Estimated Glomerular Filt Rate 19 ml/min (>60); GFR (African American) 24 ML/MIN (>60); Glucose 186 mg/dl (74-100)
[2025-01-21 19:49] LABS: Troponin I 0.02 ng/ml (0.00-0.034)
[2025-01-21] MEDS: ROPINIROLE 1MG TABLET 1 MG PO (20:41)
[2025-01-21] MEDS: LORazepam 1MG TABLET 1 MG PO (20:41)
[2025-01-21] MEDS: PANTOPRAZOLE 40MG TABLET 40 MG PO (20:41)
[2025-01-21] MEDS: GABAPENTIN 800MG TABLET 800 MG PO (20:42)
--- NOTE | 2025-01-21 20:55 | PC.NURSE ---
pt asking to see if he can have his suboxone that he takes daily. pt did not take this am due to being sick. call was placed to . will place the order
[2025-01-21] MEDS: BUPRENORPHINE/NALOXONE 8MG/2MG ODT 2 EACH SL (21:41)
--- NOTE | 2025-01-21 22:18 | PC.NURSE ---
pt placed on venti mask oxygen still 86. notified to see about putting pt on vapotherm. acknowledged and will put in order
--- NOTE | 2025-01-21 22:28 | PC.NURSE ---
pt placed on vapotherm settings 30L/50% oxygen saturation 94%
--- NOTE | 2025-01-21 22:48 | PC.NURSE ---
pt vapotherm turned to 30L/60 oxygen saturation was 90 now that its turned up oxygen saturation is 96%
[2025-01-22] VITALS (25 sets, daily range): BP systolic 117–172; BP diastolic 67–102; PULSE 60–99; RESP 14–29; TEMP 36.6–37.2; O2SAT 87–97; BMI 35.6
--- NOTE | 2025-01-22 06:00 | XR_ITS ---
PROCEDURE INFORMATION: Exam: XR Chest Exam date and time: 01/22/2025 5:41 AM Age: 49 years old Clinical indication: Other: Pneumonia TECHNIQUE: Imaging protocol: Radiologic exam of the chest. Views: 1 view. COMPARISON: CT CHEST WO CON 01/21/2025 2:26 PM FINDINGS: Lungs: Patchy bilateral perihilar airspace opacities are unchanged. No consolidation. Pleural spaces: Unremarkable. No pleural effusion. No pneumothorax. Heart/Mediastinum: Unremarkable. Mild cardiomegaly. Bones/joints: Unremarkable. IMPRESSION: Stable patchy perihilar airspace opacity
[2025-01-22] MEDS: FLUTICASONE/SALMETEROL 250/50MCG DISKUS 1 PUFF IH ×2 (06:08→19:18)
[2025-01-22] MEDS: IPRATROPIUM/ALBUTEROL 3 ML NEB IH ×4 (06:08→23:20)
[2025-01-22 06:35] LABS: Basophils % 0.1 % (0.1-2.0); Lymphocytes # 0.5 K/mm3 (0.7-4.5); Lymphocytes % 3.7 % (10-50); Mean Corpuscular HGB Conc 32.3 g/dL (31.8-35.4); Mean Corpuscular Hemoglobin 29.9 pg (27.0-31.2); Mean Corpuscular Volume 92.8 fl (80-94); Mean Platelet Volume 10.5 fl (7.4-10.4); Monocytes # 0.3 K/mm3 (0.1-1.0); Monocytes % 2.3 % (1.7-9.3); Neutrophils # 13.6 K/mm3 (1.8-7.8); Neutrophils % 93.4 % (37.0-80.0); Platelet Count 258 K/mm3 (142-424); Red Blood Count 3.34 M/mm3 (4.60-6.20); Red Cell Distribution Width 15.1 % (11.5-17.5); White Blood Count 14.6 K/mm3 (4.8-10.8)
[2025-01-22 06:37] LABS: MANUAL DIFFERENTIAL MANUAL DIFFERENTIAL (MANUAL DIFF)
--- NOTE | 2025-01-22 06:41 | PC.NURSE ---
pt alert and oriented. pt npo at this time for a bronch that is going to be performed. when started the shift pt was on nasal cannula 4lpm pt oxygen saturation started dropping pt oxygen was titrated up to 5 lpm then to 6 lpm. even with pt still on 6lpm pt was in the high 80s respiratory was called they agreed pt needed to be on vapotherm. put in order for vapotherm. pt was started out on 30lpm 50% oxygen. pt had to be turned up to 30lpm to 60%. at this time pt is back down to 30lpm 50%. still need sputum to send to lab. pt was unable to get anything up. pt rested throughout the night. lung sounds are diminshed expirtory rhonci on the right side throughout and inspiratory rhonci on the left side throughout.
[2025-01-22 06:56] LABS: Alanine Aminotransferase 16 U/L (12-78); Albumin Level 3.8 g/dl (3.5-5.0); Albumin/Globulin Ratio 1.3 (1.1-1.8); Alkaline Phosphatase 116 U/L (38-126); Anion Gap 13.3 mEq/L (5-15); Aspartate Amino Transferase 37 U/L (17-59); Bilirubin,Total 0.3 mg/dl (0.2-1.3); Blood Urea Nitrogen 46 mg/dl (9-20); Calcium 9.2 mg/dl (8.4-10.2); Carbon Dioxide 20 mmol/L (22.0-30.0); Chloride 109 mmol/L (98-107); Creatinine Clearance Estimated 44 mL/min (50-200); Estimated Glomerular Filt Rate 21 ml/min (>60); GFR (African American) 25 ML/MIN (>60); Globulin 2.9 g/dL (1.3-3.2); Glucose 146 mg/dl (74-100); Magnesium 2.1 mg/dl (1.6-2.3); Potassium 5.3 mmoL/L (3.5-5.1); Sodium 137 mmol/L (136-145); Total Protein,Serum 6.7 g/dl (6.3-8.2)
--- NOTE | 2025-01-22 08:01 | PC.NURSE ---
pt condition contraindicates walking 250 ft. pt is currently on vapotherm and has soa with standing to use urinal
[2025-01-22 08:04] LABS: Lymphocytes % 7 % (10-50); Monocytes % 2 % (2-9); Neutrophils % 91 % (42-76); Platelet Estimate Normal; RBC Morphology Normal; Total Cells Counted 100
--- NOTE | 2025-01-22 08:45 | HMH.PHAINT1 ---
Pharmacy Intervention Comments: home medication list verified using list from outpatient pharmacy and pt interview
[2025-01-22] MEDS: BUPRENORPHINE/NALOXONE 8MG/2MG ODT 2 EACH SL (09:34)
[2025-01-22] MEDS: GABAPENTIN 800MG TABLET 800 MG PO ×3 (09:34→20:17)
[2025-01-22] MEDS: LISINOPRIL 20MG TABLET 40 MG PO (09:34)
--- NOTE | 2025-01-22 09:47 | P.CONS_ITS ---
History of Present Illness History of present illness: Mr. Loera is a 49-year-old male greater than [id number] smoking history current smoker history of recurrent pneumonia interstitial lung disease reduced DLCO CKD mild persistent asthma presented to the ER with worsening respiratory distress and pulmonary was called for further evaluation and management. Patient admits worsening respiratory distress for the last 2 to 3 days. Admits cough, dry nonproductive. No evidence of hemoptysis. No known sick contacts. [facility] Disclaimer: The information contained in this section may have been updated after the patient was seen, as this information can be updated by other users. Medical History History of pacemaker ADI (acute kidney injury) Altered mental status Atypical pneumonia CHF exacerbation Overdose Acute metabolic encephalopathy Left elbow pain Obesity Neuropathy Obesity Tobacco dependence syndrome URI (upper respiratory infection) Cough Recurrent pneumonia Sinusitis History of pacemaker Polycystic kidney disease Dyspnea Headache Anxiety Gastro-esophageal reflux disease without esophagitis Malignant hypertension Acute bacterial bronchitis Acute upper respiratory infection Bronchitis Edema Laceration of left index finger RLS (restless legs syndrome) Obesity Tobacco abuse Hand fracture, right COPD (chronic obstructive pulmonary disease) Pacemaker Gastroesophageal reflux disease CKD (chronic kidney disease) Bradycardia with 31-40 beats per minute Acute hyperkalemia Patient left without being seen UTI (urinary tract infection) Respiratory failure, acute Acute hyperkalemia Otitis media Obesity Somnolence, daytime, controlled Snoring Pulmonary nodules HTN (hypertension) Edema Chest pain Palpitations URI (upper respiratory infection) Medication refill Hypertensive urgency Bronchitis Elbow contusion Contusion of right hand Surgical History AICD (automatic cardioverter/defibrillator) present No history of previous surgery Family History Other Heart attack Hypertension Social History Smoking Status: Current every day smoker tobacco type: cigarettes packs per day: 1 years smoked: 30 second hand exposure: No alcohol intake: never substance use type: former substance user and painkillers current occupational status: employed and other Travel in the last 8 weeks: None household members: significant other housing: house lives independently: No caffeine: Yes special crystal needs: No agree to transfusion: No Have you lived/traveled outside [place] in past 30 days?: No Contact w/someone who lives/traveled outside [place] past 30 days?: No Exposure to someone with infectious disease in past 14 days?: No Do you have a fever (greater than 100.4 F or 38 C)?: No Have you tested positive for COVID-19: No Exposed to someone with COVID-19 in past 14 days?: No Do you have a sore throat?: No Do you have a cough?: Yes Do you have any weakness?: No Do you have any diarrhea?: No Are you experiencing any unusual bleeding?: No Do you have any muscle aches/pain?: No Do you have any abdominal pain?: No Are you experiencing loss of taste or smell?: No Review of Systems Constitutional Constitutional: Reports anorexia, Reports fatigue and Reports weakness Eyes Eyes: Denies eye discharge, Denies dry eyes, Denies irritation and Denies itchy eyes ENT Ears, Nose, Mouth, and Throat: Denies epistaxis, Denies facial pain, Denies lip swelling and Denies throat swelling *Cardiovascular Cardiovascular: Reports dyspnea and Reports dyspnea on exertion *Respiratory Respiratory: Denies change in phlegm color, Reports chest congestion, Reports cough, Reports dyspnea, Reports dyspnea on exertion, Denies excessive phlegm production, Denies hemoptysis, Denies pain on inspiration, Denies pain with cough and Denies wheezing *Gastrointestinal Gastrointestinal: Denies abdominal pain, Denies belching and Denies cramping *Musculoskeletal Musculoskeletal: Reports back pain, Reports myalgias and Reports other (No small joint swelling or Pain) *Neurologic Neurologic: Reports weakness Psychiatric Psychiatric: Denies homicidal ideation and Denies suicidal ideation Endocrine Endocrine: Reports fatigue and Denies heat intolerance Hematologic/Lymphatic Hematologic/Lymphatic: Denies easy bleeding and Denies lymphadenopathy Allergic/Immunologic Allergic/Immunologic: Denies itchy eyes, Denies lip swelling, Denies throat swelling and Denies wheezing Pulmonology Exam Inpatient Vital signs and Labs for Last 24 Hours: Temp Pulse Resp BP Pulse Ox O2 Del Method O2 Flow Rate 97.8 F 60 16 161/102 H 94 L Vapotherm 30 01/22/25 08:00 01/22/25 08:00 01/22/25 08:00 01/22/25 08:00 01/22/25 08:00 01/22/25 08:00 01/22/25 08:00 FiO2 50 03/05/25 07:52 Laboratory Results - last 24 hr 01/21/25 12:50: Chlamy pneumoniae PCR Not detected, Adenovirus (PCR) Not detected, B. pertussis DNA (PCR) Not detected, Coronavirus OC43 (PCR) Not detected, Coronavirus HKU1 (PCR) Not detected, Coronavirus 229E (PCR) Not detected, SARS-CoV-2 (PCR) Not detected 01/21/25 12:50: SARS-CoV-2 (PCR) Not detected, Coronavirus NL63 (PCR) Not detected, Human Metapneumovir PCR Not detected, Influenza A (H1) PCR Not detected, Influ A (H1N1/09) PCR Not detected, Influenza A (H3) PCR Not detected, Influenza Type A (PCR) Not detected, Influenza A Untype (PCR) Not detected, Influenza Type B (PCR) Not detected 01/21/25 12:50: Influenza Type B (PCR) Not detected, M. pneumoniae (PCR) Not detected, Parainfluenza 1 (PCR) Not detected, Parainfluenza 2 (PCR) Not detected, Parainfluenza 3 (PCR) Not detected, Parainfluenza 4 (PCR) Not detected, RSV (PCR) Not detected, Entero/Rhino (PCR) Not detected 01/21/25 13:00: WBC 21.3 H*, RBC 3.35 L, Hgb 9.8 L, Hct 30.9 L, MCV 92.2, MCH 29.3, MCHC 31.7 L, RDW 14.9, Plt Count 228, MPV 10.5 H, Neut % (Auto) 88.9 H, L ymph % (Auto) 5.2 L, [place] % (Auto) 4.4, Eos % (Auto) 0.4, Baso % (Auto) 0.3, N eut # (Auto) 18.9 H, Lymph # (Auto) 1.1, [place] # (Auto) 0.9, Eos # (Auto) 0.1, Baso # (Auto) 0.1, Total Counted 100, Neutrophils % (Manual) 86 H, Lymphocytes % (Manual) 11, Monocytes % (Manual) 3, Platelet Estimate Normal, RBC Morphology Normal, Sodium 133 L, Potassium 5.4 H, Chloride 106, Carbon Dioxide 20 L, Anion Gap 12.4, BUN 37 H, Creatinine 3.40 H, Estimated Creat Clear 38, Estimated GFR 19 L*, Est GFR ( Amer) 24 L, Glucose 112 H, Calcium 8.9, Total Bilirubin 0.5, AST 46, ALT 16, Alkaline Phosphatase 131 H, Troponin I 0.02, NT-Pro-B Natriuret Pep 3120 H, Total Protein 6.6, Albumin 3.9, Globulin 2.7, Albumin/Globulin Ratio 1.4 01/21/25 13:03: VBG pH 7.39, VBG pCO2 29.9 L, VBG pO2 74.2 H, VBG HCO3 17.8 L, V BG Total CO2 18.7 L, VBG O2 Saturation 95.4 H, VBG Base Excess -7.1 L, VBG Lactic Acid 1.1 01/21/25 16:27: Lactate Dehydrogenase 791 H, Troponin I 0.02, C-Reactive Protein 253.2 H 01/21/25 18:28: Sodium 135 L, Potassium 4.5, Chloride 105, Carbon Dioxide 19 L, Anion Gap 15.5 H, BUN 38 H, Creatinine 3.40 H, Estimated Creat Clear 41, E stimated GFR 19 L*, Est GFR ( Amer) 24 L, Glucose 186 H D, Calcium 8.8 01/21/25 19:21: Troponin I 0.02 01/21/25 22:54: Magnesium 2.0 01/22/25 05:07: WBC 14.6 H D, RBC 3.34 L, Hgb 10.0 L, Hct 31.0 L, MCV 92.8, MCH 29.9, MCHC 32.3, RDW 15.1, Plt Count 258, MPV 10.5 H, Neut % (Auto) 93.4 H, L ymph % (Auto) 3.7 L, [place] % (Auto) 2.3, Eos % (Auto) 0.0 L, Baso % (Auto) 0.1, N eut # (Auto) 13.6 H, Lymph # (Auto) 0.5 L, [place] # (Auto) 0.3, Eos # (Auto) 0.0, Baso # (Auto) 0.0, Total Counted 100, Neutrophils % (Manual) 91 H, Lymphocytes % (Manual) 7 L, Monocytes % (Manual) 2, Platelet Estimate Normal, RBC Morphology Normal, Sodium 137, Potassium 5.3 H, Chloride 109 H, Carbon Dioxide 20 L, Anion Gap 13.3, BUN 46 H, Creatinine 3.20 H, Estimated Creat Clear 44, Estimated GFR 21 L, Est GFR ( Amer) 25 L, Glucose 146 H D, Calcium 9.2, Magnesium 2.1, Total Bilirubin 0.3, AST 37, ALT 16, Alkaline Phosphatase 116, Total Protein 6.7, Albumin 3.8, Globulin 2.9, Albumin/Globulin Ratio 1.3 I & O for Labs for Last 24 Hours: Intake & Output 01/19/25 01/20/25 01/21/25 01/22/25 23:59 23:59 23:59 23:59 Intake Total 637 / 637 Output Total 2550 / 2550 900 / 900 Balance -1913 / -1913 -900 / -900 Weight 238 lb 7 oz 240 lb 9.6 oz Constitutional: Present severe distress Head: Present normocephalic and atraumatic ENT: Present normal exam, normal oropharynx and mucous membranes moist Neck: Present normal inspection and full ROM Respiratory: Present respiratory distress, rhonchi and diminished air movement; Absent wheezes, crackles or able to speak in complete sentences Cardiac: Present S1/S2, Tachycardia and radial pulses present GI: Present soft and distention; Absent tenderness or guarding Skin: Present intact; Absent cyanosis or jaundice Neuro: Present alert, awake and oriented x 3 Extremities: Present normal inspection; Absent clubbing or cyanosis Psychiatric: Present normal affect and cooperative Meds Home Medications and Allergies Home Medications ?Medication ?Instructions ?Recorded ?Confirmed ?Type buprenorphine 8 mg-naloxone 2 mg 2 tab sublingual DAILY Substance 04/17/20 01/21/25 History sublingual tablet Use Disorder aspirin 81 mg tablet,delayed 81 mg PO DAILY 09/18/23 01/21/25 History release albuterol sulfate 90 mcg/actuation 2 puff inhalation Q4HP PRN 05/24/24 01/21/25 Rx aerosol inhaler Shortness Of Breath #8.5 grams cholecalciferol (vitamin D3) 50 50 mcg PO DAILY #90 caps 08/01/24 01/21/25 Rx mcg (2,000 unit) capsule ergocalciferol (vitamin D2) 1,250 1,250 mcg PO WEEKLY #14 caps 08/01/24 01/21/25 Rx mcg (50,000 unit) capsule fluticasone 250 mcg-salmeterol 50 1 inh inhalation BID #60 ea 10/23/24 01/21/25 Rx mcg/dose blistr powdr for inhalation (Advair Diskus) omeprazole 40 mg capsule,delayed 40 mg PO DAILY 90 days #90 caps 10/23/24 01/21/25 Rx release lorazepam 1 mg tablet 1 mg PO DAILY PRN anxiety #30 tabs 12/31/24 01/21/25 Rx hydralazine 25 mg tablet 25 mg PO TID 30 days #90 tabs 01/17/25 01/21/25 Rx lisinopril 40 mg tablet 40 mg PO DAILY #90 tabs 01/17/25 01/21/25 Rx metoprolol succinate 25 mg 25 mg PO DAILY 30 days #90 tabs 01/17/25 01/21/25 Rx tablet,extended release 24 hr atorvastatin 10 mg tablet 10 mg PO HS 01/22/25 01/22/25 History escitalopram oxalate 20 mg tablet 20 mg PO DAILY 01/22/25 01/22/25 History gabapentin 800 mg tablet 800 mg PO TID neuropathic pain 01/22/25 01/21/25 History ropinirole 1 mg tablet 1 mg PO HS 01/22/25 01/22/25 History New Prescriptions to Start Prescriptions: Allergies Allergy/AdvReac Type Severity Reaction Status Date / Time No Known Allergies Allergy Verified 01/17/25 14:29 Results Laboratory Findings 01/22/25 05:07 01/22/25 05:07 Abnormal lab findings: Abnormal Labs 01/21/25 01/21/25 01/21/25 13:00 13:03 16:27 WBC 21.3 H* RBC 3.35 L Hgb 9.8 L Hct 30.9 L MCHC 31.7 L MPV 10.5 H Neut % (Auto) 88.9 H Lymph % (Auto) 5.2 L Eos % (Auto) Neut # (Auto) 18.9 H Lymph # (Auto) Neutrophils % (Manual) 86 H Lymphocytes % (Manual) VBG pCO2 29.9 L VBG pO2 74.2 H VBG HCO3 17.8 L VBG Total CO2 18.7 L VBG O2 Saturation 95.4 H VBG Base Excess -7.1 L Sodium 133 L Potassium 5.4 H Chloride Carbon Dioxide 20 L Anion Gap BUN 37 H Creatinine 3.40 H Estimated GFR 19 L* Est GFR ( Amer) 24 L Glucose 112 H Alkaline Phosphatase 131 H Lactate Dehydrogenase 791 H C-Reactive Protein 253.2 H NT-Pro-B Natriuret Pep 3120 H 01/21/25 01/22/25 18:28 05:07 WBC 14.6 H D RBC 3.34 L Hgb 10.0 L Hct 31.0 L MCHC MPV 10.5 H Neut % (Auto) 93.4 H Lymph % (Auto) 3.7 L Eos % (Auto) 0.0 L Neut # (Auto) 13.6 H Lymph # (Auto) 0.5 L Neutrophils % (Manual) 91 H Lymphocytes % (Manual) 7 L VBG pCO2 VBG pO2 VBG HCO3 VBG Total CO2 VBG O2 Saturation VBG Base Excess Sodium 135 L Potassium 5.3 H Chloride 109 H Carbon Dioxide 19 L 20 L Anion Gap 15.5 H BUN 38 H 46 H Creatinine 3.40 H 3.20 H Estimated GFR 19 L* 21 L Est GFR ( Amer) 24 L 25 L Glucose 186 H D 146 H D Alkaline Phosphatase Lactate Dehydrogenase C-Reactive Protein NT-Pro-B Natriuret Pep Assessment and Plan *Assessment and plan (1) Acute hypoxemic respiratory failure: Status: Acute Category: Medical Code(s): J96.01 - Acute respiratory failure with hypoxia (2) Multifocal pneumonia: Status: Acute Category: Medical Code(s): J18.9 - Pneumonia, unspecified organism Plan Mr. Loera is a 49-year-old male greater than [id number] smoking history current smoker history of recurrent pneumonia interstitial lung disease reduced DLCO CKD mild persistent asthma presented to the ER with worsening respiratory distress and pulmonary was called for further evaluation and management. Patient admits worsening respiratory distress for the last 2 to 3 days. Admits cough, dry nonproductive. No evidence of hemoptysis. No known sick contacts. Previous PFTs did not show any evidence of obstructive or restrictive lung disease, showed decreased DLCO at 62% predicted. Autoimmune workup including RICK, MPO and CT-3 resulted negative. Serum strongyloidiasis antibody negative IgE significantly elevated at 1173. Echo November 2024 LV diastolic dysfunction with normal EF at 60%. RV size and function within normal limits. VQ scan from 2021 low probability of PE. HRCT from his prior clinic visit from October 2024 showed bilateral patchy groundglass opacities with a trapping along with interstitial change concerning for ILD. CT chest on this admission bilateral diffuse groundglass opacities with no dense consolidative changes. Traction bronchiectasis noted.. Comprehensive respiratory viral PCR panel negative Labs on this admission significant neutrophilic predominant leukocytosis with no eosinophilia. Improving. Prior episodes of peripheral eosinophilia noted with counts ranging from 0-600. Received methylprednisolone 25 mg IV in the ER. Currently receiving levofloxacin and breathing treatments. Plan: Continue high flow nasal cannula oxygen supplementation to maintain O2 saturation goal of 90% and above, currently on 30 L 50% DuoNebs every 6 hours along with Pulmicort every 12 scheduled Continue ceftriaxone erythromycin pending bronchoscopy Will hold off on initiating prednisone at this point of time pending culture results Risks and benefit of the bronchoscopy procedure explained in detail including but nit limited to sore throat, difficult breathing, airway injury, vocal cord injury, respiratory failure, lung collapse, infections, abnormal heart rate, medication reactions and . Patient also explained the possibility of needing mechanical ventilator support post bronchoscopy given his severe respiratory distress prior to the procedure. Alternative plan of care options including follow up imaging and observation were also explained to the patient along with possible risks and benefits associated. Patient expressed his complete understanding of the procedure, alternative plan of care options and possible complications and agreed to proceed with bronchoscopy procedure. There were no questions for me at the end of the office visit.
[2025-01-22] MEDS: ACETAMINOPHEN 325MG TAB 650 MG PO ×2 (10:52→20:27)
--- NOTE | 2025-01-22 11:12 | EXP.ACUTE.PN ---
Subjective *Date: 01/22/25 *Time: 19:40 Interval history: Patient is afebrile. States he is comfortable on Vapotherm this morning at 30 L and 50%. No nausea or vomiting. Denies any chest pain. Alert and oriented x 3 Medical Exam Vital signs and Labs for Last 24 Hours: Vital Signs Temp Pulse Pulse Resp BP BP Pulse Ox 01/22/25 10:00 01/22/25 10:00 78 21 172/98 H 94 L 01/22/25 09:45 01/22/25 08:24 63 15 147/93 H 97 01/22/25 08:24 01/22/25 08:00 60 01/22/25 08:00 97.8 F 72 16 161/102 H 94 L 01/22/25 07:55 97.8 F 01/22/25 07:52 72 93 L 01/22/25 07:00 01/22/25 06:09 62 01/22/25 06:09 62 01/22/25 06:09 92 L 01/22/25 06:00 65 14 145/89 H 95 01/22/25 05:00 01/22/25 04:00 98.6 F 01/22/25 04:00 70 01/22/25 04:00 64 18 117/67 92 L 01/22/25 03:00 01/22/25 02:45 94 L 01/22/25 02:00 93 L 01/22/25 02:00 63 18 129/84 92 L 01/22/25 01:00 01/22/25 00:13 70 01/22/25 00:00 98.8 F 01/22/25 00:00 78 20 117/72 94 L 01/21/25 23:05 73 01/21/25 23:05 75 01/21/25 22:59 01/21/25 22:26 94 L 01/21/25 22:00 77 24 137/85 90 L 01/21/25 22:00 83 20 137/85 87 L 01/21/25 21:00 01/21/25 20:08 120 H 01/21/25 20:00 98 H 25 H 131/76 90 L 01/21/25 20:00 98.2 F 01/21/25 20:00 91 L 01/21/25 20:00 97 H 20 131/76 92 L 01/21/25 18:59 01/21/25 18:50 81 18 01/21/25 18:50 81 01/21/25 18:50 94 H 01/21/25 18:50 92 L 01/21/25 18:01 84 23 156/78 H 92 L 01/21/25 17:00 01/21/25 16:21 26 H 96 01/21/25 16:17 90 01/21/25 16:14 83 28 H 140/92 H 92 L 01/21/25 16:14 98.7 F 90 20 140/92 H 98 01/21/25 15:59 99.0 F 90 23 144/82 H 01/21/25 14:31 104 H 133/72 89 L 01/21/25 14:01 98 H 131/74 93 L 01/21/25 13:31 82 131/70 96 01/21/25 12:36 99.4 F 77 26 H 145/80 H 80 L O2 Del Method O2 Flow Rate FiO2 01/22/25 10:00 Vapotherm 30 50 01/22/25 10:00 Vapotherm 30 01/22/25 09:45 Vapotherm 30 01/22/25 08:24 Vapotherm 30 01/22/25 08:24 Vapotherm 30 50 01/22/25 08:00 01/22/25 08:00 Vapotherm 30 01/22/25 07:55 01/22/25 07:52 Vapotherm 30 50 01/22/25 07:00 Vapotherm 30 01/22/25 06:09 01/22/25 06:09 01/22/25 06:09 Vapotherm 30 50 01/22/25 06:00 Vapotherm 30 01/22/25 05:00 Vapotherm 30 01/22/25 04:00 01/22/25 04:00 01/22/25 04:00 Vapotherm 30 01/22/25 03:00 Vapotherm 30 01/22/25 02:45 Vapotherm 30 60 01/22/25 02:00 Vapotherm 30 60 01/22/25 02:00 Vapotherm 30 01/22/25 01:00 Vapotherm 30 01/22/25 00:13 01/22/25 00:00 01/22/25 00:00 Vapotherm 30 01/21/25 23:05 01/21/25 23:05 01/21/25 22:59 Vapotherm 30 01/21/25 22:26 Vapotherm 30 50 01/21/25 22:00 Nasal Cannula 6 01/21/25 22:00 Nasal Cannula 6 01/21/25 21:00 Nasal Cannula 5 01/21/25 20:08 01/21/25 20:00 Nasal Cannula 5 01/21/25 20:00 01/21/25 20:00 Nasal Cannula 4 01/21/25 20:00 Nasal Cannula 4 01/21/25 18:59 Nasal Cannula 4 01/21/25 18:50 01/21/25 18:50 01/21/25 18:50 01/21/25 18:50 Nasal Cannula 4 01/21/25 18:01 Nasal Cannula 4 01/21/25 17:00 Nasal Cannula 4 01/21/25 16:21 Nasal Cannula 4 01/21/25 16:17 01/21/25 16:14 Nasal Cannula 4 01/21/25 16:14 Nasal Cannula 4 01/21/25 15:59 Nasal Cannula 2 01/21/25 14:31 Nasal Cannula 2 01/21/25 14:01 Nasal Cannula 2 01/21/25 13:31 2 01/21/25 12:36 Room Air Intake and Output 01/21/25 01/22/25 01/22/25 23:59 07:59 15:59 Intake Total 637 / 637 Output Total 2550 / 2550 900 / 900 Balance -1913 / -1913 -900 / -900 Intake: Intake, Oral Amount 500 / 500 Intake, Total IV Amount 137 / 137 Levofloxacin/D5w 750 mg/150 ml 137 / 137 750 mg In 150 ml @ 100 mls/hr IV Q48H [facility] Rx#:[id number] Output: Output, Urine Amount 2550 / 2550 900 / 900 Other: Number of Unmeasured Voids 0 Number of Bowel Movements 1 Weight 108.153 kg 109.134 kg Patient Weight 01/22/25 23:59 Weight 109.134 kg Laboratory Results - last 24 hr 01/21/25 12:50: Chlamy pneumoniae PCR Not detected, Adenovirus (PCR) Not detected, B. pertussis DNA (PCR) Not detected, Coronavirus OC43 (PCR) Not detected, Coronavirus HKU1 (PCR) Not detected, Coronavirus 229E (PCR) Not detected, SARS-CoV-2 (PCR) Not detected 01/21/25 12:50: SARS-CoV-2 (PCR) Not detected, Coronavirus NL63 (PCR) Not detected, Human Metapneumovir PCR Not detected, Influenza A (H1) PCR Not detected, Influ A (H1N1/09) PCR Not detected, Influenza A (H3) PCR Not detected, Influenza Type A (PCR) Not detected, Influenza A Untype (PCR) Not detected, Influenza Type B (PCR) Not detected 01/21/25 12:50: Influenza Type B (PCR) Not detected, M. pneumoniae (PCR) Not detected, Parainfluenza 1 (PCR) Not detected, Parainfluenza 2 (PCR) Not detected, Parainfluenza 3 (PCR) Not detected, Parainfluenza 4 (PCR) Not detected, RSV (PCR) Not detected, Entero/Rhino (PCR) Not detected 01/21/25 13:00: WBC 21.3 H*, RBC 3.35 L, Hgb 9.8 L, Hct 30.9 L, MCV 92.2, MCH 29.3, MCHC 31.7 L, RDW 14.9, Plt Count 228, MPV 10.5 H, Neut % (Auto) 88.9 H, Lymph % (Auto) 5.2 L, Bea[place]gard % (Auto) 4.4, Eos % (Auto) 0.4, Baso % (Auto) 0.3, Neut # (Auto) 18.9 H, Lymph # (Auto) 1.1, Bea[place]gard # (Auto) 0.9, Eos # (Auto) 0.1, Baso # (Auto) 0.1, Total Counted 100, Neutrophils % (Manual) 86 H, Lymphocytes % (Manual) 11, Monocytes % (Manual) 3, Platelet Estimate Normal, RBC Morphology Normal, Sodium 133 L, Potassium 5.4 H, Chloride 106, Carbon Dioxide 20 L, Anion Gap 12.4, BUN 37 H, Creatinine 3.40 H, Estimated Creat Clear 38, Estimated GFR 19 L*, Est GFR ( Amer) 24 L, Glucose 112 H, Calcium 8.9, Total Bilirubin 0.5, AST 46, ALT 16, Alkaline Phosphatase 131 H, Troponin I 0.02, NT-Pro-B Natriuret Pep 3120 H, Total Protein 6.6, Albumin 3.9, Globulin 2.7, Albumin/Globulin Ratio 1.4 01/21/25 13:03: VBG pH 7.39, VBG pCO2 29.9 L, VBG pO2 74.2 H, VBG HCO3 17.8 L, VBG Total CO2 18.7 L, VBG O2 Saturation 95.4 H, VBG Base Excess -7.1 L, VBG Lactic Acid 1.1 01/21/25 16:27: Lactate Dehydrogenase 791 H, Troponin I 0.02, C-Reactive Protein 253.2 H 01/21/25 18:28: Sodium 135 L, Potassium 4.5, Chloride 105, Carbon Dioxide 19 L, Anion Gap 15.5 H, BUN 38 H, Creatinine 3.40 H, Estimated Creat Clear 41, Estimated GFR 19 L*, Est GFR ( Amer) 24 L, Glucose 186 H D, Calcium 8.8 01/21/25 19:21: Troponin I 0.02 01/21/25 22:54: Magnesium 2.0 01/22/25 05:07: WBC 14.6 H D, RBC 3.34 L, Hgb 10.0 L, Hct 31.0 L, MCV 92.8, MCH 29.9, MCHC 32.3, RDW 15.1, Plt Count 258, MPV 10.5 H, Neut % (Auto) 93.4 H, Lymph % (Auto) 3.7 L, Bea[place]gard % (Auto) 2.3, Eos % (Auto) 0.0 L, Baso % (Auto) 0.1, Neut # (Auto) 13.6 H, Lymph # (Auto) 0.5 L, Bea[place]gard # (Auto) 0.3, Eos # (Auto) 0.0, Baso # (Auto) 0.0, Total Counted 100, Neutrophils % (Manual) 91 H, Lymphocytes % (Manual) 7 L, Monocytes % (Manual) 2, Platelet Estimate Normal, RBC Morphology Normal, Sodium 137, Potassium 5.3 H, Chloride 109 H, Carbon Dioxide 20 L, Anion Gap 13.3, BUN 46 H, Creatinine 3.20 H, Estimated Creat Clear 44, Estimated GFR 21 L, Est GFR ( Amer) 25 L, Glucose 146 H D, Calcium 9.2, Magnesium 2.1, Total Bilirubin 0.3, AST 37, ALT 16, Alkaline Phosphatase 116, Total Protein 6.7, Albumin 3.8, Globulin 2.9, Albumin/Globulin Ratio 1.3 I & O for Labs for Last 24 Hours: Intake & Output 01/19/25 01/20/25 01/21/25 01/22/25 23:59 23:59 23:59 23:59 Intake Total 637 / 637 Output Total 2550 / 2550 / 900 Balance -1912 / -1912 - / -900 Weight 108.153 kg 109.134 kg Constitutional: Present mild distress, obese and cooperative Head: Present atraumatic and normocephalic ENT: Present normal exam Respiratory: Present accessory muscle use, prolonged expiratory phase, wheezes and crackles (Diffuse); Absent rhonchi Cardiac: Present Reg Rate and Rhythm GI: Present soft and normal bowel sounds; Absent distention or tenderness Extremities: Present normal inspection and full ROM Skin: Present intact; Absent erythema Neuro: Present Grossly Intact, alert, awake, oriented x 3 and moves all extremities Assessment and Plan *Assessment and plan (1) Severe sepsis: Status: Acute Category: Medical Code(s): A41.9 - Sepsis, unspecified organism; R65.20 - Severe sepsis without septic shock (2) Multifocal pneumonia: Status: Acute Category: Medical Code(s): J18.9 - Pneumonia, unspecified organism (3) Acute hypoxemic respiratory failure: Status: Acute Category: Medical Code(s): J96.01 - Acute respiratory failure with hypoxia (4) ADI (acute kidney injury): Status: Acute Category: Medical Code(s): N17.9 - Acute kidney failure, unspecified (5) Tobacco dependence syndrome: Status: Chronic Category: Medical Code(s): F17.200 - Nicotine dependence, unspecified, uncomplicated (6) Neuropathy: Status: Chronic Category: Medical Code(s): G62.9 - Polyneuropathy, unspecified (7) Major depression, recurrent, chronic: Status: Acute Category: Medical Code(s): F33.9 - Major depressive disorder, recurrent, unspecified (8) Generalized anxiety disorder with panic attacks: Status: Acute Category: Medical Code(s): F41.1 - Generalized anxiety disorder; F41.0 - Panic disorder [episodic paroxysmal anxiety] (9) Polycystic kidney disease: Status: Acute Category: Medical Code(s): Q61.3 - Polycystic kidney, unspecified (10) CKD stage 4 secondary to hypertension: Status: Chronic Category: Medical Code(s): I12.9 - Hypertensive chronic kidney disease with stage 1 through stage 4 chronic kidney disease, or unspecified chronic kidney disease; N18.4 - Chronic kidney disease, stage 4 (severe) (11) COPD (chronic obstructive pulmonary disease): Status: Chronic Qualifiers: COPD type: unspecified COPD Qualified Code(s): J44.9 - Chronic obstructive pulmonary disease, unspecified Category: Medical Code(s): J44.9 - Chronic obstructive pulmonary disease, unspecified (12) HTN (hypertension): Status: Acute Qualifiers: Hypertension type: essential hypertension Qualified Code(s): I10 - Essential (primary) hypertension Category: Medical Code(s): I10 - Essential (primary) hypertension (13) Cardiac pacemaker in situ: Status: Chronic Category: Medical Code(s): Z95.0 - Presence of cardiac pacemaker (14) Elevated brain natriuretic peptide (BNP) level: Status: Acute Category: Medical Code(s): R79.89 - Other specified abnormal findings of blood chemistry (15) Acute hyperkalemia: Status: Acute Category: Medical Code(s): E87.5 - Hyperkalemia Plan 49-year-old male with polycystic kidney disease, tobacco use disorder, 2 to 3 days of worsening shortness of breath. Found to have multifocal pneumonia on chest imaging and concern for sepsis with elevated white count, tachypnea, pneumonia. Medicine consulted for admission and further management. Discussed case with ER physician, request admission for further care. I agreed to admit for further treatment. Pulmonology consulted to assist. Initiated on broad-spectrum antibiotics in the ER. CT per my review showing multifocal diffuse airspace disease. Bronchoscopy today got delayed. Will plan for bronchoscopy in the morning. Pulmonology assisting with care. Continuing broad-spectrum antibiotics. Stable on Vapotherm. Continues to require stepdown level of care. Problems addressed as follows: Severe sepsis with acute hypoxemic respiratory failure secondary to multifocal pneumonia -Pulmonology consulted, discussed case today. Unclear etiology. Plan for bronchoscopy in the morning. -Continue azithromycin 500 mg and ceftriaxone 2 g daily. - Blood cultures pending, will obtain cultures during bronch in the morning; sputum pending -White count improved from 21-14.6. Repeat CBC, CMP, magnesium ordered for the morning -Negative for flu and COVID. Comprehensive respiratory panel pending. LDH elevated and CRP elevated. Repeat CRP, ESR ordered for the morning - Continue Advair 1 puff twice daily for COPD - DuoNebs every 6 hours - Received methylprednisolone in the ER, hold on further steroids pending bronchoscopy given broad differential of suspected pathogens and potential for fungal source Continue gabapentin 800 mg 3 times a day for neuropathy per home regimen Continue Ativan 1 mg daily as needed for anxiety Continue lisinopril 40 mg daily for hypertension Pantoprazole 40 mg nightly for GERD Ropinirole 1 mg nightly for restless leg Resume Suboxone 2 tablets daily per home regimen for opiate use disorder Anemia -Hemoglobin 10 this morning, No active signs of bleeding. - This is a decrease from a month ago. Monitor for signs of bleeding. Transfusion threshold hemoglobin less than 7 - Platelets stable at 258 Elevated BNP of 3000, review of chart shows echo obtained beginning of November (2 months ago) with normal EF and diastolic dysfunction ADI CKD 4 Polycystic kidney disease -Baseline creatinine less than 3. BUN remains elevated at 46, creatinine 3.2. Caution with nephrotoxic Tobacco use disorder: Nicotine patch 21 mg daily as needed Full code Holding anticoagulation pending bronchoscopy Regular diet, n.p.o.
[2025-01-22] MEDS: CITALOPRAM 40MG TABLET 40 MG PO (11:58)
[2025-01-22] MEDS: LORazepam 1MG TABLET 1 MG PO (11:58)
[2025-01-22] MEDS: HYDRALAZINE HCL 25MG TABLET 25 MG PO ×2 (13:36→20:17)
[2025-01-22] MEDS: ROPINIROLE 1MG TABLET 1 MG PO (20:17)
[2025-01-22] MEDS: PANTOPRAZOLE 40MG TABLET 40 MG PO (20:17)
[2025-01-22] MEDS: CEFTRIAXONE SODIUM 2 GM in 0.9 % SODIUM CHLORIDE 100 ML IV (20:20)
[2025-01-22] MEDS: ATORVASTATIN 10MG TABLET 10 MG PO (20:20)
[2025-01-22] MEDS: AZITHROMYCIN 500 MG in 0.9 % SODIUM CHLORIDE 250 ML 250 MG IV (21:40)
[2025-01-23] VITALS (46 sets, daily range): BP systolic 109–164; BP diastolic 52–102; PULSE 62–112; RESP 13–31; TEMP 36.4–36.8; O2SAT 88–100; BMI 35.6
[2025-01-23] MEDS: CALCIUM CARBONATE 500MG CHEWTAB 500 MG PO (05:45)
[2025-01-23] MEDS: FLUTICASONE/SALMETEROL 250/50MCG DISKUS 1 PUFF IH ×2 (06:06→19:42)
[2025-01-23] MEDS: IPRATROPIUM/ALBUTEROL 3 ML NEB IH ×4 (06:06→23:18)
--- NOTE | 2025-01-23 06:23 | PC.NURSE ---
pt alert and oriented. pt npo for bronch today. pt has rested pretty well throughout the night. pts iv in his left forearm began to leak while receiving antibiotics. infusion was stopped iv was removed, new iv was placed in the right forearm. pt complaining of heartburn, md called and md ordered a tums. pt still on vapotherm at 25lpm 40% oxygen. pt lung sounds are diminished and has inspiratory rhonci in left base.
[2025-01-23 06:32] LABS: Basophils % 0.2 % (0.1-2.0); Eosinophils # 0.3 K/mm3 (0.0-0.4); Eosinophils % 1.6 % (0.1-12.0); Hematocrit 32.2 % (42.0-52.0); Hemoglobin 10.2 g/dL (14.1-18.0); Lymphocytes # 2.1 K/mm3 (0.7-4.5); Lymphocytes % 11.7 % (10-50); Mean Corpuscular HGB Conc 31.7 g/dL (31.8-35.4); Mean Corpuscular Hemoglobin 29.7 pg (27.0-31.2); Mean Corpuscular Volume 93.6 fl (80-94); Mean Platelet Volume 10.3 fl (7.4-10.4); Monocytes # 0.8 K/mm3 (0.1-1.0); Monocytes % 4.4 % (1.7-9.3); Neutrophils # 14.6 K/mm3 (1.8-7.8); Neutrophils % 81.7 % (37.0-80.0); Platelet Count 276 K/mm3 (142-424); Red Blood Count 3.44 M/mm3 (4.60-6.20); Red Cell Distribution Width 15.1 % (11.5-17.5); White Blood Count 17.8 K/mm3 (4.8-10.8)
[2025-01-23 06:33] LABS: MANUAL DIFFERENTIAL MANUAL DIFFERENTIAL (MANUAL DIFF)
[2025-01-23 06:52] LABS: Alanine Aminotransferase 18 U/L (12-78); Albumin Level 3.8 g/dl (3.5-5.0); Albumin/Globulin Ratio 1.3 (1.1-1.8); Alkaline Phosphatase 122 U/L (38-126); Anion Gap 13.9 mEq/L (5-15); Aspartate Amino Transferase 33 U/L (17-59); Bilirubin,Total 0.3 mg/dl (0.2-1.3); Blood Urea Nitrogen 56 mg/dl (9-20); Calcium 9.4 mg/dl (8.4-10.2); Carbon Dioxide 22 mmol/L (22.0-30.0); Chloride 110 mmol/L (98-107); Creatinine Clearance Estimated 46 mL/min (50-200); Estimated Glomerular Filt Rate 22 ml/min (>60); GFR (African American) 27 ML/MIN (>60); Glucose 109 mg/dl (74-100); Magnesium 2.3 mg/dl (1.6-2.3); Potassium 4.9 mmoL/L (3.5-5.1); Sodium 141 mmol/L (136-145); Total Protein,Serum 6.8 g/dl (6.3-8.2)
[2025-01-23 06:58] LABS: C-Reactive Protein 180.5 mg/L (0-4)
[2025-01-23 08:05] LABS: Erythrocyte Sedimentation Rate 89 mm/hr (0-15)
[2025-01-23] MEDS: GABAPENTIN 800MG TABLET 800 MG PO ×3 (08:24→22:24)
[2025-01-23] MEDS: BUPRENORPHINE/NALOXONE 8MG/2MG ODT 2 EACH SL (08:24)
[2025-01-23] MEDS: METOPROLOL SUCCINATE XL 25MG TABLET 25 MG PO (08:25)
[2025-01-23] MEDS: LISINOPRIL 20MG TABLET 40 MG PO (08:25)
[2025-01-23] MEDS: CITALOPRAM 40MG TABLET 40 MG PO (08:25)
[2025-01-23] MEDS: HYDRALAZINE HCL 25MG TABLET 25 MG PO ×3 (08:25→21:28)
[2025-01-23 08:28] LABS: Lymphocytes % 12 % (10-50); Monocytes % 3 % (2-9); Neutrophils % 85 % (42-76); Platelet Estimate Normal; RBC Morphology Normal; Total Cells Counted 100
--- NOTE | 2025-01-23 09:10 | EXP.ANES.CKL ---
[facility] Disclaimer: The information contained in this section may have been updated after the patient was seen, as this information can be updated by other users. Medical History History of pacemaker ADI (acute kidney injury) Altered mental status Atypical pneumonia CHF exacerbation Overdose Acute metabolic encephalopathy Left elbow pain Obesity Neuropathy Obesity Tobacco dependence syndrome URI (upper respiratory infection) Cough Recurrent pneumonia Sinusitis History of pacemaker Polycystic kidney disease Dyspnea Headache Anxiety Gastro-esophageal reflux disease without esophagitis Malignant hypertension Acute bacterial bronchitis Acute upper respiratory infection Bronchitis Edema Laceration of left index finger RLS (restless legs syndrome) Obesity Tobacco abuse Hand fracture, right COPD (chronic obstructive pulmonary disease) Pacemaker Gastroesophageal reflux disease CKD (chronic kidney disease) Bradycardia with 31-40 beats per minute Acute hyperkalemia Patient left without being seen UTI (urinary tract infection) Respiratory failure, acute Acute hyperkalemia Otitis media Obesity Somnolence, daytime, controlled Snoring Pulmonary nodules HTN (hypertension) Edema Chest pain Palpitations URI (upper respiratory infection) Medication refill Hypertensive urgency Bronchitis Elbow contusion Contusion of right hand Surgical History AICD (automatic cardioverter/defibrillator) present No history of previous surgery Family History Other Heart attack Hypertension Social History Smoking Status: Current every day smoker tobacco type: cigarettes packs per day: 1 years smoked: 30 second hand exposure: No alcohol intake: never substance use type: former substance user and painkillers current occupational status: employed and other Travel in the last 8 weeks: None household members: significant other housing: house lives independently: No caffeine: Yes special crystal needs: No agree to transfusion: No Have you lived/traveled outside [place] in past 30 days?: No Contact w/someone who lives/traveled outside [place] past 30 days?: No Exposure to someone with infectious disease in past 14 days?: No Do you have a fever (greater than 100.4 F or 38 C)?: No Have you tested positive for COVID-19: No Exposed to someone with COVID-19 in past 14 days?: No Do you have a sore throat?: No Do you have a cough?: Yes Do you have any weakness?: No Do you have any diarrhea?: No Are you experiencing any unusual bleeding?: No Do you have any muscle aches/pain?: No Do you have any abdominal pain?: No Are you experiencing loss of taste or smell?: No [facility] Anesthesia Checklist Patient Identification Patient Identification: Arm Band Structural Data Admitted From: Inpatient Planned Operative Procedure/s: Bronchoscopy with Airway Examination, Biopsy and Broncheoalveoloar Lavage Consent for Planned Operative Procedure(s) Verified: Yes Verified Documents: Surgical Consent and History and Physical NPO Status Verified Time NPO: 00:00 Additional verifications Anesthesia Reactions: No Airway Assessment Mallampati Score:: Class II C-Spine Mobility Assessed: Yes TMJ Mobility Assessed: Yes Dentition: Good Dentition Neurological Assessment Level of Consciousness: Awake, Alert and Appropriate Anesthesia Plan Anesthesia Risk discussed: Yes Anesthesia Plan: Verified ASA Class: IV Anesthesia Type: General
--- NOTE | 2025-01-23 09:30 | P.PN_ITS ---
Subjective *Date: 01/23/25 *Time: 16:21 Interval history: No acute respiratory vents overnight. Patient admits improving respiratory symptoms. Pulmonology Exam Inpatient Vital signs and Labs for Last 24 Hours: Temp Pulse Resp BP Pulse Ox O2 Del Method O2 Flow Rate 98 F 82 16 130/76 91 L Vapotherm 01/23/25 08:00 01/23/25 08:00 01/23/25 06:00 01/23/25 08:00 01/23/25 08:00 01/23/25 08:00 01/23/25 08:00 FiO2 30 01/23/25 06:08 Laboratory Results - last 24 hr 01/23/25 05:49: WBC 17.8 H, RBC 3.44 L, Hgb 10.2 L, Hct 32.2 L, MCV 93.6, MCH 29.7, MCHC 31.7 L, RDW 15.1, Plt Count 276, MPV 10.3, Neut % (Auto) 81.7 H, Lymph % (Auto) 11.7, Stephens % (Auto) 4.4, Eos % (Auto) 1.6, Baso % (Auto) 0.2, Neut # (Auto) 14.6 H, Lymph # (Auto) 2.1, Stephens # (Auto) 0.8, Eos # (Auto) 0.3, Baso # (Auto) 0.0, Total Counted 100, Neutrophils % (Manual) 85 H, Lymphocytes % (Manual) 12, Monocytes % (Manual) 3, Platelet Estimate Normal, RBC Morphology Normal, ESR 89 H, Sodium 141, Potassium 4.9, Chloride 110 H, Carbon Dioxide 22, Anion Gap 13.9, BUN 56 H, Creatinine 3.00 H, Estimated Creat Clear 46, Estimated GFR 22 L, Est GFR ( Amer) 27 L, Glucose 109 H, Calcium 9.4, Magnesium 2.3, Total Bilirubin 0.3, AST 33, ALT 18, Alkaline Phosphatase 122, C-Reactive Protein 180.5 H, Total Protein 6.8, Albumin 3.8, Globulin 3.0, Albumin/Globulin Ratio 1.3 Temp Pulse Resp BP Pulse Ox O2 Del Method O2 Flow Rate 97.8 F 60 16 161/102 H 94 L Vapotherm 30 01/22/25 08:00 01/22/25 08:00 01/22/25 08:00 01/22/25 08:00 01/22/25 08:00 01/22/25 08:00 01/22/25 08:00 FiO2 50 01/22/25 07:52 Laboratory Results - last 24 hr 01/21/25 12:50: Chlamy pneumoniae PCR Not detected, Adenovirus (PCR) Not detected, B. pertussis DNA (PCR) Not detected, Coronavirus OC43 (PCR) Not detected, Coronavirus HKU1 (PCR) Not detected, Coronavirus 229E (PCR) Not detected, SARS-CoV-2 (PCR) Not detected 01/21/25 12:50: SARS-CoV-2 (PCR) Not detected, Coronavirus NL63 (PCR) Not detected, Human Metapneumovir PCR Not detected, Influenza A (H1) PCR Not dete cted, Influ A (H1N1/09) PCR Not detected, Influenza A (H3) PCR Not detected, Influenza Type A (PCR) Not detected, Influenza A Untype (PCR) Not detected, Influenza Type B (PCR) Not detected 01/21/25 12:50: Influenza Type B (PCR) Not detected, M. pneumoniae (PCR) Not detected, Parainfluenza 1 (PCR) Not detected, Parainfluenza 2 (PCR) Not detected, Parainfluenza 3 (PCR) Not detected, Parainfluenza 4 (PCR) Not detected, RSV (PCR) Not detected, Entero/Rhino (PCR) Not detected 01/21/25 13:00: WBC 21.3 H*, RBC 3.35 L, Hgb 9.8 L, Hct 30.9 L, MCV 92.2, MCH 29.3, MCHC 31.7 L, RDW 14.9, Plt Count 228, MPV 10.5 H, Neut % (Auto) 88.9 H, Lymph % (Auto) 5.2 L, Stephens % (Auto) 4.4, Eos % (Auto) 0.4, Baso % (Auto) 0.3, Neut # (Auto) 18.9 H, Lymph # (Auto) 1.1, Stephens # (Auto) 0.9, Eos # (Auto) 0.1, Baso # (Auto) 0.1, Total Counted 100, Neutrophils % (Manual) 86 H, Lymphocytes % (Manual) 11, Monocytes % (Manual) 3, Platelet Estimate Normal, RBC Morphology Normal, Sodium 133 L, Potassium 5.4 H, Chloride 106, Carbon Dioxide 20 L, Anion Gap 12.4, BUN 37 H, Creatinine 3.40 H, Estimated Creat Clear 38, Estimated GFR 19 L*, Est GFR ( Amer) 24 L, Glucose 112 H, Calcium 8.9, Total Bilirubin 0.5, AST 46, ALT 16, Alkaline Phosphatase 131 H, Troponin I 0.02, NT-Pro-B Natriuret Pep 3120 H, Total Protein 6.6, Albumin 3.9, Globulin 2.7, Albumin/Globulin Ratio 1.4 01/21/25 13:03: VBG pH 7.39, VBG pCO2 29.9 L, VBG pO2 74.2 H, VBG HCO3 17.8 L, VBG Total CO2 18.7 L, VBG O2 Saturation 95.4 H, VBG Base Excess -7.1 L, VBG Lactic Acid 1.1 01/21/25 16:27: Lactate Dehydrogenase 791 H, Troponin I 0.02, C-Reactive Protein 253.2 H 01/21/25 18:28: Sodium 135 L, Potassium 4.5, Chloride 105, Carbon Dioxide 19 L, Anion Gap 15.5 H, BUN 38 H, Creatinine 3.40 H, Estimated Creat Clear 41, Estimated GFR 19 L*, Est GFR ( Amer) 24 L, Glucose 186 H D, Calcium 8.8 01/21/25 19:21: Troponin I 0.02 01/21/25 22:54: Magnesium 2.0 01/22/25 05:07: WBC 14.6 H D, RBC 3.34 L, Hgb 10.0 L, Hct 31.0 L, MCV 92.8, MCH 29.9, MCHC 32.3, RDW 15.1, Plt Count 258, MPV 10.5 H, Neut % (Auto) 93.4 H, Lymph % (Auto) 3.7 L, Stephens % (Auto) 2.3, Eos % (Auto) 0.0 L, Baso % (Auto) 0.1, Neut # (Auto) 13.6 H, Lymph # (Auto) 0.5 L, Stephens # (Auto) 0.3, Eos # (Auto) 0.0, Baso # (Auto) 0.0, Total Counted 100, Neutrophils % (Manual) 91 H, Lymphocytes % (Manual) 7 L, Monocytes % (Manual) 2, Platelet Estimate Normal, RBC Morphology Normal, Sodium 137, Potassium 5.3 H, Chloride 109 H, Carbon Dioxide 20 L, Anion Gap 13.3, BUN 46 H, Creatinine 3.20 H, Estimated Creat Clear 44, Estimated GFR 21 L, Est GFR ( Amer) 25 L, Glucose 146 H D, Calcium 9.2, Magnesium 2.1, Total Bilirubin 0.3, AST 37, ALT 16, Alkaline Phosphatase 116, Total Protein 6.7, Albumin 3.8, Globulin 2.9, Albumin/Globulin Ratio 1.3 I & O for Labs for Last 24 Hours: Intake & Output 01/20/25 01/21/25 01/22/25 01/23/25 23:59 23:59 23:59 23:59 Intake Total 637 / 637 335 / 585 250 / 250 Output Total 2550 / 2550 2200 / 2200 1999 / 1999 Balance -1913 / -1913 -1865 / -1615 -1750 / -1750 Weight 238 lb 7 oz 240 lb 9.6 oz 240 lb 9.588 oz Intake & Output 01/19/25 01/20/25 01/21/25 01/22/25 23:59 23:59 23:59 23:59 Intake Total 637 / 637 Output Total 2550 / 2550 900 / 900 Balance -1913 / -1913 -900 / -900 Weight 238 lb 7 oz 240 lb 9.6 oz Microbiology Reports for the Last 24 Hours: Microbiology 01/21/25 13:30 Blood Blood Culture - Preliminary NO GROWTH AFTER 24 HOURS 01/21/25 13:00 Blood Blood Culture - Preliminary NO GROWTH AFTER 24 HOURS Constitutional: Present moderate distress Head: Present normocephalic and atraumatic ENT: Present normal exam, normal oropharynx and mucous membranes moist Neck: Present normal inspection and full ROM Respiratory: Present respiratory distress, rhonchi, diminished air movement and able to speak in complete sentences; Absent wheezes or crackles Cardiac: Present S1/S2, Tachycardia and radial pulses present GI: Present soft and distention; Absent tenderness or guarding Skin: Present intact; Absent cyanosis or jaundice Neuro: Present alert, awake and oriented x 3 Extremities: Present normal inspection; Absent clubbing or cyanosis Psychiatric: Present normal affect and cooperative Assessment and Plan *Assessment and plan (1) Acute hypoxemic respiratory failure: Status: Acute Category: Medical Code(s): J96.01 - Acute respiratory failure with hypoxia (2) Multifocal pneumonia: Status: Acute Category: Medical Code(s): J18.9 - Pneumonia, unspecified organism Plan Mr. Loera is a 49-year-old male greater than [id number] smoking history current smoker history of recurrent pneumonia interstitial lung disease reduced DLCO CKD mild persistent asthma presented to the ER with worsening respiratory distress and pulmonary was called for further evaluation and management. Patient admits worsening respiratory distress for the last 2 to 3 days. Admits cough, dry nonproductive. No evidence of hemoptysis. No known sick contacts. Previous PFTs did not show any evidence of obstructive or restrictive lung disease, showed decreased DLCO at 62% predicted. Autoimmune workup including RICK, MPO and [place]-3 resulted negative. Serum strongyloidiasis antibody negative IgE significantly elevated at 1173. Echo November 2024 LV diastolic dysfunction with normal EF at 60%. RV size and function within normal limits. VQ scan from 2021 low probability of PE. HRCT from his prior clinic visit from October 2024 showed bilateral patchy groundglass opacities with a trapping along with interstitial change concerning for ILD. CT chest on this admission bilateral diffuse groundglass opacities with no dense consolidative changes. Traction bronchiectasis noted.. Comprehensive respiratory viral PCR panel negative Labs on this admission significant neutrophilic predominant leukocytosis with no eosinophilia. Improving. Prior episodes of peripheral eosinophilia noted with counts ranging from 0-600. Received methylprednisolone 25 mg IV in the ER. Currently receiving levofloxacin and breathing treatments. Interval update: No acute respiratory vents overnight. Significant improvement in patient's respiratory distress, this morning on 45 L saturating 95% and above. Likely extubate to nasal cannula after the procedure. Will follow. Afebrile. Hemodynamically stable. Continue to have leukocytosis. Blood cultures no growth 48 hours. Plan: DuoNebs every 6 hours along with Pulmicort every 12 scheduled Continue ceftriaxone and Azithromycin pending bronchoscopy Will hold off on initiating prednisone at this point of time pending culture results Status post bronchoscopy, tolerated procedure well. Will follow-up with results. Risks and benefit of the bronchoscopy procedure explained in detail including but nit limited to sore throat, difficult breathing, airway injury, vocal cord injury, respiratory failure, lung collapse, infections, abnormal heart rate, medication reactions and . Patient also explained the possibility of needing mechanical ventilator support post bronchoscopy given his severe respiratory distress prior to the procedure. Alternative plan of care options including follow up imaging and observation were also explained to the patient along with possible risks and benefits associated. Patient expressed his complete understanding of the procedure, alternative plan of care options and possible complications and agreed to proceed with bronchoscopy procedure. There were no questions for me at the end of the office visit.
--- NOTE | 2025-01-23 09:31 | PC.NURSE ---
Addendum entered by Yamile Spann RN 01/23/25 11:22: 1106 pt returned to unit with Lisa Richard RN and Safia Salazar RN Original Note: 0845 pt left unit with jocelin from Preop. pt on nrb at this time.
--- NOTE | 2025-01-23 10:19 | XR_ITS ---
FINAL REPORT CLINICAL HISTORY: BRONCH IN OR 3.1 MIN 71.12 mGy FINDINGS: FLUOROSCOPY LESS THAN 1 HOUR HISTORY: Fluoroscopy guidance Utilized fluoroscopic guidance was provided for right lung bronchoscopy. A single spot film was obtained. 3.1 minutes of fluoroscopy time were used. DAP: Seven 1.12 mGy IMPRESSION: As above. Reviewed, Interpreted and Dictated by Montse De Leon MD Transcribed by Jessica Storm Authenticated and [facility][1]
--- NOTE | 2025-01-23 10:32 | P.PNANES_ITS ---
[facility] Anesthesia Record Part I Anesthesia Record I Intake, IV Amount: 400 Hydration: Adequate Estimated blood loss (mL): 25 Urine output (mL): 0 Blood Products used (#): none Blood Pressure: 139/95 SaO2: 94 Pulse Rate: 76 Airway Patency: Patent Respiratory Rate: 20 Temperature: 98.1 F Patient is:: Awake (Talking), Mask O2 (4L/min NC) and Stable Stable to PACU at:: 10:30
--- NOTE | 2025-01-23 10:54 | XR_ITS ---
FINAL REPORT TECHNIQUE: Single view chest CLINICAL HISTORY: POST BRONCH COMPARISON: 01/22/2025 FINDINGS: SINGLE VIEW CHEST: There is a new area of dense consolidation in the right lateral lung base, that may represent hemorrhage after bronchoscopy and/or biopsy, or less likely interval development of pneumonia. The left densities and right upper lobe opacities noted on the prior exam of 01/22/2025 have improved. There is no evidence of effusion or pneumothorax. Mediastinum is unremarkable. Heart size is moderately enlarged, stable. A left pacemaker is identified. IMPRESSION: Interval development of a new area of dense consolidation in the right lateral lung base, that may represent hemorrhage after bronchoscopy and/or biopsy. No pneumothorax is identified. Reviewed, Interpreted and Dictated by Montse De Leon MD Transcribed by Lula Alicea Authenticated and . [facility]
--- NOTE | 2025-01-23 12:56 | EXP.ANES.II ---
[facility] Anesthesia Record Part II Anesthesia Record Part II Discharge Time: 11:05 Destination: Medical Surgical Department PACU nurse assessment reviewed?: Yes Patient Condition:: Good Anesthesia Complications:: None Swallowing reflex intact?: Yes Airway Patency: Patent Cyanosis?: No Blood Pressure: 142/96 SaO2: 94 (on 4L/min NC) Respiratory Rate: 14 Pulse Rate: 63 Temperature: 97.5 F Mental Status: Alert & Oriented Pain level:: 0 Nausea and/or vomitting:: None Intake, IV Amount: 400 Hydration: Adequate
--- NOTE | 2025-01-23 13:19 | EXP.ACUTE.PN ---
Subjective *Date: 01/23/25 *Time: 16:37 Interval history: Afebrile. No nausea or vomiting. States feeling little bit better. Having good urine output. On Vapotherm overnight at 25 L and 30%. Weaned to 4 L nasal cannula after bronchoscopy. Medical Exam Vital signs and Labs for Last 24 Hours: Vital Signs Temp Pulse Pulse Pulse Resp BP BP 01/23/25 12:58 14 01/23/25 12:45 100 H 13 136/96 H 01/23/25 12:40 91 H 27 H 122/67 01/23/25 12:20 92 H 21 01/23/25 12:10 98 H 15 120/76 01/23/25 12:00 107 H 31 H 145/77 H 01/23/25 12:00 100 H 01/23/25 11:40 85 18 144/83 H 01/23/25 11:30 74 15 132/99 H 01/23/25 11:28 78 01/23/25 11:28 72 01/23/25 11:28 01/23/25 11:25 82 01/23/25 11:25 01/23/25 11:20 81 20 150/85 H 01/23/25 11:10 68 15 142/89 H 01/23/25 11:05 63 14 142/96 H 01/23/25 10:55 65 14 134/52 L 01/23/25 10:45 66 14 160/95 H 01/23/25 10:36 98.1 F 76 20 139/95 H 01/23/25 10:35 77 14 164/98 H 01/23/25 10:25 97.5 F L 75 14 153/81 H 01/23/25 08:00 98 F 82 01/23/25 08:00 130/76 01/23/25 08:00 78 01/23/25 07:50 82 01/23/25 06:57 01/23/25 06:08 73 01/23/25 06:08 76 01/23/25 06:08 01/23/25 06:00 67 16 148/92 H 01/23/25 05:00 01/23/25 04:15 100 H 01/23/25 04:00 97.9 F 01/23/25 04:00 92 H 18 126/78 01/23/25 02:58 01/23/25 02:00 74 16 120/75 01/23/25 02:00 01/23/25 02:00 85 18 109/54 L 01/23/25 00:55 01/23/25 00:00 98.2 F 84 14 134/76 01/23/25 00:00 82 01/22/25 23:20 99 H 01/22/25 23:20 78 01/22/25 23:00 01/22/25 22:00 71 22 145/88 H 01/22/25 21:00 01/22/25 20:00 78 01/22/25 20:00 01/22/25 20:00 98.2 F 92 H 29 H 148/87 H 01/22/25 19:19 76 01/22/25 19:19 75 01/22/25 19:19 01/22/25 18:59 01/22/25 18:03 71 22 134/78 01/22/25 17:09 01/22/25 16:00 71 16 132/82 01/22/25 16:00 98.4 F 01/22/25 16:00 69 01/22/25 15:11 79 22 135/84 01/22/25 15:10 01/22/25 14:10 81 01/22/25 14:07 72 23 159/94 H 01/22/25 14:00 81 25 H 163/92 H 01/22/25 13:41 Pulse Ox O2 Del Method O2 Flow Rate FiO2 01/23/25 12:58 01/23/25 12:45 91 L Nasal Cannula 5 01/23/25 12:40 90 L Nasal Cannula 5 01/23/25 12:20 89 L 01/23/25 12:10 90 L Nasal Cannula 5 01/23/25 12:00 89 L Nasal Cannula 4 01/23/25 12:00 01/23/25 11:40 92 L 01/23/25 11:30 97 Nasal Cannula 4 01/23/25 11:28 01/23/25 11:28 01/23/25 11:28 91 L Nasal Cannula 4 01/23/25 11:25 89 L Nasal Cannula 4 01/23/25 11:25 Nasal Cannula 4 01/23/25 11:20 88 L Nasal Cannula 4 01/23/25 11:10 91 L Nasal Cannula 4 01/23/25 11:05 94 L Nasal Cannula 4 01/23/25 10:55 94 L Nasal Cannula 4 01/23/25 10:45 92 L Nasal Cannula 4 01/23/25 10:36 01/23/25 10:35 94 L Nasal Cannula 4 01/23/25 10:25 95 Nasal Cannula 4 01/23/25 08:00 91 L Vapotherm 01/23/25 08:00 01/23/25 08:00 01/23/25 07:50 91 L Vapotherm 01/23/25 06:57 Vapotherm 01/23/25 06:08 01/23/25 06:08 01/23/25 06:08 97 Vapotherm 01/23/25 06:00 99 Vapotherm 01/23/25 05:00 Vapotherm 01/23/25 04:15 01/23/25 04:00 01/23/25 04:00 90 L Vapotherm 01/23/25 02:58 Vapotherm 01/23/25 02:00 91 L Vapotherm 01/23/25 02:00 90 L Vapotherm 01/23/25 02:00 97 Nasal Cannula 3 01/23/25 00:55 Vapotherm 01/23/25 00:00 92 L Vapotherm 01/23/25 00:00 01/22/25 23:20 01/22/25 23:20 01/22/25 23:00 Vapotherm 01/22/25 22:00 93 L Vapotherm 01/22/25 21:00 Vapotherm 01/22/25 20:00 01/22/25 20:00 90 L Vapotherm 01/22/25 20:00 92 L Vapotherm 01/22/25 19:19 01/22/25 19:19 01/22/25 19:19 93 L Vapotherm 25 40 01/22/25 18:59 Vapotherm 01/22/25 18:03 91 L Vapotherm 01/22/25 17:09 Vapotherm 01/22/25 16:00 92 L Vapotherm 01/22/25 16:00 Vapotherm 25 40 01/22/25 16:00 01/22/25 15:11 88 L Vapotherm 25 01/22/25 15:10 Vapotherm 25 01/22/25 14:10 87 L Vapotherm 25 40 01/22/25 14:07 87 L Vapotherm 25 01/22/25 14:00 87 L Vapotherm 25 01/22/25 13:41 Vapotherm 25 Intake and Output 01/22/25 01/23/25 01/23/25 23:59 07:59 15:59 Intake Total 335 / 585 250 / 1650 1400 / 1650 Output Total 700 / 2200 1400 / 2000 600 / 2000 Balance -365 / -1615 -1150 / -350 800 / -350 Intake: Intake, Oral Amount 335 / 335 600 / 600 Intake, Total IV Amount 250 / 1050 800 / 1050 Levofloxacin/D5w 750 mg/150 ml 250 / 250 750 mg In 150 ml @ 100 mls/hr IV Q48H [facility] Rx#:[id number] Output: Output, Urine Amount 700 / 2200 1400 / 2000 600 / 1999 Other: Number of Voids 0 Number of Unmeasured Voids 0 0 Weight 109.134 kg Patient Weight 01/23/25 23:59 Weight 109.134 kg Laboratory Results - last 24 hr 01/23/25 05:49: WBC 17.8 H, RBC 3.44 L, Hgb 10.2 L, Hct 32.2 L, MCV 93.6, MCH 29.7, MCHC 31.7 L, RDW 15.1, Plt Count 276, MPV 10.3, Neut % (Auto) 81.7 H, Lymph % (Auto) 11.7, [place] % (Auto) 4.4, Eos % (Auto) 1.6, Baso % (Auto) 0.2, Neut # (Auto) 14.6 H, Lymph # (Auto) 2.1, [place] # (Auto) 0.8, Eos # (Auto) 0.3, Baso # (Auto) 0.0, Total Counted 100, Neutrophils % (Manual) 85 H, Lymphocytes % (Manual) 12, Monocytes % (Manual) 3, Platelet Estimate Normal, RBC Morphology Normal, ESR 89 H, Sodium 141, Potassium 4.9, Chloride 110 H, Carbon Dioxide 22, Anion Gap 13.9, BUN 56 H, Creatinine 3.00 H, Estimated Creat Clear 46, Estimated GFR 22 L, Est GFR ( Amer) 27 L, Glucose 109 H, Calcium 9.4, Magnesium 2.3, Total Bilirubin 0.3, AST 33, ALT 18, Alkaline Phosphatase 122, C-Reactive Protein 180.5 H, Total Protein 6.8, Albumin 3.8, Globulin 3.0, Albumin/Globulin Ratio 1.3 I & O for Labs for Last 24 Hours: Intake & Output 01/20/25 01/21/25 01/22/25 01/23/25 23:59 23:59 23:59 23:59 Intake Total 637 / 637 335 / 585 1650 / 1650 Output Total 2550 / 2550 2200 / 2200 1999 Balance -1913 / -1913 -1865 / -1615 -350 / -350 Weight 108.153 kg 109.134 kg 109.134 kg Microbiology Reports for the Last 24 Hours: Microbiology 01/21/25 16:56 Nose MRSA Culture - Final Negative 01/21/25 13:30 Blood Blood Culture - Preliminary NO GROWTH AFTER 24 HOURS 01/21/25 13:00 Blood Blood Culture - Preliminary NO GROWTH AFTER 24 HOURS Constitutional: Present mild distress, obese and cooperative Head: Present atraumatic and normocephalic ENT: Present normal exam Respiratory: Present accessory muscle use, prolonged expiratory phase, wheezes and crackles (Diffuse, but improving); Absent rhonchi Cardiac: Present Reg Rate and Rhythm GI: Present soft and normal bowel sounds; Absent distention or tenderness Extremities: Present normal inspection and full ROM Skin: Present intact; Absent erythema Neuro: Present Grossly Intact, alert, awake, oriented x 3 and moves all extremities Assessment and Plan *Assessment and plan (1) Severe sepsis: Status: Acute Category: Medical Code(s): A41.9 - Sepsis, unspecified organism; R65.20 - Severe sepsis without septic shock (2) Multifocal pneumonia: Status: Acute Category: Medical Code(s): J18.9 - Pneumonia, unspecified organism (3) Acute hypoxemic respiratory failure: Status: Acute Category: Medical Code(s): J96.01 - Acute respiratory failure with hypoxia (4) ADI (acute kidney injury): Status: Acute Category: Medical Code(s): N17.9 - Acute kidney failure, unspecified (5) Tobacco dependence syndrome: Status: Chronic Category: Medical Code(s): F17.200 - Nicotine dependence, unspecified, uncomplicated (6) Neuropathy: Status: Chronic Category: Medical Code(s): G62.9 - Polyneuropathy, unspecified (7) Major depression, recurrent, chronic: Status: Acute Category: Medical Code(s): F33.9 - Major depressive disorder, recurrent, unspecified (8) Generalized anxiety disorder with panic attacks: Status: Acute Category: Medical Code(s): F41.1 - Generalized anxiety disorder; F41.0 - Panic disorder [episodic paroxysmal anxiety] (9) Polycystic kidney disease: Status: Acute Category: Medical Code(s): Q61.3 - Polycystic kidney, unspecified (10) CKD stage 4 secondary to hypertension: Status: Chronic Category: Medical Code(s): I12.9 - Hypertensive chronic kidney disease with stage 1 through stage 4 chronic kidney disease, or unspecified chronic kidney disease; N18.4 - Chronic kidney disease, stage 4 (severe) (11) COPD (chronic obstructive pulmonary disease): Status: Chronic Qualifiers: COPD type: unspecified COPD Qualified Code(s): J44.9 - Chronic obstructive pulmonary disease, unspecified Category: Medical Code(s): J44.9 - Chronic obstructive pulmonary disease, unspecified (12) HTN (hypertension): Status: Acute Qualifiers: Hypertension type: essential hypertension Qualified Code(s): I10 - Essential (primary) hypertension Category: Medical Code(s): I10 - Essential (primary) hypertension (13) Cardiac pacemaker in situ: Status: Chronic Category: Medical Code(s): Z95.0 - Presence of cardiac pacemaker (14) Elevated brain natriuretic peptide (BNP) level: Status: Acute Category: Medical Code(s): R79.89 - Other specified abnormal findings of blood chemistry (15) Acute hyperkalemia: Status: Acute Category: Medical Code(s): E87.5 - Hyperkalemia Plan 49-year-old male with polycystic kidney disease, tobacco use disorder, 2 to 3 days of worsening shortness of breath. Found to have multifocal pneumonia on chest imaging and concern for sepsis with elevated white count, tachypnea, pneumonia. Medicine consulted for admission and further management. Discussed case with ER physician, request admission for further care. I agreed to admit for further treatment. Pulmonology consulted to assist. Initiated on broad-spectrum antibiotics in the ER. CT per my review showing multifocal diffuse airspace disease. Taken for bronchoscopy today. Showing some improvement. Weaned to nasal cannula oxygen. Continues to require inpatient management. Will continue broad-spectrum antibiotics. Problems addressed as follows: Severe sepsis with acute hypoxemic respiratory failure secondary to multifocal pneumonia -Pulmonology consulted, discussed case today. Did well with bronchoscopy. No evidence of mucoid secretions plugging or active bleeding. Relatively normal appearance. Multiple specimens obtained. -Continue azithromycin 500 mg and ceftriaxone 2 g daily. - Blood cultures pending, will obtain cultures during bronch in the morning; sputum pending -White count better than admission at 17.8. Hemoglobin 10.2. Repeat CBC, CMP, magnesium ordered for the morning -Negative for flu and COVID. Comprehensive respiratory panel pending. CRP at 180, down from 250. Repeat CRP, ESR ordered for the morning - Continue Advair 1 puff twice daily for COPD - DuoNebs every 6 hours - Received methylprednisolone in the ER, hold on further steroids pending bronchoscopy given broad differential of suspected pathogens and potential for fungal source -Will administer 40 mg IV Lasix in the morning. Due to elevated BNP on admission of 3000. EF normal in November however; cautious use in the setting of CKD 4 as below. Continue gabapentin 800 mg 3 times a day for neuropathy per home regimen Continue Ativan 1 mg daily as needed for anxiety Continue lisinopril 40 mg daily for hypertension Pantoprazole 40 mg nightly for GERD Ropinirole 1 mg nightly for restless leg Resume Suboxone 2 tablets daily per home regimen for opiate use disorder Anemia - Hemoglobin 10 this morning, No active signs of bleeding. - This is a decrease from a month ago. Monitor for signs of bleeding. Transfusion threshold hemoglobin less than 7 - Platelets stable at 258 ADI CKD 4 Polycystic kidney disease -Baseline creatinine less than 3. BUN 56, creatinine improved to 3.0. Caution with nephrotoxic Tobacco use disorder: Nicotine patch 21 mg daily as needed Full code Holding anticoagulation pending bronchoscopy Regular diet
--- NOTE | 2025-01-23 16:12 | PC.NURSE ---
Patient has rested in room since returning from bronchoscopy. pt is at bedside. pt is a/o x 4, pt currently on 4lpm. pt noted to be continually moving around in bed. pt states that he has really bad restless leg and that he has alot of anxiety . pt is anxious to be able to discharge home as soon as he is able. nad noted.
--- NOTE | 2025-01-23 16:22 | EXP.BRONCH.N ---
Procedure: Date: 01/23/25 Patient Date of :: 1975 Procedure Performed:: Bronchoscopy, airway examination, bronchoalveolar lavage and transbronchial lung biopsy Indications:: Acute hypoxic respiratory failure Performing Provider:: Katelynn Beltrán MD Referring Provider:: Dr. Butler Sedation:: General anesthesia Procedure:: Bronchoscopy airway examination, bronchoalveolar lavage and transbronchial lung biopsy: A clean DIAGNOSTIC bronchoscopy was advanced through the ET tube and airways were examined up to subsegmental bronchi. Airways appeared grossly normal, no evidence of mucoid secretions, mucous plugging active bleeding/old blood clots noted. Bronchoalveolar lavage was performed in the RIGHT MIDDLE LOBE with instillation of 60 cc normal saline with return of 30 cc clear fluid back. BAL fluid was sent for cell count and differential along with bacterial fungal and AFB stain and cultures. Transbronchial biopsy was performed in the RIGHT UPPER LOBE with a total of 7 biopsies performed, 5 biopsy specimens were sent in formalin for cytopathologic examination. The other 2 biopsy samples, were sent one each in two separate normal saline specimen cups for bacterial fungal and AFB stain cultures. Special request was also made for the pathologist to evaluate for AFB and fungal organisms on the cytopathologic examination. Patient tolerated the procedure with no immediate acute complications. We will follow the patient in pulmonary clinic in 7 to 10 days. Findings:: Please see the procedure note Recommendations:: Postoperative bronchoscopy instructions Complications:: No acute immediate complications Estimated blood obtained (mL): 10
[2025-01-23] MEDS: ACETAMINOPHEN 325MG TAB 650 MG PO (17:41)
[2025-01-23] MEDS: LORazepam 1MG TABLET 1 MG PO (17:41)
[2025-01-23] MEDS: AZITHROMYCIN 500 MG in 0.9 % SODIUM CHLORIDE 250 ML 250 MG IV (20:00)
[2025-01-23] MEDS: CEFTRIAXONE SODIUM 2 GM in 0.9 % SODIUM CHLORIDE 100 ML IV (20:00)
[2025-01-23] MEDS: ROPINIROLE 1MG TABLET 1 MG PO (21:28)
[2025-01-23] MEDS: ATORVASTATIN 10MG TABLET 10 MG PO (21:28)
[2025-01-23] MEDS: PANTOPRAZOLE 40MG TABLET 40 MG PO (21:28)
[2025-01-24] VITALS (40 sets, daily range): BP systolic 110–152; BP diastolic 71–102; PULSE 60–79; RESP 11–20; TEMP 36.6; O2SAT 90–99; BMI 35.4
[2025-01-24 06:33] LABS: Basophils % 0.2 % (0.1-2.0); Eosinophils # 0.1 K/mm3 (0.0-0.4); Eosinophils % 0.5 % (0.1-12.0); Hematocrit 31.7 % (42.0-52.0); Hemoglobin 9.8 g/dL (14.1-18.0); Lymphocytes # 2.1 K/mm3 (0.7-4.5); Lymphocytes % 15.8 % (10-50); Mean Corpuscular HGB Conc 30.9 g/dL (31.8-35.4); Mean Corpuscular Hemoglobin 29.3 pg (27.0-31.2); Mean Corpuscular Volume 94.6 fl (80-94); Mean Platelet Volume 9.9 fl (7.4-10.4); Monocytes # 0.7 K/mm3 (0.1-1.0); Monocytes % 5.6 % (1.7-9.3); Neutrophils # 10.4 K/mm3 (1.8-7.8); Neutrophils % 77.6 % (37.0-80.0); Platelet Count 310 K/mm3 (142-424); Red Blood Count 3.35 M/mm3 (4.60-6.20); Red Cell Distribution Width 15.3 % (11.5-17.5); White Blood Count 13.3 K/mm3 (4.8-10.8)
[2025-01-24 06:40] LABS: Alanine Aminotransferase 19 U/L (12-78); Albumin/Globulin Ratio 1.3 (1.1-1.8); Alkaline Phosphatase 117 U/L (38-126); Anion Gap 14.1 mEq/L (5-15); Aspartate Amino Transferase 25 U/L (17-59); Bilirubin,Total 0.2 mg/dl (0.2-1.3); Blood Urea Nitrogen 49 mg/dl (9-20); Calcium 9.6 mg/dl (8.4-10.2); Carbon Dioxide 23 mmol/L (22.0-30.0); Chloride 110 mmol/L (98-107); Creatinine Clearance Estimated 46 mL/min (50-200); Estimated Glomerular Filt Rate 22 ml/min (>60); GFR (African American) 27 ML/MIN (>60); Glucose 108 mg/dl (74-100); Potassium 5.1 mmoL/L (3.5-5.1); Sodium 142 mmol/L (136-145)
[2025-01-24 06:43] LABS: Magnesium 2.2 mg/dl (1.6-2.3)
[2025-01-24 06:47] LABS: C-Reactive Protein 97.9 mg/L (0-4)
[2025-01-24] MEDS: IPRATROPIUM/ALBUTEROL 3 ML NEB IH ×2 (06:58→10:51)
[2025-01-24] MEDS: FLUTICASONE/SALMETEROL 250/50MCG DISKUS 1 PUFF IH (06:59)
[2025-01-24 07:43] LABS: Erythrocyte Sedimentation Rate 13 mm/hr (0-15)
[2025-01-24] MEDS: GABAPENTIN 800MG TABLET 800 MG PO (08:41)
[2025-01-24] MEDS: METOPROLOL SUCCINATE XL 25MG TABLET 25 MG PO (08:41)
[2025-01-24] MEDS: HYDRALAZINE HCL 25MG TABLET 25 MG PO (08:42)
[2025-01-24] MEDS: CITALOPRAM 40MG TABLET 40 MG PO (08:42)
[2025-01-24] MEDS: FUROSEMIDE 40MG/4ML VIAL 40 MG IV (08:42)
[2025-01-24] MEDS: LISINOPRIL 20MG TABLET 40 MG PO (08:42)
--- NOTE | 2025-01-24 08:47 | P.PN_ITS ---
Subjective *Date: 01/24/25 *Time: 08:47 Medical Exam Vital signs and Labs for Last 24 Hours: Vital Signs Temp Pulse Pulse Resp BP BP Pulse Ox 01/24/25 08:00 97.8 F 72 20 147/95 H 98 01/24/25 06:59 65 01/24/25 06:59 61 01/24/25 06:59 94 L 01/24/25 06:21 01/24/25 06:00 61 17 135/80 96 01/24/25 05:10 62 11 L 97 01/24/25 05:04 60 11 L 99 01/24/25 05:04 147/92 H 01/24/25 05:01 73 16 98 01/24/25 05:01 152/102 H 01/24/25 05:00 60 13 99 01/24/25 05:00 01/24/25 04:50 68 19 91 L 01/24/25 04:40 73 18 90 L 01/24/25 04:30 60 16 94 L 01/24/25 04:20 60 16 95 01/24/25 04:10 60 15 94 L 01/24/25 04:00 97.9 F 01/24/25 04:00 60 16 94 L 01/24/25 04:00 134/85 01/24/25 03:50 61 20 93 L 01/24/25 03:40 65 16 94 L 01/24/25 03:30 69 18 93 L 01/24/25 03:20 70 18 91 L 01/24/25 03:10 61 17 94 L 01/24/25 03:00 65 17 94 L 01/24/25 03:00 131/88 01/24/25 02:50 61 16 95 01/24/25 02:40 61 16 96 01/24/25 02:38 01/24/25 02:30 62 19 94 L 01/24/25 02:20 61 17 96 01/24/25 02:10 62 15 94 L 01/24/25 02:01 17 01/24/25 02:01 140/76 01/24/25 02:00 17 01/24/25 01:50 16 01/24/25 01:40 66 15 94 L 01/24/25 01:30 64 17 93 L 01/24/25 01:20 64 16 92 L 01/24/25 01:10 65 17 92 L 01/24/25 01:00 66 17 92 L 01/24/25 01:00 110/72 01/24/25 01:00 01/24/25 00:50 67 16 92 L 01/24/25 00:40 66 17 92 L 01/24/25 00:30 67 16 92 L 01/24/25 00:20 68 16 92 L 01/24/25 00:00 72 17 113/71 93 L 01/24/25 00:00 70 01/23/25 23:18 73 01/23/25 23:18 76 01/23/25 23:00 01/23/25 21:00 01/23/25 20:37 84 01/23/25 20:37 86 01/23/25 20:37 94 L 01/23/25 20:00 01/23/25 20:00 78 01/23/25 20:00 98.2 F 64 20 140/81 91 L 01/23/25 19:00 71 20 139/86 90 L 01/23/25 18:50 01/23/25 18:00 68 19 142/85 H 89 L 01/23/25 17:38 71 19 147/91 H 91 L 01/23/25 16:58 01/23/25 16:50 72 18 89 L 01/23/25 16:40 72 15 91 L 01/23/25 16:31 76 22 92 L 01/23/25 16:31 155/88 H 01/23/25 16:30 62 17 93 L 01/23/25 16:20 71 20 90 L 01/23/25 16:10 98.1 F 67 19 90 L 01/23/25 16:00 74 20 146/88 H 100 01/23/25 16:00 73 01/23/25 15:45 01/23/25 15:30 71 19 131/80 91 L 01/23/25 15:00 69 19 130/86 89 L 01/23/25 14:39 94 H 21 135/84 90 L 01/23/25 14:30 78 21 162/99 H 90 L 01/23/25 14:00 83 14 156/95 H 92 L 01/23/25 13:30 104 H 18 148/102 H 91 L 01/23/25 13:25 01/23/25 13:00 112 H 26 H 126/102 H 92 L 01/23/25 12:58 14 01/23/25 12:45 100 H 13 136/96 H 91 L 01/23/25 12:40 91 H 27 H 122/67 90 L 01/23/25 12:20 92 H 21 89 L 01/23/25 12:10 98 H 15 120/76 90 L 01/23/25 12:00 107 H 31 H 145/77 H 89 L 01/23/25 12:00 100 H 01/23/25 11:40 85 18 144/83 H 92 L 01/23/25 11:30 74 15 132/99 H 97 01/23/25 11:28 78 01/23/25 11:28 72 01/23/25 11:28 91 L 01/23/25 11:25 82 89 L 01/23/25 11:25 01/23/25 11:20 81 20 150/85 H 88 L 01/23/25 11:10 68 15 142/89 H 91 L 01/23/25 11:05 63 14 142/96 H 94 L 01/23/25 10:55 65 14 134/52 L 94 L 01/23/25 10:45 66 14 160/95 H 92 L 01/23/25 10:36 98.1 F 76 20 139/95 H 01/23/25 10:35 77 14 164/98 H 94 L 01/23/25 10:25 97.5 F L 75 14 153/81 H 95 O2 Del Method O2 Flow Rate 01/24/25 08:00 Nasal Cannula 4 01/24/25 06:59 01/24/25 06:59 01/24/25 06:59 Nasal Cannula 4 01/24/25 06:21 Nasal Cannula 4 01/24/25 06:00 Nasal Cannula 4 01/24/25 05:10 01/24/25 05:04 01/24/25 05:04 01/24/25 05:01 01/24/25 05:01 01/24/25 05:00 01/24/25 05:00 Nasal Cannula 4 01/24/25 04:50 01/24/25 04:40 01/24/25 04:30 01/24/25 04:20 01/24/25 04:10 01/24/25 04:00 01/24/25 04:00 01/24/25 04:00 01/24/25 03:50 01/24/25 03:40 01/24/25 03:30 01/24/25 03:20 01/24/25 03:10 01/24/25 03:00 01/24/25 03:00 01/24/25 02:50 01/24/25 02:40 01/24/25 02:38 Nasal Cannula 4 01/24/25 02:30 01/24/25 02:20 01/24/25 02:10 01/24/25 02:01 01/24/25 02:01 01/24/25 02:00 01/24/25 01:50 01/24/25 01:40 01/24/25 01:30 01/24/25 01:20 01/24/25 01:10 01/24/25 01:00 01/24/25 01:00 01/24/25 01:00 Nasal Cannula 4 01/24/25 00:50 01/24/25 00:40 01/24/25 00:30 01/24/25 00:20 01/24/25 00:00 Nasal Cannula 4 01/24/25 00:00 01/23/25 23:18 01/23/25 23:18 01/23/25 23:00 Nasal Cannula 4 01/23/25 21:00 Nasal Cannula 4 01/23/25 20:37 01/23/25 20:37 01/23/25 20:37 Nasal Cannula 4 01/23/25 20:00 Nasal Cannula 4 01/23/25 20:00 01/23/25 20:00 Nasal Cannula 4 01/23/25 19:00 Nasal Cannula 4 01/23/25 18:50 Nasal Cannula 4 01/23/25 18:00 Nasal Cannula 4 01/23/25 17:38 Nasal Cannula 4 01/23/25 16:58 Nasal Cannula 4 01/23/25 16:50 01/23/25 16:40 01/23/25 16:31 01/23/25 16:31 01/23/25 16:30 01/23/25 16:20 01/23/25 16:10 Nasal Cannula 4 01/23/25 16:00 Nasal Cannula 5 01/23/25 16:00 01/23/25 15:45 Nasal Cannula 5 01/23/25 15:30 Nasal Cannula 5 01/23/25 15:00 Nasal Cannula 5 01/23/25 14:39 Nasal Cannula 5 01/23/25 14:30 Nasal Cannula 5 01/23/25 14:00 Nasal Cannula 5 01/23/25 13:30 Nasal Cannula 5 01/23/25 13:25 Nasal Cannula 5 01/23/25 13:00 Nasal Cannula 5 01/23/25 12:58 01/23/25 12:45 Nasal Cannula 5 01/23/25 12:40 Nasal Cannula 5 01/23/25 12:20 01/23/25 12:10 Nasal Cannula 5 01/23/25 12:00 Nasal Cannula 4 01/23/25 12:00 01/23/25 11:40 01/23/25 11:30 Nasal Cannula 4 01/23/25 11:28 01/23/25 11:28 01/23/25 11:28 Nasal Cannula 4 01/23/25 11:25 Nasal Cannula 4 01/23/25 11:25 Nasal Cannula 4 01/23/25 11:20 Nasal Cannula 4 01/23/25 11:10 Nasal Cannula 4 01/23/25 11:05 Nasal Cannula 4 01/23/25 10:55 Nasal Cannula 4 01/23/25 10:45 Nasal Cannula 4 01/23/25 10:36 01/23/25 10:35 Nasal Cannula 4 01/23/25 10:25 Nasal Cannula 4 Intake and Output 01/23/25 01/24/25 01/24/25 23:59 07:59 15:59 Intake Total 420 / 2420 350 / 890 540 / 890 Output Total 1250 / 3250 1000 / 1750 750 / 1750 Balance -830 / -830 -650 / -860 -210 / -860 Intake: Intake, Oral Amount 420 / 1020 540 / 540 Intake, Total IV Amount 350 / 350 Azithromycin 500 mg In 0.9 % 250 / 250 Sodium Chloride 250 ml @ 250 mls/hr IV Q24H JANUSZ Rx#:[id number] Ceftriaxone Sodium 2 gm In 0.9 100 / 100 % Sodium Chloride 100 ml @ 200 mls/hr IV Q24H JANUSZ Rx#:[id number] Output: Output, Urine Amount 1250 / 3250 1000 / 1750 750 / 1750 Other: Number of Unmeasured Voids 0 Weight 108.5 kg Patient Weight 01/24/25 23:59 Weight 108.5 kg Laboratory Results - last 24 hr 01/24/25 05:27: WBC 13.3 H D, RBC 3.35 L, Hgb 9.8 L, Hct 31.7 L, MCV 94.6 H, MCH 29.3, MCHC 30.9 L, RDW 15.3, Plt Count 310, MPV 9.9, Neut % (Auto) 77.6, Lymph % (Auto) 15.8, Calloway % (Auto) 5.6, Eos % (Auto) 0.5, Baso % (Auto) 0.2, Neut # (Auto) 10.4 H, Lymph # (Auto) 2.1, [place]ay # (Auto) 0.7, Eos # (Auto) 0.1, Baso # (Auto) 0.0, ESR 13, Sodium 142, Potassium 5.1, Chloride 110 H, Carbon Dioxide 23, Anion Gap 14.1, BUN 49 H, Creatinine 3.00 H, Estimated Creat Clear 46, Estimated GFR 22 L, Est GFR ( Amer) 27 L, Glucose 108 H, Calcium 9.6, Magnesium 2.2, Total Bilirubin 0.2, AST 25, ALT 19, Alkaline Phosphatase 117, C- Reactive Protein 97.9 H D, Total Protein 7.0, Albumin 4.0, Globulin 3.0, Albumin/Globulin Ratio 1.3 I & O for Labs for Last 24 Hours: Intake & Output 01/21/25 01/22/25 01/23/25 01/24/25 23:59 23:59 23:59 23:59 Intake Total 637 / 637 335 / 585 2070 / 2420 890 / 890 Output Total 2550 / 2550 2200 / 2200 3250 / 3250 1750 / 1750 Balance -1913 / -1913 -1865 / -1615 -1180 / -830 -860 / -860 Weight 108.153 kg 109.134 kg 109.134 kg 108.5 kg Microbiology Reports for the Last 24 Hours: Microbiology 01/23/25 09:50 Transbronchial Biopsy - Right Middle Lobe Gram Stain - Final 01/23/25 09:50 Bronchial Washings - Right Middle Lobe Gram Stain - Final 01/21/25 13:30 Blood Blood Culture - Preliminary NO GROWTH AFTER 48 HOURS 01/21/25 13:00 Blood Blood Culture - Preliminary NO GROWTH AFTER 48 HOURS 01/21/25 16:56 Nose MRSA Culture - Final Negative
--- NOTE | 2025-01-24 09:00 | PC.NURSE ---
Report given to SADAF Anaya.
--- NOTE | 2025-01-24 09:06 | PC.NURSE ---
pt tx to M/S from ICU unit via wheelchair @[id number]
--- NOTE | 2025-01-24 09:06 | PC.NURSE ---
arrived by w/c from ICU
[2025-01-24] MEDS: BUPRENORPHINE/NALOXONE 8MG/2MG ODT 2 EACH SL (09:25)
[2025-01-24] MEDS: ACETAMINOPHEN 325MG TAB 650 MG PO (09:27)
--- NOTE | 2025-01-24 09:38 | P.PN_ITS ---
Subjective *Date: 01/24/25 *Time: 11:18 Interval history: No acute respiratory events overnight. Admits significant improvement in respiratory symptoms. Pulmonology Exam Inpatient Vital signs and Labs for Last 24 Hours: Temp Pulse Resp BP Pulse Ox O2 Del Method O2 Flow Rate 97.8 F 72 20 147/95 H 98 Nasal Cannula 4 01/24/25 08:00 01/24/25 08:00 01/24/25 08:00 01/24/25 08:00 01/24/25 08:00 01/24/25 08:50 01/24/25 08:50 FiO2 30 01/23/25 07:50 Laboratory Results - last 24 hr 01/24/25 05:27: WBC 13.3 H D, RBC 3.35 L, Hgb 9.8 L, Hct 31.7 L, MCV 94.6 H, MCH 29.3, MCHC 30.9 L, RDW 15.3, Plt Count 310, MPV 9.9, Neut % (Auto) 77.6, Lymph % (Auto) 15.8, Williamson % (Auto) 5.6, Eos % (Auto) 0.5, Baso % (Auto) 0.2, Neut # (Auto) 10.4 H, Lymph # (Auto) 2.1, Williamson # (Auto) 0.7, Eos # (Auto) 0.1, Baso # (Auto) 0.0, ESR 13, Sodium 142, Potassium 5.1, Chloride 110 H, Carbon Dioxide 23, Anion Gap 14.1, BUN 49 H, Creatinine 3.00 H, Estimated Creat Clear 46, Estimated GFR 22 L, Est GFR ( Amer) 27 L, Glucose 108 H, Calcium 9.6, Magnesium 2.2, Total Bilirubin 0.2, AST 25, ALT 19, Alkaline Phosphatase 117, C- Reactive Protein 97.9 H D, Total Protein 7.0, Albumin 4.0, Globulin 3.0, Albumin/Globulin Ratio 1.3 Temp Pulse Resp BP Pulse Ox O2 Del Method O2 Flow Rate 97.8 F 60 16 161/102 H 94 L Vapotherm 30 01/22/25 08:00 01/22/25 08:00 01/22/25 08:00 01/22/25 08:00 01/22/25 08:00 01/22/25 08:00 01/22/25 08:00 FiO2 50 01/22/25 07:52 Laboratory Results - last 24 hr 01/21/25 12:50: Chlamy pneumoniae PCR Not detected, Adenovirus (PCR) Not detected, B. pertussis DNA (PCR) Not detected, Coronavirus OC43 (PCR) Not detected, Coronavirus HKU1 (PCR) Not detected, Coronavirus 229E (PCR) Not detected, SARS-CoV-2 (PCR) Not detected 01/21/25 12:50: SARS-CoV-2 (PCR) Not detected, Coronavirus NL63 (PCR) Not detected, Human Metapneumovir PCR Not detected, Influenza A (H1) PCR Not detected, Influ A (H1N1/09) PCR Not detected, Influenza A (H3) PCR Not detected, Influenza Type A (PCR) Not detected, Influenza A Untype (PCR) Not detected, Influenza Type B (PCR) Not detected 01/21/25 12:50: Influenza Type B (PCR) Not detected, M. pneumoniae (PCR) Not detected, Parainfluenza 1 (PCR) Not detected, Parainfluenza 2 (PCR) Not detected, Parainfluenza 3 (PCR) Not detected, Parainfluenza 4 (PCR) Not detected, RSV (PCR) Not detected, Entero/Rhino (PCR) Not detected 01/21/25 13:00: WBC 21.3 H*, RBC 3.35 L, Hgb 9.8 L, Hct 30.9 L, MCV 92.2, MCH 29.3, MCHC 31.7 L, RDW 14.9, Plt Count 228, MPV 10.5 H, Neut % (Auto) 88.9 H, Lymph % (Auto) 5.2 L, Williamson % (Auto) 4.4, Eos % (Auto) 0.4, Baso % (Auto) 0.3, Neut # (Auto) 18.9 H, Lymph # (Auto) 1.1, Williamson # (Auto) 0.9, Eos # (Auto) 0.1, Baso # (Auto) 0.1, Total Counted 100, Neutrophils % (Manual) 86 H, Lymphocytes % (Manual) 11, Monocytes % (Manual) 3, Platelet Estimate Normal, RBC Morphology Normal, Sodium 133 L, Potassium 5.4 H, Chloride 106, Carbon Dioxide 20 L, Anion Gap 12.4, BUN 37 H, Creatinine 3.40 H, Estimated Creat Clear 38, Estimated GFR 19 L*, Est GFR ( Amer) 24 L, Glucose 112 H, Calcium 8.9, Total Bilirubin 0.5, AST 46, ALT 16, Alkaline Phosphatase 131 H, Troponin I 0.02, NT-Pro-B Natriuret Pep 3120 H, Total Protein 6.6, Albumin 3.9, Globulin 2.7, Albumin/Globulin Ratio 1.4 01/21/25 13:03: VBG pH 7.39, VBG pCO2 29.9 L, VBG pO2 74.2 H, VBG HCO3 17.8 L, VBG Total CO2 18.7 L, VBG O2 Saturation 95.4 H, VBG Base Excess -7.1 L, VBG L actic Acid 1.1 01/21/25 16:27: Lactate Dehydrogenase 791 H, Troponin I 0.02, C-Reactive Protein 253.2 H 01/21/25 18:28: Sodium 135 L, Potassium 4.5, Chloride 105, Carbon Dioxide 19 L, Anion Gap 15.5 H, BUN 38 H, Creatinine 3.40 H, Estimated Creat Clear 41, Estimated GFR 19 L*, Est GFR ( Amer) 24 L, Glucose 186 H D, Calcium 8.8 01/21/25 19:21: Troponin I 0.02 01/21/25 22:54: Magnesium 2.0 01/22/25 05:07: WBC 14.6 H D, RBC 3.34 L, Hgb 10.0 L, Hct 31.0 L, MCV 92.8, MCH 29.9, MCHC 32.3, RDW 15.1, Plt Count 258, MPV 10.5 H, Neut % (Auto) 93.4 H, Lymph % (Auto) 3.7 L, Williamson % (Auto) 2.3, Eos % (Auto) 0.0 L, Baso % (Auto) 0.1, Neut # (Auto) 13.6 H, Lymph # (Auto) 0.5 L, Williamson # (Auto) 0.3, Eos # (Auto) 0.0, Baso # (Auto) 0.0, Total Counted 100, Neutrophils % (Manual) 91 H, Lymphocytes % (Manual) 7 L, Monocytes % (Manual) 2, Platelet Estimate Normal, RBC Morphology Normal, Sodium 137, Potassium 5.3 H, Chloride 109 H, Carbon Dioxide 20 L, Anion Gap 13.3, BUN 46 H, Creatinine 3.20 H, Estimated Creat Clear 44, Estimated GFR 21 L, Est GFR ( Amer) 25 L, Glucose 146 H D, Calcium 9.2, Magnesium 2.1, Total Bilirubin 0.3, AST 37, ALT 16, Alkaline Phosphatase 116, Total Protein 6.7, Albumin 3.8, Globulin 2.9, Albumin/Globulin Ratio 1.3 I & O for Labs for Last 24 Hours: Intake & Output 01/21/25 01/22/25 01/23/25 01/24/25 23:59 23:59 23:59 23:59 Intake Total 637 / 637 335 / 585 2070 / 2420 890 / 890 Output Total 2550 / 2550 2200 / 2200 3250 / 3250 1750 / 1750 Balance -1913 / -1913 -1865 / -1615 -1180 / -830 -860 / -860 Weight 238 lb 7 oz 240 lb 9.6 oz 240 lb 9.588 oz 239 lb 3.225 oz Intake & Output 01/19/25 01/20/25 01/21/25 01/22/25 23:59 23:59 23:59 23:59 Intake Total 637 / 637 Output Total 2550 / 2550 900 / 900 Balance -1913 / -1913 -900 / -900 Weight 238 lb 7 oz 240 lb 9.6 oz Microbiology Reports for the Last 24 Hours: Microbiology 01/23/25 09:50 Transbronchial Biopsy - Right Middle Lobe Gram Stain - Final 01/23/25 09:50 Bronchial Washings - Right Middle Lobe Gram Stain - Final 01/21/25 13:30 Blood Blood Culture - Preliminary NO GROWTH AFTER 48 HOURS 01/21/25 13:00 Blood Blood Culture - Preliminary NO GROWTH AFTER 48 HOURS 01/21/25 16:56 Nose MRSA Culture - Final Negative Constitutional: Present moderate distress Head: Present normocephalic and atraumatic ENT: Present normal exam, normal oropharynx and mucous membranes moist Neck: Present normal inspection and full ROM Respiratory: Present rhonchi and able to speak in complete sentences; Absent respiratory distress, wheezes or crackles Cardiac: Present S1/S2, Tachycardia and radial pulses present GI: Present soft and distention; Absent tenderness or guarding Skin: Present intact; Absent cyanosis or jaundice Neuro: Present alert, awake and oriented x 3 Extremities: Present normal inspection; Absent clubbing or cyanosis Psychiatric: Present normal affect and cooperative Assessment and Plan *Assessment and plan (1) Acute hypoxemic respiratory failure: Status: Acute Category: Medical Code(s): J96.01 - Acute respiratory failure with hypoxia (2) Multifocal pneumonia: Status: Acute Category: Medical Code(s): J18.9 - Pneumonia, unspecified organism Plan Mr. Loera is a 49-year-old male greater than [id number] smoking history current smoker history of recurrent pneumonia interstitial lung disease reduced DLCO CKD mild persistent asthma presented to the ER with worsening respiratory distress and pulmonary was called for further evaluation and management. Patient admits worsening respiratory distress for the last 2 to 3 days. Admits cough, dry nonproductive. No evidence of hemoptysis. No known sick contacts. Previous PFTs did not show any evidence of obstructive or restrictive lung disease, showed decreased DLCO at 62% predicted. Autoimmune workup including RICK, MPO and ID-3 resulted negative. Serum strongyloidiasis antibody negative IgE significantly elevated at 1173. Echo November 2024 LV diastolic dysfunction with normal EF at 60%. RV size and function within normal limits. VQ scan from 2021 low probability of PE. HRCT from his prior clinic visit from October 2024 showed bilateral patchy groundglass opacities with a trapping along with interstitial change concerning for ILD. CT chest on this admission bilateral diffuse groundglass opacities with no dense consolidative changes. Traction bronchiectasis noted.. Comprehensive respiratory viral PCR panel negative Labs on this admission significant neutrophilic predominant leukocytosis with no eosinophilia. Improving. Prior episodes of peripheral eosinophilia noted with counts ranging from 0-600. Received methylprednisolone 25 mg IV in the ER. Currently receiving levofloxacin and breathing treatments. Interval update: No acute respiratory vents overnight. Admits continued improvement in respiratory symptoms. Improving oxygen requirements. BAL staining organisms seen. Follow-up with cytopathology Plan: Continue to wean oxygen supplementation to maintain O2 saturation goal of 90% and above. Recommend 6-minute walk testing prior to discharge Antibiotics can be weaned to cefdinir to complete a total of 7-day course upon discharge. Given patient significant improvement in his oxygen requirement from high flow nasal cannula to regular nasal cannula within 48 hours while receiving antibiotics and diuretics, the possibility of volume overload from his diastolic heart failure in setting of CKD cannot be completely ruled out at this point of time. Recommend cardiology follow-up. DuoNebs every 6 hours along with Pulmicort every 12 scheduled Will hold off on initiating prednisone at this point of time pending culture results Follow with bronchoscopy results. # Thank you for involving pulmonary in this patient care. Will follow the patient in pulmonary clinic 7 days post discharge
--- NOTE | 2025-01-24 10:02 | PC.NURSE ---
Patient's O2 sats 92% on room air at rest. Patient's sats 90% on room air during ambulation
--- NOTE | 2025-01-24 11:20 | EXP.DC.SUM ---
General Admission date:: 01/21/25 Discharge date: 01/24/25 HPI HPI HPI: Mr. Loera is a 49-year-old male with history of hypertension, hyperlipidemia, CKD 4 due to polycystic kidney disease, diabetes, tobacco use disorder, on Suboxone therapy for opiate use disorder, neuropathy, COPD, anxiety. He presented to the ER due to concern for worsening shortness of breath. States he started feeling bad over the past 24 to 48 hours. Has had a mildly productive cough. Sputum clear to white. Denies fever or night sweats but has had some intermittent chills. Shortness of breath is worse with exertion. Denies any orthopnea. Workup in the ER concerning for elevated white count of 21, chest imaging showing multifocal pneumonia on chest x-ray. CT obtained with patchy bilateral airspace disease diffusely in both lungs in all lung santana. Necessitating 4 L oxygen to sat greater than 90%. Meeting sepsis criteria with tachycardia, tachypnea, leukocytosis and infection. Medicine consulted for admission and further management. Additionally in the ER his BNP is elevated at 3000 and has an acute kidney injury on top of his chronic kidney disease stage IV. On arrival to the special care unit patient is dyspneic with interview. In moderate distress. Alert and oriented x 4. Denies any increased swelling in his legs, confusion, chest pain, nausea or vomiting. Has not been smoking as much lately. States he only smokes cigarettes. Denies any vaping or inhaling other substances. Hospital Course Hospital Course Hospital Course: 49-year-old male with polycystic kidney disease, tobacco use disorder, 2 to 3 days of worsening shortness of breath. Found to have multifocal pneumonia on chest imaging and concern for sepsis with elevated white count, tachypnea, pneumonia. Medicine consulted for admission and further management. Discussed case with ER physician, request admission for further care. I agreed to admit for further treatment. Pulmonology consulted to assist. Initiated on broad-spectrum antibiotics in the ER. CT per my review showing multifocal diffuse airspace disease. Taken for bronchoscopy 01/23/2025. Grossly normal. Has showed improvement. Weaned off nasal cannula oxygen to room air on morning of discharge. Stable above 90%. Will discharge home to complete antibiotic course and have close follow-up with pulmonology. Problems addressed as follows: Severe sepsis with acute hypoxemic respiratory failure secondary to multifocal pneumonia -Presented with respiratory distress, advance to Vapotherm due to dyspnea. Imaging at time of admission showed multifocal pneumonia. Concern for atypical pathogen versus inflammatory process versus possibly CHF component given his elevated BNP of 3000. Pulmonology was consulted. Taken for bronchoscopy on 01/23. Findings grossly normal, samples taken. Showed improvement with antibiotics. Initially on ceftriaxone and azithromycin. Will wean to cefdinir to complete 7 days total of therapy at discharge given his clinical improvement and weaning to room air. Patient was found to be negative for pathogens on comprehensive respiratory panel. Inflammatory markers severely elevated but showing improvement and trending down. CRP improved from 250-97 by day of discharge. White count improved to 13.3 by day of discharge. Will also continue inhaler regimen with Advair twice daily at discharge. Selective diuretics during admission because of elevated BNP and component of volume overload exacerbating his dyspnea. Diuretics not continued at discharge but would benefit from further evaluation as an outpatient. Previous echo obtained in November with normal ejection fraction and normal diastolic function. -Follow with pulmonology as an outpatient in the coming weeks Continue gabapentin 800 mg 3 times a day for neuropathy per home regimen Continue Ativan 1 mg daily as needed for anxiety Continue lisinopril 40 mg daily for hypertension Pantoprazole 40 mg nightly for GERD Ropinirole 1 mg nightly for restless leg Continue Suboxone 2 tablets daily for opiate use disorder Anemia: Hemoglobin remained stable during admission at approximately 10. No active signs of bleeding. No transfusions needed. Platelets normal at 310. ADI CKD 4 Polycystic kidney disease -Baseline creatinine less than 3. Kidney function improved during admission, BUN 49, creatinine 3.0. Slightly above his previous baseline but making good urine. Continue to follow with primary care as an outpatient. Would benefit from reevaluation by nephrology given his polycystic kidney disease and stage IV CKD Total time spent on discharge 36 minutes in counseling, documentation, chart review, and direct care with patient. Exam Data for Last 24 hours Vital signs and Labs for Last 24 Hours: Temp Pulse Resp BP Pulse Ox O2 Del Method O2 Flow Rate 97.8 F 79 20 147/95 H 90 L Room Air 4 01/24/25 08:00 01/24/25 10:52 01/24/25 08:00 01/24/25 08:00 01/24/25 10:52 01/24/25 10:52 01/24/25 08:50 FiO2 30 01/23/25 07:50 Laboratory Results - last 24 hr 01/24/25 05:27: WBC 13.3 H D, RBC 3.35 L, Hgb 9.8 L, Hct 31.7 L, MCV 94.6 H, MCH 29.3, MCHC 30.9 L, RDW 15.3, Plt Count 310, MPV 9.9, Neut % (Auto) 77.6, Lymph % (Auto) 15.8, Barron % (Auto) 5.6, Eos % (Auto) 0.5, Baso % (Auto) 0.2, Neut # (Auto) 10.4 H, Lymph # (Auto) 2.1, Barron # (Auto) 0.7, Eos # (Auto) 0.1, Baso # (Auto) 0.0, ESR 13, Sodium 142, Potassium 5.1, Chloride 110 H, Carbon Dioxide 23, Anion Gap 14.1, BUN 49 H, Creatinine 3.00 H, Estimated Creat Clear 46, Estimated GFR 22 L, Est GFR ( Amer) 27 L, Glucose 108 H, Calcium 9.6, Magnesium 2.2, Total Bilirubin 0.2, AST 25, ALT 19, Alkaline Phosphatase 117, C-Reactive Protein 97.9 H D, Total Protein 7.0, Albumin 4.0, Globulin 3.0, Albumin/Globulin Ratio 1.3 I & O for Last 24 hours: Intake & Output 01/21/25 01/22/25 01/23/25 01/24/25 23:59 23:59 23:59 23:59 Intake Total 637 / 637 335 / 585 2070 / 2420 890 / 890 Output Total 2550 / 2550 2200 / 2200 3250 / 3250 1750 / 1750 Balance -1913 / -1913 -1865 / -1615 -1180 / -830 -860 / -860 Weight 108.153 kg 109.134 kg 109.134 kg 108.5 kg Microbiology Reports for the Last 24 Hours: Microbiology 01/23/25 09:50 Transbronchial Biopsy - Right Middle Lobe Gram Stain - Final 01/23/25 09:50 Bronchial Washings - Right Middle Lobe Gram Stain - Final 01/21/25 13:30 Blood Blood Culture - Preliminary NO GROWTH AFTER 48 HOURS 01/21/25 13:00 Blood Blood Culture - Preliminary NO GROWTH AFTER 48 HOURS 01/21/25 16:56 Nose MRSA Culture - Final Negative Constitutional Constitutional: no acute distress, obese, chronically ill appearing and cooperative *Routine HEENT Exam Head: Present normocephalic Eye: Present EOMI and PERRL ENT: Present mucous membranes moist *Routine Neck Exam Neck: Present supple; Absent lymphadenopathy *Routine Respiratory Exam Respiratory: Present prolonged expiratory phase, crackles (Faint, improved significantly from admission) and normal respiratory effort; Absent rhonchi or wheezes *Routine Cardiovascular Exam Cardiovascular: Present RRR *Routine Abdominal Exam Abdominal: Present soft and normoactive bowel sounds; Absent tenderness *Routine Rectal Exam Patient deferred: visual exam *Routine Exam Patient deferred: penile exam *Routine Extremities Exam Extremities: Absent cyanosis, clubbing or edema *Routine Skin Exam Skin: Present warm; Absent rash *Routine Neurological Exam Neurological: Present alert, oriented X3 and moving all extremities; Absent altered mental status Results Data Completed and Pending Labs on day of discharge: Labs from last 24 hours 01/24/25 05:27 WBC 13.3 H D RBC 3.35 L Hgb 9.8 L Hct 31.7 L MCV 94.6 H MCH 29.3 MCHC 30.9 L RDW 15.3 Plt Count 310 MPV 9.9 Neut % (Auto) 77.6 Lymph % (Auto) 15.8 Barron % (Auto) 5.6 Eos % (Auto) 0.5 Baso % (Auto) 0.2 Neut # (Auto) 10.4 H Lymph # (Auto) 2.1 Barron # (Auto) 0.7 Eos # (Auto) 0.1 Baso # (Auto) 0.0 ESR 13 Sodium 142 Potassium 5.1 Chloride 110 H Carbon Dioxide 23 Anion Gap 14.1 BUN 49 H Creatinine 3.00 H Estimated Creat Clear 46 Estimated GFR 22 L Est GFR ( Amer) 27 L Glucose 108 H Calcium 9.6 Magnesium 2.2 Total Bilirubin 0.2 AST 25 ALT 19 Alkaline Phosphatase 117 C-Reactive Protein 97.9 H D Total Protein 7.0 Albumin 4.0 Globulin 3.0 Albumin/Globulin Ratio 1.3 Preliminary micro results at discharge 01/21/25 13:30 Blood Culture - Preliminary Blood NO GROWTH AFTER 48 HOURS 01/21/25 13:00 Blood Culture - Preliminary Blood NO GROWTH AFTER 48 HOURS DS: Diagnosis Discharge Diagnosis (1) Severe sepsis: Status: Acute Code(s): A41.9 - Sepsis, unspecified organism; R65.20 - Severe sepsis without septic shock (2) Multifocal pneumonia: Status: Acute Code(s): J18.9 - Pneumonia, unspecified organism (3) Acute hypoxemic respiratory failure: Status: Acute Code(s): J96.01 - Acute respiratory failure with hypoxia (4) ADI (acute kidney injury): Status: Acute Code(s): N17.9 - Acute kidney failure, unspecified (5) Tobacco dependence syndrome: Status: Chronic Code(s): F17.200 - Nicotine dependence, unspecified, uncomplicated (6) Neuropathy: Status: Chronic Code(s): G62.9 - Polyneuropathy, unspecified (7) Major depression, recurrent, chronic: Status: Acute Code(s): F33.9 - Major depressive disorder, recurrent, unspecified (8) Generalized anxiety disorder with panic attacks: Status: Acute Code(s): F41.1 - Generalized anxiety disorder; F41.0 - Panic disorder [episodic paroxysmal anxiety] (9) Polycystic kidney disease: Status: Acute Code(s): Q61.3 - Polycystic kidney, unspecified (10) CKD stage 4 secondary to hypertension: Status: Chronic Code(s): I12.9 - Hypertensive chronic kidney disease with stage 1 through stage 4 chronic kidney disease, or unspecified chronic kidney disease; N18.4 - Chronic kidney disease, stage 4 (severe) (11) COPD (chronic obstructive pulmonary disease): Status: Chronic Code(s): J44.9 - Chronic obstructive pulmonary disease, unspecified Qualifiers: COPD type: unspecified COPD Qualified Code(s): J44.9 - Chronic obstructive pulmonary disease, unspecified (12) HTN (hypertension): Status: Acute Code(s): I10 - Essential (primary) hypertension Qualifiers: Hypertension type: essential hypertension Qualified Code(s): I10 - Essential (primary) hypertension (13) Cardiac pacemaker in situ: Status: Chronic Code(s): Z95.0 - Presence of cardiac pacemaker (14) Elevated brain natriuretic peptide (BNP) level: Status: Acute Code(s): R79.89 - Other specified abnormal findings of blood chemistry (15) Acute hyperkalemia: Status: Acute Code(s): E87.5 - Hyperkalemia Meds Home Medications and Allergies Home Medications ?Medication ?Instructions ?Recorded ?Confirmed ?Type buprenorphine 8 mg-naloxone 2 mg 2 tab sublingual DAILY Substance 04/17/20 01/21/25 History sublingual tablet Use Disorder aspirin 81 mg tablet,delayed 81 mg PO DAILY 09/18/23 01/21/25 History release albuterol sulfate 90 mcg/actuation 2 puff inhalation Q4HP PRN 05/24/24 01/21/25 Rx aerosol inhaler Shortness Of Breath #8.5 grams cholecalciferol (vitamin D3) 50 50 mcg PO DAILY #90 caps 08/01/24 01/21/25 Rx mcg (2,000 unit) capsule ergocalciferol (vitamin D2) 1,250 1,250 mcg PO WEEKLY #14 caps 08/01/24 01/21/25 Rx mcg (50,000 unit) capsule fluticasone 250 mcg-salmeterol 50 1 inh inhalation BID #60 ea 10/23/24 01/21/25 Rx mcg/dose blistr powdr for inhalation (Advair Diskus) omeprazole 40 mg capsule,delayed 40 mg PO DAILY 90 days #90 caps 10/23/24 01/21/25 Rx release lorazepam 1 mg tablet 1 mg PO DAILY PRN anxiety #30 tabs 12/31/24 01/21/25 Rx hydralazine 25 mg tablet 25 mg PO TID 30 days #90 tabs 01/17/25 01/21/25 Rx lisinopril 40 mg tablet 40 mg PO DAILY #90 tabs 01/17/25 01/21/25 Rx metoprolol succinate 25 mg 25 mg PO DAILY 30 days #90 tabs 01/17/25 01/21/25 Rx tablet,extended release 24 hr atorvastatin 10 mg tablet 10 mg PO HS 01/22/25 01/22/25 History escitalopram oxalate 20 mg tablet 20 mg PO DAILY 01/22/25 01/22/25 History gabapentin 800 mg tablet 800 mg PO TID neuropathic pain 01/22/25 01/21/25 History ropinirole 1 mg tablet 1 mg PO HS 01/22/25 01/22/25 History cefdinir 300 mg capsule 300 mg PO BID 4 days #7 caps 01/24/25 Rx New Prescriptions to Start Prescriptions: Sanchez Borges Allergies Allergy/AdvReac Type Severity Reaction Status Date / Time doxazosin (From Cardura) AdvReac Swelling Verified 01/23/25 09:00 of Lip/Tongue/Throat Discharge Plan Disposition Patient Disposition: Home, Self-Care Condition: Fair Discharge Order Discharge Orders: Discharge Order (Routine); Ordered 01/24/25 Ordered By: Sanchez Butler Follow up Plan Follow up with: Katelynn Beltrán MD [Physician] - 01/31/25 10:00 am Latrell Graham MD [Primary Care Provider] - 02/03/25 1:00 pm Prescriptions/Medication Reconciliation: New cefdinir 300 mg capsule 300 mg PO BID 4 Days Qty: 7 0RF Rx Instructions: start evening of 01/24/25 Continued buprenorphine-naloxone 8-2 mg tablet, sublingual 2 tab SL DAILY Rx Instructions: verified with [facility] fluticasone propion-salmeterol [Advair Diskus] 250-50 mcg/dose blister with device 1 inh inhalation BID Qty: 60 2RF omeprazole 40 mg capsule,delayed release(DR/EC) 40 mg PO DAILY 90 Days Qty: 90 3RF Rx Instructions: swallow whole; do not crush, chew, dissolve, cut, break lisinopril 40 mg tablet 40 mg PO DAILY Qty: 90 3RF metoprolol succinate 25 mg tablet extended release 24 hr 25 mg PO DAILY 30 Days Qty: 90 3RF hydralazine 25 mg tablet 25 mg PO TID 30 Days Qty: 90 3RF lorazepam 1 mg tablet 1 mg PO DAILY PRN (Reason: anxiety) Qty: 30 0RF aspirin 81 mg tablet,delayed release (DR/EC) 81 mg PO DAILY albuterol sulfate 90 mcg/actuation HFA aerosol inhaler 2 puff IH Q4HP PRN (Reason: Shortness Of Breath) Qty: 8.5 2RF cholecalciferol (vitamin D3) 50 mcg (2,000 unit) capsule 50 mcg PO DAILY Qty: 90 3RF ergocalciferol (vitamin D2) 1,250 mcg (50,000 unit) capsule 1,250 mcg PO WEEKLY Qty: 14 3RF ropinirole 1 mg tablet 1 mg PO HS atorvastatin 10 mg tablet 10 mg PO HS gabapentin 800 mg tablet 800 mg PO TID escitalopram oxalate 20 mg tablet 20 mg PO DAILY Problem Reconciliation Problems Reviewed?: Yes Patient Discharge Instructions ACTIVITY: Continue current activity DIET: continue same diet Patient Instructions: Getting to the Heart of a Healthful Diet, Heart-Healthy Diet, DI for Pneumonia -- Adult, DI for Respiratory Failure, Heart Healthy Diet Label Reading Tips Print Language: [place] Providers Primary Care Provider: Latrell Graham Provider: Sanchez Butler Attending Provider: Sanchez Butler
--- NOTE | 2025-01-28 10:54 | SW/DCPLANNER ---
Spoke with patient on the phone. Patient stated that he is doing much better with each day. Patient stated that he is aware of his upcoming appointments. Patient stated that he was able to get his medicine picked up from [facility] pharmacy. Patient stated that he was very pleased with his stay and care at the hospital. Patient stated that he has no concerns or questions at this time. Jeevan Morrissey
== END 2025-01-24 12:25 | disposition home or self-care (01) | DRG 853 ==
LOC: ER 15:11 → ICU 16:07 → 2ND 01-24 07:58
PROVIDERS: Internal Medicine Pulmonary Disease; Nurse Practitioner Family; Admitting Provider Internal Medicine Adolescent Medicine; Emergency Provider Emergency Medicine; PCP Family Medicine; Visit Provider Internal Medicine Adolescent Medicine
PROC: 0B9D8ZX Drainage of Right Middle Lung Lobe, Via Natural or Artificial Opening Endoscopic, Diagnostic (ICD-10-PCS; principal; 2025-01-23 09:00)
DX: A41.9 Sepsis, unspecified organism (principal); J18.9 Pneumonia, unspecified organism; J96.01 Acute respiratory failure with hypoxia; N17.9 Acute kidney failure, unspecified; N18.4 Chronic kidney disease, stage 4 (severe); Q61.2 Polycystic kidney, adult type; F33.9 Major depressive disorder, recurrent, unspecified; R65.20 Severe sepsis without septic shock; E11.42 Type 2 diabetes mellitus with diabetic polyneuropathy; E11.22 Type 2 diabetes mellitus with diabetic chronic kidney disease; F17.210 Nicotine dependence, cigarettes, uncomplicated; R79.89 Other specified abnormal findings of blood chemistry; I15.1 Hypertension secondary to other renal disorders; D63.1 Anemia in chronic kidney disease; E87.5 Hyperkalemia; E66.9 Obesity, unspecified; Z79.82 Long term (current) use of aspirin; Z79.899 Other long term (current) drug therapy; Z79.02 Long term (current) use of antithrombotics/antiplatelets; Z79.891 Long term (current) use of opiate analgesic; Z88.8 Allergy status to other drugs, medicaments and biological substances; Z68.35 Body mass index [BMI] 35.0-35.9, adult; Z95.810 Presence of automatic (implantable) cardiac defibrillator
CPT/HCPCS: 36415; 71045; 71046; 71250; 76000; 80048; 80053; 82803; 83615; 83735; 83880; 84484; 85007; 85025; 85651; 86140; 87040; 87070; 87081; 87102; 87116; 87186; 87205; 87206; 87633; 87636; 88112; 88305; 88312; 89051; 93005; 94640; 94760; 94761; 99291; J3490; J0456; J0574; J0696; J1100; J1940; J1956; J2250; J2405; J2919; J3010; J7030; J7050; J7620

== ENCOUNTER 2025-02-06 15:47 | Outpatient (CLI) | payer MEDICAID, SELFPAY ==
[2025-02-06 19:53] LABS: Basophils # 0.1 K/mm3 (0-0.2); Basophils % 1.1 % (0.1-2.0); Eosinophils # 0.5 K/mm3 (0.0-0.4); Eosinophils % 4.9 % (0.1-12.0); Hematocrit 37.9 % (42.0-52.0); Hemoglobin 12.2 g/dL (14.1-18.0); Lymphocytes # 2.7 K/mm3 (0.7-4.5); Lymphocytes % 25.7 % (10-50); Mean Corpuscular HGB Conc 32.2 g/dL (31.8-35.4); Mean Corpuscular Hemoglobin 29.8 pg (27.0-31.2); Mean Corpuscular Volume 92.4 fl (80-94); Mean Platelet Volume 9.8 fl (7.4-10.4); Monocytes # 0.8 K/mm3 (0.1-1.0); Monocytes % 7.5 % (1.7-9.3); Neutrophils # 6.3 K/mm3 (1.8-7.8); Neutrophils % 60.7 % (37.0-80.0); Platelet Count 464 K/mm3 (142-424); Red Cell Distribution Width 14.8 % (11.5-17.5); White Blood Count 10.4 K/mm3 (4.8-10.8)
[2025-02-06 19:59] LABS: Alanine Aminotransferase 17 U/L (12-78); Albumin Level 4.4 g/dl (3.5-5.0); Albumin/Globulin Ratio 1.4 (1.1-1.8); Alkaline Phosphatase 103 U/L (38-126); Anion Gap 18.8 mEq/L (5-15); Aspartate Amino Transferase 24 U/L (17-59); Bilirubin,Total 0.5 mg/dl (0.2-1.3); Blood Urea Nitrogen 37 mg/dl (9-20); Calcium 9.3 mg/dl (8.4-10.2); Carbon Dioxide 15 mmol/L (22.0-30.0); Chloride 109 mmol/L (98-107); Chol/HDL Ratio 7.2 (1-3.5); Cholesterol 230 mg/dl (140-200); Estimated Glomerular Filt Rate 18 ml/min (>60); GFR (African American) 21 ML/MIN (>60); Globulin 3.2 g/dL (1.3-3.2); Glucose 110 mg/dl (74-100); HDL Cholesterol 32 mg/dl (40-60); Potassium 5.8 mmoL/L (3.5-5.1); Sodium 137 mmol/L (136-145); Total Protein,Serum 7.6 g/dl (6.3-8.2); Triglycerides 344 mg/dl (30-150); VLDL Cholesterol 69 mg/dL (0-40)
[2025-02-06 20:09] LABS: Direct LDL Cholesterol 111.42 mg/dL (100-129)
[2025-02-06 20:11] LABS: NT Pro Brain Natriuretic Pep. 148 pg/mL (0-125)
[2025-02-06 20:16] LABS: 25-OH Vitamin D, Total 40.5 ng/mL (30-100)
[2025-02-06 20:32] LABS: Thyroid Stimulating Hormone 0.36 uIU/mL (0.465-4.68)
== END 2025-02-06 23:59 | disposition home or self-care (01) ==
LOC: LAB.DROPOF 02-07 12:59
PROVIDERS: PCP Family Medicine; Visit Provider Family Medicine
DX: Q61.3 Polycystic kidney, unspecified (principal); R79.89 Other specified abnormal findings of blood chemistry
CPT/HCPCS: 80053; 80061; 82306; 83880; 84443; 85025; G0103

== ENCOUNTER 2025-02-10 19:57 | Outpatient (CLI) | payer MEDICAID, SELFPAY ==
[2025-02-10 20:45] LABS: Albumin Level 4.2 g/dl (3.5-5.0); Chloride 112 mmol/L (98-107); Sodium 138 mmol/L (136-145)
[2025-02-10 20:47] LABS: Alanine Aminotransferase 16 U/L (12-78); Aspartate Amino Transferase 24 U/L (17-59); Blood Urea Nitrogen 42 mg/dl (9-20); Carbon Dioxide 18 mmol/L (22.0-30.0); Estimated Glomerular Filt Rate 19 ml/min (>60); GFR (African American) 23 ML/MIN (>60)
[2025-02-10 20:48] LABS: Albumin/Globulin Ratio 1.5 (1.1-1.8); Alkaline Phosphatase 109 U/L (38-126); Bilirubin,Total 0.6 mg/dl (0.2-1.3); Calcium 9.5 mg/dl (8.4-10.2); Globulin 2.8 g/dL (1.3-3.2); Glucose 128 mg/dl (74-100)
== END 2025-02-10 23:59 | disposition home or self-care (01) ==
LOC: LAB.DROPOF 19:58
PROVIDERS: PCP Family Medicine; Visit Provider Family Medicine
DX: Z00.00 Encounter for general adult medical examination without abnormal findings (principal)
CPT/HCPCS: 80053

== ENCOUNTER 2025-02-10 22:23 | Emergency (ER) | payer MEDICAID, SELFPAY ==
[2025-02-10 22:27] VITALS: BP 152/87; PULSE 61; RESP 18; TEMP 36.8; O2SAT 99; BMI 32.5
--- NOTE | 2025-02-10 22:38 | ECG_ITS ---
APPROVED REPORT Exam: Resting ECG HR:60 bpm ECG Measurements Heart Rate 60 AXES NJ 212 P 214 QRSd 97 QRS -7 QT 403 T 18 QTc 403 Conclusion ELECTRONIC ATRIAL PACEMAKER MODERATE VOLTAGE CRITERIA FOR LVH, CONSIDER NORMAL VARIANT [MEETS CRITERIA IN ONE OF: R(aVL), S(V1), R(V5), R(V5/V6)+S(V1)] POSSIBLE ANTERIOR MYOCARDIAL INFARCTION , OF INDETERMINATE AGE [30 ms Q WAVE IN V3/V4, OR R < 0.2 mV IN V4] ABNORMAL ECG Mildly peaked T waves in V2 and lead I Electronically signed by : JOANN DEUTSCH, 02/11/2025 00:14:50
[2025-02-10] MEDS: DEXTROSE 50% 50ML SYRINGE (CRASH CART) 50 ML IVP (22:42)
[2025-02-10] MEDS: CALCIUM GLUC IN NACL, ISO-OSM 2 GM/100 ML BAG IV (22:42)
[2025-02-10] MEDS: INSULIN HUMAN REGULAR 100 UNITS/ML 10ML VIAL 5 UNIT IVP (22:42)
[2025-02-10] MEDS: SODIUM BICARB 8.4% 50ML SYRINGE (CRASH CART) 50 MEQ IV (22:42)
--- NOTE | 2025-02-10 22:50 | PC.NURSE ---
Patients FSBS was 140.
[2025-02-10 22:51] LABS: Lactate Venous 1.4 mmol/L (0.4-2.0); VBG Base Excess -9.3 mmol/L (-2.4-2.3); VBG HCO3 16.9 mmol/L (23-30); VBG Oxygen Saturation 93.3 % (50-70); VBG PCO2 34.5 mmol/L (35-51); VBG PH 7.31 mmol/L (7.31-7.41); VBG PO2 64.5 mmol/L (28-40)
[2025-02-10 22:53] LABS: Basophils # 0.1 K/mm3 (0-0.2); Basophils % 0.9 % (0.1-2.0); Eosinophils # 0.6 K/mm3 (0.0-0.4); Eosinophils % 6.8 % (0.1-12.0); Hematocrit 34.9 % (42.0-52.0); Hemoglobin 11.5 g/dL (14.1-18.0); Lymphocytes # 2.8 K/mm3 (0.7-4.5); Lymphocytes % 30.2 % (10-50); Mean Corpuscular Hemoglobin 30.3 pg (27.0-31.2); Mean Corpuscular Volume 92.1 fl (80-94); Mean Platelet Volume 9.8 fl (7.4-10.4); Monocytes # 0.7 K/mm3 (0.1-1.0); Monocytes % 7.8 % (1.7-9.3); Neutrophils # 5.1 K/mm3 (1.8-7.8); Neutrophils % 54.1 % (37.0-80.0); Platelet Count 306 K/mm3 (142-424); Red Blood Count 3.79 M/mm3 (4.60-6.20); Red Cell Distribution Width 14.5 % (11.5-17.5); White Blood Count 9.4 K/mm3 (4.8-10.8)
[2025-02-10 23:11] LABS: Albumin Level 4.3 g/dl (3.5-5.0); Chloride 112 mmol/L (98-107); Sodium 136 mmol/L (136-145)
[2025-02-10 23:12] LABS: Potassium 5.9 mmoL/L (3.5-5.1)
[2025-02-10 23:14] LABS: Alanine Aminotransferase 16 U/L (12-78); Albumin/Globulin Ratio 1.4 (1.1-1.8); Alkaline Phosphatase 103 U/L (38-126); Anion Gap 6.9 mEq/L (5-15); Aspartate Amino Transferase 24 U/L (17-59); Bilirubin,Total 0.6 mg/dl (0.2-1.3); Blood Urea Nitrogen 40 mg/dl (9-20); Calcium 9.4 mg/dl (8.4-10.2); Carbon Dioxide 23 mmol/L (22.0-30.0); Creatinine Clearance Estimated 38 mL/min (50-200); Estimated Glomerular Filt Rate 19 ml/min (>60); GFR (African American) 24 ML/MIN (>60); Globulin 3.1 g/dL (1.3-3.2); Glucose 129 mg/dl (74-100); Total Protein,Serum 7.4 g/dl (6.3-8.2)
--- NOTE | 2025-02-10 23:16 | ED_ITS ---
Discharge Plan Disposition Patient Disposition: Xfer Short-Term Hosp Chief Complaint: Recheck/Abnormal Lab/Rx Prescriptions Prescriptions: No Action buprenorphine-naloxone 8-2 mg tablet, sublingual 2 tab SL DAILY Rx Instructions: verified with [facility] fluticasone propion-salmeterol [Advair Diskus] 250-50 mcg/dose blister with device 1 inh inhalation BID Qty: 60 2RF omeprazole 40 mg capsule,delayed release(DR/EC) 40 mg PO DAILY 90 Days Qty: 90 3RF Rx Instructions: swallow whole; do not crush, chew, dissolve, cut, break metoprolol succinate 25 mg tablet extended release 24 hr 25 mg PO DAILY 30 Days Qty: 90 3RF lorazepam 1 mg tablet 1 mg PO DAILY PRN (Reason: anxiety) Qty: 30 0RF lidocaine [Lidocaine Pain Relief] 4 % adhesive patch,medicated topical ropinirole 2 mg tablet 2 mg PO HS 30 Days Qty: 30 0RF loratadine [Allergy Relief (loratadine)] 10 mg tablet 10 mg PO DAILY Qty: 30 0RF amoxicillin 500 mg tablet 500 mg PO BID 10 Days Qty: 20 0RF aspirin 81 mg tablet,delayed release (DR/EC) 81 mg PO DAILY albuterol sulfate 90 mcg/actuation HFA aerosol inhaler 2 puff IH Q4HP PRN (Reason: Shortness Of Breath) Qty: 8.5 2RF cholecalciferol (vitamin D3) 50 mcg (2,000 unit) capsule 50 mcg PO DAILY Qty: 90 3RF ergocalciferol (vitamin D2) 1,250 mcg (50,000 unit) capsule 1,250 mcg PO WEEKLY Qty: 14 3RF atorvastatin 10 mg tablet 10 mg PO HS gabapentin 800 mg tablet 800 mg PO TID escitalopram oxalate 20 mg tablet 20 mg PO DAILY Referrals Follow up/Referrals: Paulette Shi APRN [Primary Care Provider] - See instructions Clinical Impressions Clinical Impression: Acute hyperkalemia Stand Alone Forms Stand Alone Forms: Transfer Record - ED Print Language Print Language: Austrian Discharge ED Provider: Aamir Villatoro General Adult HPI <Aamir Villatoro MD - Last Filed: 02/10/25 23:31> General Chief complaint: Recheck/Abnormal Lab/Rx Stated complaint: phy ref- high potassium Time Seen by Provider: 02/10/25 22:32 Mode of Arrival: Ambulatory Source of Information: Patient Description of Symptoms (Recalled from ER Triage Doc. by RN): Pt was called by his pcp to come in for evaluation due to a potassium level of 7.0. Pt has stage 4 kidney disease, and it not on dialysis. History of Present Illness HPI narrative: Patient is a 49-year-old male past medical history of polycystic kidney disease, CKD, not dialysis dependent who presents emergency department for laboratory abnormality. Benjaminkeya Gutierrez contacted me, patient had basic labs drawn earlier today and they contacted him as he was the physician on-call, patient has a potassium of 7 and he was referred here promptly for evaluation. Patient is asymptomatic has no complaints of chest pain shortness of breath vomiting headache or any other acute complaints. Please note that above description of symptoms, in this electronic medical record under categorization of recalled from ER triage doctor by RN are reflective of an initial nursing assessment, however, is not reflective of my full history and physical exam that was personally taken and clarified. Consequentially, this preceding description of symptoms, which may include the patient's categorized chief complaint in the EMR, do not reflect my personal clinical impression, and the ultimate description of history of present illness and patient stated complaints should be deferred to this section of the note. Unless stated otherwise or congruent with this section of the note, additional signs, symptoms, or incongruence should be interpreted as inaccurate with my clinical impression. Related Data Home Medications ?Medication ?Instructions ?Recorded ?Confirmed buprenorphine 8 mg-naloxone 2 mg 2 tab sublingual DAILY Substance 04/17/20 02/10/25 sublingual tablet Use Disorder aspirin 81 mg tablet,delayed 81 mg PO DAILY 09/18/23 02/10/25 release atorvastatin 10 mg tablet 10 mg PO HS 01/22/25 02/10/25 escitalopram oxalate 20 mg tablet 20 mg PO DAILY 01/22/25 02/10/25 gabapentin 800 mg tablet 800 mg PO TID neuropathic pain 01/22/25 02/10/25 lidocaine 4 % topical patch patch topical 02/06/25 02/10/25 (Lidocaine Pain Relief) Previous Rx's ?Medication ?Instructions ?Recorded albuterol sulfate 90 mcg/actuation 2 puff inhalation Q4HP PRN 05/24/24 aerosol inhaler Shortness Of Breath #8.5 grams cholecalciferol (vitamin D3) 50 50 mcg PO DAILY #90 caps 08/01/24 mcg (2,000 unit) capsule ergocalciferol (vitamin D2) 1,250 1,250 mcg PO WEEKLY #14 caps 08/01/24 mcg (50,000 unit) capsule fluticasone 250 mcg-salmeterol 50 1 inh inhalation BID #60 ea 10/23/24 mcg/dose blistr powdr for inhalation (Advair Diskus) omeprazole 40 mg capsule,delayed 40 mg PO DAILY 90 days #90 caps 10/23/24 release lorazepam 1 mg tablet 1 mg PO DAILY PRN anxiety #30 tabs 12/31/24 metoprolol succinate 25 mg 25 mg PO DAILY 30 days #90 tabs 01/17/25 tablet,extended release 24 hr amoxicillin 500 mg tablet 500 mg PO BID 10 days #20 tabs 02/06/25 loratadine 10 mg tablet (Allergy 10 mg PO DAILY #30 tabs 02/06/25 Relief (loratadine)) ropinirole 2 mg tablet 2 mg PO HS 30 days #30 tabs 02/06/25 Allergies Allergy/AdvReac Type Severity Reaction Status Date / Time doxazosin (From Cardura) AdvReac Swelling Verified 02/10/25 13:12 of Lip/Tongue/Throat [facility] <Aamir Villatoro MD - Last Filed: 02/10/25 23:31> [facility] Disclaimer: The information contained in this section may have been updated after the patient was seen, as this information can be updated by other users. Medical History Multifocal pneumonia Severe sepsis Acute hypoxemic respiratory failure Multifocal pneumonia Panic disorder History of pacemaker ADI (acute kidney injury) Altered mental status Atypical pneumonia CHF exacerbation Overdose Acute metabolic encephalopathy Left elbow pain Obesity Neuropathy Obesity Tobacco dependence syndrome URI (upper respiratory infection) Cough Recurrent pneumonia resolved Sinusitis History of pacemaker Polycystic kidney disease Dyspnea Headache Anxiety Gastro-esophageal reflux disease without esophagitis Malignant hypertension Acute bacterial bronchitis Acute upper respiratory infection Bronchitis Edema Laceration of left index finger RLS (restless legs syndrome) Obesity Tobacco abuse Smoking cessation discussed Hand fracture, right COPD (chronic obstructive pulmonary disease) Pacemaker Gastroesophageal reflux disease CKD (chronic kidney disease) Bradycardia with 31-40 beats per minute Acute hyperkalemia Patient left without being seen UTI (urinary tract infection) Respiratory failure, acute Acute hyperkalemia Otitis media Obesity Somnolence, daytime, controlled Snoring Pulmonary nodules HTN (hypertension) Edema Chest pain Palpitations URI (upper respiratory infection) Medication refill Hypertensive urgency Bronchitis Elbow contusion Contusion of right hand Surgical History AICD (automatic cardioverter/defibrillator) present No history of previous surgery Family History Other Heart attack Hypertension Social History Smoking Status: Never smoker years smoked: 30 second hand exposure: No alcohol intake: never substance use type: former substance user and painkillers current occupational status: employed and other Travel in the last 8 weeks: None household members: significant other housing: house lives independently: No caffeine: Yes special crystal needs: No agree to transfusion: No Have you lived/traveled outside [place] in past 30 days?: No Contact w/someone who lives/traveled outside US past 30 days?: No Exposure to someone with infectious disease in past 14 days?: No Do you have a fever (greater than 100.4 F or 38 C)?: No Have you tested positive for COVID-19: No Exposed to someone with COVID-19 in past 14 days?: No Do you have a sore throat?: No Do you have a cough?: No Do you have any weakness?: No Do you have any diarrhea?: No Are you experiencing any unusual bleeding?: No Do you have any muscle aches/pain?: No Do you have any abdominal pain?: No Are you experiencing loss of taste or smell?: No Other Medical History Have you received the Flu Vaccine for this season: No Have you received the Pneumonia Vaccine: No <Aamir Villatoro MD - Last Filed: 02/10/25 23:31> ROS Obtained: Yes Systems reviewed as appropriate & no additional complaints except as documented Physical Exam <Aamir Villatoro MD - Last Filed: 02/10/25 23:31> General General appearance: alert and in no apparent distress Head Head exam: atraumatic and normocephalic Eye Eye exam: Present PERRL ENT ENT exam: Present mucous membranes moist Neck Neck exam: Present normal inspection Chest Chest inspection: Present normal inspection and symmetric chest wall rise Respiratory Respiratory exam: Present normal lung sounds bilaterally; Absent respiratory distress Cardiovascular Cardiovascular exam: Present regular rate and normal rhythm Abdominal Exam Abdominal exam: Present soft; Absent tenderness Extremities Exam Extremities exam: Present normal inspection Neurological Exam Neurological exam: Present alert Psychiatric Psychiatric exam: Present normal affect Skin Skin exam: Present warm and dry Medical Decision Making <Aamir Villatoro MD - Last Filed: 02/10/25 23:31> Medical Records Screening: Per USPSTF and CDC recommendations, given the prevalence of disease in our region, it is our hospital?s policy to screen for HIV and viral Hepatitis for all patients aged 18 and over and those with ongoing risk factors. Tobin Inquiry Pt receiving controlled substance: No Vital Signs: 02/10/25 22:27 02/10/25 23:25 02/10/25 23:25 Temperature 98.3 F Temperature Source Oral Pulse Rate 63 Pulse Rate [Right] 61 64 Respiratory Rate 18 16 16 Blood Pressure Blood Pressure [Right Arm] 152/87 H 139/81 Blood Pressure Mean [Right Arm] 108 100 Blood Pressure Source [Right Arm] Automatic Cuff Blood Pressure Position [Right Arm] Sitting Sitting 02 Sat by Pulse Oximetry 99 98 96 Oxygen Delivery Method Room Air Room Air 02/10/25 23:30 02/10/25 23:45 02/11/25 00:00 Temperature Temperature Source Pulse Rate 60 60 61 Pulse Rate [Right] Respiratory Rate 17 22 Blood Pressure 134/83 133/75 Blood Pressure [Right Arm] Blood Pressure Mean [Right Arm] Blood Pressure Source [Right Arm] Blood Pressure Position [Right Arm] 02 Sat by Pulse Oximetry 97 96 96 Oxygen Delivery Method Lab Data Lab Results 02/10/25 22:45: WBC 9.4, RBC 3.79 L, Hgb 11.5 L, Hct 34.9 L, MCV 92.1, MCH 30.3, MCHC 33.0, RDW 14.5, Plt Count 306, MPV 9.8, Neut % (Auto) 54.1, Lymph % (Auto) 30.2, Hendry % (Auto) 7.8, Eos % (Auto) 6.8, Baso % (Auto) 0.9, Neut # (Auto) 5.1, Lymph # (Auto) 2.8, Hendry # (Auto) 0.7, Eos # (Auto) 0.6 H, Baso # (Auto) 0.1, Sodium 136, Potassium 5.9 H, Chloride 112 H, Carbon Dioxide 23, Anion Gap 6.9, B UN 40 H, Creatinine 3.40 H, Estimated Creat Clear 38, Estimated GFR 19 L*, Est GFR ( Amer) 24 L, Glucose 129 H, Calcium 9.4, Magnesium 2.0, Total Bilirubin 0.6, AST 24, ALT 16, Alkaline Phosphatase 103, Total Protein 7.4, Albumin 4.3, Globulin 3.1, Albumin/Globulin Ratio 1.4 02/10/25 22:48: VBG pH 7.31, VBG pCO2 34.5 L, VBG pO2 64.5 H, VBG HCO3 16.9 L, V BG Total CO2 18.0 L, VBG O2 Saturation 93.3 H, VBG Base Excess -9.3 L, VBG Lactic Acid 1.4 02/10/25 22:45 02/10/25 22:45 Orders (Tests/Meds): ED MEDICATIONS Discontinued Medications Generic Name Dose Route Start Last Admin Trade Name Tatiana PRN Reason Stop Dose Admin Dextrose 50 ml 02/10/25 22:33 02/10/25 22:42 Dextrose 50% 50ml Syringe (Crash Cart) IVP 02/10/25 22:34 50 ml ONCE ONE Administration Furosemide 80 mg 02/11/25 00:16 02/11/25 00:37 Furosemide 40mg/4ml Vial IV 02/11/25 00:17 80 mg ONCE ONE Administration Calcium Gluconate/Sodium Chloride 2 gm in 100 mls @ 50 mls/hr 02/10/25 22:33 02/10/25 22:42 Calcium Gluconate 2,000mg/100ml Nacl Premix IV 02/11/25 00:32 50 mls/hr ONCE ONE Administration Insulin Human Regular 5 unit 02/10/25 22:33 02/10/25 22:42 Insulin Human Regular 100 Units/Ml 10ml Vial IVP 02/10/25 22:34 5 unit ONCE ONE Administration Sodium Bicarbonate 50 meq 02/10/25 22:33 02/10/25 22:42 Sodium Bicarb 8.4% 50ml Syringe (Crash Cart) IV 02/10/25 22:34 50 meq ONCE ONE Administration Sodium Chloride 500 ml 02/11/25 00:16 02/11/25 00:37 Sodium Chloride 0.9% 500ml Bag IV 02/11/25 00:17 500 ml ONCE ONE Administration Sodium Zirconium Cyclosilicate 10 gm 02/11/25 00:16 02/11/25 00:37 Lokelma 5gm Packet PO 02/11/25 00:17 10 gm ONCE ONE Administration ORDERS Category Date Time Status CBC w/Auto Diff [Complete Blood Count Auto Diff] Stat Lab 02/10/25 22:45 Completed CMP [Comprehensive Metabolic Panel] Stat Lab 02/10/25 22:45 Completed MG [Magnesium] Stat Lab 02/10/25 22:45 Completed VBG [Venous Blood Gas] Stat RT 02/10/25 22:48 Completed ECG Request Stat Y 02/11/25 00:17 Ordered Medical Decision Narrative: In summary patient is a 49-year-old male past medical history described above who presents emergency department for evaluation of laboratory abnormality. Patient is hemodynamically stable nontoxic-appearing upon arrival, afebrile. Patient is a paced, has mild peaked T waves. No widened QRS. 2 g calcium gluconate will be administered, insulin, glucose, bicarb will be administered. Hematologic labs will be obtained to trend potassium. Hematologic labs were pending at time of transfer of care to the oncoming physician, Dr. Sage. Is very likely that patient will have to be transferred to higher level of care for possible dialysis evaluation. <Yomi Sage MD - Last Filed: 02/11/25 00:47> Vital Signs: 02/10/25 22:27 02/10/25 23:25 02/10/25 23:25 Temperature 98.3 F Temperature Source Oral Pulse Rate 63 Pulse Rate [Right] 61 64 Respiratory Rate 18 16 16 Blood Pressure Blood Pressure [Right Arm] 152/87 H 139/81 Blood Pressure Mean [Right Arm] 108 100 Blood Pressure Source [Right Arm] Automatic Cuff Blood Pressure Position [Right Arm] Sitting Sitting 02 Sat by Pulse Oximetry 99 98 96 Oxygen Delivery Method Room Air Room Air 02/10/25 23:30 02/10/25 23:45 02/11/25 00:00 Temperature Temperature Source Pulse Rate 60 60 61 Pulse Rate [Right] Respiratory Rate 17 22 Blood Pressure 134/83 133/75 Blood Pressure [Right Arm] Blood Pressure Mean [Right Arm] Blood Pressure Source [Right Arm] Blood Pressure Position [Right Arm] 02 Sat by Pulse Oximetry 97 96 96 Oxygen Delivery Method Lab Data Lab Results 02/10/25 22:45: WBC 9.4, RBC 3.79 L, Hgb 11.5 L, Hct 34.9 L, MCV 92.1, MCH 30.3, MCHC 33.0, RDW 14.5, Plt Count 306, MPV 9.8, Neut % (Auto) 54.1, Lymph % (Auto) 30.2, Hendry % (Auto) 7.8, Eos % (Auto) 6.8, Baso % (Auto) 0.9, Neut # (Auto) 5.1, Lymph # (Auto) 2.8, Hendry # (Auto) 0.7, Eos # (Auto) 0.6 H, Baso # (Auto) 0.1, Sodium 136, Potassium 5.9 H, Chloride 112 H, Carbon Dioxide 23, Anion Gap 6.9, B UN 40 H, Creatinine 3.40 H, Estimated Creat Clear 38, Estimated GFR 19 L*, Est GFR ( Amer) 24 L, Glucose 129 H, Calcium 9.4, Magnesium 2.0, Total Bilirubin 0.6, AST 24, ALT 16, Alkaline Phosphatase 103, Total Protein 7.4, Albumin 4.3, Globulin 3.1, Albumin/Globulin Ratio 1.4 02/10/25 22:48: VBG pH 7.31, VBG pCO2 34.5 L, VBG pO2 64.5 H, VBG HCO3 16.9 L, V BG Total CO2 18.0 L, VBG O2 Saturation 93.3 H, VBG Base Excess -9.3 L, VBG Lactic Acid 1.4 Orders (Tests/Meds): ED MEDICATIONS Discontinued Medications Generic Name Dose Route Start Last Admin Trade Name Josiahq PRN Reason Stop Dose Admin Dextrose 50 ml 02/10/25 22:33 02/10/25 22:42 Dextrose 50% 50ml Syringe (Crash Cart) IVP 02/10/25 22:34 50 ml ONCE ONE Administration Furosemide 80 mg 02/11/25 00:16 02/11/25 00:37 Furosemide 40mg/4ml Vial IV 02/11/25 00:17 80 mg ONCE ONE Administration Calcium Gluconate/Sodium Chloride 2 gm in 100 mls @ 50 mls/hr 02/10/25 22:33 02/10/25 22:42 Calcium Gluconate 2,000mg/100ml Nacl Premix IV 02/11/25 00:32 50 mls/hr ONCE ONE Administration Insulin Human Regular 5 unit 02/10/25 22:33 02/10/25 22:42 Insulin Human Regular 100 Units/Ml 10ml Vial IVP 02/10/25 22:34 5 unit ONCE ONE Administration Sodium Bicarbonate 50 meq 02/10/25 22:33 02/10/25 22:42 Sodium Bicarb 8.4% 50ml Syringe (Crash Cart) IV 02/10/25 22:34 50 meq ONCE ONE Administration Sodium Chloride 500 ml 02/11/25 00:16 02/11/25 00:37 Sodium Chloride 0.9% 500ml Bag IV 02/11/25 00:17 500 ml ONCE ONE Administration Sodium Zirconium Cyclosilicate 10 gm 02/11/25 00:16 02/11/25 00:37 Lokelma 5gm Packet PO 02/11/25 00:17 10 gm ONCE ONE Administration ORDERS Category Date Time Status CBC w/Auto Diff [Complete Blood Count Auto Diff] Stat Lab 02/10/25 22:45 Completed CMP [Comprehensive Metabolic Panel] Stat Lab 02/10/25 22:45 Completed MG [Magnesium] Stat Lab 02/10/25 22:45 Completed VBG [Venous Blood Gas] Stat RT 02/10/25 22:48 Completed ECG Request Stat Y 02/11/25 00:17 Ordered Medical Decision Narrative: In summary patient is a 49-year-old male past medical history described above who presents emergency department for evaluation of laboratory abnormality. Patient is hemodynamically stable nontoxic-appearing upon arrival, afebrile. Patient is a paced, has mild peaked T waves. No widened QRS. 2 g calcium gluconate will be administered, insulin, glucose, bicarb will be administered. Hematologic labs will be obtained to trend potassium. Hematologic labs were pending at time of transfer of care to the oncoming physician, Dr. Sage. Is very likely that patient will have to be transferred to higher level of care for possible dialysis evaluation. Sage: Upon my assumption of care patient is stable and resting comfortably. I agree with the assessment and plan from Dr. Villatoro. I agree with the interventions that he is administered already. I also agree with his interpretation of the ECG demonstrating hyperkalemic hyperacute T waves. Labs reviewed by me demonstrate persistent hyperkalemia however potassium has already improved to 5.9, labs were drawn prior to medication intervention. Labs are otherwise reassuring. Creatinine is 3.4 which is similar to what it has been recently however his creatinine has been on a gradual uptrend for many months. With his persistently elevated potassium and changes on ECG, I believe he requires urgent dialysis, though not emergent dialysis since his potassium is below 6 now. I reached out to [place] and spoke with Dr. Nova with the nephrology team. He recommended Lokelma, normal saline, IV Lasix to continue to help excrete potassium. He also recommended repeating ECG and if patient has persistently peaked T waves to administer additional calcium. He does recommend transfer to [facility] for further nephrology evaluation and possible dialysis. He does believe that patient's hyperkalemia and EKG changes are more likely chronic than acute. I spoke with the hospitalist nurse practitioner and she agrees with this plan. Patient was graciously accepted for admission to [facility] ICU under Dr. Iglesias. Patient requires ALS transfer for continued cardiac monitoring and medications which are being administered. EMS has been contacted. Repeat ECG personally interpreted by me demonstrates paced rhythm, rate 68, normal axis, normal QTc, no STEMI, T waves are still peaked however improving from prior. Since they are still peaked received additional calcium gluconate per the recommendation of the presales senior specialist at [place]. Patient tolerated this well. Patient appropriate for transfer. He was transferred in stable condition. Critical Care <Aamir Villatoro MD - Last Filed: 02/10/25 23:31> Critical Care Time Critical Care Time: No
[2025-02-10 23:25] VITALS: BP 139/81; PULSE 63; PULSE 64; RESP 16; O2SAT 96; O2SAT 98
[2025-02-10 23:30] VITALS: PULSE 60; RESP 17; O2SAT 97
[2025-02-10 23:45] VITALS: BP 134/83; PULSE 60; O2SAT 96
[2025-02-11] VITALS: BP 133/75; PULSE 61; RESP 22; O2SAT 96
[2025-02-11] MEDS: LOKELMA 5GM PACKET 10 GM PO (00:37)
[2025-02-11] MEDS: FUROSEMIDE 40MG/4ML VIAL 80 MG IV (00:37)
[2025-02-11] MEDS: SODIUM CHLORIDE 0.9% 500ML BAG 500 ML IV (00:37)
--- NOTE | 2025-02-11 00:41 | ECG_ITS ---
APPROVED REPORT Exam: Resting ECG HR:60 bpm ECG Measurements Heart Rate 60 AXES IA 219 P 156 QRSd 100 QRS -1 QT 402 T 16 QTc 402 Conclusion ELECTRONIC ATRIAL PACEMAKER MINIMAL VOLTAGE CRITERIA FOR LVH, CONSIDER NORMAL VARIANT [MEETS CRITERIA IN ONE OF: R(aVL), S(V1), R(V5), R(V5/V6)+S(V1)] Mildly peaked T waves improved from prior No STEMI Electronically signed by : SARAH ALVAREZ, 02/11/2025 03:46:30
[2025-02-11] MEDS: CALCIUM GLUC IN NACL, ISO-OSM 1 GM/50 ML BAG IV (01:06)
[2025-02-11 01:13] VITALS: BP 156/94; PULSE 56; RESP 20; TEMP 36.9; O2SAT 98
== END 2025-02-11 01:14 | disposition short-term general hospital (02) ==
PROVIDERS: Emergency Provider Emergency Medicine; PCP Family Medicine
DX: E87.5 Hyperkalemia (principal); N18.4 Chronic kidney disease, stage 4 (severe); Q61.2 Polycystic kidney, adult type; R79.9 Abnormal finding of blood chemistry, unspecified; J44.9 Chronic obstructive pulmonary disease, unspecified; F11.91 Opioid use, unspecified, in remission; F32.9 Major depressive disorder, single episode, unspecified; Z95.0 Presence of cardiac pacemaker
CPT/HCPCS: 80053; 82803; 83735; 85025; 93005; 96374; 99285; J1940

== ENCOUNTER 2025-03-26 16:31 | Outpatient (CLI) | payer MEDICARE, SELFPAY ==
[2025-03-26 19:43] LABS: Alanine Aminotransferase 10 U/L (12-78); Albumin Level 3.9 g/dl (3.5-5.0); Albumin/Globulin Ratio 1.4 (1.1-1.8); Alkaline Phosphatase 159 U/L (38-126); Anion Gap 8.4 mEq/L (5-15); Aspartate Amino Transferase 24 U/L (17-59); Bilirubin,Total 0.3 mg/dl (0.2-1.3); Blood Urea Nitrogen 38 mg/dl (9-20); Calcium 8.9 mg/dl (8.4-10.2); Carbon Dioxide 23 mmol/L (22.0-30.0); Chloride 111 mmol/L (98-107); Estimated Glomerular Filt Rate 24 ml/min (>60); GFR (African American) 29 ML/MIN (>60); Globulin 2.7 g/dL (1.3-3.2); Glucose 74 mg/dl (74-100); Potassium 5.4 mmoL/L (3.5-5.1); Sodium 137 mmol/L (136-145); Total Protein,Serum 6.6 g/dl (6.3-8.2)
== END 2025-03-26 23:59 | disposition home or self-care (01) ==
LOC: LAB.DROPOF 03-27 08:29
PROVIDERS: PCP Family Medicine; Visit Provider Family Medicine
DX: E87.5 Hyperkalemia (principal)
CPT/HCPCS: 80053

== ENCOUNTER 2025-05-26 14:15 | Outpatient (CLI) | payer MEDICARE, SELFPAY ==
--- OUTSIDE RECORDS SUMMARY | 2025-05-26 14:17 | XMS_ITS | Referral Summary ---
Author Organization [employer] ([place], [place], [place], [place]) Address [address] [place] [address] Care Team Providers Care Form Coverer Name Role Phone Alexys Anderson MD Primary Care Provider + [phone] Allergies No known active allergies Medications traZODone (DESYREL) 50 MG tablet Take 1 tablet (50 mg total) by mouth nightly. Active gabapentin (NEURONTIN) 800 MG tablet Take 1 tablet (800 mg total) by mouth 3 (three) times daily. Max Daily Amount: 2,400 mg Active buprenorphine-n aloxone (SUBOXONE) 8-[address] 2 tablets under the tongue daily. Max Daily Amount: 2 tablets Active famotidine (PEPCID) 20 MG tablet Take 1 tablet (20 mg total) by mouth 2 (two) times daily. Active albuterol HFA (VENTOLIN HFA) 90 mcg/actuation inhaler Inhale 1 puff by mouth via inhaler every 6 (six) hours as needed for Wheezing or Shortness of Breath. Active amLODIPine (NORVASC) 5 MG tablet Take 1 tablet (5 mg total) by mouth daily. Active escitalopram oxalate (LEXAPRO) 20 MG tablet Take 1 tablet (20 mg total) by mouth daily. Active Active Problems Problem Noted Date Diagnosed Date Community acquired pneumonia, bilateral 08/01/20 Severe sepsis without septic shock (CODE) 2022 CKD (chronic kidney disease) stage 4, GFR 15-29 ml/min 08/01/2023 CAD (coronary artery disease) 08/01/2023 HTN (hypertension) 08/01/2023 Social History Tobacco Use Types Packs/Day Years Used Date Smoking Tobacco: Never Assessed Food Insecurity Answer Date Recorded Food run out past 12 months Not on file 11/20 Food did not last past 12 months Not on file 12/01/2023 Employment Answer Date Recorded Help finding and keeping a job Not on file 0 12/01/2023 Family and Community Support Answer Spencer e Recorded Help with Day to Day Activities Not on file 12/01/2023 Feeling Lonely or Isolated Not on file 12/01 Educational Attainment Answer Date Alberto rded Speak language other than Namibian at home Not on file 12/01/2023 Want help with school or training Not on file 12/01/2023 Substance Use Answer Date Recorded Used prescription meds for non-medical reasons N ot on file 12/01/2023 Used illegal drugs past 12 months Not on file 12/01/2023 Sex and Gender Information Value Date Recorded Sex Assigned at Not on file Legal Sex Male 4:31 PM CDT Gender Identity Not on file Sexual Orientation Not on file Last Filed Vital Signs Vital Sign Reading Time Taken Comments Blood Pressure 136/89 08/07/2023 5:58 AM EDT Pulse 66 08/07/2023 5:58 AM EDT Temperature 36.8 C (98.2 F) 08/07/2023 5:58 AM EDT Respiratory Rate 16 08/07/2023 5:58 AM EDT Oxygen Saturation 98% 08/07/2023 8:00 AM EDT Inhaled Oxygen Concentration 50% 08/03/2023 1 0:44 AM EDT Weight 99.4 kg (219 lb 2.2 oz) 08/01/2023 4:00 A M EDT Height 172.7 cm (5' 8 ) 08/01/2023 11:00 AM EDT Body Mass Index 33.32 08/01/2023 4:00 AM EDT Plan of Treatment Not on file Procedures Procedure Name Priority Date/Time Associated Diagnosis Comments HIV 1/2 AG/AB COMBO Routine 08/03/2023 6 :50 AM EDT LIPID PANEL Add-On 08/02/2023 7:18 AM EDT from Last 3 Months or Most Recently Relevant to Health Maintenance Results * HIV 1/2 AG/AB Combo (08/03/2023 6:50 AM EDT) Pathologist [facility] HIV-1 P24 Antigen Nonreactive Nonreactive 08/03/2023 11:20 AM EDT [facility] Comment: The Combo HIV procedure is a fourth generation HIV test which detects BOTH p24 antigen AND HIV antibodies to HIV virus types 0, 1, and 2. A reactive result does not distinguish between the antigen or the antibody and does not specify which antibody is present. Additional testing is required to differentiate the component causing the reactive result. Biotin supplements can cause clinically significant incorrect lab results. The FDA has seen an increase in the number of adverse events related to biotin interference with lab tests. Blood Venipuncture / Unknown 08/03/2023 6:50 AM EDT 08/03/2023 6:58 AM EDT Eboni Bragg APRN LAB BLOOD ORDERABLES Final Result Performing Organization Address City/State/[facility] Co de Phone Number [facility] [address] [phone] * (ABNORMAL) Lipid panel (08/02/2023 7:18 AM EDT) [facility] Triglycerides 98 0 - 249 mg/dL 08/02/2023 10:14 AM EDT [facility] Cholesterol 113 0 - 199 mg/dL 08/02/2023 10:14 AM EDT [facility] Comment: 200 to 239 mg/dL = Moderate (borderline) >239 mg/dL = High HDL Cholesterol 25(L) >=40 mg/dL 08/02/2023 10:14 AM EDT [facility] Comment: >=60 mg/dL = Desirable <40 mg/dL = Increased Risk All other components are listed individually or are calculations VLDL Cholesterol 19.6 5 - 40 mg/dL 08/02/2023 10:14 AM EDT [facility] Cholesterol/HDL ratio 4.5(H) 0.0 - 3.2 08/02/2023 10:14 AM EDT [facility] LDl/HDL Ratio 3 0 - 4 08/02/2023 10:14 AM EDT [facility] RISK COMP 5 08/02/2023 10:14 AM EDT [facility] LDL Cholesterol, Calculated 68 0 - 99 mg/dL 08/02/2023 10:14 AM EDT [facility] Blood Venipuncture / Unknown 08/02/2023 7:18 AM EDT 08/02/2023 7:24 AM EDT Jeremías Rizzo MANAGER CHANGE LAB BLOOD ORDERABLES Final Result [facility] [address] [phone] from Last 3 Months or Most Recently Relevant to Health Maintenance [facility] Advance Directives For more information, please contact: [phone] * Full Code (Latest Code Status on File) Date Activated Date Inactivated Comments 07/31/2023 11:45 PM 08/07/2023 2:02 PM -Attempt Re suscitation if person has no pulse and is not breathing. -If no pulse or not breathing attempt CPR/CODE. -Call Rapid Response if patient is in distress. Healthcare Agents on File Name Relationship Healthcare Agent Relationshi p Communication January Leon Significant Other First Alternat e Healthcare Decision-Maker [employer] Brother Second Alternate Healthcare Decision-Maker Care Teams Form Coverer Relationship Specialty Start Date End Date Alexys Anderson MD [address] [place] [id number] PCP - General Family Medicine 08/07/23
--- OUTSIDE RECORDS SUMMARY | 2025-05-26 14:17 | XMS_ITS | Clinical Summary ---
Author Organization [employer] ([place], [place], [place], [place]) Address [address] [place] [address] Care Team Providers Care Casing Operator Name Role Phone Alexys Anderson MD Primary Care Provider + [phone] Allergies No known active allergies Medications traZODone [...] Date Alberto rded Speak language other than Indian at home Not on file 12/01/2023 Want [...] 08/01/2023 4:00 AM EDT Plan of Treatment Health Maintenance Due Date Last Done Comments CT Colonography 1976 Colonoscopy 1976 Colorectal Cancer Screening 1976 FOBT/FIT 1976 Fit-DNA (Cologuard) 1976 Sigmoidoscopy 1976 Depression Screening (12+) 1988 Tobacco Cessation Counseling and Screening (12+) 1988 Hepatitis C Screening 1994 DTAP/TDAP/TD VACCINES (1 - Tdap) 1995 Pneumococcal Vaccine: 0-49 Y ears (2 of 2 - PPSV23) 10/08/2021 08/13/2021 COVID-19 VACCINE (4 - season) 2024 06/22/2022, 06/01/2021, 05/11/2021 Influenza Vaccine (#1) 2025 09/26/2022 Lipid Panel 08/02/2026 08/02/2023 HIV Screening Completed 08/03/2023 Procedures Procedure Name Priority Date/Time Associated Diagnosis Comments HIV 1/2 AG/AB COMBO Routine 08/03/2023 6 :50 AM EDT LIPID PANEL Add-On 08/02/2023 7:18 AM EDT from Last 3 Months or Most Recently Relevant to Health Maintenance Results * HIV 1/2 AG/AB Combo (08/03/2023 6:50 AM EDT) HIV-1 P24 Antigen Nonreactive Nonreactive 08/03/2023 11:20 AM EDT [facility] Comment: The Combo HIV procedure is [...] Bragg APRN LAB BLOOD ORDERABLES Final Result [facility] [address] [place] [address], [facility] [phone] * (ABNORMAL) Lipid panel (08/02/2023 7:18 AM EDT) Triglycerides 98 0 - 249 mg/dL 08/02/2023 10:14 AM EDT [facility] Cholesterol 113 0 - 199 mg/dL 08/02/2023 10:14 AM EDT [facility] Comment: 200 to 239 mg/dL = Moderate (borderline) >239 mg/dL = High HDL Cholesterol 25(L) >=40 mg/dL 08/02/2023 10:14 AM EDT [facility] Comment: >=60 mg/dL = Desirable <40 mg/dL = Increased Risk All other components are listed individually or are calculations VLDL Cholesterol 19.6 5 - 40 mg/dL 08/02/2023 10:14 AM EDT [facility] Cholesterol/HDL ratio 4.5(H) 0.0 - 3.2 08/02/2023 10:14 AM EDT [facility] LDl/HDL Ratio 3 0 - 4 08/02/2023 10:14 AM EDT [facility] RISK COMP 5 08/02/2023 10:14 AM EDT [facility] LDL Cholesterol, Calculated 68 0 - 99 mg/dL 08/02/2023 10:14 AM T [facility] Blood Venipuncture / Unknown 08/02/2023 7:18 AM EDT 08/02/2023 7:24 AM EDT Jeremías Rizzo APRN LAB BLOOD ORDERABLES Final Result Performing Organization Address City/State/[facility] Co de Phone Number [facility] [address] [phone] from Last 3 Months or Most Recently Relevant to Health [place] [address] Advance Directives For more information, please contact: [phone] * Full Code (Latest Code Status on File) Date Activated Date Inactivated Comments 07/31/2023 11:45 PM 08/07/2023 2:02 PM -Attempt Re suscitation if person has no pulse and is not breathing. -If no pulse or not breathing attempt CPR/CODE. -Call Rapid Response if patient is in distress. Healthcare Agents on File Name Relationship Healthcare Agent [facility] p Communication January Leon Significant Other First Alternat e Healthcare Decision-Maker [employer] Brother Second Alternate Healthcare Decision-Maker Care Teams Casing Operator Relationship Specialty Start Date End Date Alexys Anderson MD [address] [place] [id number] PCP - General Family Medicine 08/07/23
--- OUTSIDE RECORDS SUMMARY | 2025-05-26 14:17 | XMS_ITS | Clinical Summary ---
Author Organization [facility] Address [address] [id number] Care Team Providers Care Treasurer Name Role Phone Jack Salmeron APRN Primary Care Provider [phone] Allergies No known active allergies Medications buprenorphine-na loxone (Suboxone) 8-2 MG SL tablet 11/24/2020 Active lisinopril-hydro CHLOROthiazide 20-12.5 MG tablet TAKE 1 TABLET DAILY. 11/24/2020 Active Active Problems Problem Noted Date Diagnosed Date Hypertension 11/24/2020 CKD (chronic kidney disease) stage 4, GFR 15-29 ml/min 11/16/2020 Immunizations Immunization Administration Dates Next Due Influenza, injectable, quadrivalent, preservativ e free 10/04/2020 Family History Medical History Relation Name Comments Atrial fibrillation Father Hypertension Father Hypertension Mother Relation Name Status Comments Father Mother Social History Tobacco Use Types Packs/Day Years Used Date Smoking Tobacco: Every Day Smokeless Tobacco: Never Sex and Gender Information Value Date Recorded Sex Assigned at Not on file Legal Sex Male 6:53 PM EDT Gender Identity Not on file Sexual Orientation Not on file Plan of Treatment Health Maintenance Due Date Last Done Comments [facility]-Depression Screening 1976 [facility]-Infant/Child/Adol SDOH Screenings 1976 [facility]- SDOH Screenings 1994 [facility]-Adult SDOH Screenings 1994 [facility]-DTaP,Tdap,and Td Vaccine s (1 - Tdap) 1995 [facility]-Hepatitis B Vaccines (3 of 3 - Hep B Twinrix 3-dose series) 06/08/2020 01/09/2020, 11/21/2018 CT Colonography 2021 Colonoscopy 2021 FIT-DNA 2021 FIT 2021 FOBT 2021 Sigmoidoscopy 2021 [facility]-Colorectal Cancer Screening 2021 [id number] Vaccine ( season) 2024 06/22/2022, 06/01/2021, 05/11/2021 [facility]-Influenza Vaccine (#1) 07/21/202509/26, 10/07/2021, 10/04/2020 [facility]-Zoster Vaccines (1 of 2) 2026 [facility]-Hepatitis A Vaccines Aged Out 020, 11/21/2018 No longer eligible based on patient's age to complete this topic [facility]-Pneumococcal Vaccine: Pediatrics (0 to 5 Years) and At-Risk Patients (6 to 49 Years) Aged Out 08/13/2021 No longer eligible b ased on patient's age to complete this topic HPV Vaccines Aged Out No longer eligi ble based on patient's age to complete this topic [facility]-HIB Vaccines Aged Out No longer e ligible based on patient's age to complete this topic [facility]-IPV Vaccines Aged Out No longer e ligible based on patient's age to complete this topic [facility]-Rotavirus Vaccines Aged Out No lo nger eligible based on patient's age to complete this topic Additional Health Concerns Infection Onset Date Last Indicated MRSA Comment:Pt positve for MRSA from an MDRT 09/28/2020 04/13/2021 Insurance Care Teams Treasurer Relationship Specialty Start Date End Date Jack Salmeron APRN [address] [place] [address] PCP - General 04/02/21
[2025-05-26 14:23] LABS: Microscopic, Urine URINE MICROSCOPIC (MICROSCOPIC)
[2025-05-26 15:01] LABS: Hematocrit 35.6 % (42.0-52.0); Hemoglobin 11.0 g/dL (14.1-18.0); Immature Granulocytes % 0.4 %; Mean Corpuscular HGB Conc 30.9 g/dL (31.8-35.4); Mean Corpuscular Hemoglobin 27.9 pg (27.0-31.2); Mean Corpuscular Volume 90.4 fl (80-94); Nucleated Red Blood Cells % 0 %; Platelet Count 269 K/mm3 (142-424); Red Blood Count 3.94 M/mm3 (4.60-6.20); Red Cell Distribution Width-SD 51.7 fL; White Blood Count 12.5 K/mm3 (4.8-10.8)
[2025-05-26 15:12] LABS: Bilirubin,Urine Negative (Negative); Color,Urine YELLOW (Yellow); Glucose,Urine (UA) Negative (Negative); Ketones,Urine Negative (Negative); Leukocyte Esterase,Urine Negative (Negative); PH,Urine 6.0 (5.0-8.5); Protein,Urine 3+ (Negative); Specific Gravity, Urine >= 1.030 (1.005-1.030); Urobilinogen,Urine 0.2 EU/dl (0.2)
[2025-05-26 15:26] LABS: Albumin Level 4.0 g/dl (3.5-5.0); Anion Gap 17.9 mEq/L (5-15); Blood Urea Nitrogen 41 mg/dl (9-20); Calcium 8.9 mg/dl (8.4-10.2); Carbon Dioxide 21 mmol/L (22.0-30.0); Chloride 103 mmol/L (98-107); Creatinine,Serum 3.10 mg/dl (0.66-1.25); Estimated Glomerular Filt Rate 22 ml/min (>60); GFR (African American) 26 ML/MIN (>60); Glucose 72 mg/dl (74-100); Phosphorous 4.4 mg/dl (2.5-4.5); Potassium 4.9 mmoL/L (3.5-5.1); Sodium 137 mmol/L (136-145)
[2025-05-26 15:41] LABS: RBC,Urine Occasional #/hpf (0-3); WBC,Urine Occasional #/hpf (0-3)
[2025-05-26 15:42] LABS: Squamous Epithelial Cell,Urine Occasional #/hpf (0-5)
== END 2025-05-26 23:59 | disposition home or self-care (01) ==
LOC: LAB 14:15
PROVIDERS: PCP Family Medicine; Visit Provider Student in an Organized Health Care Education/Training Program
DX: N18.32 Chronic kidney disease, stage 3b (principal)
CPT/HCPCS: 36415; 80069; 81001; 82570; 84156; 85025

== ENCOUNTER 2025-07-03 14:48 | Outpatient (CLI) | payer MEDICARE, SELFPAY ==
[2025-07-03 18:11] LABS: Albumin Level 4.2 g/dl (3.5-5.0); Chloride 109 mmol/L (98-107); Potassium 5.5 mmoL/L (3.5-5.1); Sodium 137 mmol/L (136-145)
[2025-07-03 18:13] LABS: Alanine Aminotransferase 13 U/L (12-78); Anion Gap 15.5 mEq/L (5-15); Aspartate Amino Transferase 26 U/L (17-59); Blood Urea Nitrogen 43 mg/dl (9-20); Carbon Dioxide 18 mmol/L (22.0-30.0); Estimated Glomerular Filt Rate 15 ml/min (>60); GFR (African American) 18 ML/MIN (>60)
[2025-07-03 18:14] LABS: Albumin/Globulin Ratio 1.3 (1.1-1.8); Alkaline Phosphatase 163 U/L (38-126); Bilirubin,Total 0.5 mg/dl (0.2-1.3); Calcium 9.6 mg/dl (8.4-10.2); Globulin 3.2 g/dL (1.3-3.2); Glucose 78 mg/dl (74-100); Iron 141 ug/dL (49-181); Total Protein,Serum 7.4 g/dl (6.3-8.2)
[2025-07-03 18:22] LABS: Creatinine,Serum 4.20 mg/dl (0.66-1.25)
[2025-07-03 18:24] LABS: Total Iron Binding Capacity 268 ug/dL (261-462)
[2025-07-03 18:49] LABS: Ferritin 17.3 ng/ml (17.9-464)
--- OUTSIDE RECORDS SUMMARY | 2025-07-07 14:52 | XMS_ITS | Clinical Summary ---
Author Organization [facility] Address [address] [id number] Care Team Providers Care Molder Labels Name Role Phone Jack Salmeron APRN Primary Care Provider [phone] Allergies No known active allergies Medications buprenorphine-na [...] Date Last Done Comments [facility]-Depression Screening 1976 [facility]-/Child/Adol SDOH Screenings 1976 [facility]- SDOH Screenings 1994 [facility]-Adult SDOH Screenings 1994 [facility]-DTaP,Tdap,and Td Vaccine s (1 - Tdap) 1995 [facility]-Hepatitis B Vaccines (3 of 3 - Hep B Twinrix 3-dose series) 06/08/2020 01/09/2020, 11/21/2018 CT Colonography 2021 Colonoscopy 2021 FIT-DNA 2021 FIT 2021 FOBT 2021 Sigmoidoscopy 2021 [facility]-Colorectal Cancer Screening 2021 [id number] Vaccine ( season) 2024 06/22/2022, 06/01/2021, 05/11/2021 [...] an MDRT 09/28/2020 04/13/2021 Insurance Care Teams Molder Labels Relationship Specialty Start Date End Date Jack Salmeron APRN [address] [place] [address] PCP - General 04/02/21
--- OUTSIDE RECORDS SUMMARY | 2025-07-07 14:52 | XMS_ITS | Clinical Summary ---
Author Organization [employer] ([place], [place], [place], [place]) Address [address] [place] [address] Care Team Providers Care Integration Director Name Role Phone Alexys Andesron MD Primary Care Provider + [phone] Allergies No known active allergies Medications traZODone [...] Date Alberto rded Speak language other than [place]guillan at home Not on file 12/01/2023 Want [...] Antigen Nonreactive Nonreactive 08/03/2023 11:20 AM EDT [facility] Comment: The Combo HIV procedure [...] Bragg APRN LAB BLOOD ORDERABLES Final Result [facility] [address] [place] [address], [facility] [phone] * (ABNORMAL) Lipid panel (08/02/2023 7:18 AM EDT) Triglycerides 98 0 - 249 mg/dL 08/02/2023 10:14 AM EDT [facility] Cholesterol 113 0 - 199 mg/dL 08/02/2023 10:14 AM EDT [facility] Comment: 200 to 239 mg/dL = Moderate (borderline) >239 mg/dL = High HDL Cholesterol 25(L) >=40 mg/dL 08/02/2023 10:14 AM EDT [facility] Comment: >=60 mg/dL = Desirable <40 mg/dL = Increased Risk All other components are listed individually or are calculations VLDL Cholesterol 19.6 5 - 40 mg/dL 08/02/2023 10:14 AM EDT [facility] Cholesterol/HDL ratio 4.5(H) 0.0 - 3.2 08/02/2023 10:14 AM EDT [facility] LDl/HDL Ratio 3 0 - 4 08/02/2023 10:14 AM EDT [facility] RISK COMP 5 08/02/2023 10:14 AM EDT [facility] LDL Cholesterol, Calculated 68 0 - 99 mg/dL 08/02/2023 10:14 AM T [facility] Blood Venipuncture / Unknown 08/02/2023 7:18 AM EDT 08/02/2023 7:24 AM EDT Jeremías Rizzo APRN LAB BLOOD ORDERABLES Final Result Performing Organization Address City/State/[facility] Co de Phone Number [facility] [address] [phone] from Last 3 Months or Most Recently Relevant to Health Maintenance Insurance Advance Directives For more information, please contact: [phone] * Full Code (Latest Code Status on File) Date Activated Date Inactivated Comments 07/31/2023 11:45 PM 08/07/2023 2:02 PM -Attempt Re suscitation if person has no pulse and is not breathing. -If no pulse or not breathing attempt CPR/CODE. -Call Rapid Response if patient is in distress. Healthcare Agents on File Name Relationship Healthcare Agent [facility] p Communication January Leon Significant Other First Alternat e Healthcare Decision-Maker [employer] Brother Second Alternate Healthcare Decision-Maker Care Teams Integration Director Relationship Specialty Start Date End Date Alexys Anderson MD [address] [place] [id number] PCP - General Family Medicine 08/07/23
--- OUTSIDE RECORDS SUMMARY | 2025-07-07 14:52 | XMS_ITS | Referral Summary ---
Author Organization [employer] ([place], [place], [place], [place]) Address [address] [place] [address] Care Team Providers Care Application Lead Name Role Phone Alexys Anderson MD Primary Care Provider + [phone] Allergies No known active allergies Medications traZODone [...] Date Alberto rded Speak language other than Botswanan at home Not on file 12/01/2023 Want [...] AG/AB Combo (08/03/2023 6:50 AM EDT) Pathologist [facility] HIV-1 P24 Antigen Nonreactive Nonreactive 08/03/2023 11:20 AM EDT [facility] Comment: The Combo HIV procedure [...] BLOOD ORDERABLES Final Result Performing Organization Address City/State/[facility] Co de Phone Number [facility] [address] [phone] * (ABNORMAL) Lipid panel (08/02/2023 7:18 AM EDT) [facility] Triglycerides 98 0 - 249 mg/dL 08/02/2023 10:14 AM EDT [facility] Cholesterol 113 0 - 199 mg/dL 08/02/2023 10:14 AM EDT [facility] Comment: 200 to 239 mg/dL = Moderate (borderline) >239 mg/dL = High HDL Cholesterol 25(L) >=40 mg/dL 08/02/2023 10:14 AM EDT [facility] Comment: >=60 mg/dL = Desirable <40 mg/dL = Increased Risk All other components are listed individually or are calculations VLDL Cholesterol 19.6 5 - 40 mg/dL 08/02/2023 10:14 AM EDT [facility] Cholesterol/HDL ratio 4.5(H) 0.0 - 3.2 08/02/2023 10:14 AM EDT [facility] LDl/HDL Ratio 3 0 - 4 08/02/2023 10:14 AM EDT [facility] RISK COMP 5 08/02/2023 10:14 AM EDT [facility] LDL Cholesterol, Calculated 68 0 - 99 mg/dL 08/02/2023 10:14 AM EDT [facility] Blood Venipuncture / Unknown 08/02/2023 7:18 AM EDT 08/02/2023 7:24 AM EDT Jeremías Rizzo [employer] LAB BLOOD ORDERABLES Final Result [facility] [address] [phone] from Last 3 Months or Most Recently Relevant to Health Maintenance [facility] Advance Directives For more information, please contact: [phone] * Full Code (Latest Code Status on [...] Brother Second Alternate Healthcare Decision-Maker Care Teams Application Lead Relationship Specialty Start Date End Date Alexys Anderson MD [address] [place] [id number] PCP - General Family Medicine 08/07/23
== END 2025-07-03 23:59 ==
LOC: LAB.DROPOF 07-07 14:49
PROVIDERS: PCP Family Medicine; Visit Provider Family Medicine
DX: I12.9 Hypertensive chronic kidney disease with stage 1 through stage 4 chronic kidney disease, or unspecified chronic kidney disease (principal); N18.9 Chronic kidney disease, unspecified; G25.81 Restless legs syndrome
CPT/HCPCS: 80053; 82728; 83540; 83550

== ENCOUNTER 2025-09-03 15:41 | Emergency (ER) | payer MEDICARE, SELFPAY ==
--- NOTE | 2025-09-03 15:50 | ED_ITS ---
<Statement entered by Gaurav Carlson DO - 09/04/25 03:03> I was consulted by the MAKEDA, and we discussed the complexity of problems being addressed. I approved the treatment and management plan for this patient's care in the emergency department, thus performing a substantive portion of the medical decision making. aGurav Carlson DO Discharge Plan Disposition Patient Disposition: Home, Self-Care Condition: Good Prescriptions Prescriptions: New amoxicillin-pot clavulanate 875-125 mg tablet 1 tab PO BID 7 Days Qty: 14 0RF No Action buprenorphine-naloxone 8-2 mg tablet, sublingual 2 tab SL DAILY Rx Instructions: verified with [facility] fluticasone propion-salmeterol [Advair Diskus] 250-50 mcg/dose blister with device 1 inh inhalation BID Qty: 60 2RF omeprazole 40 mg capsule,delayed release(DR/EC) 40 mg PO DAILY 90 Days Qty: 90 3RF Rx Instructions: swallow whole; do not crush, chew, dissolve, cut, break metoprolol succinate 25 mg tablet extended release 24 hr 25 mg PO DAILY 30 Days Qty: 90 3RF albuterol sulfate 0.63 mg/3 mL solution for nebulization 0.63 mg inhalation Q6H PRN (Reason: shortness of breath or wheezing) Qty: 90 2RF lidocaine [Lidocaine Pain Relief] 4 % adhesive patch,medicated topical methylprednisolone [Medrol (Dejon)] 4 mg tablets,dose pack See Rx Instructions PO PER PKG DIR Qty: 21 0RF Rx Instructions: PO PER PKG DIR hydroxyzine pamoate 25 mg capsule See Rx Instructions .ROUTE .COMPLEX Qty: 90 2RF Dose Instruction: TAKE 1 CAPSULE BY MOUTH 3 TIMES A DAY NEEDED FOR ITCHING Rx Instructions: TAKE 1 CAPSULE BY MOUTH 3 TIMES A DAY NEEDED FOR ITCHING varenicline tartrate [Chantix] 0.5 mg tablet 0.5 mg PO DIRECTED Qty: 30 0RF Rx Instructions: take 1 tablet by mouth daily aspirin 81 mg tablet,delayed release (DR/EC) 81 mg PO DAILY Veltassa 8.4 gram powder in packet 8.4 g PO DAILY gabapentin 300 mg capsule 300 mg PO BID Qty: 60 2RF gabapentin 100 mg capsule 100 mg PO HS Qty: 30 2RF lorazepam 1 mg tablet 1 mg PO DAILY PRN (Reason: anxiety) Qty: 30 0RF clindamycin HCl [Cleocin HCl] 300 mg capsule 300 mg PO Q8H 10 Days Qty: 30 0RF lidocaine HCl [Lidocaine Viscous] 2 % solution 1 applic mucous membrane BID PRN (Reason: pain) Qty: 100 0RF escitalopram oxalate 20 mg tablet See Rx Instructions .ROUTE .COMPLEX Qty: 90 2RF Dose Instruction: TAKE ONE TABLET BY MOUTH ONCE A DAY Rx Instructions: TAKE ONE TABLET BY MOUTH ONCE A DAY albuterol sulfate 90 mcg/actuation HFA aerosol inhaler See Rx Instructions .ROUTE .COMPLEX Qty: 8.5 2RF Dose Instruction: INHALE 2 PUFFS BY MOUTH EVERY 4 HOURS NEEDED FOR SHORTNESS OF BREATH Rx Instructions: INHALE 2 PUFFS BY MOUTH EVERY 4 HOURS NEEDED FOR SHORTNESS OF BREATH loratadine 10 mg tablet See Rx Instructions .ROUTE .COMPLEX Qty: 90 1RF Dose Instruction: TAKE ONE TABLET BY MOUTH ONCE A DAY Rx Instructions: TAKE ONE TABLET BY MOUTH ONCE A DAY amlodipine [Norvasc] 5 mg tablet 5 mg PO DAILY Qty: 90 2RF hydralazine 25 mg tablet 25 mg PO TID Qty: 90 2RF ropinirole 2 mg tablet See Rx Instructions .ROUTE .COMPLEX Qty: 60 3RF Dose Instruction: TAKE 1 TABLET BY MOUTH 2 TIMES A DAY Rx Instructions: TAKE 1 TABLET BY MOUTH 2 TIMES A DAY lisinopril 2.5 mg tablet 2.5 mg PO DAILY Qty: 30 2RF atorvastatin 10 mg tablet 10 mg PO HS Referrals Follow up/Referrals: Provider,Referral, MD [Primary Care Provider, Medical] - See instructions Activity Restrictions/Add. Instructions Additional Instructions/Restrictions: Please return to the emergency department with any worsening signs or symptoms. Please follow-up with your dentist in the upcoming days. Please take your antibiotic medication as prescribed. Please note that this dental procedure/dental block that we performed to the emergency department may result in numbness and tingling for the next 5 to 6 hours on the right side of your face and nose. Clinical Impressions Clinical Impression: Pain due to dental trauma Instructions Patient Instructions: DI for Dental Pain, DI for Tooth Decay Print Language Print Language: Irish Discharge ED Provider: Gaurav Carlson Adult [facility] General Chief complaint: Dental/Oral Stated complaint: broken tooth off Time Seen by Provider: 09/03/25 15:44 Mode of Arrival: Ambulatory Source of Information: Patient Limitations: No Limitations History of Present Illness HPI narrative: 50-year-old male presents emergency department for a broken tooth , patient states that on his right side upper row of teeth, he endorses a tooth breaking off , after he ate frozen pizza last week, patient states that he had not swallowed the tooth, has the tooth at home, he has been trying to get into his dentist, but had persistent pain ever since the incident. Patient denies any fever chills chest pain shortness breath nausea vomiting constipation diarrhea patient states he has been taking Tylenol, and he cannot take NSAIDs , due to kidney disease , patient is a current smoker, denies any alcohol or drug use, patient states that he does have a dental appointment follow-up tomorrow. Other past medical history consistent with COPD, insomnia, RLS, history of iron deficiency anemia, HILLARY, MDD, PKD, CKD stage IV, hypertension, T2DM. Initial triage vitals unremarkable. Please note that above description of symptoms, in this electronic medical record under categorization of recalled from ER triage doctor by RN are reflective of an initial nursing assessment, however, is not reflective of my full history and physical exam that was personally taken and clarified. Consequentially, this preceding description of symptoms, which may include the patient's categorized chief complaint in the EMR, do not reflect my personal clinical impression, and the ultimate description of history of present illness and patient stated complaints should be deferred to this section of the note. Unless stated otherwise or congruent with this section of the note, additional signs, symptoms, or incongruence should be interpreted as inaccurate with my clinical impression. Onset (ago): week(s) Related Data Home Medications ?Medication ?Instructions ?Recorded ?Confirmed buprenorphine 8 mg-naloxone 2 mg 2 tab sublingual BARBARA Y Substance 04/17/20 09/02/25 sublingual tablet Use Disorder aspirin 81 mg tablet,delayed 81 mg PO DAILY 09/18/23 1 release atorvastatin 10 mg tablet 10 mg PO HS 01/22/25 5 lidocaine 4 % topical patch patch topical 02/06/25 (Lidocaine Pain Relief) patiromer calcium sorbitex 8.4 8.4 g PO DAILY 04/10/25 09/02/25 gram oral powder packet (Veltassa) Previous Rx's ?Medication ?Instructions ?Recorded fluticasone 250 mcg-salmeterol 50 1 inh inhalation BID #60 ea 10/23/24 mcg/dose blistr powdr for inhalation (Advair Diskus) omeprazole 40 mg capsule,delayed 40 mg PO DAILY 90 day s #90 caps 10/23/24 release metoprolol succinate 25 mg 25 mg PO DAILY 30 days #90 tabs 01/17/25 tablet,extended release 24 hr escitalopram oxalate 20 mg tablet See Rx Instructions .Route 04/04/25 .COMPLEX #90 tabs albuterol sulfate 90 mcg/actuation See Rx Instructions .Route 04/15/25 aerosol inhaler .COMPLEX #8.5 grams albuterol sulfate 0.63 mg/3 mL 0.63 mg (3 mL) inhalati on Q6H PRN 04/17/25 solution for nebulization shortness of breath or wheez ing #90 mL loratadine 10 mg tablet See Rx Instructions .Route 0 06/02/25 .COMPLEX #90 tabs amlodipine 5 mg tablet (Norvasc) 5 mg PO DAILY #90 tab s 06/09/25 hydralazine 25 mg tablet 25 mg PO TID #90 tabs gabapentin 100 mg capsule 100 mg PO HS #30 caps gabapentin 300 mg capsule 300 mg PO BID #60 caps 07/03 lorazepam 1 mg tablet 1 mg PO DAILY PRN anxiety #3 0 tabs 07/03/25 ropinirole 2 mg tablet See Rx Instructions .Route 0 07/22/25 .COMPLEX #60 tabs lisinopril 2.5 mg tablet 2.5 mg PO DAILY #30 tabs hydroxyzine pamoate 25 mg capsule See Rx Instructions .Route 08/27/25 .COMPLEX #90 caps methylprednisolone 4 mg tablets in See Rx Instructions PO PER PKG DIR 08/27/25 a dose pack (Medrol (Dejon)) #21 tabs varenicline tartrate 0.5 mg tablet 0.5 mg PO DIRECT ED #30 tabs 08/27/25 (Chantix) clindamycin HCl 300 mg capsule 300 mg PO Q8H 10 days # 30 caps 09/02/25 (Cleocin HCl) lidocaine HCl 2 % mucosal solution 1 applic mucous mem brane BID PRN 09/02/25 (Lidocaine Viscous) pain #100 mL amoxicillin 875 mg-potassium 1 tab PO BID 7 days #14 t abs 09/03/25 clavulanate 125 mg tablet Allergies Allergy/AdvReac Type Severity Reaction Status Date / Time doxazosin (From Cardura) AdvReac Swelling Verified 09/02/25 15:51 [facility] Disclaimer: The information contained in this section may have been updated after the patient was seen, as this information can be updated by other users. Medical History Cough RLS (restless legs syndrome) ADI (acute kidney injury) Acute hyperkalemia Acute hyperkalemia Elevated brain natriuretic peptide (BNP) level Dyspnea Multifocal pneumonia Severe sepsis Acute hypoxemic respiratory failure Multifocal pneumonia Panic disorder History of pacemaker Altered mental status Atypical pneumonia CHF exacerbation Overdose Acute metabolic encephalopathy Left elbow pain Obesity Neuropathy Obesity Tobacco dependence syndrome URI (upper respiratory infection) Recurrent pneumonia resolved Sinusitis History of pacemaker Polycystic kidney disease Headache Anxiety Gastro-esophageal reflux disease without esophagitis Malignant hypertension Acute bacterial bronchitis Acute upper respiratory infection Bronchitis Edema Laceration of left index finger Obesity Tobacco abuse Smoking cessation discussed Hand fracture, right COPD (chronic obstructive pulmonary disease) Pacemaker Gastroesophageal reflux disease CKD (chronic kidney disease) Bradycardia with 31-40 beats per minute Acute hyperkalemia Patient left without being seen UTI (urinary tract infection) Respiratory failure, acute Acute hyperkalemia Otitis media Obesity Somnolence, daytime, controlled Snoring Pulmonary nodules HTN (hypertension) Edema Chest pain Palpitations URI (upper respiratory infection) Medication refill Hypertensive urgency Bronchitis Elbow contusion Contusion of right hand Surgical History AICD (automatic cardioverter/defibrillator) present No history of previous surgery Family History Other Heart attack Hypertension Social History Smoking Status: Current every day smoker tobacco type: cigarettes packs per day: 1 pack-years: 30 years smoked: 30 second hand exposure: No alcohol intake: never substance use type: former substance user and painkillers current occupational status: employed and other Travel in the last 8 weeks?: None household members: significant other housing: house lives independently: No caffeine: Yes special crystal needs: No agree to transfusion: No Have you lived/traveled outside US in past 30 days?: No Contact w/someone who lives/traveled outside US past 30 days?: No Exposure to someone with infectious disease in past 14 days?: No Do you have a fever (greater than 100.4 F or 38 C)?: No Have you tested positive for COVID-19?: No Exposed to someone with COVID-19 in past 14 days?: No Do you have a sore throat?: No Do you have a cough?: No Do you have any weakness?: No Do you have any diarrhea?: No Are you experiencing any unusual bleeding?: No Do you have any muscle aches/pain?: No Do you have any abdominal pain?: No Are you experiencing loss of taste or smell?: No Other Medical History Have you received the Flu Vaccine for this season: No Have you received the Pneumonia Vaccine: No ROS Obtained: Yes All systems reviewed & no additional complaints except as documented Physical Exam General General appearance: alert and in no apparent distress Head Head exam: atraumatic and normocephalic Eye Eye exam: Present PERRL and EOMI ENT ENT exam: Present normal oropharynx, mucous membranes moist and other (Numerous areas of dental caries, appears to be the patient has a tooth avulsion on his canine versus first premolar on the right. No obvious periodontal or periapical abscess to be amicable to drainage, uvula midline, no oropharyngeal edema or erythema) Neck Neck exam: Present normal inspection Chest Chest inspection: Present normal inspection and symmetric chest wall rise Respiratory Respiratory exam: Present normal lung sounds bilaterally; Absent respiratory distress Cardiovascular Cardiovascular exam: Present regular rate and normal rhythm Abdominal Exam Abdominal exam: Present soft; Absent tenderness Extremities Exam Extremities exam: Present normal inspection Neurological Exam Neurological exam: Present alert and oriented X3 Psychiatric Psychiatric exam: Present normal affect Skin Skin exam: Present warm and dry Medical Decision Making Medical Records Medical records reviewed: Yes I reviewed the patient's medical records. Screening: Per USPSTF and CDC recommendations, given the prevalence of disease in our region, it is our hospital?s policy to screen for HIV and viral Hepatitis for all patients aged 18 and over and those with ongoing risk factors. Tobin Inquiry Pt receiving controlled substance: Yes Tobin was queried for this patient: No Reason not queried -: Emergent pt cond-no time Risks and benefits of using a controlled substance: were discussed with pt by me Vital Signs: 09/03/25 15:52 Temperature 98.0 F Temperature Source Oral Pulse Rate [Radial] 81 Respiratory Rate 18 Blood Pressure [Right Arm] 164/101 H Blood Pressure Mean [Right Arm] 122 Blood Pressure Source [Right Arm] Automatic Cuff Blood Pressure Position [Right Arm] Sitting 02 Sat by Pulse Oximetry 98 Oxygen Delivery Method Room Air Orders (Tests/Meds): ED MEDICATIONS Discontinued Medications Generic Name Dose Route Start Last Admin Trade Name Tatiana PRN Reason Stop Dose Admin Hydrocodone Bitart/Acetaminophen 1 tab 09/03/25 15:48 09/03/25 15:58 Hydrocodone/Apap 5/325 Mg Tablet PO 09/03/25 15:49 1 tab ONCE ONE Administration Lidocaine/Epinephrine 20 ml 09/03/25 16:00 09/03/25 16:01 Lidocaine 1% W/Epi 1:100,000 20ml Vial SQ 09/03/25 16:01 20 ml ONCE ONE Administration Medical Decision Narrative: 50-year-old male presents to the emergency department with dental pain, differential diagnose include but not limited to, tooth avulsion, peridental abscess, periapical abscess, dental caries, pulpitis among others. I along with the attending physician Dr. Aldo cabezas and examined the patient. Will give 5 mg p.o. [place] for pain, and utilize 1% lidocaine with epi, as well as 0.5 of bupivacaine and will perform dental block for analgesia, patient has partial tooth avulsion of the right canine/right premolar in the upper row of teeth. Patient tolerated procedure well, see procedure note for full details, patient had 3 mL of lidocaine 1% with epi and bupivacaine 0.5% injected via infraorbital dental block technique, some mild bleeding after the procedure however hemostasis was achieved no apparent complications. Patient was given strict ED return precautions, recommend dental follow-up, patient states he has follow-up tomorrow, he will keep this appointment, patient voiced understanding and agreement with current treatment plan/discharge plan. I will prescribe the patient 875 mg p.o. twice daily for 7 days. Procedures Nerve Block Nerve Block 1: Time out performed: No Local Anesthetic: lidocaine 1%, bupivacaine 0.5% and with epi Amount of anesthesia used (mL): 3 Side: Right Intraoral Nerve Block: infraorbital Procedure Successful: Yes Patient Tolerated Procedure: well and no complications Complications: none and bleeding Critical Care Critical Care Time Critical Care Time: No
[2025-09-03 15:52] VITALS: BP 164/101; PULSE 81; RESP 18; TEMP 36.7; O2SAT 98; BMI 32.5
--- OUTSIDE RECORDS SUMMARY | 2025-09-03 15:56 | XMS_ITS | Clinical Summary ---
Author Organization [employer] ([place], [place], [place], [place]) Address [address] [place] [address] Care Team Providers Care Test Rack Operator Name Role Phone Alexys Anderson MD Primary Care Provider + [phone] Allergies No known active allergies Medications traZODone [...] Date Alberto rded Speak language other than Icelandic at home Not on file 12/01/2023 Want [...] 0-49 Y ears (2 of 2 - PPSV23, PCV20, or PCV21) 10/08/2021 08/13/2021 COVID-19 VACCINE (4 - season) 2025 06/22/2022, 06/01/2021, 05/11/2021 Influenza Vaccine (#1) 2025 [...] Antigen Nonreactive Nonreactive 08/03/2023 11:20 AM EDT [facility] Comment: The Combo HIV procedure [...] 6:50 AM EDT 08/03/2023 6:58 AM EDT us Eboni Bragg APRN LAB BLOOD ORDERABLES Final Result [facility] [address] [phone] * (ABNORMAL) Lipid panel (08/02/2023 7:18 AM EDT) Triglycerides 98 0 - 249 mg/dL 08/02/2023 10:14 AM EDT [facility] Cholesterol 113 0 - 199 mg/dL 08/02/2023 10:14 AM EDT [facility] Comment: 200 to 239 mg/dL = Moderate (borderline) >239 mg/dL = High HDL Cholesterol 25(L) >=40 mg/dL 08/02/2023 10:14 AM EDT [facility] Comment: >=60 mg/dL = Desirable <40 mg/dL = Increased Risk All other components are listed individually or are calculations VLDL Cholesterol 19.6 5 - 40 mg/dL 08/02/2023 10:14 AM EDT [facility] Cholesterol/HDL ratio 4.5(H) 0.0 - 3.2 08/02/2023 10:14 AM EDT [facility] LDl/HDL Ratio 3 0 - 4 08/02/2023 10:14 AM EDT [facility] RISK COMP 5 08/02/2023 10:14 AM EDT [facility] LDL Cholesterol, Calculated 68 0 - 99 mg/dL 08/02/2023 10:14 AM T [facility] Blood Venipuncture / Unknown 08/02/2023 7:18 AM EDT 08/02/2023 7:24 AM EDT Jeremías Rizzo APRN LAB BLOOD ORDERABLES Final Result Performing Organization Address City/State/[facility] Co de Phone Number [facility] [address] [phone] from Last 3 Months or Most Recently Relevant to Health [place] [address] [facility] Advance Directives For more information, please contact: [phone] * Full Code (Latest Code Status on File) Date Activated Date Inactivated Comments 07/31/2023 11:45 PM 08/07/2023 2:02 PM -Attempt Re suscitation if person has no pulse and is not breathing. -If no pulse or not breathing attempt CPR/CODE. -Call Rapid Response if patient is in distress. Healthcare Agents on File Name Relationship Healthcare Agent [facility] p Communication January Leon Significant Other First Alternat e Healthcare Decision-Maker [place] Brother Second Alternate Healthcare Decision-Maker Care Teams Test Rack Operator Relationship Specialty Start Date End Date Alexys Anderson MD [address] [place] [address] PCP - General Family Medicine 08/07/23
--- OUTSIDE RECORDS SUMMARY | 2025-09-03 15:56 | XMS_ITS | Clinical Summary ---
Author Organization [facility] Address [address] [id number] Care Team Providers Care De Icer Element Winder Name Role Phone Jack Salmeron APRN Primary Care Provider [phone] Allergies No known active allergies Medications buprenorphine-na [...] 2021 Sigmoidoscopy 2021 [facility]-Colorectal Cancer Screening 2021 [id number] Vaccine ( season) 2025 06/22/2022, 06/01/2021, 05/11/2021 [facility]-Influenza Vaccine (#1) 07/21/202509/26, [...] an MDRT 09/28/2020 04/13/2021 Insurance Care Teams De Icer Element Winder Relationship Specialty Start Date End Date Jack Salmeron APRN [address] [place] [id number] PCP - General 04/02/21
--- OUTSIDE RECORDS SUMMARY | 2025-09-03 15:56 | XMS_ITS | Referral Summary ---
Author Organization [facility] ([place], [place], [place], [place]) Address [address] [place] [address] Care Team Providers Care Town Planner Name Role Phone Alexys Anderson MD Primary Care Provider + [phone] Allergies No known active allergies Medications traZODone [...] Date Alberto rded Speak language other than Syriac at home Not on file 12/01/2023 Want [...] AG/AB Combo (08/03/2023 6:50 AM EDT) Pathologist [facility] HIV-1 P24 Antigen Nonreactive Nonreactive 08/03/2023 11:20 AM EDT [facility] Comment: The Combo HIV procedure [...] BLOOD ORDERABLES Final Result Performing Organization Address City/State/[facility] Co de Phone Number [facility] [address] [phone] * (ABNORMAL) Lipid panel (08/02/2023 7:18 AM EDT) [facility] Triglycerides 98 0 - 249 mg/dL 08/02/2023 10:14 AM EDT [facility] Cholesterol 113 0 - 199 mg/dL 08/02/2023 10:14 AM EDT [facility] Comment: 200 to 239 mg/dL = Moderate (borderline) >239 mg/dL = High HDL Cholesterol 25(L) >=40 mg/dL 08/02/2023 10:14 AM EDT [facility] Comment: >=60 mg/dL = Desirable <40 mg/dL = Increased Risk All other components are listed individually or are calculations VLDL Cholesterol 19.6 5 - 40 mg/dL 08/02/2023 10:14 AM EDT [facility] Cholesterol/HDL ratio 4.5(H) 0.0 - 3.2 08/02/2023 10:14 AM EDT [facility] LDl/HDL Ratio 3 0 - 4 08/02/2023 10:14 AM EDT [facility] RISK COMP 5 08/02/2023 10:14 AM EDT [facility] LDL Cholesterol, Calculated 68 0 - 99 mg/dL 08/02/2023 10:14 AM EDT [facility] Blood Venipuncture / Unknown 08/02/2023 7:18 AM EDT 08/02/2023 7:24 AM EDT Jeremías Rizzo MAJOR GIFTS DIRECTOR LAB BLOOD ORDERABLES Final Result [facility] [address] [phone] from Last 3 Months or Most Recently Relevant to Health Maintenance Insurance [employer] [facility] Advance Directives For more information, please contact: [phone] * Full Code (Latest Code Status on [...] Brother Second Alternate Healthcare Decision-Maker Care Teams Town Planner Relationship Specialty Start Date End Date Alexys Anderson MD [address] [place] [id number] PCP - General Family Medicine 08/07/23
[2025-09-03] MEDS: HYDROCODONE/APAP 5/325 MG TABLET 1 TAB PO (15:58)
[2025-09-03] MEDS: LIDOCAINE 1% W/EPI 1:100,000 20ML VIAL 20 ML SQ (16:01)
[2025-09-03 16:34] VITALS: BP 164/101; PULSE 63; RESP 20; TEMP 36.7; O2SAT 98
== END 2025-09-03 16:36 | disposition home or self-care (01) ==
PROVIDERS: Emergency Provider Student in an Organized Health Care Education/Training Program
DX: S02.5XXA Fracture of tooth (traumatic), initial encounter for closed fracture (principal); F17.210 Nicotine dependence, cigarettes, uncomplicated; X58.XXXA Exposure to other specified factors, initial encounter
CPT/HCPCS: 99283; J2004

== ENCOUNTER 2025-09-16 16:27 | Outpatient (CLI) | payer MEDICARE, SELFPAY ==
[2025-09-16 19:19] LABS: Hematocrit 40.5 % (42.0-52.0); Hemoglobin 12.9 g/dL (14.1-18.0); Immature Granulocytes % 0.2 %; Mean Corpuscular HGB Conc 31.9 g/dL (31.8-35.4); Mean Corpuscular Hemoglobin 30.7 pg (27.0-31.2); Mean Corpuscular Volume 96.4 fl (80-94); Nucleated Red Blood Cells % 0 %; Platelet Count 307 K/mm3 (142-424); Red Blood Count 4.20 M/mm3 (4.60-6.20); Red Cell Distribution Width-SD 51.8 fL; White Blood Count 10.1 K/mm3 (4.8-10.8)
[2025-09-16 20:13] LABS: Alanine Aminotransferase 13 U/L (12-78); Albumin Level 3.1 g/dl (3.5-5.0); Albumin/Globulin Ratio 0.8 (1.1-1.8); Alkaline Phosphatase 144 U/L (38-126); Anion Gap 19.9 mEq/L (5-15); Aspartate Amino Transferase 19 U/L (17-59); Bilirubin,Total 0.5 mg/dl (0.2-1.3); Blood Urea Nitrogen 53 mg/dl (9-20); Calcium 9.4 mg/dl (8.4-10.2); Carbon Dioxide 15 mmol/L (22.0-30.0); Chloride 109 mmol/L (98-107); Estimated Glomerular Filt Rate 13 ml/min (>60); GFR (African American) 16 ML/MIN (>60); Globulin 4.1 g/dL (1.3-3.2); Glucose 75 mg/dl (74-100); Potassium 5.9 mmoL/L (3.5-5.1); Sodium 138 mmol/L (136-145); Total Protein,Serum 7.2 g/dl (6.3-8.2)
[2025-09-16 20:30] LABS: Creatinine,Serum 4.70 mg/dl (0.66-1.25)
--- OUTSIDE RECORDS SUMMARY | 2025-09-17 11:55 | XMS_ITS | Clinical Summary ---
Author Organization [employer] ([place], [place], [place], [place]) Address [address] [place] [address] Care Team Providers Care Commercial Pest Control Technician Name Role Phone Alexys Anderson MD Primary Care Provider + [phone] Allergies No known active allergies Medications traZODone [...] Date Alberto rded Speak language other than [place]i at home Not on file 12/01/2023 Want [...] Antigen Nonreactive Nonreactive 08/03/2023 11:20 AM EDT [facility] Comment: The Combo HIV procedure [...] Bragg APRN LAB BLOOD ORDERABLES Final Result [facility] [address] [phone] * (ABNORMAL) Lipid panel (08/02/2023 7:18 AM EDT) Triglycerides 98 0 - 249 mg/dL 08/02/2023 10:14 AM EDT [facility] Cholesterol 113 0 - 199 mg/dL 08/02/2023 10:14 AM EDT [facility] Comment: 200 to 239 mg/dL = Moderate (borderline) >239 mg/dL = High HDL Cholesterol 25(L) >=40 mg/dL 08/02/2023 10:14 AM EDT [facility] Comment: >=60 mg/dL = Desirable <40 mg/dL = Increased Risk All other components are listed individually or are calculations VLDL Cholesterol 19.6 5 - 40 mg/dL 08/02/2023 10:14 AM EDT [facility] Cholesterol/HDL ratio 4.5(H) 0.0 - 3.2 08/02/2023 10:14 AM EDT [facility] LDl/HDL Ratio 3 0 - 4 08/02/2023 10:14 AM EDT [facility] RISK COMP 5 08/02/2023 10:14 AM EDT [facility] LDL Cholesterol, Calculated 68 0 - 99 mg/dL 08/02/2023 10:14 AM T [facility] Blood Venipuncture / Unknown 08/02/2023 7:18 AM EDT 08/02/2023 7:24 AM EDT Jeremías Rizzo APRN LAB BLOOD ORDERABLES Final Result Performing Organization Address City/State/[facility] Co de Phone Number [facility] [address] [phone] from Last 3 Months or Most Recently Relevant to Health [place] [address] [facility] Advance Directives For more information, please contact: [phone] * Full Code (Latest Code Status on File) Date Activated Date Inactivated Comments 07/31/2023 11:45 PM 08/07/2023 2:02 PM -Attempt Re suscitation if person has no pulse and is not breathing. -If no pulse or not breathing attempt CPR/CODE. -Call Rapid Response if patient is in distress. Healthcare Agents on File Name Relationship Healthcare Agent [facility] p Communication January Leon Significant Other First Alternat e Healthcare Decision-Maker [employer] Brother Second Alternate Healthcare Decision-Maker Care Teams Commercial Pest Control Technician Relationship Specialty Start Date End Date Alexys Anderson MD [address] [place] [address] PCP - General Family Medicine 08/07/23
--- OUTSIDE RECORDS SUMMARY | 2025-09-17 11:55 | XMS_ITS | Clinical Summary ---
Author Organization [facility] Address [address] [id number] Care Team Providers Care Fleet Maintenance Manager Name Role Phone Jack Salmeron APRN Primary Care Provider [phone] Allergies No known active allergies Medications buprenorphine-na [...] 2021 Sigmoidoscopy 2021 [facility]-Colorectal Cancer Screening 2021 [id number] Vaccine ( season) 2025 06/22/2022, 06/01/2021, 05/11/2021 [...] an MDRT 09/28/2020 04/13/2021 Insurance Care Teams Fleet Maintenance Manager Relationship Specialty Start Date End Date Jack Salmeron APRN [address] [place] [id number] PCP - General 04/02/21
--- OUTSIDE RECORDS SUMMARY | 2025-09-17 11:55 | XMS_ITS | Referral Summary ---
Author Organization [employer] ([place], [place], [place], [place]) Address [address] [place] [address] Care Team Providers Care Ab Initio Etl Developer Name Role Phone Alexys Anderson MD Primary Care Provider + [phone] Allergies No known active allergies Medications traZODone [...] Date Alberto rded Speak language other than Greenlandic at home Not on file 12/01/2023 Want [...] AG/AB Combo (08/03/2023 6:50 AM EDT) Pathologist [facility] HIV-1 P24 Antigen Nonreactive Nonreactive 08/03/2023 11:20 AM EDT [facility] Comment: The Combo HIV procedure [...] BLOOD ORDERABLES Final Result Performing Organization Address City/State/[facility] Co de Phone Number [facility] [address] [phone] * (ABNORMAL) Lipid panel (08/02/2023 7:18 AM EDT) [facility] Triglycerides 98 0 - 249 mg/dL 08/02/2023 10:14 AM EDT [facility] Cholesterol 113 0 - 199 mg/dL 08/02/2023 10:14 AM EDT [facility] Comment: 200 to 239 mg/dL = Moderate (borderline) >239 mg/dL = High HDL Cholesterol 25(L) >=40 mg/dL 08/02/2023 10:14 AM EDT [facility] Comment: >=60 mg/dL = Desirable <40 mg/dL = Increased Risk All other components are listed individually or are calculations VLDL Cholesterol 19.6 5 - 40 mg/dL 08/02/2023 10:14 AM EDT [facility] Cholesterol/HDL ratio 4.5(H) 0.0 - 3.2 08/02/2023 10:14 AM EDT [facility] LDl/HDL Ratio 3 0 - 4 08/02/2023 10:14 AM EDT [facility] RISK COMP 5 08/02/2023 10:14 AM EDT [facility] LDL Cholesterol, Calculated 68 0 - 99 mg/dL 08/02/2023 10:14 AM EDT [facility] Blood Venipuncture / Unknown 08/02/2023 7:18 AM EDT 08/02/2023 7:24 AM EDT Jeremías Rizzo EQUIPMENT SERVICE TECHNICIAN LAB BLOOD ORDERABLES Final Result [facility] [address] [phone] from Last 3 Months or Most Recently Relevant to Health Maintenance Insurance [facility] Advance Directives For more information, please contact: [phone] * Full Code (Latest Code Status on [...] Brother Second Alternate Healthcare Decision-Maker Care Teams Ab Initio Etl Developer Relationship Specialty Start Date End Date Alexys Anderson MD [address] [place] [id number] PCP - General Family Medicine 08/07/23
== END 2025-09-16 23:59 ==
LOC: LAB.DROPOF 09-17 11:53
PROVIDERS: PCP Family Medicine; Visit Provider Family Medicine
DX: N18.9 Chronic kidney disease, unspecified (principal)
CPT/HCPCS: 80053; 85025